=== PATIENT | male | born 1950 | race Caucasian/White ===

== ENCOUNTER 2019-11-19 17:44 | Outpatient (CLI) | payer MEDICARE, MEDICAID, SELFPAY | END 2019-11-19 17:45 | disposition home or self-care (01) | LOC: LAB 17:46 | PROVIDERS: Family Provider Internal Medicine; PCP Nurse Practitioner Family; Visit Provider Internal Medicine | DX: Z76.89 Persons encountering health services in other specified circumstances (principal) ==

== ENCOUNTER → 2019-11-22 10:41 | Outpatient (BNVA) | payer MEDICARE, MEDICAID, SELFPAY | PROVIDERS: Family Provider Internal Medicine; PCP Nurse Practitioner Family; Visit Provider Nurse Practitioner Family | DX: N50.89 Other specified disorders of the male genital organs (principal) | CPT/HCPCS: 81001 ==

== ENCOUNTER → 2020-03-27 10:58 | Outpatient (BNVA) | payer MEDICARE, MEDICAID, SELFPAY | PROVIDERS: Family Provider Internal Medicine; PCP Nurse Practitioner Family; Visit Provider Internal Medicine Cardiovascular Disease | DX: I50.32 Chronic diastolic (congestive) heart failure (principal); I48.0 Paroxysmal atrial fibrillation; I71.2 Thoracic aortic aneurysm, without rupture; I11.0 Hypertensive heart disease with heart failure | CPT/HCPCS: 80053; 83735; 83880 ==

== ENCOUNTER 2020-08-20 10:17 | Outpatient (CLI) | payer MEDICARE, MEDICAID, SELFPAY ==
[2020-08-20 10:53] LABS: Blood Urea Nitrogen 11 mg/dL (8-23); Glomerular Filtration Rate 111.8 mL/min (90-130)
[2020-08-20] MEDS: iohexol 350 mg/mL 100 mL Btl IV (10:58)
--- NOTE | 2020-08-20 11:00 | CT_ITS ---
WS: [id number] CTA THORACIC TECHNIQUE: Contrast enhanced CTA of the thoracic aorta with coronal and sagittal reformatted images a nd maximum intensity projection (MIP) images. CLINICAL INFORMATION: Thoracic aortic aneurysm COMPARISON: None. DLP: 1432.[address] scans at [facility] use at least one of these dose optimization techniques: automat ed exposure control; mA and/or kV adjustment per patient size (includes targeted exams where dose is matched to clinical indication); or iterative reconstruction. FINDINGS: Aneurysmal ascending thoracic aorta measuring 5.4 CM. Aortic calcification. Coronary calcification. N ormal caliber descending thoracic aorta. Cardiomegaly. Moderate to large fat-containing esophageal hi atal hernia. This is unchanged. No mediastinal or hilar lymphadenopathy. No axillary lymphadenopathy. Mild chronic emphysematous changes. Fibrosis in the lung apices. No acute pulmonary infiltrates. Fatty atrophy of the pancreas. Adrenal glands are normal. Hypertrophic changes thoracic spine. Modera te thoracic kyphosis. CT/CT angio chest [id number] IMPRESSION: 1. Stable ascending thoracic aortic aneurysm measuring 5.6 CM. This is unchang ed. 2. Mild chronic emphysematous changes. No acute pulmonary infiltrates. 3. Moderate to large esophageal hiatal hernia unchanged. 4. No other significant changes from previous.
== END 2020-08-20 10:18 | disposition home or self-care (01) ==
LOC: RADWPI 10:24
PROVIDERS: PCP Nurse Practitioner Family; Visit Provider Internal Medicine Cardiovascular Disease
DX: I71.2 Thoracic aortic aneurysm, without rupture (principal); I50.32 Chronic diastolic (congestive) heart failure; K44.9 Diaphragmatic hernia without obstruction or gangrene
CPT/HCPCS: 71275; 82565; 84520; Q9967

== ENCOUNTER 2020-10-19 17:58 | Inpatient (IN) | payer MEDICARE, MEDICAID, SELFPAY ==
[2020-10-19] VITALS (30 sets, daily range): BP systolic 74–147; BP diastolic 51–100; PULSE 66–202; RESP 14–35; TEMP 36.1–36.2; O2SAT 97–100; BMI 30.5
--- NOTE | 2020-10-19 18:10 | XR_ITS ---
WS: [id number] Exam: XR chest 1V portable [id number] Date/Time of Exam: 10/19/2020 6:30 PM Reason For Exam: chest pain Comparison 10/05/2018. Increasing widespread bilateral infiltrates. The heart is top limits normal size. Right basal pleural effusion has developed since the previous study. An ET tube is noted ending about 3 cm above the car love. The lungs appear to be adequately ventilated. An enteric tube barely enters the stomach. The jessica e-port of the tube is probably in the esophagus. XR/XR chest 1V portable [id number] IMPRESSION: 1. Increasing infiltrates throughout both lungs. Small right basal pleural effu ray. 2. ET tube in place appearing to be in satisfactory position. 3. Enteric tube in place barely entering the stomach. The side-port of the tube is probably in the distal esophagus. The tube should be advanced another 5 to 6 cm for optimal position.
--- NOTE | 2020-10-19 18:11 | ECG_ITS ---
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1950 Requested By: Ayden Serrano I Order Number: [id number] Reading MD: RICARDA RAPHAEL Measurements Intervals [place] Rate: 133 P: 68 ME: 155 QRS: 71 QRSD: 102 T: 246 QT: 269 QTc: 401 Interpretive Statements SINUS TACHYCARDIA WITH FREQUENT VENTRICULAR PREMATURE COMPLEXES IN A BIGEMINAL PATTERN SEPTAL MYOCARDIAL INFARCTION , OF INDETERMINATE AGE [40+ ms Q WAVE IN V1/V2] Bigeminal PVCs Compared to ECG 04/20/2018 19:50:00 Ventricular premature complex(es) now present Electronically Signed On 10-19-2020 21:23:13 RESEARCH/PROGRAM DIRECTOR by RICARDA RAPHAEL [id number]
[2020-10-19 18:22] LABS: Basophils % 0.3 %; Eosinophils # 0.1 10^3/uL (0.0-0.8); Eosinophils % 0.4 %; Hematocrit 42.9 % (42.0-52.0); Hemoglobin 13.3 g/dL (11.7-16.6); Lymphocytes # 2.5 10^3/uL (0.8-4.8); Lymphocytes % 22.8 %; Mean Corpuscular Hemoglobin 28.8 pg (28.0-34.0); Mean Corpuscular Volume 92.9 fL (80-94); Mean Platelet Volume 11.5 fL (7.4-10.4); Neutrophils # 7.49 10^3/uL (1.8-7.7); Neutrophils % 67.1 %; Nucleated Red Blood Cells % 0 %; Platelet Count 363 10^3/cmm (130-400); Red Blood Count 4.62 10^6/uL (4.1-5.3); White Blood Count 11.2 10^3/uL (4.0-10.0)
--- NOTE | 2020-10-19 18:23 | PM.HP ---
Providers/Chief Complaint Primary Care Provider: NETTE Segovia Chief Complaint: CHEST PAIN History of Present Illness Riki Polanco is a 70 year old male Review of Systems ENMT: Denies: enlarged tonsils All/Imm: Denies: acute wheezing Medications/Allergies Home Medications Medication Instructions Recorded Confirmed Last Taken Type aspirin 81 mg tablet,delayed 81 mg PO DAILY 11/01/19 07/31/20 Unknown History release apixaban 5 mg tablet 5 mg PO BID #180 tab 07/31/20 07/31/20 Unknown Rx bumetanide 1 mg tablet 1 mg PO BID #180 tab 07/31/20 07/31/20 Unknown Rx carvedilol 6.25 mg tablet 6.25 mg PO BID #180 tab 07/31/20 07/31/20 Unknown Rx lisinopril 5 mg tablet 5 mg PO DAILY #90 tab 07/31/20 07/31/20 Unknown Rx potassium chloride 10 mEq 10 meq PO BID #180 cap 07/31/20 07/31/20 Unknown Rx capsule,extended release spironolactone 25 mg tablet 25 mg PO DAILY #90 tab 07/31/20 07/31/20 Unknown Rx Allergies Allergy/AdvReac Type Severity Reaction Status Date / Time No Known Allergies Allergy Verified 11/22/19 10:35 PFSH Acute PFSH: Medical History Afib Congestive heart failure Hypertension Scrotal edema Thoracic aortic aneurysm Surgical History Hx of cataract surgery Family History Other CAD (coronary artery disease) Social History Smoking and tobacco status: never smoked Alcohol intake: never Adopted: No Caregiver/support person: No Lives independently: Yes Marital status: Single Current occupational status: retired History of recent travel: No Vitals/I&O/Wt Last Vital Signs Pulse 128 H 10/19/20 18:17 Resp 32 H 10/19/20 18:17 BP 147/100 10/19/20 18:17 Pulse Ox 100 10/19/20 18:17 Weight last 48 hrs Weight 225 lb Data : 10/19/20 18:00 10/19/20 18:00 Coding Level of Care Code Acute Profile 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
[2020-10-19] MEDS: amiodarone 50 mg/mL SDV 3 mL 150 MG IVP (18:30)
[2020-10-19 18:34] LABS: INR 1.28 (0.8-1.2)
[2020-10-19] MEDS: succinylcholine 20 mg/mL SDV 10mL 200 MG IVP (18:42)
[2020-10-19 18:46] LABS: ABG PCO2 52.1 mmHg (35-45); ABG PH Result 7.32 (7.35-7.45); Alveolar-Arterial Oxygen Gradi 60.2 mmHg (5-10); Arterial Blood Gas Hematocrit 43.2 % (42-52); Base Excess ABG 0.1 mmol/L (-2.0-2.0); Blood Gas Allen Test Pos; Blood Gas Operator Identificat GD; Blood Gas Sample Site Radial, left; Blood Gas Sample Type Arterial; HCO3 ABG 27.1 mmol/L (22-26); HGB O2 Sat 97.9 % (95-100); Ionized Calcium Level - ABG 1.1 mmol/L (1.1-1.4); Methemoglobin 0.8 % (0.4-1.5); Oxygen Device NRB; Oxygen Saturation ABG 99.7; Potassium Level - ABG 4.1 mmol/L (3.5-5.0); Total Hemoglobin 14.1 g/dL (14-18)
--- NOTE | 2020-10-19 18:46 | P.CONIM_ITS ---
Providers/Reason For Consult Consulting Physican/Specialty*: Cardiology Reason for Consult*: Ventricle tachycardia requiring electrical cardioversion Requesting Lisethcian: Dr. Serrano Attending Physician: Dr. Arcos Primary Care Provider: NETTE Segovia History of Present Illness History of Present Illness Riki Polanco is a 70 year old male presented to ER through EMS with agitation shortness of breath hypoxia lower extremity edema and multiple PVCs on the strip. Upon arrival patient rhythm degenerated into ventricle tachycardia. He was shocked out of the rhythm and amiodarone was started. We have been asked to see the patient post shock EKG was not consistent sinus tachycardia, PACs and frequent PVCs possible anterior old myocardial infarction or lead placement with poor R wave progression in the anterior leads. No other significant ST elevation noted. Labs are pending. I examined the patient in the ER he was not able to breathe, he is sitting in the bed and combative. Physical examination is consistent with pulmonary edema. Due to severe agitation patient has not been able to use BiPAP therefore he will be intubated. Currently he is denying chest pain. Patient is not able to give any more history his past medical history significant for chronic atrial fibrillation on anticoagulation diastolic heart failure no significant coronary artery disease as per angiogram in 2018 moderate aortic stenosis, ascending aortic aneurysm 5.6 cm by last CTA in July [address] Flanagan. Meds/Allergies Home Medications and Allergies Home Medications Medication Instructions Recorded Confirmed Last Taken Type aspirin 81 mg tablet,delayed 81 mg PO DAILY 11/01/19 07/31/20 Unknown History release apixaban 5 mg tablet 5 mg PO BID #180 tab 07/31/20 07/31/20 Unknown Rx bumetanide 1 mg tablet 1 mg PO BID #180 tab 07/31/20 07/31/20 Unknown Rx carvedilol 6.25 mg tablet 6.25 mg PO BID #180 tab 07/31/20 07/31/20 Unknown Rx lisinopril 5 mg tablet 5 mg PO DAILY #90 tab 07/31/20 07/31/20 Unknown Rx potassium chloride 10 mEq 10 meq PO BID #180 cap 07/31/20 07/31/20 Unknown Rx capsule,extended release spironolactone 25 mg tablet 25 mg PO DAILY #90 tab 07/31/20 07/31/20 Unknown Rx Allergies Allergy/AdvReac Type Severity Reaction Status Date / Time No Known Allergies Allergy Verified 11/22/19 10:35 Current Medications Current Medications Generic Name Dose Route Start Last Admin Trade Name Chiragq PRN Reason Stop Dose Admin Amiodarone HCl 900 mg/ 518 mls @ 0 mls/hr 10/19/20 18:30 10/19/20 18:38 Dextrose/ IV Miscellaneous IV 1 mg/min Supplies .Q0M STEFAN 34.5 mls/hr Administration Protocol Per Protocol PFSH Acute PFSH: Medical History (Updated 10/19/20 @ 18:59 by Maribeth Graf MD) Afib Congestive heart failure Hypertension Scrotal edema Thoracic aortic aneurysm Surgical History Hx of cataract surgery Family History Other CAD (coronary artery disease) Social History Smoking and tobacco status: never smoked Alcohol intake: never Adopted: No Caregiver/support person: No Lives independently: Yes Marital status: Single Current occupational status: retired History of recent travel: No Vitals/I&O/Wt Last Vital Signs Pulse 128 H 10/19/20 18:17 Resp 32 H 10/19/20 18:17 BP 147/100 10/19/20 18:17 Pulse Ox 100 10/19/20 18:17 Weight last 48 hrs Weight 225 lb Physical Exam Narrative: EXAM NARRATIVE: GENERAL: Patient is awake agitated but disoriented can answer some question occasionally is asking for water NECK: Thick neck cannot assess distension. HEENT: No cyanosis. No icterus. No pallor. HEART: Irregular S1 and S2. No murmur, rub or gallop. LUNGS: Reduced air entry with inspiratory right-sided crackle and bronchitis bilaterally. ABDOMEN: Soft, nontender and mildly distended. Positive bowel sounds. CENTRAL NERVOUS SYSTEM: Grossly nonfocal. EXTREMITIES: Lower extremities with 1+ edema bilaterally. A&P Assessment and plan (1) Ventricular tachycardia, sustained: Could be ischemic but most likely due to pulmonary edema/severe heart failure. We will rule out electrolyte imbalance. Check magnesium and potassium. Agree with continuing IV amiodarone. Patient has been shocked out of the rhythm currently he is in sinus tachycardic with PACs Status: Acute (2) Pulmonary edema: Most likely due to acute or chronic CHF exacerbation with decompensated state however cannot rule out underlying ischemia. At this point we will intubate the patient and diurese him with IV Lasix 80 twice daily. We recommend starting him on IV nitro for vasodilatory effect at the same time as antiischemic remedy. Patient is on apixaban and having vandana hemoptysis therefore we will hold onto heparin now. We will check BNP x-ray chest less likely pulmonary embolism since patient is on apixaban if he is compliant with it. Status: Acute Qualifiers: Chronicity: acute Qualified Code(s): J81.0 - Acute pulmonary edema (3) CHF exacerbation: We will like to diurese the patient, will obtain echocardiogram to assess LV function. Once euvolemic will optimize medicine. Status: Acute Qualifiers: Heart failure type: unspecified Qualified Code(s): I50.9 - Heart failure, unspecified (4) Hypertension: Patient will be on nitro drip currently blood pressure is under control. Status: Acute Qualifiers: Hypertension type: essential hypertension Qualified Code(s): I10 - Essential (primary) hypertension (5) Afib: Patient is on amiodarone and anticoagulated Status: Acute Qualifiers: Atrial fibrillation type: paroxysmal Qualified Code(s): I48.0 - Paroxysmal atrial fibrillation (6) Thoracic aortic aneurysm: Patient has large ascending aortic aneurysm he is following up with Dr. Flanagan as an outpatient. This is not his acute problem at the moment. Status: Acute Qualifiers: Presence of rupture: without rupture Qualified Code(s): I71.2 - Thoracic aortic aneurysm, without rupture Consult Attestations Medical Necessity Statement: Patient will be requiring hospitalization in the ICU for above defined care. 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
[2020-10-19] MEDS: propofol 1,000 MG/100 ML INJ 6.1 MG (18:48)
[2020-10-19 18:56] LABS: Troponin(5th) Baseline 32 ng/L (0-15)
[2020-10-19 19:00] LABS: Alanine Aminotransferase 42 U/L (0-41); Albumin Level 3.8 g/dL (3.5-5.2); Alkaline Phosphatase 73 IU/L (40-130); Aspartate Amino Transferase 33 U/L (0-40); Blood Urea Nitrogen 24 mg/dL (8-23); Calcium 8.7 mg/dL (8.5-10.5); Carbon Dioxide 28 mmol/L (22-29); Chloride 90 mmol/L (98-107); Creatine Phosphokinase 118 U/L (39-308); Glucose 209 mg/dL (65-115); NT Pro B Type Natriuretic Pept 5501 pg/mL (0-125); Osmolality Calculated 290 mOsm/kg (285-295); Sodium 135 mmol/L (136-145); Total Bilirubin 0.7 mg/dL (0.15-1.2)
[2020-10-19 19:14] LABS: Anion Gap 20.8 (5-19); Potassium 3.8 mmol/L (3.5-5.1)
[2020-10-19] MEDS: FUROsemide 10 mg/mL SDV 10mL 80 MG IVP (19:14)
[2020-10-19 19:39] LABS: SARS Covid-2 Antigen Negative (Negative)
--- NOTE | 2020-10-19 20:11 | ECG_ITS ---
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1950 Requested By: Ayden Serrano I Order Number: [id number] Reading MD: RICARDA RAPHAEL Measurements Intervals [place] Rate: 129 P: 40 MN: 163 QRS: 53 QRSD: 108 T: 208 QT: 292 QTc: 429 Interpretive Statements SINUS TACHYCARDIA WITH FREQUENT VENTRICULAR PREMATURE COMPLEXES ST DEVIATION AND MODERATE T-WAVE ABNORMALITY, CONSIDER LATERAL ISCHEMIA [-0.1+ mV T WAVE IN I/aVL/V5/V6] Compared to ECG 10/19/2020 18:05:43 T-wave abnormality now present Possible ischemia now present Myocardial infarct finding no longer present Electronically Signed On 10-20-2020 18:38:41 E LEARNING DEVELOPER by RICARDA RAPHAEL [id number]
--- NOTE | 2020-10-19 20:22 | PM.HP ---
Providers/Chief Complaint Primary Care Provider: NETTE Segovia Chief Complaint: CHEST PAIN History of Present Illness Riki Polanco is a 70 year old male who has history of preserved ejection fraction heart failure grade 1 diastolic dysfunction, thoracic aortic aneurysm 5.6 cm, paroxysmal atrial fibrillation status post cardioversion and amiodarone in the past, presented today for respite distress. At the time my evaluation patient is intubated and sedated. He is hypotensive, on vasopressor. Most of the information has been gleaned from previous charts and ER physician report. Reportedly patient was experiencing respite distress for quite some time, he was avoiding coming to the hospital because of pandemic, today he called EMS because of worsening shortness of breath. When EMS evaluated him he was saturating 70% on room air hence he was put on nonrebreather mask. On arrival in the ER his EKG showed sustained V. tach for which he was cardioverted, cardiology evaluated the patient in the ER and recommended CHF management and overnight monitoring in the ICU, no urgent need for cardiac catheterization as per cardiology. Patient required to synchronize electrical cardioversion to sustain normal sinus rhythm. At the time evaluation by Dr. Garcia he was in sinus rhythm with multiple PVCs and PACs, potassium 3.8, I have requested magnesium and TSH level. His BNP is greater than 5000, x-rays consistent with pulmonary edema. First troponin 32, EKG is not showing any ischemic or infarctive changes. ABG shows compensated respiratory failure hypoxemia on 100% FiO2 In the ER I have requested propofol drip to be changed to fentanyl, decrease PEEP to 5 from 8 FiO2 50% 100%, requested CTA chest to rule out thoracic aortic aneurysm leakage. Review of Systems General: Reports: ROS unobtainable due to endotracheal tube Medications/Allergies Home Medications Medication Instructions Recorded Confirmed Last Taken Type aspirin 81 mg tablet,delayed 81 mg PO DAILY 11/01/19 07/31/20 Unknown History release apixaban 5 mg tablet 5 mg PO BID #180 tab 07/31/20 07/31/20 Unknown Rx bumetanide 1 mg tablet 1 mg PO BID #180 tab 07/31/20 07/31/20 Unknown Rx carvedilol 6.25 mg tablet 6.25 mg PO BID #180 tab 07/31/20 07/31/20 Unknown Rx lisinopril 5 mg tablet 5 mg PO DAILY #90 tab 07/31/20 07/31/20 Unknown Rx potassium chloride 10 mEq 10 meq PO BID #180 cap 07/31/20 07/31/20 Unknown Rx capsule,extended release spironolactone 25 mg tablet 25 mg PO DAILY #90 tab 07/31/20 07/31/20 Unknown Rx Allergies Allergy/AdvReac Type Severity Reaction Status Date / Time No Known Allergies Allergy Verified 11/22/19 10:35 PFSH Acute PFSH: Medical History Atrial fibrillation Chronic anticoagulation Congestive heart failure Hypertension Moderate aortic stenosis Normal coronary angiogram 2017 Scrotal edema Thoracic aortic aneurysm 5.6 cm CTA August [address] Flanagan Surgical History Hx of cataract surgery Family History Other CAD (coronary artery disease) Social History Smoking and tobacco status: never smoked Alcohol intake: never Adopted: No Caregiver/support person: No Lives independently: Yes Marital status: Single Current occupational status: retired History of recent travel: No Vitals/I&O/Wt Last Vital Signs Pulse 82 10/19/20 19:50 Resp 16 10/19/20 19:50 BP 77/52 10/19/20 19:50 Pulse Ox 100 10/19/20 19:50 10/19/20 10/19/20 10/19/20 06:59 14:59 22:59 Intake Total 3.457 / 3.457 Balance 3.457 / 3.457 Weight last 48 hrs Weight 102.058 kg Physical Exam Narrative: EXAM NARRATIVE: elderly male Appears stated age Clinically looks fluid overloaded Intubated and sedated currently on propofol which was switched to fentanyl current propofol rate was 20, Levophed running at 12 mics, amiodarone drip at the bedside Systolic blood pressure 90 mean arterial pressure 65 mmHg Bilateral assisted breath sounds Hard to assess JVD, supple neck Constricted pupils Abdomen soft, bowel sound present Neuro exam limited Bilateral lower extremity edema3+, pedal edema positive no signs of gangrene ulcer or cyanosis Multiple skin tags all over his body No joint swelling noted Massive scrotal edema Urinary Catheter Management^: Wills: Cath Placed During This Visit: yes Urinary Catheter Date of Insertion: 10/19/20 Urinary Catheter Time of Insertion: 18:57 Data : 10/19/20 18:00 10/19/20 18:00 A&P Assessment and plan (1) Ventricular tachycardia, sustained: Status: Acute (2) On mechanically assisted ventilation: Status: Acute (3) CHF exacerbation: Status: Acute Qualifiers: Heart failure type: unspecified Qualified Code(s): I50.9 - Heart failure, unspecified (4) Pulmonary edema: Status: Acute Qualifiers: Chronicity: acute Qualified Code(s): J81.0 - Acute pulmonary edema (5) Thoracic aortic aneurysm: Status: Acute Qualifiers: Presence of rupture: without rupture Qualified Code(s): I71.2 - Thoracic aortic aneurysm, without rupture (6) Hypoxia: Status: Acute Additional A&P Information Sustained V. tach, unstable Patient was cardioverted twice in the ER, sinus rhythm obtained and he was intubated afterwards because of respiratory distress, patient did not lose pulse Evaluated by dog warden Dr. Garcia no urgent need of cardiac catheterization First troponin 32 delta troponin 15 EKG showing sinus rhythm with multiple PVCs without ischemic or infarctive changes His compliance with Eliquis is questionable my concern is also high for pulmonary embolism I would go ahead and start him on Lovenox therapeutic dose twice a day Check magnesium level and TSH Most likely this is related to coronary ischemia however review of previous records revealed he had normal angiogram which was done 2018 Would request echo in the morning We will update cardiology if there is a significant change in his EKG or hemodynamics overnight Diastolic congestive heart failure exacerbation High BNP clinically looks fluid overloaded Concern for cardiogenic shock currently he is hypotensive after intubation Judicious use of fluids, I would use Bumex 1 mg daily for now because of hypotension Chest x-ray consistent with pulmonary edema Rule out coronary ischemia Acute hypoxic respiratory failure requiring mechanical ventilation Patient was intubated because of respite distress I would use fentanyl because of hypotension, vasopressors Levophed We will check procalcitonin level to rule out bacterial pneumonia however x-ray is consistent with primary edema, would hold off on antibiotics for now Concern for PE as well, compliance with medication unknown would use Lovenox therapeutic dose twice a day for now if hemoglobin drops drastically I would hold his therapeutic Lovenox dose Currently is hypoxemic on mechanical ventilator FiO2 100% which I would reduce to 50% with PEEP 5 We will check D-dimer level Thoracic aortic aneurysm 6.[address] Flanagan no acute rupture or drop in hemoglobin, no acute decompensation, considering significant dimensions I would request CTA chest to make sure there is no leakage which could present with CHF and V. tach Full code Tube feeding DVT prophylaxis not needed currently on therapeutic dose Lovenox Attestations Medical Necessity Statement*: Anticipating stay in the hospital cross more than 2 midnights currently need investigation to rule out coronary ischemia for recent sustained V. tach, needs diuresis for CHF exacerbation rule out cardiogenic shock, need ICU monitoring, Time Spent in Patient Care: (>than 50% of time spent in counselling and/or direct pt care on unit). 50mins Coding Level of Care Code Acute Business Services Clerk for Chg Fwd Diagnoses Ventricular tachycardia, sustained I47.2 On mechanically assisted ventilation Z99.11 CHF exacerbation I50.9 Heart failure type: unspecified Pulmonary edema J81.0 Chronicity: acute Thoracic aortic aneurysm I71.2 Presence of rupture: without rupture Hypoxia R09.02
[2020-10-19 20:23] LABS: Troponin 5 2HR 47.79 ng/L (0-15)
[2020-10-19 20:28] LABS: Troponin 5 2HR Delta 15.79 ABS# (0-10)
[2020-10-19 20:28] LABS: ABG PCO2 46.9 mmHg (35-45); ABG PH Result 7.44 (7.35-7.45); Arterial Blood Gas Hematocrit 38.6 % (42-52); Base Excess ABG 6.3 mmol/L (-2.0-2.0); Blood Gas Allen Test Pos; Blood Gas Sample Type Arterial; HCO3 ABG 31.5 mmol/L (22-26); HGB O2 Sat 98.6 % (95-100); Ionized Calcium Level - ABG 1.1 mmol/L (1.1-1.4); Methemoglobin 0.7 % (0.4-1.5); Oxygen Saturation ABG > 100.0; Total Hemoglobin 12.6 g/dL (14-18)
[2020-10-19 20:30] LABS: Alveolar-Arterial Oxygen Gradi 33.6 mmHg (5-10); Blood Gas Sample Site Radial, right; Oxygen Device VENT
[2020-10-19 20:34] LABS: Add Urine Microscopic? NO
--- NOTE | 2020-10-19 20:36 | CTR_ITS ---
PROCEDURE INFORMATION: Exam: CT Angiography Chest Without And With Contrast Exam date and time: 10/19/2020 9:39 PM Age: 70 years old Clinical indication: Chest pain; Type not specified; Patient HX: Known thoracic aneurysm C/O cp w SOB; Additional info: Thoracic aneurysm, 6.5cm TECHNIQUE: Imaging protocol: Computed tomographic angiography of the chest without and with intravenous contrast. 3D rendering (Not supervised by radiologist): MIP and/or 3D reconstructed images were created by the technologist. Radiation optimization: All CT scans at this facility use at least one of these dose optimization techniques: automated exposure control; mA and/or kV adjustment per patient size (includes targeted exams where dose is matched to clinical indication); or iterative reconstruction. Contrast material: OMNI 350; Contrast volume: 95 ml; Contrast route: INTRAVENOUS (IV); COMPARISON: 1. CT angio chest [id number] 08/20/2020 10:57 AM 2. CTA Chest w Abd/Pel w* 04/20/2018 10:21:28 PM RADIATION DOSE METRICS: Total DLP (mGy-cm): 2430.32 FINDINGS: Tubes, catheters and devices: There is an endotracheal tube in place with its tip approximately 4 cm above the darinel. There is a nasogastric tube extending into the stomach. Pulmonary arteries: There is no evidence of filling defects within the pulmonary arterial circulation to suggest pulmonary embolism. Aorta: There is aneurysm of the ascending thoracic aorta with maximum diameter of approximately 5 cm not significantly changed compared with 04/20/2018. There is no evidence of aortic dissection. Lungs: There is compressive atelectasis of so portions of both lower lobes. There is some pneumonic consolidation posteriorly in the right upper lobe and there are infiltrates and consolidation in both lower lobes in a peribronchial distribution most likely representing bacterial pneumonia. There is also infiltrate in the left upper lobe a more ground-glass appearance which may represent some pulmonary edema such as in congestive failure. There is mild thickening of the interlobular septa which may represent some interstitial edema. Pleural space: There are large bilateral pleural effusions. Heart: There is mild atherosclerotic calcification of the coronary arteries. There is mild cardiomegaly. Mediastinal space: There is sliding-type hiatus hernia which is smaller than on the previous examination. Lymph nodes: Unremarkable. No enlarged lymph nodes. Bones/joints: Unremarkable. No acute fracture. Soft tissues: Unremarkable. Other findings: . Correlation with appropriate clinical and laboratory findings is suggested. CT/CT angio chest [id number] IMPRESSION: 1. Bilateral pneumonia. 2. Large bilateral pleural effusions. 3. Stable appearance of thoracic aortic aneurysm. 4. No evidence of pulmonary embolism. 5. Satisfactory position of endotracheal tube. 6. Possible congestive failure and edema. Radiation Dose CTDIVOL = (mGy): DLP = 2430.32 (mGy-cm)
[2020-10-19 20:49] LABS: Thyroid Stimulating Hormone 5.16 uIU/mL (0.27-4.20)
[2020-10-19 21:00] LABS: Magnesium 2.5 mg/dL (1.7-2.3)
[2020-10-19 21:02] LABS: Bilirubin Urine Neg (Negative); Blood Urine Neg (Negative); Glucose Urine UA Norm (Normal); Ketones Urine Negative (Negative); Nitrate Urine Negative (Negative); Protein Urine Neg (Negative); Specific Gravity, Urine 1.015 (1.005-1.030); Urine Appearance Clear (CLEAR); Urine Color Yellow (Yellow); pH Urine 6.5 (5-7)
[2020-10-19 21:03] LABS: Leukocyte Esterase Urine Negative (Negative); Urobilinogen Urine 1 mg/dL (Negative)
[2020-10-19] MEDS: LORazepam 2 mg/mL INJ 1 mL IVP (21:55)
[2020-10-19] MEDS: iohexol 350 mg/mL 100 mL Btl IV (22:11)
--- NOTE | 2020-10-19 22:29 | ED_ITS ---
HPI - General Adult General: Chief complaint: General Medical Stated complaint: CHEST PAIN Time Seen by Provider: 10/19/20 18:10 Source: patient and EMS Mode of arrival: EMS Limitations: altered mental status History of Present Illness: HPI narrative: The patient is in severe distress and I am unable to obtain a history because of this. Most of the history is obtained from [facility]. The patient was able to answer a few of my questions. As best as I can ascertain the patient has been unwell for several days with chest pain and shortness of breath. The patient did not want to come to the hospital because of fears of sandra COVID-19. However his symptoms continued to get worse and he then called for an ambulance. When the EMS crew got there the patient's oxygen saturation was in the 70s on room air. On the monitor he was running a fever in the 120s. He was then brought in here for evaluation. On arrival to the emergency department the patient was in severe distress, very uncomfortable woman of his oxygen nonrebreather facemask, is unable to lay flat on the bed and has to sit upright, he is asking for water, and was obviously confused and uncooperative. Was very difficult to obtain an IV as the patient was not cooperating with the nurses. When he was placed on the monitor he was in ventricular tachycardia with his heart rate in the 200s. Because of his clinical state a decision was made to immediately defibrillated him and he received 2 shocks, one at 100 J and the other 200 J. After the second shock he converted to a sinus tachycardia with a heart rate in the 120s. Review of Systems General: Reports: ROS unobtainable due to mental status [facility] ED PFSH: Medical History Atrial fibrillation Chronic anticoagulation Congestive heart failure Hypertension Moderate aortic stenosis Normal coronary angiogram 2017 Scrotal edema Thoracic aortic aneurysm 5.6 cm CTA August [address] Flanagan Surgical History Hx of cataract surgery Family History Other CAD (coronary artery disease) Social History Smoking and tobacco status: never smoked Alcohol intake: never Adopted: No Caregiver/support person: No Lives independently: Yes Marital status: Single Current occupational status: retired History of recent travel: No Physical Exam Const: COMMON NORMALS: no acute distress, average body habitus, no limitations, healthy appearing and well nourished HENMT: COMMON NORMALS: normocephalic, atraumatic and moist oral mucous membranes HEAD & SCALP: normocephalic and atraumatic Neck/C-Spine: COMMON NORMALS: no JVD Resp: EFFORT & INSPECTION: No able to speak in complete sentences, Yes tachypneic, Yes respiratory distress, Yes labored and Yes uses accessory muscles AUSCULTATION: crackles and diminished lung sounds Cardio: COMMON NORMALS: no JVD, S1 normal heart sound present, S2 normal heart sound present, No gallops present (Cardio), No clicks present (Cardio), No murmurs present (Cardio), No rub (Cardio) and Peripheral pulses 2+ throughout RATE: tachycardic RHYTHM: abnormal rhythm irregularly irregular HEART SOUNDS: S1 normal heart sound present and S2 normal heart sound present PERIPHERAL PULSES: Peripheral pulses 2+ throughout GI: COMMON NORMALS: Normal to inspection, nondistended, normoactive bowel s ounds present, Soft to palpation, non-tender, No hepatosplenomegaly present, no masses and no bruits PALPATION: Yes Soft to palpation and Yes No hepatosplenomegaly present Extremity: COMMON NORMALS: normal to inspection, full ROM, capillary refill normal and no calf tenderness GENERAL: Yes edema Neuro: SENSORIUM/ORIENTATION: Yes Orientation impaired Skin: COMMON NORMALS: no rashes or lesions noted, no wounds, turgor normal, no jaundice, no petechiae and no mottling GENERAL SKIN EXAM: no rashes or lesions noted and turgor normal Procedures Intubation Time out performed: Yes sedative: Etomidate Mg Given: 30 paralytic: Succinylcholine Mg Given: 200 Laryngoscope: Dedrick Assist Device Used: other (Video-assisted) ET Tube Size: 8 ET Tube Uncuffed: No Tube Secured Depth (cm): 27 Tube Secured Location: lips Tube Placement Confirmation: visualized tube passing through cords, equal breath sounds bilaterally, no breath sounds over epigastrium and confirmation by capnometry Patient Tolerated Procedure: no complications Intubation Complications: none Course Consultations: Consultation #1: Discussed the patient with Dr. Graf telegraph inspector, who eventually came down to see the patient. He debated taking the patient to the Egg Processing Supervisor but on further evaluation of the patient, his EKGs and examination he decided that the patient did not need to be taken to the Egg Processing Supervisor. Time: 18:50 Consultation #2: Discussed the patient with Dr. Arcos, hospitalist and he kindly accepted the patient to his service Time: 20:15 Vital Signs: Vital signs: Vital Signs Temperature 97.2 F L 10/19/20 22:30 Pulse Rate 82 10/19/20 22:30 Respiratory Rate 14 10/19/20 22:27 Blood Pressure 97/59 10/19/20 22:30 Pulse Oximetry 99 10/19/20 22:30 MDM - General Adult MDM Narrative: Medical decision making narrative: This 70 year old male was brought in to the emergency department in respiratory distress. He was also in ventricular tachycardia with his heart rate in the 200s. The patient was deemed unstable and so a decision was made for urgent defib rillation and he required 2 shocks to convert him. The patient remained in severe distress with shortness of breath, had an episode of hemoptysis which was small, and was altered so a decision was made to emergently intubate the patient and place him on mechanical ventilation. Evaluation of the patient is consistent with pulmonary edema from congestive heart failure. He also likely has a non-STEMI. He is admitted to the ICU for further evaluation and management. He was evaluated by the telegraph inspector who advised against anticoagulation and PCI at this time. The patient was given a bolus of 150 mg of amiodarone and started on an amiodarone drip after that. Medical Records: Attestation: I reviewed the patient's medical records. Lab Data: Attestation: I reviewed the patient's lab results. Labs: Lab Results 10/19/20 10/19/20 10/19/20 Range/Units 18:00 18:00 18:00 WBC 11.2 H (4.0-10.0) 10^3/ uL RBC 4.62 (4.1-5.3) 10^6/u L Hgb 13.3 (11.7-16.6) g/dL Hct 42.9 (42.0-52.0) % MCV 92.9 (80-94) fL MCH 28.8 (28.0-34.0) pg MCHC 31.0 (30.0-36.0) g/dL RDW 13.0 (12.1-15.1) % Plt Count 363 (130-400) 10^3/c mm MPV 11.5 H (7.4-10.4) fL Neut % (Auto) 67.1 % Lymph % (Auto) 22.8 % Blaine % (Auto) 9.0 % Eos % (Auto) 0.4 % Baso % (Auto) 0.3 % Neut # (Auto) 7.49 (1.8-7.7) 10^3/u L Lymph # (Auto) 2.5 (0.8-4.8) 10^3/u L Blaine # (Auto) 1.0 H (0.2-0.9) 10^3/u L Eos # (Auto) 0.1 (0.0-0.8) 10^3/u L Baso # (Auto) 0.0 (0.0-0.1) 10^3/u L Nucleated RBC % (a uto) 0 % Nucleated RBCs # 0.0 /100WBC PT 16.40 H (12.1-14.9) SECO NDS INR 1.28 H (0.8-1.2) Specimen Type Sample Site ABG pH (7.35-7.45) ABG pCO2 (35-45) mmHg ABG pO2 (80.0-100.0) mmH g ABG HCO3 (22-26) mmol/L ABG O2 Saturation ABG Base Excess (-2.0-2.0) mmol/ L Michael Test A-a O2 Gradient (5-10) mmHg Hematocrit (42-52) % Hgb O2 Saturation (95-100) % Carboxyhemoglobin (0.4-20.1) %THgb Methemoglobin (0.4-1.5) % Total Hemoglobin (14-18) g/dL Ionized Calcium (1.1-1.4) mmol/L O2 Delivery Device O2 Liters/Min % FiO2 % PEEP cmH20 Performance Test Consultant ID Sodium 135 L (136-145) mmol/L Potassium 3.8 (3.5-5.1) mmol/L Chloride 90 L (98-107) mmol/L Carbon Dioxide 28 (22-29) mmol/L Anion Gap 20.8 H (5-19) BUN 24 H (8-23) mg/dL Creatinine 1.2 (0.7-1.2) mg/dL GFR Calculation 60.0 L (90-130) mL/min Glucose 209 H (65-115) mg/dL Calculated Osmolal ity 290 (285-295) mOsm/k g Calcium 8.7 (8.5-10.5) mg/dL Magnesium (1.7-2.3) mg/dL Total Bilirubin 0.7 (0.15-1.2) mg/dL AST 33 (0-40) U/L ALT 42 H (0-41) U/L Alkaline Phosphata se 73 (40-130) IU/L Creatine Kinase 118 (39-308) U/L Troponin T Baselin e (0-15) ng/L Troponin T 120 [address] [place] (0-15) ng/L Delta Troponin T (0-10) ABS# NT-Pro-B Natriuret Pep 5501 H (0-125) pg/mL Total Protein 8.6 (6.6-8.7) g/dL Albumin 3.8 (3.5-5.2) g/dL Globulin 4.8 H (1.3-4.6) g/dL Procalcitonin (0-0.5) ng/mL TSH (0.27-4.20) uIU/ mL Free T4 (0.82-1.77) ng/d L Urine Color (Yellow) Urine Appearance (CLEAR) Urine pH (5-7) Ur Specific Gravit y (1.005-1.030) Urine Protein (Negative) Urine Glucose (UA) (Normal) Urine Ketones (Negative) Urine Blood (Negative) Urine Nitrate (Negative) Urine Bilirubin (Negative) Urine Urobilinogen (Negative) mg/dL Ur Leukocyte Kelley ase (Negative) SARS-CoV-2 Ag (Rap id) (Negative) 10/19/20 10/19/20 10/19/20 Range/Units 18:00 18:00 18:00 WBC (4.0-10.0) 10^3/ uL RBC (4.1-5.3) 10^6/u L Hgb (11.7-16.6) g/dL Hct (42.0-52.0) % MCV (80-94) fL MCH (28.0-34.0) pg MCHC (30.0-36.0) g/dL RDW (12.1-15.1) % Plt Count (130-400) 10^3/c mm MPV (7.4-10.4) fL Neut % (Auto) % Lymph % (Auto) % Blaine % (Auto) % Eos % (Auto) % Baso % (Auto) % Neut # (Auto) (1.8-7.7) 10^3/u L Lymph # (Auto) (0.8-4.8) 10^3/u L Blaine # (Auto) (0.2-0.9) 10^3/u L Eos # (Auto) (0.0-0.8) 10^3/u L Baso # (Auto) (0.0-0.1) 10^3/u L Nucleated RBC % (a uto) % Nucleated RBCs # /100WBC PT (12.1-14.9) SECO NDS INR (0.8-1.2) Specimen Type Sample Site ABG pH (7.35-7.45) ABG pCO2 (35-45) mmHg ABG pO2 (80.0-100.0) mmH g ABG HCO3 (22-26) mmol/L ABG O2 Saturation ABG Base Excess (-2.0-2.0) mmol/ L Michael Test A-a O2 Gradient (5-10) mmHg Hematocrit (42-52) % Hgb O2 Saturation (95-100) % Carboxyhemoglobin (0.4-20.1) %THgb Methemoglobin (0.4-1.5) % Total Hemoglobin (14-18) g/dL Ionized Calcium (1.1-1.4) mmol/L O2 Delivery Device O2 Liters/Min % FiO2 % PEEP cmH20 Performance Test Consultant ID Sodium (136-145) mmol/L Potassium (3.5-5.1) mmol/L Chloride (98-107) mmol/L Carbon Dioxide (22-29) mmol/L Anion Gap (5-19) BUN (8-23) mg/dL Creatinine (0.7-1.2) mg/dL GFR Calculation (90-130) mL/min Glucose (65-115) mg/dL Calculated Osmolal ity (285-295) mOsm/k g Calcium (8.5-10.5) mg/dL Magnesium 2.5 H (1.7-2.3) mg/dL Total Bilirubin (0.15-1.2) mg/dL AST (0-40) U/L ALT (0-41) U/L Alkaline Phosphata se (40-130) IU/L Creatine Kinase (39-308) U/L Troponin T Baselin e 32 H (0-15) ng/L Troponin T 120 [address] [place] (0-15) ng/L Delta Troponin T (0-10) ABS# NT-Pro-B Natriuret Pep (0-125) pg/mL Total Protein (6.6-8.7) g/dL Albumin (3.5-5.2) g/dL Globulin (1.3-4.6) g/dL Procalcitonin 0.10 (0-0.5) ng/mL TSH 5.16 H (0.27-4.20) uIU/ mL Free T4 1.71 (0.82-1.77) ng/d L Urine Color (Yellow) Urine Appearance (CLEAR) Urine pH (5-7) Ur Specific Gravit y (1.005-1.030) Urine Protein (Negative) Urine Glucose (UA) (Normal) Urine Ketones (Negative) Urine Blood (Negative) Urine Nitrate (Negative) Urine Bilirubin (Negative) Urine Urobilinogen (Negative) mg/dL Ur Leukocyte Kelley ase (Negative) SARS-CoV-2 Ag (Rap id) (Negative) 10/19/20 10/19/20 10/19/20 Range/Units 18:30 19:08 19:23 WBC (4.0-10.0) 10^3/ uL RBC (4.1-5.3) 10^6/u L Hgb (11.7-16.6) g/dL Hct (42.0-52.0) % MCV (80-94) fL MCH (28.0-34.0) pg MCHC (30.0-36.0) g/dL RDW (12.1-15.1) % Plt Count (130-400) 10^3/c mm MPV (7.4-10.4) fL Neut % (Auto) % Lymph % (Auto) % Blaine % (Auto) % Eos % (Auto) % Baso % (Auto) % Neut # (Auto) (1.8-7.7) 10^3/u L Lymph # (Auto) (0.8-4.8) 10^3/u L Blaine # (Auto) (0.2-0.9) 10^3/u L Eos # (Auto) (0.0-0.8) 10^3/u L Baso # (Auto) (0.0-0.1) 10^3/u L Nucleated RBC % (a uto) % Nucleated RBCs # /100WBC PT (12.1-14.9) SECO NDS INR (0.8-1.2) Specimen Type Arterial Sample Site Radial, left ABG pH 7.32 L (7.35-7.45) ABG pCO2 52.1 H (35-45) mmHg ABG pO2 183.0 H (80.0-100.0) mmH g ABG HCO3 27.1 H (22-26) mmol/L ABG O2 Saturation 99.7 ABG Base Excess 0.1 (-2.0-2.0) mmol/ L Michael Test Pos A-a O2 Gradient 60.2 H (5-10) mmHg Hematocrit 43.2 (42-52) % Hgb O2 Saturation 97.9 (95-100) % Carboxyhemoglobin 1.0 (0.4-20.1) %THgb Methemoglobin 0.8 (0.4-1.5) % Total Hemoglobin 14.1 (14-18) g/dL Ionized Calcium 1.1 (1.1-1.4) mmol/L O2 Delivery Device Nrb O2 Liters/Min 15.0 % FiO2 100.0 % PEEP cmH20 Performance Test Consultant ID Gd Sodium 133.0 (136-145) mmol/L Potassium 4.1 (3.5-5.1) mmol/L Chloride (98-107) mmol/L Carbon Dioxide (22-29) mmol/L Anion Gap (5-19) BUN (8-23) mg/dL Creatinine (0.7-1.2) mg/dL GFR Calculation (90-130) mL/min Glucose 246.0 H (65-115) mg/dL Calculated Osmolal ity (285-295) mOsm/k g Calcium (8.5-10.5) mg/dL Magnesium (1.7-2.3) mg/dL Total Bilirubin (0.15-1.2) mg/dL AST (0-40) U/L ALT (0-41) U/L Alkaline Phosphata se (40-130) IU/L Creatine Kinase (39-308) U/L Troponin T Baselin e (0-15) ng/L Troponin T [address] [place] (0-15) ng/L Delta Troponin T (0-10) ABS# NT-Pro-B Natriuret Pep (0-125) pg/mL Total Protein (6.6-8.7) g/dL Albumin (3.5-5.2) g/dL Globulin (1.3-4.6) g/dL Procalcitonin (0-0.5) ng/mL TSH (0.27-4.20) uIU/ mL Free T4 (0.82-1.77) ng/d L Urine Color Yellow (Yellow) Urine Appearance Clear (CLEAR) Urine pH 6.5 (5-7) Ur Specific Gravit y 1.015 (1.005-1.030) Urine Protein Neg (Negative) Urine Glucose (UA) Norm (Normal) Urine Ketones Negative (Negative) Urine Blood Neg (Negative) Urine Nitrate Negative (Negative) Urine Bilirubin Neg (Negative) Urine Urobilinogen 1 H (Negative) mg/dL Ur Leukocyte Kelley ase Negative (Negative) SARS-CoV-2 Ag (Rap id) Negative (Negative) 10/19/20 10/19/20 Range/Units 19:58 20:17 WBC (4.0-10.0) 10^3/ uL RBC (4.1-5.3) 10^6/u L Hgb (11.7-16.6) g/dL Hct (42.0-52.0) % MCV (80-94) fL MCH (28.0-34.0) pg MCHC (30.0-36.0) g/dL RDW (12.1-15.1) % Plt Count (130-400) 10^3/c mm MPV (7.4-10.4) fL Neut % (Auto) % Lymph % (Auto) % Blaine % (Auto) % Eos % (Auto) % Baso % (Auto) % Neut # (Auto) (1.8-7.7) 10^3/u L Lymph # (Auto) (0.8-4.8) 10^3/u L Blaine # (Auto) (0.2-0.9) 10^3/u L Eos # (Auto) (0.0-0.8) 10^3/u L Baso # (Auto) (0.0-0.1) 10^3/u L Nucleated RBC % (a uto) % Nucleated RBCs # /100WBC PT (12.1-14.9) SECO NDS INR (0.8-1.2) Specimen Type Arterial Sample Site Radial, right ABG pH 7.44 (7.35-7.45) ABG pCO2 46.9 H (35-45) mmHg ABG pO2 249.0 H (80.0-100.0) mmH g ABG HCO3 31.5 H (22-26) mmol/L ABG O2 Saturation > 100.0 ABG Base Excess 6.3 H (-2.0-2.0) mmol/ L Michael Test Pos A-a O2 Gradient 33.6 H (5-10) mmHg Hematocrit 38.6 L (42-52) % Hgb O2 Saturation 98.6 (95-100) % Carboxyhemoglobin 1.0 (0.4-20.1) %THgb Methemoglobin 0.7 (0.4-1.5) % Total Hemoglobin 12.6 L (14-18) g/dL Ionized Calcium 1.1 (1.1-1.4) mmol/L O2 Delivery Device Vent O2 Liters/Min % FiO2 80.0 % PEEP 8.0 cmH20 Performance Test Consultant ID Jlg Sodium 133.0 (136-145) mmol/L Potassium 4.0 (3.5-5.1) mmol/L Chloride (98-107) mmol/L Carbon Dioxide (22-29) mmol/L Anion Gap (5-19) BUN (8-23) mg/dL Creatinine (0.7-1.2) mg/dL GFR Calculation (90-130) mL/min Glucose 135.0 H (65-115) mg/dL Calculated Osmolal ity (285-295) mOsm/k g Calcium (8.5-10.5) mg/dL Magnesium (1.7-2.3) mg/dL Total Bilirubin (0.15-1.2) mg/dL AST (0-40) U/L ALT (0-41) U/L Alkaline Phosphata se (40-130) IU/L Creatine Kinase (39-308) U/L Troponin T Baselin e (0-15) ng/L Troponin T [address] [place] 47.79 H (0-15) ng/L Delta Troponin T 15.79 H* (0-10) ABS# NT-Pro-B Natriuret Pep (0-125) pg/mL Total Protein (6.6-8.7) g/dL Albumin (3.5-5.2) g/dL Globulin (1.3-4.6) g/dL Procalcitonin (0-0.5) ng/mL TSH (0.27-4.20) uIU/ mL Free T4 (0.82-1.77) ng/d L Urine Color (Yellow) Urine Appearance (CLEAR) Urine pH (5-7) Ur Specific Gravit y (1.005-1.030) Urine Protein (Negative) Urine Glucose (UA) (Normal) Urine Ketones (Negative) Urine Blood (Negative) Urine Nitrate (Negative) Urine Bilirubin (Negative) Urine Urobilinogen (Negative) mg/dL Ur Leukocyte Kelley ase (Negative) SARS-CoV-2 Ag (Rap id) (Negative) Imaging Data^: CXR: Attestation: I personally reviewed and interpreted this imaging study as follows: My impression: Endotracheal tube with satisfactory placement. Orogastric tube with satisfactory placement. Pulmonary edema+consolidation noted bilaterally. EKG Data^: EKG 1: Attestation: I personally reviewed and interpreted this EKG as follows: EKG interpretation date: 10/19/20 EKG interpretation time: 18:03 Prior EKG tracings: not available for review Interpretation: Ventricular tachycardia Heart rate 214 bpm Computer generated interpretation: Chest CTA 10/19/20 20:36 IMPRESSION: 1. Bilateral pneumonia. 2. Large bilateral pleural effusions. 3. Stable appearance of thoracic aortic aneurysm. 4. No evidence of pulmonary embolism. 5. Satisfactory position of endotracheal tube. 6. Possible congestive failure and edema. Radiation Dose CTDIVOL = (mGy): DLP = 2430.32 (mGy-cm) EKG 2: Attestation: I personally reviewed and interpreted this EKG as follows: EKG interpretation date: 10/19/20 EKG interpretation time: 18:22 Prior EKG tracings: available for review Interpretation: Sinus tachycardia with frequent PVCs. Heart rate [address] deviation. This is post defibrillation Computer generated interpretation: Chest CTA 10/19/20 20:36 IMPRESSION: 1. Bilateral pneumonia. 2. Large bilateral pleural effusions. 3. Stable appearance of thoracic aortic aneurysm. 4. No evidence of pulmonary embolism. 5. Satisfactory position of endotracheal tube. 6. Possible congestive failure and edema. Radiation Dose CTDIVOL = (mGy): DLP = 2430.32 (mGy-cm) Critical Care Time Critical Care Time: Critical Care Time: Yes Total Critical Care Time: 60 Attestation: This case had a high probability of a clinically significant, sudden, or life threatening deterioration of this patient's condition which required my full and direct attention, intervention and personal management. Discharge Plan Discharge Patient Disposition: Admitted As Inpatient Admit Provider: Maribeth Arcos Clinical Impression: Ventricular tachycardia, Acute hypercapnic respiratory failure, Elevated troponin, On mechanically assisted ventilation Pulmonary edema Qualifiers: Chronicity: acute Qualified Code(s): J81.0 - Acute pulmonary edema CHF exacerbation Qualifiers: Heart failure type: unspecified Qualified Code(s): I50.9 - Heart failure, unspecified Condition: Stable Coding Level of Care Code ED Process Control Technician for [facility] Fwd Exam Comprehensive
--- NOTE | 2020-10-19 22:34 | PC.NURSE ---
Patient arrived to ICU at 2217 from ED. Intubated size 8 tube and 27 @ lip 50% FIO2.
[2020-10-19] MEDS: potassium chloride premix 100 ML 25 MEQ IV (22:47)
[2020-10-19] MEDS: atorvastatin 40 mg Tablet 80 MG PO (22:47)
[2020-10-19 23:05] LABS: Free T4 Free Thyroxine 1.71 ng/dL (0.82-1.77)
[2020-10-19 23:11] LABS: Glucose Point of Care 133 mg/dL (70-110)
--- NOTE | 2020-10-19 23:16 | PC.NURSE ---
Addendum entered by Carol Li RN 10/19/20 23:19: Fentanyl gtt running at 100mcg/hr, verified with Wilfred Valladares RN. Medication was running upon admission to ICU from ED. Original Note: Fentanyl gtt not scanned in emergency department, gtt running at time of admission. medication documented as running. medication unable to be scanned accordingly due to ER's MAr not being congruent with Inpatient MAR. Medication verified with Carol Li RN as a continued medication and actively running at 100 mcg/hr.
[2020-10-20] VITALS (96 sets, daily range): BP systolic 91–128; BP diastolic 53–87; PULSE 67–96; RESP 12–18; TEMP 36–37; O2SAT 90–100
--- NOTE | 2020-10-20 00:11 | ECG_ITS ---
[facility] Test Date: 2020-10-20 Pat Name: Riki Polanco Department: Room: [facility] Gender: Male Safety Assistant: : [id number] Requested By: Ayden Serrano I Order Number: [id number] Reading MD: RICARDA RAPHAEL Measurements Intervals [place] Rate: 76 P: 41 DE: 167 QRS: 50 QRSD: 112 T: 31 QT: 436 QTc: 492 Interpretive Statements SINUS RHYTHM WITH OCCASIONAL SUPRAVENTRICULAR PREMATURE COMPLEXES ANTERIOR MYOCARDIAL INFARCTION [40+ ms Q WAVE AND/OR ST/T ABNORMALITY IN V3/V4], PROBABLY INDETERMINATE AGE Compared to ECG 10/19/2020 18:22:09 Myocardial infarct finding now present Sinus tachycardia no longer present Ventricular premature complex(es) no longer present T-wave abnormality no longer present Possible ischemia no longer present Electronically Signed On 10-20-2020 18:38:32 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
[2020-10-20 01:58] LABS: Troponin 5 6HR 53.14 ng/L (0-15)
[2020-10-20 02:00] LABS: Troponin 5 6HR Delta 21.14 ng/L (0-12)
--- NOTE | 2020-10-20 04:00 | XR_ITS ---
WS: [id number] Exam: XR chest 1V portable [id number] Date/Time of Exam: 10/20/2020 5:33 AM Reason For Exam: chf Comparison 10/19/2020. Bilateral pulmonary infiltrates demonstrate some improvement since the prior study. Right basal pleur al effusion is noted. Small new left pleural effusion. Heart size is top limits normal and unchanged. The enteric tube is been repositioned and now ends in the stomach in good position. ET tube ends abo ut 4 cm above the darinel in good position. XR/XR chest 1V portable [id number] IMPRESSION: 1. Improved bilateral pulmonary infiltrates. 2. Small bibasal pleural effusions. 2. The enteric tube is been repositioned and is in satisfactory location. ET tu be is in satisfactory position.
[2020-10-20 04:04] LABS: ABG PCO2 42.1 mmHg (35-45); ABG PH Result 7.49 (7.35-7.45); Arterial Blood Gas Hematocrit 39.3 % (42-52); Base Excess ABG 7.5 mmol/L (-2.0-2.0); Blood Gas Allen Test Pos; Blood Gas Operator Identificat JB; Blood Gas Sample Site Radial, right; Blood Gas Sample Type Arterial; HCO3 ABG 31.7 mmol/L (22-26); Oxygen Device VENT; PO2 ABG 70.1 mmHg (80.0-100.0)
[2020-10-20 04:46] LABS: Basophils % 0.2 %; Eosinophils % 0.1 %; Hematocrit 39.6 % (42.0-52.0); Hemoglobin 12.6 g/dL (11.7-16.6); Lymphocytes # 1.4 10^3/uL (0.8-4.8); Lymphocytes % 13.2 %; Mean Corpuscular HGB Conc 31.8 g/dL (30.0-36.0); Mean Corpuscular Hemoglobin 29.2 pg (28.0-34.0); Mean Corpuscular Volume 91.9 fL (80-94); Mean Platelet Volume 11.8 fL (7.4-10.4); Monocytes # 1.4 10^3/uL (0.2-0.9); Neutrophils # 7.96 10^3/uL (1.8-7.7); Neutrophils % 73.1 %; Nucleated Red Blood Cells % 0 %; Platelet Count 349 10^3/cmm (130-400); Red Blood Count 4.31 10^6/uL (4.1-5.3); Red Cell Distribution Width 13.2 % (12.1-15.1); White Blood Count 10.9 10^3/uL (4.0-10.0)
[2020-10-20 04:57] LABS: Anion Gap 15.9 (5-19); Blood Urea Nitrogen 26 mg/dL (8-23); Carbon Dioxide 30 mmol/L (22-29); Chloride 94 mmol/L (98-107); Creatinine Clr Calc Pharmacy 66.2843; Glomerular Filtration Rate 54.7 mL/min (90-130); Glucose 138 mg/dL (65-115); Osmolality Calculated 287 mOsm/kg (285-295); Potassium 4.9 mmol/L (3.5-5.1); Sodium 135 mmol/L (136-145)
[2020-10-20] MEDS: piperacillin-tazobactam 3.375 GM in sodium chloride 0.9% (plus) 50 ML IV ×2 (07:37→16:11)
[2020-10-20] MEDS: enoxaparin 100 mg/mL Syringe SUBCUT ×2 (08:57→18:05)
[2020-10-20] MEDS: aspirin 81 mg EC Tablet PO (08:58)
[2020-10-20] MEDS: bumetanide 0.25 mg/mL SDV 4 mL 1 MG IV (08:58)
[2020-10-20] MEDS: clopidogrel 75 mg Tablet PO (08:58)
--- NOTE | 2020-10-20 09:04 | PC.CHAP ---
Pastoral Care Encounter/Spiritual Assessment Type of Contact [] Declined merchandise distributor visit [] Patient/Family/Request visit [] Outpatient visit [] Follow-up visit [] Physician referral [] Code/Alert [x] Routine visit [] Staff referral [] Actively dying [] Patient sleeping [] Family support [] [] Out of room [] Palliative care [] [] Receiving care in room [] Pre-surgical visit [] Trauma [] Long length of stay [x] ICU visit [x] Other: standing outside room Relational/Emotional Strength [] Patient feels connected with others/family/visitors/staff [] Distress [] Loneliness/isolation [] Abandonment Spirituality of Patient [] Person of Krissy [] Attends Episcopal of their Krissy [] Believes in Prayer [] Reads Bible or Lutheran materials [] There are Spiritual issues to be addressed Pecan Mallow Dipper Interventions [x] Prayer [] Active listening [] Non-anxious presence [] Spiritual/emotional support [] Crisis/trauma care [] Spiritual counseling [] Bereavement support [] Provided bereavement packet [] Provided Bible/devotional materials [] Provided toy/stuffed animal, coloring book to patient or family member [] Provided Communion [] Anointing/[place] [] Salvation [x] Completed spiritual assessment [] Other: Impact on Illness or Injury [] Angry [] Fearful [] Anxious [] Often cries [] Exhaustion [] Unable to work [] Unable to attend latter day [] Unable to walk/stand [] Unable to read [] Unable to drive [] Unable to eat/drink [] Unable to sleep [] Unable to be with family [] Patient intubated [] Other: Summary Time spent with patient
--- NOTE | 2020-10-20 14:15 | P.PN_ITS ---
Subjective Subjective: Interval history: 70 year old male who has history of preserved ejection fraction heart failure grade 1 diastolic dysfunction, thoracic aortic aneurysm 5.6 cm, paroxysmal atrial fibrillation status post cardioversion and amiodarone in the past, presented today for respite distress. At the time my evaluation patient is intubated and sedated. He is hypotensive, on vasopressor. Most of the information has been gleaned from previous charts and ER physician report. Reportedly patient was experiencing respite distress for quite some time, he was avoiding coming to the hospital because of pandemic, today he called EMS because of worsening shortness of breath. When EMS evaluated him he was saturating 70% on room air hence he was put on nonrebreather mask. On arrival in the ER his EKG showed sustained V. tach for which he was cardioverted, cardiology evaluated the patient in the ER and recommended CHF management and overnight monitoring in the ICU, no urgent need for cardiac catheterization as per cardiology. Patient required to synchronize electrical cardioversion to sustain normal sinus rhythm. At the time evaluation by Dr. Garcia he was in sinus rhythm with multiple PVCs and PACs, potassium 3.8, I have requested magnesium and TSH level. His BNP is greater than 5000, x-rays consistent with pulmonary edema. First troponin 32, EKG is not showing any isc hemic or infarctive changes. ABG shows compensated respiratory failure hypoxemia on 100% FiO2 10/20/20 Intubated on mechanical vent. On Iv pressors, amidarone, and sedated. Vitals/I&O/Wt Last Vital Signs Temp 98.1 F 10/20/20 04:00 Pulse 77 10/20/20 12:00 Resp 12 10/20/20 13:25 BP 94/59 10/20/20 12:00 Pulse Ox 96 10/20/20 12:00 10/19/20 10/20/20 10/20/20 22:59 06:59 14:59 Intake Total 3.457 / 3.457 571.811 / 575.268 268.718 / 268.718 Output Total 400 / 400 400 / 400 Balance 3.457 / 3.457 171.811 / 175.268 -131.282 / -131.282 Weight last 48 hrs Weight 102.058 kg Physical Exam Urinary Catheter Management^: Wills: Cath Placed During This Visit: yes Reason for Continuing Indwelling Catheter: Accurate Measurement of Urinary Output in Critically Ill Patients Urinary Catheter Date of Insertion: 10/19/20 Urinary Catheter Time of Insertion: 18:57 Data : 10/20/20 04:02 10/20/20 04:02 Micro: Microbiology 10/19/20 21:50 Gram Stain - Final Sputum - Endotracheal Tube Aspirate 10/20/20 09:58 Blood Culture - Preliminary Blood SPECIMEN COLLECTED 10/20/20 09:55 Blood Culture - Preliminary Blood SPECIMEN COLLECTED A&P Assessment and plan (1) Ventricular tachycardia, sustained: Status: Acute (2) On mechanically assisted ventilation: Status: Acute (3) CHF exacerbation: Status: Acute Qualifiers: Heart failure type: unspecified Qualified Code(s): I50.9 - Heart failure, unspecified (4) Pulmonary edema: Status: Acute Qualifiers: Chronicity: acute Qualified Code(s): J81.0 - Acute pulmonary edema (5) Thoracic aortic aneurysm: Status: Acute Qualifiers: Presence of rupture: without rupture Qualified Code(s): I71.2 - Thoracic aortic aneurysm, without rupture (6) Hypoxia: Status: Acute Additional A&P Information Sustained V. tach, unstable S/p cardioversion First troponin 32 delta troponin 15 EKG showing sinus rhythm with multiple PVCs without ischemic or infarctive changes Lovenox therapeutic dose twice a day Trend electrylyes Fullow up on ECHO Cardiology on consult Diastolic congestive heart failure exacerbation - Diuresis - Monitor lytes Acute hypoxic respiratory failure requiring mechanical ventilation - On vent - sedated - Fio2 30 % Thoracic aortic aneurysm 6.[address] Flanagan no acute rupture or drop in hemoglobin, no acute decompensation, considering significant dimensions I would request CTA chest to make sure there is no leakage which could present with CHF and V. tach Full code Tube feeding DVT prophylaxis not needed currently on therapeutic dose Lovenox Attestations Medical Necessity Statement*: Will require continued hospitalization for management respiratory failure Time Spent in Patient Care: Greater than 35 minutes (>than 50% of time spent in counselling and/or direct pt care on unit) . Coding Level of Care Code Acute Cdl Service Technician for [facility]g Fwd Diagnoses Ventricular tachycardia, sustained I47.2 On mechanically assisted ventilation Z99.11 CHF exacerbation I50.9 Heart failure type: unspecified Pulmonary edema J81.0 Chronicity: acute Thoracic aortic aneurysm I71.2 Presence of rupture: without rupture Hypoxia R09.02
--- NOTE | 2020-10-20 15:58 | PC.NURSE ---
1000. note scrotum large, possible hernia, dr. hitchcock made aware of, also note drainage around meatus, appears to not have been circumcised, cleaned thoroughly
--- NOTE | 2020-10-20 17:28 | PC.NURSE ---
r.r. up to18. versed up to3 and bed repositioned to more of a semi-fowlers positioned.
--- NOTE | 2020-10-20 17:52 | PC.NURSE ---
r.r. continued up. b.b.s. wheezes and rhonchi. large amt oral secretions removed and mod. amt e.t. secretions suctioned, pink in color. b.b.s. now coarse. r.r. back to
--- NOTE | 2020-10-20 18:39 | P.PN_ITS ---
Subjective Subjective: Interval history: Diuresed well. FiO2 dropped down to 30, x-ray chest also look better. Patient required pressors for the blood pressure. Creatinine 1.3. Troponin T did not go more than 50 Vitals/I&O/Wt Last Vital Signs Temp 97.9 F 10/20/20 16:00 Pulse 79 10/20/20 18:15 Resp 14 10/20/20 17:20 BP 110/68 10/20/20 18:15 Pulse Ox 95 10/20/20 18:15 10/20/20 10/20/20 10/20/20 06:59 14:59 22:59 Intake Total 571.811 / 575.268 268.718 / 268.718 611.1 / 879.818 Output Total 400 / 400 400 / 400 250 / 650 Balance 171.811 / 175.268 -131.282 / -131.282 361.1 / 229.818 Weight last 48 hrs Weight 225 lb Physical Exam Narrative: EXAM NARRATIVE: GENERAL: Patient is intubated and sedated HEENT: No cyanosis. No icterus. No pallor. HEART: Regular S1 and S2. No murmur, rub or gallop. LUNGS: Clear to auscultate ABDOMEN: Soft, nontender and mildly distended. Positive bowel sounds. CENTRAL NERVOUS SYSTEM: Cannot assess due to sedation EXTREMITIES: Lower extremities with trace edema bilaterally. Urinary Catheter Management^: Wills: Cath Placed During This Visit: yes Reason for Continuing Indwelling Catheter: Accurate Measurement of Urinary Output in Critically Ill Patients Urinary Catheter Date of Insertion: 10/19/20 Urinary Catheter Time of Insertion: 18:57 Data : 10/20/20 04:02 10/20/20 04:02 Micro: Microbiology 10/19/20 21:50 Gram Stain - Final Sputum - Endotracheal Tube Aspirate 10/20/20 09:58 Blood Culture - Preliminary Blood SPECIMEN COLLECTED 10/20/20 09:55 Blood Culture - Preliminary Blood SPECIMEN COLLECTED A&P Assessment and plan (1) Ventricular tachycardia, sustained: Remained stable had few episodes of nonsustained ventricular tachycardia. Continue amiodarone Status: Acute (2) Pulmonary edema: Improved. Continue to diurese with diuretics. Status: Acute Qualifiers: Chronicity: acute Qualified Code(s): J81.0 - Acute pulmonary edema (3) CHF exacerbation: . Improving. Continue current regimen. I will assess patient LV function Status: Acute Qualifiers: Heart failure type: unspecified Qualified Code(s): I50.9 - Heart failure, unspecified (4) Afib: Patient is on amiodarone \. Patient is in sinus rhythm continue Status: Acute Qualifiers: Atrial fibrillation type: paroxysmal Qualified Code(s): I48.0 - Paroxysmal atrial fibrillation (5) Thoracic aortic aneurysm: Patient has large ascending aortic aneurysm he is following up with Dr. Flanagan as an outpatient. This is not his acute problem at the moment. Status: Acute Qualifiers: Presence of rupture: without rupture Qualified Code(s): I71.2 - Thoracic aortic aneurysm, without rupture (6) Cardiogenic shock: Patient is on pressors. Continue to diurese. Status: Acute Attestations Medical Necessity Statement*: Patient require continued hospitalization for above defined care. Coding Level of Care Code Established Pt Acute Installation Superintendent for [facility] Fwd Patient Type Established History Expanded Problem Focused Exam Expanded Problem Focused Medical Decision Making Moderate Complexity Diagnoses Ventricular tachycardia, sustained I47.2 Pulmonary edema J81.0 Chronicity: acute CHF exacerbation I50.9 Heart failure type: unspecified Afib I48.0 Atrial fibrillation type: paroxysmal Thoracic aortic aneurysm I71.2 Presence of rupture: without rupture Cardiogenic shock R57.0
--- NOTE | 2020-10-20 18:54 | PC.NURSE ---
resting quieter. esophageal temp probe is in place. 98.6
[2020-10-20 19:56] LABS: Globulin 3.1 g/dL (1.3-4.6); Total Protein 6.9 g/dL (6.6-8.7)
--- NOTE | 2020-10-20 22:18 | USCV_ITS ---
Sherri Riki Age: 70 Gender: M : 1950 Exam Date: 10/20/2020 06:18 Ordering Phys: Maribeth Arcos MD Technologist: Kirt Martinez Exam Location: [facility] [place] Indication: CHEST PAIN BP: 107 / 66 HR: 49 Rhythm: Sinus Technical Quality: Technically difficult study MEASUREMENTS (Male / Female) Normal Values 2D ECHO LV Diastolic Diameter PLAX 5.4 cm 4.2 - 5.9 / 3.9 - 5.3 cm LV Systolic Diameter PLAX 3.5 cm IVS Diastolic Thickness 1.1 cm 0.6 - 1.0 / 0.6 - 0.9 cm IVS Systolic Thickness 3.1 cm LVPW Diastolic Thickness 1.1 cm 0.6 - 1.0 / 0.6 - 0.9 cm LVPW Systolic Thickness 1.0 cm LVOT Diameter 2.1 cm LV Ejection Fraction 2D Teich 29.2 % LV Ejection Fraction MOD 2C 24.3 % LV Ejection Fraction 2C AL 23.3 % LA Diameter 3.8 cm LA Width 4.9 cm LA Height 0.0 cm RA Width 4.5 cm RA Height 4.8 cm M-MODE LV Diastolic Diameter MM 7.1 cm 4.2 - 5.9 / 3.9 - 5.3 cm LV Systolic Diameter MM 5.3 cm LV Ejection Fraction MM Teich 48.5 % IVS Diastolic Thickness MM 1.1 cm 0.6 - 1.0 / 0.6 - 0.9 cm IVS Systolic Thickness MM 1.5 cm LVPW Diastolic Thickness MM 1.2 cm 0.6 - 1.0 / 0.6 - 0.9 cm LVPW Systolic Thickness MM 1.7 cm RV Diastolic Diameter MM 1.5 cm Aortic Annulus Diameter 3.1 cm LA Ao Ratio MM 1.1 MV E Point Septal Separation 1.7 cm DOPPLER AV Peak Velocity 190.3 cm/s LVOT Peak Velocity 81.0 cm/s AV Area Cont Eq vti 1.3 cm squared AV Area Cont Eq pk 1.4 cm squared MV Area PHT 4.2 cm squared Mitral E to A Ratio 2.7 MV E' Velocity 59.0 cm/s Mitral E to MV E' Ratio 30.4 Mitral E to LV E' Lateral Ratio 21.6 Mitral E to LV E' Septal Ratio 53.6 TR Peak Velocity 266.0 cm/s TR Peak Gradient 28.3 mmHg TV Peak E Velocity 72.0 cm/s Right Atrial Pressure 5.0 mmHg Pulmonary Artery Systolic Pressu 33.3 mmHg PV Peak Velocity 42.0 cm/s RV Acceleration Time 0.1 s FINDINGS Left Ventricle Mildly dilated left ventricle. LV systolic function is severely reduced with EF of 15 to 20%. Severe global hypokinesis is noted. Diastolic function cannot be assessed because of atrial fibrillation. Right Ventricle The right ventricle is normal in size and function. Right Atrium The right atrium is normal in size. Left Atrium The left atrium is normal in size. Mitral Valve Structurally normal mitral valve without significant stenosis or prolapse. There is mild to moderate mitral regurgitation. Aortic Valve Structurally normal aortic valve without significant sclerosis or stenosis. There is moderate aortic regurgitation. Tricuspid Valve Structurally normal tricuspid valve without significant stenosis. There is mild tricuspid regurgitation. Insufficient TR jet to calculate RVSP. Pulmonic Valve Structurally normal pulmonic valve without significant stenosis. There is no pulmonic regurgitation. Pericardium Normal pericardium without effusion. Aorta Not well-visualized CONCLUSIONS Technically limited study. Left ventricle is mildly dilated. LV systolic function is severely reduced with EF of 15 to 20%. Severe global hypokinesis is noted. Diastolic function cannot be assessed because of atrial fibrillation. There is mild to moderate mitral regurgitation present. Moderate aortic regurgitation is present. Mild tricuspid regurgitation is seen. Compared to prior echocardiogram from 03/08/2019, LV systolic function is severely reduced now. Edenilson Reis MD (Electronically Signed) Final Date: 20 October 2020 14:07 S
[2020-10-21] VITALS (33 sets, daily range): BP systolic 81–144; BP diastolic 44–66; PULSE 61–81; RESP 12–23; TEMP 36.6–37.1; O2SAT 94–100
[2020-10-21] MEDS: piperacillin-tazobactam 3.375 GM in sodium chloride 0.9% (plus) 50 ML IV ×3 (00:39→15:30)
--- NOTE | 2020-10-21 04:00 | XR_ITS ---
WS: [id number] Exam: XR chest 1V portable [id number] Date/Time of Exam: 10/21/2020 4:00 AM Reason For Exam: chf Comparison 10/20/2020. Infiltrates throughout the mid and lower lung zones show little change since prior study. Small bibas al pleural effusions. The lungs remain fully inflated. The heart is enlarged and there is pulmonary v ascular congestion. ET tube ends about 4 cm above the darinel in good position. An enteric tube is in the stomach unchanged in position. An opaque line with metallic tip is noted in the midline but cours es to the right along the right heart border. Significance of this is undetermined however this line could be in the right mainstem bronchus. XR/XR chest 1V portable [id number] IMPRESSION: 1. Bilateral pulmonary infiltrates and small bibasal pleural effusions showing little change. 2. Cardiac enlargement with pulmonary vascular congestion. 3. ET tube and enteric tube both remain in good position. 4. And additional opaque line with metallic tip is noted in the midline but cou rses to the right along the right heart border. Significance of this line is un determined however this could be in the right mainstem bronchus. This finding s hould be correlated clinically.
[2020-10-21 05:27] LABS: ABG PCO2 42.1 mmHg (35-45); ABG PH Result 7.51 (7.35-7.45); Arterial Blood Gas Hematocrit 37.3 % (42-52); Base Excess ABG 9.1 mmol/L (-2.0-2.0); Blood Gas Allen Test Pos; Blood Gas Sample Type Arterial; HCO3 ABG 33.2 mmol/L (22-26); PO2 ABG 71.2 mmHg (80.0-100.0)
[2020-10-21 05:29] LABS: Blood Gas Operator Identificat JB; Blood Gas Sample Site Radial, right; Oxygen Device VENT
[2020-10-21] MEDS: aspirin 81 mg EC Tablet PO (08:44)
[2020-10-21] MEDS: clopidogrel 75 mg Tablet PO (08:44)
[2020-10-21] MEDS: enoxaparin 100 mg/mL Syringe SUBCUT ×2 (08:46→17:34)
[2020-10-21] MEDS: bumetanide 0.25 mg/mL SDV 4 mL 1 MG IV ×2 (08:46→15:21)
--- NOTE | 2020-10-21 09:12 | PC.CHAP ---
Pastoral Care Encounter/Spiritual Assessment Type of Contact [] Declined clinical sales consultant visit [] Patient/Family/Request visit [] Outpatient visit [] Follow-up visit [] Physician referral [] Code/Alert [x] Routine visit [] Staff referral [] Actively dying [] Patient sleeping [] Family support [] [] Out of room [] Palliative care [] [] Receiving care in room [] Pre-surgical visit [] Trauma [] Long length of stay [x] ICU visit [x] Other: prayer outside room Relational/Emotional Strength [] Patient feels connected with others/family/visitors/staff [] Distress [] Loneliness/isolation [] Abandonment Spirituality of Patient [] Person of Krissy [] Attends Yazidism of their Krissy [] Believes in Prayer [] Reads Bible or Yarsanism materials [] There are Spiritual issues to be addressed Relief Pilot Interventions [x] Prayer [] Active listening [] Non-anxious presence [] Spiritual/emotional support [] Crisis/trauma care [] Spiritual counseling [] Bereavement support [] Provided bereavement packet [] Provided Bible/devotional materials [] Provided toy/stuffed animal, coloring book to patient or family member [] Provided Communion [] Anointing/Marathon [] Salvation [x] Completed spiritual assessment [] Other: Impact on Illness or Injury [] Angry [] Fearful [] Anxious [] Often cries [] Exhaustion [] Unable to work [] Unable to attend congregational [] Unable to walk/stand [] Unable to read [] Unable to drive [] Unable to eat/drink [] Unable to sleep [] Unable to be with family [] Patient intubated [] Other: Summary Time spent with patient
[2020-10-21] MEDS: amiodarone 200 mg Tablet 400 MG PO ×2 (10:15→15:21)
[2020-10-21 10:24] LABS: Basophils # 0.1 10^3/uL (0.0-0.1); Basophils % 0.7 %; Eosinophils # 0.1 10^3/uL (0.0-0.8); Eosinophils % 1.3 %; Hematocrit 37.4 % (42.0-52.0); Hemoglobin 11.8 g/dL (11.7-16.6); Lymphocytes # 1.1 10^3/uL (0.8-4.8); Lymphocytes % 14.3 %; Mean Corpuscular HGB Conc 31.6 g/dL (30.0-36.0); Mean Corpuscular Volume 91.9 fL (80-94); Mean Platelet Volume 12.3 fL (7.4-10.4); Monocytes # 1.1 10^3/uL (0.2-0.9); Neutrophils # 5.18 10^3/uL (1.8-7.7); Neutrophils % 69.3 %; Nucleated Red Blood Cells % 0 %; Platelet Count 197 10^3/cmm (130-400); Red Blood Count 4.07 10^6/uL (4.1-5.3); White Blood Count 7.5 10^3/uL (4.0-10.0)
[2020-10-21 11:15] LABS: Alanine Aminotransferase 32 U/L (0-41); Albumin Level 2.9 g/dL (3.5-5.2); Alkaline Phosphatase 67 IU/L (40-130); Anion Gap 9.7 (5-19); Aspartate Amino Transferase 18 U/L (0-40); Blood Urea Nitrogen 21 mg/dL (8-23); Calcium 8.5 mg/dL (8.5-10.5); Carbon Dioxide 31 mmol/L (22-29); Chloride 94 mmol/L (98-107); Globulin 2.5 g/dL (1.3-4.6); Glucose 102 mg/dL (65-115); Magnesium 2.2 mg/dL (1.7-2.3); Osmolality Calculated 275 mOsm/kg (285-295); Potassium 3.7 mmol/L (3.5-5.1); Sodium 131 mmol/L (136-145); Total Protein 5.4 g/dL (6.6-8.7)
--- NOTE | 2020-10-21 11:37 | PM.PN ---
Subjective Subjective: Interval history: Riki is a pleasant 70 yo man with PMHx of paroxysmal atrial fibrillation s/p cardioversion previously on amiodarone that the patient stopped for unclear reasons few years back, hypertension, aortic stenosis and ascending aortic aneurysm. He had an angiogram on 10/28/2017 and although his stress test was abnormal, his angiogram was normal. CTA of his thoracic aorta was done 07/2020 showed ascending thoracic aortic aneurysm with a maximum dimension 5.6 cm. His last echocardiogram 02/2019 showed normal cavity size and systolic function. LVEF 55%. Grade 1 diastolic dysfunction with mildly elevated filling pressures. He had moderate aortic valve calcification with mild AI. He was brought to the ER via EMS with agitation shortness of breath hypoxia and lower extremity male with frequent PVCs on telemetry strip. It seems like in ER his rhythm degenerated into ventricular tachycardia and he was cardioverted out of rhythm and amiodarone was started. CTA chest showed no PE. Bilateral pneumonia, large bilateral pleural effusion, CHF and edema. he received Lasix 80 mg IV x1 and then Bumex 1 mg IV yesterday. Urine output yesterday was 1100 mL. He remains net positive with balance of 750 mL. SARS-CoV-2 antigen testing was negative on 19 of October. Echocardiogram showed severely reduced left ventricular ejection fraction with EF of 15 to 20% and severe global hypokinesis. Patient continues to have frequent PVCs and runs of nonsustained ventricular tachycardia on telemetry. Medications: Reviewed: Yes Medication Review Details: Current Medications Amiodarone HCl (Amiodarone 200 Mg Tablet) 400 mg PO TID [facility] Last Admin: 10/21/20 10:15 Dose: 400 mg Documented by: Aspirin (Aspirin 81 Mg Ec Tablet) 324 mg PO DAILY [facility] Bumetanide (Bumetanide 0.25 Mg/Ml Sdv 4 Ml) 1 mg IV DAILY [facility] Last Admin: 10/21/20 08:46 Dose: 1 mg Documented by: Clopidogrel Bisulfate (Clopidogrel 75 Mg Tablet) 75 mg PO DAILY [facility] Last Admin: 10/21/20 08:44 Dose: 75 mg Documented by: Enoxaparin Sodium (Enoxaparin 100 Mg/Ml Syringe) 100 mg SUBCUT BID [facility] Last Admin: 10/21/20 08:46 Dose: 100 mg Documented by: Amiodarone HCl 900 mg/Dextrose/ IV Miscellaneous Supplies 518 mls @ 0 mls/hr IV .Q0M [facility]; Protocol Last Titration: 10/21/20 11:15 Dose: 0 mg/min, 0 mls/hr Documented by: Norepinephrine Bitartrate 4 mg (/ Dextrose) 254 mls @ 0 mls/hr IV .Q0M [facility]; Protocol Last Titration: 10/20/20 14:08 Dose: 0 mcg/min, 0 mls/hr Documented by: Fentanyl 1,000 mcg/ Sodium (Chloride) 100 mls @ 0 mls/hr IV .Q0M [facility]; Protocol Last Admin: 10/20/20 22:20 Dose: 10 mcg/hr, 1 mls/hr Documented by: Piperacillin Sod/Tazobactam (Sod 3.375 gm/ Sodium Chloride) 50 mls @ 12.5 mls/hr IV Q8H [facility] Last Admin: 10/21/20 07:40 Dose: 12.5 mls/hr Documented by: Dexmedetomidine HCl 400 mcg/ (Sodium Chloride) 104 mls @ 0 mls/hr IV .Q0M [facility]; Protocol Vitals/I&O/Wt Last Vital Signs Temp 98.7 F 10/21/20 08:00 Pulse 75 10/21/20 10:00 Resp 15 10/21/20 11:14 BP 101/61 10/21/20 10:00 Pulse Ox 96 10/21/20 10:00 10/20/20 10/21/20 10/21/20 22:59 06:59 14:59 Intake Total 986.1 / 1254.818 130 / 1384.818 287.18 / 287.18 Output Total 475 / 875 225 / 1100 Balance 511.1 / 379.818 -95 / 284.818 287.18 / 287.18 Weight last 48 hrs Weight 225 lb Physical Exam Const: NUTRITIONAL APPEARANCE: obese OTHER: intubated and sedated HENMT: FACE & SINUS: normal facial exam OTHER: PEERL Eye: COMMON NORMALS: no scleral icterus GENERAL EYE: appearance normal, both eyes and all related structures Neck/C-Spine: COMMON NORMALS: supple and no JVD (appreciated) GENERAL: Yes normal visual inspection CAROTIDS: Yes normal carotid upstroke Chest: COMMONS NORMALS: normal inspection of the chest CHEST: Yes Symmetrical chest wall rise and No tenderness Resp: COMMON NORMALS: clear to auscultation bilaterally (except at bases) AUSCULTATION: clear to auscultation bilaterally (except at bases), no crackles, rales bilateral, no rhonchi, no wheezes and breath sounds absent bilateral (bases) Cardio: COMMON NORMALS: no JVD (appreciated), regular rate, regular rhythm, S1 normal heart sound present, S2 normal heart sound present and Peripheral pulses 2+ throughout PALPATION: normal PMI RATE: regular rate RHYTHM: regular rhythm HEART SOUNDS: S1 normal heart sound present, S2 normal heart sound present, no click, no gallops and no murmurs BRUITS: no carotid bruits PERIPHERAL PULSES: Peripheral pulses 2+ throughout, radial pulses present, posterior tibial pulses present and dorsalis pedis present GI: COMMON NORMALS: Soft to palpation AUSCULTATION: Yes normoactive bowel sounds PALPATION: Yes Soft to palpation, No Tenderness to palpation present (GI), No Guarding due to palpation present (GI) and No Rigid due to palpation Extremity: GENERAL: No clubbing, No cyanosis, Yes edema (2-3+ bilateral edema) and No pallor Neuro: COMMON NORMALS: CN's II-XII intact bilaterally and no focal motor deficits Psych: COMMON NORMALS: Normal thought process present and speech normal SPEECH: Yes normal speech MOOD & AFFECT: Yes euthymic mood THOUGHT PROCESS: Normal thought process present THOUGHT CONTENT: Yes Normal thought content present Skin: COMMON NORMALS: no rashes or lesions noted GENERAL SKIN EXAM: no rashes or lesions noted Urinary Catheter Management^: Wills: Cath Placed During This Visit: yes Reason for Continuing Indwelling Catheter: Accurate Measurement of Urinary Output in Critically Ill Patients Urinary Catheter Date of Insertion: 10/19/20 Urinary Catheter Time of Insertion: 18:57 Data : 10/21/20 09:36 10/21/20 10:45 Other Labs: ABG this morning with pH of 7.51, PCO2 42, PO2 71 on FiO2 of 0.30. Baseline troponin T of 32, at 2 hours of 48 and at 6 hours of 53. NT proBNP of 5501 Micro: Microbiology 10/20/20 09:58 Blood Culture - Preliminary Blood NEGATIVE TO DATE 10/20/20 09:55 Blood Culture - Preliminary Blood NEGATIVE TO DATE 10/19/20 21:50 Gram Stain - Final Sputum - Endotracheal Tube Aspirate CXR: I personally reviewed and interpreted this imaging study as follows: My impression: IMPRESSION: 1. Bilateral pulmonary infiltrates and small bibasal pleural effusions showing little change. 2. Cardiac enlargement with pulmonary vascular congestion. 3. ET tube and enteric tube both remain in good position. 4. And additional opaque line with metallic tip is noted in the midline but courses to the right along the right heart border. Significance of this line is undetermined however this could be in the right mainstem bronchus. This finding should be correlated clinically. EKG 2: I personally reviewed and interpreted this EKG as follows: My Interpretation: EKG with sinus tachycardia with frequent PVCs and ST-T wave of normality in lateral leads. Possible old septal ND. Repeat EKG with sinus rhythm with occasional supraventricular premature complexes. Possible anterior ND of indeterminate age Attestation for Other Data: I personally reviewed and interpreted the following: Other data: Transthoracic echocardiogram September CONCLUSIONS Technically limited study. Left ventricle is mildly dilated. LV systolic function is severely reduced with EF of 15 to 20%. Severe global hypokinesis is noted. Diastolic function cannot be assessed because of atrial fibrillation. There is mild to moderate mitral regurgitation present. Moderate aortic regurgitation is present. Mild tricuspid regurgitation is seen. Compared to prior echocardiogram from 03/08/2019, LV systolic function is severely reduced now. A&P Assessment and plan (1) Ventricular tachycardia, sustained: Remained stable had few episodes of nonsustained ventricular tachycardia. -Start on amiodarone 400 mg 3 times daily. -Keep K more than 4 and magnesium more than 2. -Patient had a normal cath few years back but given significant drop in LV function and sustained ventricular tachycardia requiring cardioversion, I think he would benefit from repeat coronary angiogram in next few days Status: Acute (2) Pulmonary edema: Continue to diurese with diuretics. Status: Acute Qualifiers: Chronicity: acute Qualified Code(s): J81.0 - Acute pulmonary edema (3) CHF exacerbation: Severely depressed LV function on echo. Status: Acute Qualifiers: Heart failure type: unspecified Qualified Code(s): I50.9 - Heart failure, unspecified (4) Afib: Patient is on amiodarone. Patient is in sinus rhythm continue. -On therapeutic Lovenox. Status: Acute Qualifiers: Atrial fibrillation type: paroxysmal Qualified Code(s): I48.0 - Paroxysmal atrial fibrillation (5) Thoracic aortic aneurysm: Patient has large ascending aortic aneurysm, stable in size. Status: Acute Qualifiers: Presence of rupture: without rupture Qualified Code(s): I71.2 - Thoracic aortic aneurysm, without rupture (6) Cardiogenic shock: Patient is off pressors since yesterday afternoon. Status: Acute Additional A&P Information Acute respiratory failure : FiO2 requirement has decreased ? PNA: Remains on antibiotics as per primary team Bilateral pleural effusion Attestations Medical Necessity Statement*: Patient remains in ICU for VT, CHF exacerbation and pulmonary edema Time Spent in Patient Care: Greater than 35 minutes (>than 50% of time spent in counselling and/or direct pt care on unit). Coding Level of Care Code Acute Auditing Specialist for [facility] Fwd Exam Comprehensive Diagnoses Ventricular tachycardia, sustained I47.2 Pulmonary edema J81.0 Chronicity: acute CHF exacerbation I50.9 Heart failure type: unspecified Afib I48.0 Atrial fibrillation type: paroxysmal Thoracic aortic aneurysm I71.2 Presence of rupture: without rupture Cardiogenic shock R57.0
[2020-10-21] MEDS: dexmedetomidine 400 MCG in sodium chloride 0.9% (100 ml) 100 ML IV (12:08)
[2020-10-21] MEDS: potassium chloride oral liq 20 mEq/15 mL UDC PO (15:21)
--- NOTE | 2020-10-21 17:52 | P.PN_ITS ---
Subjective Subjective: Interval history: 70-year-old male with a past medical history significant for congestive heart failure, paroxysmal atrial fibrillation status post cardioversion, hypertension, aortic stenosis , ascending aortic aneurysm presented to the hospital with shortness of breath. This is associated with increasing lower extremity edema and orthopnea. While in emergency room patient went into a sustained V-tach requiring shock. During this time patient was intubated and placed on mechanical ventilation. Additionally was started on amiodarone drip. Cardiology was emergently contacted. 10/21/2020 Patient remained intubated on mechanical ventilation. Noted to have hypotension requiring IV pressors. No fevers overnight. Had frequent PVCs however no recurrence of ventricular arrhythmias. Medications: Reviewed: Yes Vitals/I&O/Wt Last Vital Signs Temp 97.9 F 10/21/20 17:00 Pulse 61 10/21/20 18:00 Resp 23 H 10/21/20 20:11 BP 81/44 10/21/20 18:00 Pulse Ox 95 10/21/20 18:00 10/21/20 10/21/20 10/21/20 06:59 14:59 22:59 Intake Total 130 / 1384.818 393.23 / 393.23 126.484 / 519.714 Output Total 225 / 1100 800 / 800 Balance -95 / 284.818 393.23 / 393.23 -673.516 / -280.286 Physical Exam Narrative: EXAM NARRATIVE: General - intubated on mechanical ventilation. HEENT: ET tube CVS: NSR with frequents PVCS Chest: vented souds bilatarlly Abdomen soft, bowel sound present Neuro exam limited Massive scrotal edema - tony in place Ext : mild bilateral le edema Urinary Catheter Management^: Tony: Cath Placed During This Visit: yes Reason for Continuing Indwelling Catheter: Accurate Measurement of Urinary Output in Critically Ill Patients Urinary Catheter Date of Insertion: 10/19/20 Urinary Catheter Time of Insertion: 18:57 Data : 10/21/20 09:36 10/21/20 10:45 Micro: Microbiology 10/19/20 21:50 Gram Stain - Final Sputum - Endotracheal Tube Aspirate Sputum Culture - Preliminary 10/20/20 09:58 Blood Culture - Preliminary Blood NEGATIVE TO DATE 10/20/20 09:55 Blood Culture - Preliminary Blood NEGATIVE TO DATE A&P Assessment and plan (1) Ventricular tachycardia, sustained: Status: Acute (2) On mechanically assisted ventilation: Status: Acute (3) CHF exacerbation: Status: Acute Qualifiers: Heart failure type: unspecified Qualified Code(s): I50.9 - Heart failure, unspecified (4) Pulmonary edema: Status: Acute Qualifiers: Chronicity: acute Qualified Code(s): J81.0 - Acute pulmonary edema (5) Thoracic aortic aneurysm: Status: Acute Qualifiers: Presence of rupture: without rupture Qualified Code(s): I71.2 - Thoracic aortic aneurysm, without rupture (6) Hypoxia: Status: Acute Additional A&P Information Sustained V. tach, unstable S/p cardioversion First troponin 32 delta troponin 15 EKG showing sinus rhythm with multiple PVCs without ischemic or infarctive changes Lovenox therapeutic dose twice a day Trend electrylyes Cardiology on consult No curent plan for cath Repeat labs in am Diastolic congestive heart failure exacerbation - Diuresis - Monitor lytes Acute hypoxic respiratory failure requiring mechanical ventilation - On vent - sedated - Fio2 30 % Thoracic aortic aneurysm 6.[address] Flanagan no acute rupture or drop in hemoglobin, no acute decompensation, considering significant dimensions I would request CTA chest to make sure there is no leakage which could present with CHF and V. tach Full code Tube feeding DVT prophylaxis not needed currently on therapeutic dose Lovenox Attestations Medical Necessity Statement*: Continue as present here for management of ventricular arrhythmias could both respiratory failure requiring mechanical ventilation Coding Level of Care Code Acute Chief Radiology for [facility] Fwd Diagnoses Ventricular tachycardia, sustained I47.2 On mechanically assisted ventilation Z99.11 CHF exacerbation I50.9 Heart failure type: unspecified Pulmonary edema J81.0 Chronicity: acute Thoracic aortic aneurysm I71.2 Presence of rupture: without rupture Hypoxia R09.02
--- NOTE | 2020-10-21 19:08 | PC.NURSE ---
Patient became bradycardic and hypotensive prior to shift change. Notified MD that patient has received two doses of AMiodarone via OGT 400 mg. patient has an additonal dose of 400 mg order at 2100. Orders received to hold 2100 dose of AMiodarone.
[2020-10-21] MEDS: DOBUTamine drip 500 MG/250 ML PREMIX 15.3 MG IV (21:13)
[2020-10-22] VITALS (29 sets, daily range): BP systolic 118–142; BP diastolic 50–78; PULSE 71–99; RESP 14–25; TEMP 36.3–36.4; O2SAT 94–100
[2020-10-22] MEDS: piperacillin-tazobactam 3.375 GM in sodium chloride 0.9% (plus) 50 ML IV ×4 (00:23→23:38)
[2020-10-22] MEDS: dexmedetomidine 400 MCG in sodium chloride 0.9% (100 ml) 100 ML IV (00:24)
[2020-10-22 03:53] LABS: Basophils % 0.4 %; Eosinophils # 0.1 10^3/uL (0.0-0.8); Eosinophils % 1.6 %; Hematocrit 37.4 % (42.0-52.0); Hemoglobin 11.8 g/dL (11.7-16.6); Lymphocytes % 14.6 %; Mean Corpuscular HGB Conc 31.6 g/dL (30.0-36.0); Mean Corpuscular Hemoglobin 29.2 pg (28.0-34.0); Mean Corpuscular Volume 92.6 fL (80-94); Mean Platelet Volume 11.1 fL (7.4-10.4); Monocytes # 0.8 10^3/uL (0.2-0.9); Monocytes % 11.9 %; Neutrophils # 4.91 10^3/uL (1.8-7.7); Neutrophils % 71.2 %; Nucleated Red Blood Cells % 0 %; Platelet Count 200 10^3/cmm (130-400); Red Blood Count 4.04 10^6/uL (4.1-5.3); White Blood Count 6.9 10^3/uL (4.0-10.0)
[2020-10-22 04:06] LABS: Alanine Aminotransferase 28 U/L (0-41); Albumin Level 2.9 g/dL (3.5-5.2); Alkaline Phosphatase 68 IU/L (40-130); Anion Gap 11.2 (5-19); Aspartate Amino Transferase 16 U/L (0-40); Blood Urea Nitrogen 22 mg/dL (8-23); Calcium 8.6 mg/dL (8.5-10.5); Carbon Dioxide 32 mmol/L (22-29); Chloride 97 mmol/L (98-107); Globulin 2.5 g/dL (1.3-4.6); Glucose 91 mg/dL (65-115); Osmolality Calculated 285 mOsm/kg (285-295); Potassium 4.2 mmol/L (3.5-5.1); Sodium 136 mmol/L (136-145); Total Bilirubin 1.2 mg/dL (0.15-1.2); Total Protein 5.4 g/dL (6.6-8.7)
[2020-10-22 04:59] LABS: ABG PCO2 38.3 mmHg (35-45); ABG PH Result 7.51 (7.35-7.45); Arterial Blood Gas Hematocrit 37.3 % (42-52); Base Excess ABG 6.7 mmol/L (-2.0-2.0); Blood Gas Allen Test Pos; Blood Gas Sample Site Radial, right; Blood Gas Sample Type Arterial; HCO3 ABG 30.2 mmol/L (22-26); Oxygen Device VENT; PO2 ABG 80.8 mmHg (80.0-100.0)
--- NOTE | 2020-10-22 05:25 | PC.NURSE ---
unable to scan barcode of fentanyl due to it being ripped
--- NOTE | 2020-10-22 07:00 | XR_ITS ---
WS: [id number] Exam: XR chest 1V portable [id number] Date/Time of Exam: 10/22/2020 7:00 AM Reason For Exam: respiratory failure Comparison 10/21/2020. ET tube remains in satisfactory location ending about 4 cm above the darinel. An enteric tube is in pl daniela unchanged in location. A third opaque line is noted coursing along the right heart border as prev iously described. Bilateral pulmonary infiltrates and pleural effusions are unchanged. The lungs are fully inflated. XR/XR chest 1V portable [id number] IMPRESSION: 1. Chest x-ray showing no significant change since the last exam.
[2020-10-22] MEDS: aspirin 81 mg EC Tablet 324 MG PO (09:02)
[2020-10-22] MEDS: clopidogrel 75 mg Tablet PO (09:03)
[2020-10-22] MEDS: enoxaparin 100 mg/mL Syringe SUBCUT ×2 (09:03→16:56)
[2020-10-22] MEDS: potassium chloride oral liq 20 mEq/15 mL UDC PO (09:03)
[2020-10-22] MEDS: amiodarone 200 mg Tablet 400 MG PO ×2 (09:03→20:10)
[2020-10-22] MEDS: bumetanide 0.25 mg/mL SDV 4 mL 1 MG IV (09:03)
--- NOTE | 2020-10-22 09:46 | PC.CHAP ---
Pastoral Care Encounter/Spiritual Assessment Type of Contact [] Declined project builder visit [] Patient/Family/Request visit [] Outpatient visit [] Follow-up visit [] Physician referral [] Code/Alert [x] Routine visit [] Staff referral [] Actively dying [] Patient sleeping [] Family support [] [] Out of room [] Palliative care [] [] Receiving care in room [] Pre-surgical visit [] Trauma [] Long length of stay [x] ICU visit [x] Other: prayer at door Relational/Emotional Strength [] Patient feels connected with others/family/visitors/staff [] Distress [] Loneliness/isolation [] Abandonment Spirituality of Patient [] Person of Krissy [] Attends Catholic of their Krissy [] Believes in Prayer [] Reads Bible or Adventist materials [] There are Spiritual issues to be addressed C [employer] Catapult Operator Interventions [x] Prayer [] Active listening [] Non-anxious presence [] Spiritual/emotional support [] Crisis/trauma care [] Spiritual counseling [] Bereavement support [] Provided bereavement packet [] Provided Bible/devotional materials [] Provided toy/stuffed animal, coloring book to patient or family member [] Provided Communion [] Anointing/Bruce [] Salvation [x] Completed spiritual assessment [] Other: Impact on Illness or Injury [] Angry [] Fearful [] Anxious [] Often cries [] Exhaustion [] Unable to work [] Unable to attend zoroastrian [] Unable to walk/stand [] Unable to read [] Unable to drive [] Unable to eat/drink [] Unable to sleep [] Unable to be with family [] Patient intubated [] Other: Summary Time spent with patient
--- NOTE | 2020-10-22 10:24 | PC.NURSE ---
Verbal order to prepare for extubation, per Dr. Herman. Fentanyl titrated down to 25mcg/hr.
[2020-10-22 10:51] LABS: Influenza A by IFA Negative (Negative); Influenza B by IFA Negative (Negative)
--- NOTE | 2020-10-22 12:00 | P.PN_ITS ---
Subjective Subjective: Interval history: 70-year-old male with a past medical history significant for congestive heart failure, paroxysmal atrial fibrillation status post cardioversion, hypertension, aortic stenosis , ascending aortic aneurysm presented to the hospital with shortness of breath. This is associated with increasing lower extremity edema and orthopnea. While in emergency room patient went into a sustained V-tach requiring shock. During this time patient was intubated and placed on mechanical ventilation. Additionally was started on amiodarone drip. Cardiology was consulted.Initial laboratory workup showed a WBC of 11.2, hemoglobin of 13.3, hematocrit 42.9 and a platelet count of 363. Sodium 135 potassium 3.8, chloride 90, bicarb 28, BUN 24 and creatinine of 1.2. Glucose was elevated at 209. Troponin of 32 -> 47.79 -> 53.4, Probnp of 5504. chest x-ray showed increasing infiltrates throughout both lungs with small right basal pleural effusion. CTA of chest showed bilateral pneumonia, large bilateral pleural effusions with no evidence of pulmonary embolism. Ech ocardiogram showed severely reduced EF of 15 to 20% mild to moderate mitral regurgitation moderate aortic regurgitation. Patient was started on dieresis. 10/21/2020 Patient remained intubated on mechanical ventilation. Noted to have hypotension requiring IV pressors. No fevers overnight. Had frequent PVCs however no recurrence of ventricular arrhythmias. 10/22/2020 Overnight patient remained stable on mechanical ventilation. He was on volume control, tidal volume of 500, respiratory rate of 12 and a PEEP of 5 with 30% FiO2. Sedation was weaned and patient was trialed on pressure support. He did well and eventually was extubated around noon. He was transitioned to 2 L of O2 via nasal cannula. No fever overnight. Did not have any recurrence of ventricular arrhythmia. 1210ml output in past 24hr. Medications: Reviewed: Yes Medication Review Details: Current Medications Amiodarone HCl (Amiodarone 200 Mg Tablet) 400 mg PO TID [facility] Last Admin: 10/21/20 10:15 Dose: 400 mg Documented by: Aspirin (Aspirin 81 Mg Ec Tablet) 324 mg PO DAILY [facility] Bumetanide (Bumetanide 0.25 Mg/Ml Sdv 4 Ml) 1 mg IV DAILY [facility] Last Admin: 10/21/20 08:46 Dose: 1 mg Documented by: Clopidogrel Bisulfate (Clopidogrel 75 Mg Tablet) 75 mg PO DAILY [facility] Last Admin: 10/21/20 08:44 Dose: 75 mg Documented by: Enoxaparin Sodium (Enoxaparin 100 Mg/Ml Syringe) 100 mg SUBCUT BID [facility] Last Admin: 10/21/20 08:46 Dose: 100 mg Documented by: Amiodarone HCl 900 mg/Dextrose/ IV Miscellaneous Supplies 518 mls @ 0 mls/hr IV .Q0M [facility]; Protocol Last Titration: 10/21/20 11:15 Dose: 0 mg/min, 0 mls/hr Documented by: Norepinephrine Bitartrate 4 mg (/ Dextrose) 254 mls @ 0 mls/hr IV .Q0M [facility]; Protocol Last Titration: 10/20/20 14:08 Dose: 0 mcg/min, 0 mls/hr Documented by: Fentanyl 1,000 mcg/ Sodium (Chloride) 100 mls @ 0 mls/hr IV .Q0M [facility]; Protocol Last Admin: 10/20/20 22:20 Dose: 10 mcg/hr, 1 mls/hr Documented by: Piperacillin Sod/Tazobactam (Sod 3.375 gm/ Sodium Chloride) 50 mls @ 12.5 mls/hr IV Q8H [facility] Last Admin: 10/21/20 07:40 Dose: 12.5 mls/hr Documented by: Dexmedetomidine HCl 400 mcg/ (Sodium Chloride) 104 mls @ 0 mls/hr IV .Q0M [facility]; Protocol Vitals/I&O/Wt Last Vital Signs Temp 97.3 F L 10/22/20 04:00 Pulse 79 10/22/20 10:00 Resp 21 H 10/22/20 11:09 BP 123/67 10/22/20 10:00 Pulse Ox 97 10/22/20 10:00 10/21/20 10/22/20 10/22/20 22:59 06:59 14:59 Intake Total 176.484 / 569.714 133.495 / 703.209 37.625 / 37.625 Output Total 1000 / 1000 210 / 1210 Balance -823.516 / -430.286 -76.505 / -506.791 37.625 / 37.625 Physical Exam Narrative: EXAM NARRATIVE: General - intubated on mechanical ventilation. HEENT: ET tube CVS: NSR with frequents PVCS Chest: vented souds bilatarlly Abdomen soft, bowel sound present Neuro exam limited Massive scrotal edema - tony in place Ext : mild bilateral le edema Urinary Catheter Management^: Tony: Cath Placed During This Visit: yes Reason for Continuing Indwelling Catheter: Accurate Measurement of Urinary Output in Critically Ill Patients Urinary Catheter Date of Insertion: 10/19/20 Urinary Catheter Time of Insertion: 18:57 Data : 10/22/20 03:21 10/22/20 03:21 Micro: Microbiology 10/19/20 21:50 Gram Stain - Final Sputum - Endotracheal Tube Aspirate Sputum Culture - Preliminary 10/20/20 09:58 Blood Culture - Preliminary Blood NEGATIVE TO DATE 10/20/20 09:55 Blood Culture - Preliminary Blood NEGATIVE TO DATE A&P Assessment and plan (1) Ventricular tachycardia, sustained: Status: Acute (2) On mechanically assisted ventilation: Status: Acute (3) CHF exacerbation: Status: Acute Qualifiers: Heart failure type: unspecified Qualified Code(s): I50.9 - Heart failure, unspecified (4) Pulmonary edema: Status: Acute Qualifiers: Chronicity: acute Qualified Code(s): J81.0 - Acute pulmonary edema (5) Thoracic aortic aneurysm: Status: Acute Qualifiers: Presence of rupture: without rupture Qualified Code(s): I71.2 - Thoracic aortic aneurysm, without rupture (6) Hypoxia: Status: Acute Additional A&P Information Sustained VT s/p electrical cardioversion - Patient has been in NSR, c PVC - Cardiology on board - S/p amidarone gtt- > 400 mg PO BID - Maintain K, Mg - Further plan per cardiology Acute systolic heart failure exacerbation - ECHO - Ef 15-20%, Mild-mod MR, Mild AR - Bumex 1 mg IV daily - On Dobutamine gtt - Additional diuretics per cardiology - Monitor daily weight - Strict input and output recording - Will need ischemic work up Acute respiratory failure s/p extubation - Due to fluid overload possible pnuemonia - Extuabted 10/22 - Supplemental o2 as needed - Chest x-ray in am Suspected Pneumomia - Possible aspiration - On zosyn - Continue for now Paroxysmal Atrial fibrillation - on amidarone 400 mg PO BID - Loveox 100 mg SQ BID - management per cardioloogy Thoracic aortic aneurysm - Measuring 6.5 cm follows - Follow up with Dr. Flanagan FEN: - Swallow eval post extubation - Start diet if low risk for aspiration DVT ppx - Lovenox 100 mg SQ BID Attestations Medical Necessity Statement*: Continue hospitalization for management of arrhythmias, heart failure exacerbation, respiratory failure Time Spent in Patient Care: Greater than 35 minutes (>than 50% of time spent in counselling and/or direct pt care on unit) . 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
--- NOTE | 2020-10-22 12:03 | PC.RESP ---
extubated pt extubated and placed on 2lpm nc tolerated well
--- NOTE | 2020-10-22 12:07 | PC.NURSE ---
Extubated to 2lnc at 1155. Patient alert and oriented.
--- NOTE | 2020-10-22 13:46 | PM.PN ---
Subjective Subjective: Interval history: Riki is a pleasant 70 yo man with PMHx of paroxysmal atrial fibrillation s/p cardioversion previously on amiodarone that the patient stopped for unclear reasons few years back, hypertension, aortic stenosis and ascending aortic aneurysm. He had an angiogram on 10/28/2017 and although his stress test was abnormal, his angiogram was normal. CTA of his thoracic aorta was done 07/2020 showed ascending thoracic aortic aneurysm with a maximum dimension 5.6 cm. His last echocardiogram 02/2019 showed normal cavity size and systolic function. LVEF 55%. Grade 1 diastolic dysfunction with mildly elevated filling pressures. He had moderate aortic valve calcification with mild AI. He was brought to the ER via EMS with agitation shortness of breath hypoxia and lower extremity male with frequent PVCs on telemetry strip. It seems like in ER his rhythm degenerated into ventricular tachycardia and he was cardioverted out of rhythm and amiodarone was started. CTA chest showed no PE. Bilateral pneumonia, large bilateral pleural effusion, CHF and edema. he received Lasix 80 mg IV x1 and then Bumex 1 mg IV yesterday. Urine output yesterday was 1100 mL. He remains net positive with balance of 750 mL. SARS-CoV-2 antigen testing was negative on 19 of October. Echocardiogram showed severely reduced left ventricular ejection fraction with EF of 15 to 20% and severe global hypokinesis. Last 24 hr: He was placed briefly on levophed last night. I changed that to dobutamine 5 mcg/kg/min and his BP and UO has been good so far. Patient continues to have frequent PVCs and runs of nonsustained ventricular tachycardia on telemetry. He was successfully extubated to oxygen via [place]. Medications: Reviewed: Yes Medication Review Details: Current Medications Amiodarone HCl (Amiodarone 200 Mg Tablet) 400 mg PO TID [facility] Last Admin: 10/21/20 10:15 Dose: 400 mg Documented by: Aspirin (Aspirin 81 Mg Ec Tablet) 324 mg PO DAILY [facility] Bumetanide (Bumetanide 0.25 Mg/Ml Sdv 4 Ml) 1 mg IV DAILY [facility] Last Admin: 10/21/20 08:46 Dose: 1 mg Documented by: Clopidogrel Bisulfate (Clopidogrel 75 Mg Tablet) 75 mg PO DAILY [facility] Last Admin: 10/21/20 08:44 Dose: 75 mg Documented by: Enoxaparin Sodium (Enoxaparin 100 Mg/Ml Syringe) 100 mg SUBCUT BID [facility] Last Admin: 10/21/20 08:46 Dose: 100 mg Documented by: Amiodarone HCl 900 mg/Dextrose/ IV Miscellaneous Supplies 518 mls @ 0 mls/hr IV .Q0M STEFAN; Protocol Last Titration: 10/21/20 11:15 Dose: 0 mg/min, 0 mls/hr Documented by: Norepinephrine Bitartrate 4 mg (/ Dextrose) 254 mls @ 0 mls/hr IV .Q0M STEFAN; Protocol Last Titration: 10/20/20 14:08 Dose: 0 mcg/min, 0 mls/hr Documented by: Fentanyl 1,000 mcg/ Sodium (Chloride) 100 mls @ 0 mls/hr IV .Q0M STEFAN; Protocol Last Admin: 10/20/20 22:20 Dose: 10 mcg/hr, 1 mls/hr Documented by: Piperacillin Sod/Tazobactam (Sod 3.375 gm/ Sodium Chloride) 50 mls @ 12.5 mls/hr IV Q8H [facility] Last Admin: 10/21/20 07:40 Dose: 12.5 mls/hr Documented by: Dexmedetomidine HCl 400 mcg/ (Sodium Chloride) 104 mls @ 0 mls/hr IV .Q0M STEFAN; Protocol Vitals/I&O/Wt Last Vital Signs Temp 97.3 F L 10/22/20 04:00 Pulse 82 10/22/20 12:00 Resp 18 10/22/20 12:00 BP 126/78 10/22/20 12:00 Pulse Ox 96 10/22/20 12:00 10/21/20 10/22/20 10/22/20 22:59 06:59 14:59 Intake Total 176.484 / 569.714 133.495 / 703.209 37.625 / 37.625 Output Total 1000 / 1000 210 / 1210 1400 / 1400 Balance -823.516 / -430.286 -76.505 / -506.791 -1362.375 / -1362.375 Physical Exam Const: COMMON NORMALS: no acute distress and alert GENERAL APPEARANCE: cooperative, comfortable, well kempt and well hydrated NUTRITIONAL APPEARANCE: obese HENMT: COMMON NORMALS: external ears normal FACE & SINUS: normal facial exam EXTERNAL EAR: Yes external ears normal MOUTH: lip normal OTHER: PEERL Eye: COMMON NORMALS: no scleral icterus GENERAL EYE: appearance normal, both eyes and all related structures ALIGNMENT: Yes alignment normal Neck/C-Spine: COMMON NORMALS: supple and no JVD (appreciated) GENERAL: Yes normal visual inspection CAROTIDS: Yes normal carotid upstroke Chest: COMMONS NORMALS: normal inspection of the chest CHEST: Yes Symmetrical chest wall rise and No tenderness Resp: COMMON NORMALS: clear to auscultation bilaterally (except at bases) AUSCULTATION: clear to auscultation bilaterally (except at bases), no crackles, rales bilateral, no rhonchi, no wheezes and breath sounds absent bilateral (bases) Cardio: COMMON NORMALS: no JVD (appreciated), regular rate, regular rhythm, S1 normal heart sound present, S2 normal heart sound present and Peripheral pulses 2+ throughout PALPATION: normal PMI RATE: regular rate RHYTHM: regular rhythm HEART SOUNDS: S1 normal heart sound present, S2 normal heart sound present, no gallops and no murmurs BRUITS: no carotid bruits PERIPHERAL PULSES: Peripheral pulses 2+ throughout, radial pulses present, posterior tibial pulses present and dorsalis pedis present GI: COMMON NORMALS: Soft to palpation AUSCULTATION: Yes normoactive bowel sounds PALPATION: Yes Soft to palpation, No Tenderness to palpation present (GI), No Guarding due to palpation present (GI) and No Rigid due to palpation PERCUSSION: tympanic to percussion Extremity: GENERAL: No clubbing, No cyanosis, Yes edema (2+ bilateral edema) and No pallor Neuro: COMMON NORMALS: CN's II-XII intact bilaterally and no focal motor deficits SENSORIUM/ORIENTATION: Yes alert Psych: COMMON NORMALS: Normal thought process present and speech normal APPEARANCE: Yes well kempt SPEECH: Yes normal speech MOOD & AFFECT: Yes euthymic mood THOUGHT PROCESS: Normal thought process present THOUGHT CONTENT: Yes Normal thought content present Skin: COMMON NORMALS: no rashes or lesions noted GENERAL SKIN EXAM: no rashes or lesions noted Urinary Catheter Management^: Wills: Cath Placed During This Visit: yes Reason for Continuing Indwelling Catheter: Accurate Measurement of Urinary Output in Critically Ill Patients Urinary Catheter Date of Insertion: 10/19/20 Urinary Catheter Time of Insertion: 18:57 Data : 10/22/20 03:21 10/22/20 03:21 Micro: Microbiology 10/19/20 21:50 Gram Stain - Final Sputum - Endotracheal Tube Aspirate Sputum Culture - Final 10/20/20 09:58 Blood Culture - Preliminary Blood NEGATIVE TO DATE 10/20/20 09:55 Blood Culture - Preliminary Blood NEGATIVE TO DATE A&P Assessment and plan (1) Ventricular tachycardia, sustained: Remained stable had few episodes of nonsustained ventricular tachycardia. -continue on amiodarone 400 mg twice daily. -Keep K more than 4 and magnesium more than 2. -Patient had a normal cath few years back but given significant drop in LV function and sustained ventricular tachycardia requiring cardioversion, I think he would benefit from repeat coronary angiogram in next few days (possibly Tuesday). Status: Acute (2) Pulmonary edema: Continue to diurese with diuretics. Status: Acute Qualifiers: Chronicity: acute Qualified Code(s): J81.0 - Acute pulmonary edema (3) CHF exacerbation: Severely depressed LV function on echo. Status: Acute Qualifiers: Heart failure type: unspecified Qualified Code(s): I50.9 - Heart failure, unspecified (4) Afib: Patient is on amiodarone. Patient is in sinus rhythm continue. -On therapeutic Lovenox. Status: Acute Qualifiers: Atrial fibrillation type: paroxysmal Qualified Code(s): I48.0 - Paroxysmal atrial fibrillation (5) Thoracic aortic aneurysm: Patient has large ascending aortic aneurysm, stable in size. Status: Acute Qualifiers: Presence of rupture: without rupture Qualified Code(s): I71.2 - Thoracic aortic aneurysm, without rupture (6) Cardiogenic shock: Patient is off pressors since yesterday. Inotropic support with dobutamine Status: Acute Additional A&P Information Acute respiratory failure : patient has been extubated Possible PNA: Remains on antibiotics as per primary team Bilateral pleural effusion Attestations Medical Necessity Statement*: Patient remains in ICU for VT, CHF exacerbation and pulmonary edema Time Spent in Patient Care: Greater than 35 minutes (>than 50% of time spent in counselling and/or direct pt care on unit). 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
[2020-10-22] MEDS: DOBUTamine drip 500 MG/250 ML PREMIX 15.3 MG IV (14:12)
[2020-10-22 15:10] LABS: Glucose Point of Care 98 mg/dL (70-110)
[2020-10-22 17:20] LABS: Calcium 9.2 mg/dL (8.5-10.5)
--- NOTE | 2020-10-22 19:22 | PC.NURSE ---
Waste Fentanyl Wasted 85 ml of Fentanyl drip with Good Benites RN. Amount in bag shows more that titration amount in nov.
[2020-10-23] VITALS (27 sets, daily range): BP systolic 117–152; BP diastolic 63–96; PULSE 77–100; RESP 14–30; TEMP 36.6–37.3; O2SAT 95–98
--- NOTE | 2020-10-23 06:15 | PC.NURSE ---
had 12 beat run of popexpert approximately 0345, Dr. Arcos notifed and notfied of reported burning feeling in abdomen. no other events during shift
[2020-10-23] MEDS: DOBUTamine drip 500 MG/250 ML PREMIX 15.3 MG IV (08:32)
[2020-10-23 08:34] LABS: Anion Gap 12.4 (5-19); Blood Urea Nitrogen 12 mg/dL (8-23); Carbon Dioxide 27 mmol/L (22-29); Chloride 100 mmol/L (98-107); Glomerular Filtration Rate 83.7 mL/min (90-130); Glucose 100 mg/dL (65-115); Magnesium 2.3 mg/dL (1.7-2.3); Osmolality Calculated 280 mOsm/kg (285-295); Potassium 4.4 mmol/L (3.5-5.1); Sodium 135 mmol/L (136-145)
[2020-10-23] MEDS: bumetanide 0.25 mg/mL SDV 4 mL 1 MG IV (09:08)
[2020-10-23] MEDS: piperacillin-tazobactam 3.375 GM in sodium chloride 0.9% (plus) 50 ML IV ×2 (09:08→16:17)
[2020-10-23] MEDS: enoxaparin 100 mg/mL Syringe SUBCUT ×2 (09:09→17:15)
[2020-10-23] MEDS: potassium chloride oral liq 20 mEq/15 mL UDC PO (09:09)
[2020-10-23] MEDS: aspirin 81 mg EC Tablet 324 MG PO (09:09)
[2020-10-23] MEDS: amiodarone 200 mg Tablet 400 MG PO ×2 (09:11→20:06)
--- NOTE | 2020-10-23 10:29 | PC.PHAR ---
pt states he takes care of his own medications-pt states he is unsure of the names but states what toi fills is what he takes-ext med history shows medications last filled on 07/31/20 90d/s
--- NOTE | 2020-10-23 11:19 | P.PN_ITS ---
Subjective Subjective: Interval history: Riki is a pleasant 70 yo man with PMHx of paroxysmal atrial fibrillation s/p cardioversion previously on amiodarone that the patient stopped for unclear r easons few years back, hypertension, aortic stenosis and ascending aortic aneurysm. He had an angiogram on 10/28/2017 and although his stress test was abnormal, his angiogram was normal. CTA of his thoracic aorta was done 07/2020 showed ascending thoracic aortic aneurysm with a maximum dimension 5.6 cm. His last echocardiogram 02/2019 showed normal cavity size and systolic function. LVEF 55%. Grade 1 diastolic dysfunction with mildly elevated filling pressures. He had moderate aortic valve calcification with mild AI. He was brought to the ER via EMS with agitation shortness of breath hypoxia and lower extremity male with frequent PVCs on telemetry strip. It seems like in ER his rhythm degenerated into ventricular tachycardia and he was cardioverted out of rhythm and amiodarone was started. CTA chest showed no PE. Bilateral pneumonia, large bilateral pleural effusion, CHF and edema. he received Lasix 80 mg IV x1 and then Bumex 1 mg IV yesterday. Urine output yesterday was 1100 mL. He remains net positive with balance of 750 mL. SARS-CoV-2 antigen testing was negative on 19 of October. Echocardiogram showed severely reduced left ventricular ejection fraction with EF of 15 to 20% and severe global hypokinesis. Last 24 hr: He has done really well on dobutamine 5 mcg/kg/min. his BP and UO has been good so far. Patient continues to have frequent PVCs and runs of nonsustained ventricular tachycardia on telemetry. Medications: Reviewed: Yes Medication Review Details: Current Medications Amiodarone HCl (Amiodarone 200 Mg Tablet) 400 mg PO TID [facility] Last Admin: 10/21/20 10:15 Dose: 400 mg Documented by: Aspirin (Aspirin 81 Mg Ec Tablet) 324 mg PO DAILY [facility] Bumetanide (Bumetanide 0.25 Mg/Ml Sdv 4 Ml) 1 mg IV DAILY [facility] Last Admin: 10/21/20 08:46 Dose: 1 mg Documented by: Clopidogrel Bisulfate (Clopidogrel 75 Mg Tablet) 75 mg PO DAILY [facility] Last Admin: 10/21/20 08:44 Dose: 75 mg Documented by: Enoxaparin Sodium (Enoxaparin 100 Mg/Ml Syringe) 100 mg SUBCUT BID [facility] Last Admin: 10/21/20 08:46 Dose: 100 mg Documented by: Amiodarone HCl 900 mg/Dextrose/ IV Miscellaneous Supplies 518 mls @ 0 mls/hr IV .Q0M STEFAN; Protocol Last Titration: 10/21/20 11:15 Dose: 0 mg/min, 0 mls/hr Documented by: Norepinephrine Bitartrate 4 mg (/ Dextrose) 254 mls @ 0 mls/hr IV .Q0M STEFAN; Protocol Last Titration: 10/20/20 14:08 Dose: 0 mcg/min, 0 mls/hr Documented by: Fentanyl 1,000 mcg/ Sodium (Chloride) 100 mls @ 0 mls/hr IV .Q0M STEFAN; Protocol Last Admin: 10/20/20 22:20 Dose: 10 mcg/hr, 1 mls/hr Documented by: Piperacillin Sod/Tazobactam (Sod 3.375 gm/ Sodium Chloride) 50 mls @ 12.5 mls/hr IV Q8H [facility] Last Admin: 10/21/20 07:40 Dose: 12.5 mls/hr Documented by: Dexmedetomidine HCl 400 mcg/ (Sodium Chloride) 104 mls @ 0 mls/hr IV .Q0M STEFAN; Protocol Vitals/I&O/Wt Last Vital Signs Temp 97.3 F L 10/22/20 04:00 Pulse 80 10/23/20 06:00 Resp 23 H 10/23/20 06:00 BP 138/67 10/23/20 06:00 Pulse Ox 97 10/23/20 06:00 10/22/20 10/23/20 10/23/20 22:59 06:59 14:59 Intake Total 290 / 627.625 250 / 877.625 50 / 50 Output Total 800 / 2200 1100 / 3300 Balance -510 / -1572.375 -850 / -2422.375 50 / 50 Physical Exam Const: COMMON NORMALS: no acute distress and alert GENERAL APPEARANCE: cooperative, comfortable, well kempt and well hydrated NUTRITIONAL AP PEARANCE: obese OTHER: NAD HENMT: COMMON NORMALS: external ears normal FACE & SINUS: normal facial exam NOSE: Normal septum present and No nasal discharge present; no Epistaxis present EXTERNAL EAR: Yes external ears normal MOUTH: lip normal OTHER: PEERL Eye: COMMON NORMALS: no scleral icterus GENERAL EYE: appearance normal, both eyes and all related structures ALIGNMENT: Yes alignment normal Neck/C-Spine: COMMON NORMALS: supple and no JVD (appreciated) GENERAL: Yes normal visual inspection CAROTIDS: Yes normal carotid upstroke Lymph: LYMPHATIC: no lymphadenopathy noted Chest: COMMONS NORMALS: normal inspection of the chest CHEST: Yes Symmetrical chest wall rise and No tenderness Resp: COMMON NORMALS: clear to auscultation bilaterally (except at bases) EFFORT & INSPECTION: Yes able to speak in complete sentences, No tachypneic, No respiratory distress, No pursed lip breathing, No labored and No Actively coughing AUSCULTATION: clear to auscultation bilaterally (except at bases), no crackles, rales bilateral, no rhonchi, no wheezes and breath sounds absent bilateral (bases) Cardio: COMMON NORMALS: no JVD (appreciated), regular rate, regular rhythm, S1 normal heart sound present, S2 normal heart sound present and Peripheral pulses 2+ throughout PALPATION: normal PMI RATE: regular rate RHYTHM: regular rhythm HEART SOUNDS: S1 normal heart sound present, S2 normal heart sound p resent, no gallops and no murmurs BRUITS: no carotid bruits PERIPHERAL PULSES: Peripheral pulses 2+ throughout, radial pulses present, posterior tibial pulses present and dorsalis pedis present GI: COMMON NORMALS: Soft to palpation AUSCULTATION: Yes normoactive bowel sounds PALPATION: Yes Soft to palpation, No Tenderness to palpation present (GI), No Guarding due to palpation present (GI) and No Rigid due to palpation PERCUSSION: tympanic to percussion Extremity: GENERAL: No clubbing, No cyanosis, Yes edema (1-2+ bilateral edema) and No pallor Neuro: COMMON NORMALS: CN's II-XII intact bilaterally and no focal motor deficits SENSORIUM/ORIENTATION: Yes alert Psych: COMMON NORMALS: Normal thought process present and speech normal APPEARANCE: Yes well kempt SPEECH: Yes normal speech MOOD & AFFECT: Yes euthymic mood THOUGHT PROCESS: Normal thought process present THOUGHT CONTENT: Yes Normal thought content present Skin: COMMON NORMALS: no rashes or lesions noted GENERAL SKIN EXAM: no rashes or lesions noted Urinary Catheter Management^: Wills: Cath Placed During This Visit: yes Reason for Continuing Indwelling Catheter: Accurate Measurement of Urinary Output in Critically Ill Patients Urinary Catheter Date of Insertion: 10/19/20 Urinary Catheter Time of Insertion: 18:57 Data : 10/22/20 03:21 10/23/20 08:02 Micro: Microbiology 10/19/20 21:50 Gram Stain - Final Sputum - Endotracheal Tube Aspirate Sputum Culture - Final A&P Assessment and plan (1) Ventricular tachycardia, sustained: Remained stable had few episodes of nonsustained ventricular tachycardia. -continue on amiodarone 400 mg twice daily. -start on low dose metoprolol -Keep K more than 4 and magnesium more than 2. -Patient had a normal cath few years back but given significant drop in LV f unction and sustained ventricular tachycardia requiring cardioversion, I think he would benefit from repeat coronary angiogram in next few days (possibly Tuesday). Status: Acute (2) Pulmonary edema: Continue to diurese with diuretics. Status: Acute Qualifiers: Chronicity: acute Qualified Code(s): J81.0 - Acute pulmonary edema (3) CHF exacerbation: Severely depressed LV function on echo. Status: Acute Qualifiers: Heart failure type: unspecified Qualified Code(s): I50.9 - Heart failure, unspecified (4) Afib: Patient is on amiodarone. Patient is in sinus rhythm continue. -On therapeutic Lovenox. Status: Acute Qualifiers: Atrial fibrillation type: paroxysmal Qualified Code(s): I48.0 - Paroxysmal atrial fibrillation (5) Thoracic aortic aneurysm: Patient has large ascending aortic aneurysm, stable in size. Status: Acute Qualifiers: Presence of rupture: without rupture Qualified Code(s): I71.2 - Thoracic aortic aneurysm, without rupture (6) Cardiogenic shock: Patient is off pressors since yesterday. Inotropic support with dobutamine Status: Acute Additional A&P Information Acute respiratory failure : patient has been extubated Possible PNA: Remains on antibiotics as per primary team Bilateral pleural effusion Attestations Medical Necessity Statement*: Patient remains in ICU for VT, CHF exacerbation and pulmonary edema Time Spent in Patient Care: Greater than 35 minutes (>than 50% of time spent in counselling and/or direct pt care on unit) . Coding Level of Care Code Acute Field Nurse for [facility] Fwd Diagnoses Ventricular tachycardia, sustained I47.2 Pulmonary edema J81.0 Chronicity: acute CHF exacerbation I50.9 Heart failure type: unspecified Afib I48.0 Atrial fibrillation type: paroxysmal Thoracic aortic aneurysm I71.2 Presence of rupture: without rupture Cardiogenic shock R57.0
[2020-10-23] MEDS: metoprolol succinate ER (24 HR) 25 mg Tablet PO (11:40)
--- NOTE | 2020-10-23 12:29 | P.PN_ITS ---
Subjective Subjective: Interval history: 70-year-old male with a past medical history significant for congestive heart failure, paroxysmal atrial fibrillation status post cardioversion, hypertension, aortic stenosis , ascending aortic aneurysm presented to the hospital with shortness of breath. This is associated with increasing lower extremity edema and orthopnea. While in emergency room patient went into a sustained V-tach requiring shock. During this time patient was intubated and placed on mechanical ventilation. Additionally was started on amiodarone drip. Cardiology was consulted.Initial laboratory workup showed a WBC of 11.2, hemoglobin of 13.3, hematocrit 42.9 and a platelet count of 363. Sodium 135 potassium 3.8, chloride 90, bicarb 28, BUN 24 and creatinine of 1.2. Glucose was elevated at 209. Troponin of 32 -> 47.79 -> 53.4, Probnp of 5504. chest x-ray showed increasing infiltrates throughout both lungs with small right basal pleural effusion. CTA of chest showed bilateral pneumonia, large bilateral pleural effusions with no evidence of pulmonary embolism. Ech ocardiogram showed severely reduced EF of 15 to 20% mild to moderate mitral regurgitation moderate aortic regurgitation. Patient was started on dieresis. 10/21/2020 Patient remained intubated on mechanical ventilation. Noted to have hypotension requiring IV pressors. No fevers overnight. Had frequent PVCs however no recurrence of ventricular arrhythmias. 10/22/2020 Overnight patient remained stable on mechanical ventilation. He was on volume control, tidal volume of 500, respiratory rate of 12 and a PEEP of 5 with 30% FiO2. Sedation was weaned and patient was trialed on pressure support. He did well and eventually was extubated around noon. He was transitioned to 2 L of O2 via nasal cannula. No fever overnight. Did not have any recurrence of ventricular arrhythmia. 1210ml output in past 24hr. 10/23/2020 Patinet was stable post extuabtion, requiring 2L of o2 via NC. Remained on dobutamine gtt. Medications: Reviewed: Yes Medication Review Details: Current Medications Amiodarone HCl (Amiodarone 200 Mg Tablet) 400 mg PO TID [facility] Last Admin: 10/21/20 10:15 Dose: 400 mg Documented by: Aspirin (Aspirin 81 Mg Ec Tablet) 324 mg PO DAILY [facility] Bumetanide (Bumetanide 0.25 Mg/Ml Sdv 4 Ml) 1 mg IV DAILY [facility] Last Admin: 10/21/20 08:46 Dose: 1 mg Documented by: Clopidogrel Bisulfate (Clopidogrel 75 Mg Tablet) 75 mg PO DAILY [facility] Last Admin: 10/21/20 08:44 Dose: 75 mg Documented by: Enoxaparin Sodium (Enoxaparin 100 Mg/Ml Syringe) 100 mg SUBCUT BID [facility] Last Admin: 10/21/20 08:46 Dose: 100 mg Documented by: Amiodarone HCl 900 mg/Dextrose/ IV Miscellaneous Supplies 518 mls @ 0 mls/hr IV .Q0M [facility]; Protocol Last Titration: 10/21/20 11:15 Dose: 0 mg/min, 0 mls/hr Documented by: Norepinephrine Bitartrate 4 mg (/ Dextrose) 254 mls @ 0 mls/hr IV .Q0M [facility]; Protocol Last Titration: 10/20/20 14:08 Dose: 0 mcg/min, 0 mls/hr Documented by: Fentanyl 1,000 mcg/ Sodium (Chloride) 100 mls @ 0 mls/hr IV .Q0M [facility]; Protocol Last Admin: 10/20/20 22:20 Dose: 10 mcg/hr, 1 mls/hr Documented by: Piperacillin Sod/Tazobactam (Sod 3.375 gm/ Sodium Chloride) 50 mls @ 12.5 mls/hr IV Q8H [facility] Last Admin: 10/21/20 07:40 Dose: 12.5 mls/hr Documented by: Dexmedetomidine HCl 400 mcg/ (Sodium Chloride) 104 mls @ 0 mls/hr IV .Q0M [facility]; Protocol Vitals/I&O/Wt Last Vital Signs Temp 97.9 F 10/23/20 09:00 Pulse 96 10/23/20 12:00 Resp 21 H 10/23/20 12:00 BP 121/63 10/23/20 12:00 Pulse Ox 95 10/23/20 12:00 10/22/20 10/23/20 10/23/20 22:59 06:59 14:59 Intake Total 290 / 627.625 250 / 877.625 450 / 450 Output Total 800 / 2200 1100 / 3300 650 / 650 Balance -510 / -1572.375 -850 / -2422.375 -200 / -200 Physical Exam Narrative: EXAM NARRATIVE: General -alert, awake on 2l HEENT: Grossly unremarkable CVS: NSR Chest: Decreased B/L Bilaterally Abdomen soft, bowel sound present Neuro exam limited Massive scrotal edema - tony in place Ext : mild bilateral le edema Urinary Catheter Management^: Tony: Cath Placed During This Visit: yes Reason for Continuing Indwelling Catheter: Accurate Measurement of Urinary Output in Critically Ill Patients Urinary Catheter Date of Insertion: 10/19/20 Urinary Catheter Time of Insertion: 18:57 Data : 10/22/20 03:21 10/23/20 08:02 Micro: Microbiology 10/19/20 21:50 Gram Stain - Final Sputum - Endotracheal Tube Aspirate Sputum Culture - Final A&P Assessment and plan (1) Ventricular tachycardia, sustained: Status: Acute (2) On mechanically assisted ventilation: Status: Acute (3) CHF exacerbation: Status: Acute Qualifiers: Heart failure type: unspecified Qualified Code(s): I50.9 - Heart failure, unspecified (4) Pulmonary edema: Status: Acute Qualifiers: Chronicity: acute Qualified Code(s): J81.0 - Acute pulmonary edema (5) Thoracic aortic aneurysm: Status: Acute Qualifiers: Presence of rupture: without rupture Qualified Code(s): I71.2 - Thoracic aortic aneurysm, without rupture (6) Hypoxia: Status: Acute Additional A&P Information Sustained VT s/p electrical cardioversion - Patient has been in NSR, c PVC - Cardiology on board - S/p amidarone gtt- > 400 mg PO BID - Maintain K, Mg - Further plan per cardiology - Noted to have a run of Non-sustained vt overnight - Possible plan for cath however unclear if able to lay flat Acute systolic heart failure exacerbation - ECHO - Ef 15-20%, Mild-mod MR, Mild AR - Bumex 1 mg IV daily - On Dobutamine gtt - Additional diuretics per cardiology - Monitor daily weight - Strict input and output recording - Will need ischemic work up - possible cath in am Acute respiratory failure s/p extubation - Due to fluid overload possible pnuemonia - Extuabted 10/22 - Supplemental o2 as needed - Chest x-ray in am - Currently on 2L - Obtain chest -xray in am Suspected Pneumomia - Possible aspiration - On zosyn - Continue for now Paroxysmal Atrial fibrillation - on amidarone 400 mg PO BID - Loveox 100 mg SQ BID - management per cardioloogy Thoracic aortic aneurysm - Measuring 6.5 cm follows - Follow up with Dr. Flanagan FEN: - NPO at midnight for cath DVT ppx - Lovenox 100 mg SQ BID Attestations 2 Medical Necessity Statement*: Continue current hospitalization for management of respiratory failure and further cardiac workup due to arrhythmia Time Spent in Patient Care: Greater than 35 minutes (>than 50% of time spent in counselling and/or direct pt care on unit) . Coding Level of Care Code Acute Puppet Master for [facility] Fwd Diagnoses Ventricular tachycardia, sustained I47.2 On mechanically assisted ventilation Z99.11 CHF exacerbation I50.9 Heart failure type: unspecified Pulmonary edema J81.0 Chronicity: acute Thoracic aortic aneurysm I71.2 Presence of rupture: without rupture Hypoxia R09.02
[2020-10-24] VITALS (16 sets, daily range): BP systolic 111–162; BP diastolic 54–108; PULSE 76–91; RESP 17–31; TEMP 36.9–37.1; O2SAT 92–98
[2020-10-24] MEDS: piperacillin-tazobactam 3.375 GM in sodium chloride 0.9% (plus) 50 ML IV ×3 (01:15→16:12)
[2020-10-24] MEDS: ondansetron 2 mg/ML SDV 2 mL 4 MG IVP (03:14)
[2020-10-24] MEDS: DOBUTamine drip 500 MG/250 ML PREMIX 9.2 MG IV (03:49)
--- NOTE | 2020-10-24 04:33 | PC.NURSE ---
ASSUMING CARE Patient resting in bed on 2L nasal cannula. Dobutamine drip running at 3 mcg/kg/min and to stay at that rate per Dr. Joyce as reported by day shift RN in change of shift report. Wills catheter draining and patent. Patient is alert and oriented x 4 and denies any pain at this time. Dr. Graf at bedside discussing procedure with patient. Nurse asked what time procedure would be and Dr. Graf states at 0700.
[2020-10-24 05:28] LABS: Basophils % 0.3 %; Eosinophils # 0.1 10^3/uL (0.0-0.8); Hematocrit 41.2 % (42.0-52.0); Hemoglobin 12.9 g/dL (11.7-16.6); Lymphocytes # 0.5 10^3/uL (0.8-4.8); Lymphocytes % 8.4 %; Mean Corpuscular HGB Conc 31.3 g/dL (30.0-36.0); Mean Corpuscular Hemoglobin 28.7 pg (28.0-34.0); Mean Corpuscular Volume 91.8 fL (80-94); Mean Platelet Volume 10.7 fL (7.4-10.4); Monocytes # 0.8 10^3/uL (0.2-0.9); Monocytes % 12.5 %; Neutrophils % 77.6 %; Nucleated Red Blood Cells % 0 %; Platelet Count 229 10^3/cmm (130-400); Red Blood Count 4.49 10^6/uL (4.1-5.3); Red Cell Distribution Width 13.1 % (12.1-15.1); White Blood Count 6.2 10^3/uL (4.0-10.0)
[2020-10-24] MEDS: sodium chloride 0.9% 1,000 ML 50 ML IV (05:33)
[2020-10-24] MEDS: LORazepam 2 mg/mL INJ 1 mL 0.5 MG IVP (05:34)
[2020-10-24] MEDS: diphenhydrAMINE 50 mg Capsule PO (05:34)
--- NOTE | 2020-10-24 05:47 | PC.NURSE ---
NAUSEA Nurse heard patient coughing and went to check on him. Patient began dry heaving. PRN zofran given and patient has been comfortable since he states.
--- NOTE | 2020-10-24 05:52 | PC.NURSE ---
CATH PREP Patients pedal pulses marked and 2+ diminished, bilateral groins shaved and bilateral wrists shaved. Benadryl and NS at 50mL/hour hung prior to woodworking shop laborer coming to get patient per Dr. Joyce orders. Signed consent form on chart.
[2020-10-24 06:05] LABS: Alanine Aminotransferase 25 U/L (0-41); Albumin Level 3.1 g/dL (3.5-5.2); Alkaline Phosphatase 80 IU/L (40-130); Anion Gap 14.2 (5-19); Aspartate Amino Transferase 22 U/L (0-40); Blood Urea Nitrogen 14 mg/dL (8-23); Carbon Dioxide 24 mmol/L (22-29); Chloride 101 mmol/L (98-107); Creatinine Clr Calc Pharmacy 107.7119; Glomerular Filtration Rate 95.8 mL/min (90-130); Glucose 106 mg/dL (65-115); Magnesium 2.4 mg/dL (1.7-2.3); Osmolality Calculated 281 mOsm/kg (285-295); Potassium 4.2 mmol/L (3.5-5.1); Sodium 135 mmol/L (136-145); Total Bilirubin 0.9 mg/dL (0.15-1.2); Total Protein 6.1 g/dL (6.6-8.7)
--- NOTE | 2020-10-24 07:00 | XACV_ITS ---
Exam Room: [facility] Ht: 183 cm Wt: 102 kg BSA: 2.30 m2 Gender: Male : 1950 Any Known Allergies: No known allergies Exam Priority: Routine Procedure(s): Procedure Description: Diagnostic procedure Procedure Description: Right Heart Catheterization Procedure Description: O2 saturation Procedure Description: Coronary Angiography Diagnostic Cath Status: Urgent Diagnostic Findings * LM has 0% stenosis. * LAD has 0% stenosis. * CX has 0% stenosis. * RCA has 0% stenosis. * Ramus: Moderate 50% stenosis, DARION: 3 flow. * Coronary angiography shows right dominance. Conclusions 1. There is mild coronary artery disease with one vessel disease. 2. Right heart cath 3. R 4. A 5. mean 15 mmHg 6. RV 46 7. / 8. 6 mmHg 9. PA mean 33 mmHg. 10. Indication for left and right heart cath: 11. Worsening of LV function, LV dysfunction, pulmonary edema, worsening of heart failure, elevated cardiac markers. Recommendations * Continue current medical management and risk factor modification. Diagnostic RX Recommendation: medical therapy and/or counseling Pressures Phase:Rest AO : 132 / 74 ( 98 ) @ 1:40:00 AM 111 / 66 ( 84 ) @ 1:50:00 AM 131 / 70 ( 96 ) @ 2:00:00 AM 114 / 59 ( 82 ) @ 2:13:00 AM 120 / 67 ( 89 ) @ 2:51:00 AM RV : 46 / 6 / @ 1:28:00 AM PA : 52 / 25 ( 33 ) @ 1:27:00 AM RA : a wave = v wave = mean = 15 @ 1:29:00 AM O2 Content Phase:Rest PA : O2 Content O2: 59.5 @ 1:40:00 AM Saturations Phase:Rest AO : 87 @ 2:13:00 AM RA : 58 @ 2:00:00 AM RV : 59 @ 1:50:00 AM PA : 60 @ 1:40:00 AM Cardiac Output Phase:Rest Claudia : 6 @ 1:40:00 AM Claudia Cardiac Index: 3 @ 1:40:00 AM Clinical Evaluation EBL: 5mL-10mL Procedural Details Procedure Consent Obtained. Sunita Chowdhury RN, FRAME TABLE OPERATOR was relieved by Petros Acosta RRT as monitoring person. Pre-Procedure Time Out. Identified patient by full name and date of as verbalized by the patient/guarantor. Does the consent match the physician's order: Yes. Accurate & Complete Informed Consent: Yes. Inpatient/Outpatient History & Physical on Chart: Yes. If H&P is completed, is and addenduem needed: No; If yes, is the addendum complete: N/A. Visualize and Verify Site with Patient/Guarantor: N/A. Relevant Radiology Images available: N/A. Pre-op teaching completed and patient verbalized understanding. The risks, benefits, and alternatives of sedation and/or procedure were discussed by physician. The patient agrees to continue. Procedure started. [facility] Clinical Fraility Score: 4: Vulnerable. 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 Chest Pain Symptom Assessment: Typical Angina Symptoms. Cardiovascular Instability: No. Correct patient, site and procedure confirmed by cath team. PERRLA. Strong, equal hand intelligence officer bilaterally. Lungs clear x 5 lobes. IV Site on Arrival: 18 gauge in the left forearm. IV Site on Arrival: 20 gauge in the left wrist. IV Site on Arrival: 20 gauge in the right hand. IV Fluids: 0.9% NaCl at KVO. 0 mL infused prior to cardiac cath tech. Pre Procedural Pulses: bilateral dorsalis pedis was 2+. Pre Procedural Pulses: bilateral posterior tibial was 2+. Pre Procedural Pulses: bilateral radial was 3+. bilateral groins was prepped with chloroprep then draped in the usual sterile fashion. right radial was prepped with chloroprep then draped in the usual sterile fashion. right brachial was prepped with chloroprep then draped in the usual sterile fashion. Physician arrived. Equipment: 6F - Radial. Cardiac Cath Pack. ACIST Manifold Kit Model BT 2000. Heparinized Saline (2 units/mL), 1000 mL bag. Baseline sample Acquired. HR: 89 BPM. Pt arrived with Dobutamine running at 3 mcg/kg/min. Physician scrubbed in. Immediate Pre-Procedure Time Out. Correct Patient: Yes; Correct Procedure: Yes; Correct Site: Yes; Correct Patient Position: Yes; Correct Supplies: Yes; Dried Flammable Prep: Yes; Blood Products Available: N/A;. Wire inserted through IV catheter in right brachial vein. IV catheter removed over wire. Lidocaine 1% infiltrated to the right brachial. [place] MON catheter inserted. [place] out. Lidocaine 1% infiltrated to the right radial. Arterial access obtained. A 5 italian TIG catheter in over wire. Oxygen started at 2liters/min via nasal canula. Multiple views taken of left coronary artery. Catheter redirected to the RCA. Catheter removed over the exchange wire. A CRD 5F JR4 Diagnostic Catheter was advanced over the wire and used for Right coronary angiography. Catheter removed over the exchange wire. A 5 italian 3DRC catheter in over wire. Catheter removed over the exchange wire. A 5 italian AL1 catheter in over wire. Catheter removed over the exchange wire. Inventory is CRD 6FR JR 4 GUIDE 100cm. 6 italian JR 4 guide catheter was inserted over the wire. 6 italian XB 3.5 guide catheter was inserted over the wire. Guide catheter out. Inventory is CRD 6FR JL 3.5 GUIDE. 6 italian JL 3.5 guide catheter was inserted over the wire. Guide catheter out. 6 italian AL I guide catheter was inserted over the wire. [place] guidewire was advanced through the guide catheter to lesion in the mid Circ. Wire out to be reshaped. [place] guidewire was advanced through the guide catheter to lesion in the mid Circ. Wire out. Guide catheter out. Physician unable to have good visualization of lesion using radial approach. Physician moving to femoral approach. Lidocaine 1% infiltrated to the right groin. Arterial access obtained with micropuncture set. 6 italian JL 3.5 guide catheter was inserted over the wire. Guide catheter out. 6 italian XB 3.5 guide catheter was inserted over the wire. Guide catheter out. 6 italian AL I guide catheter was inserted over the wire. Guide catheter out. Physician scrubbed out. A Manual Compression was successful obtaining hemostatsis at the Right Brachial Vein insertion site. A TR Band was successful obtaining hemostatsis at the Right Radial artery insertion site. A Suture was successful obtaining hemostatsis at the Right Femoral artery insertion site. TR band placed. Hemostasis obtained. Sheath(s) sutured into position with 2-0 silk and sterile 4x4's and Op-site applied over the site. No oozing or signs and symptoms of hematoma noted. Arterial sheath flushed and connected to tranducer and pressure bag with heparinized saline. Post Procedure: Pulses reassessed and unchanged. PERRLA. Strong, equal hand intelligence officer bilaterally. No VTE prophylaxis required. Medication's Wasted: Nitro = 49.8 mg. Medication's Wasted: Heparin = 4000 units. Contrast type used: Omnipaque 300 mgI/mL, 500 mL bottle. Post-op diagnosis: non ischemic cardiomyopathy. Complications: none. Estimated blood loss: 5mL-10mL. Procedure completed. Total IV fluids: 150 mL. Patient transferred by bed to ICU. Vital chart was stopped. Access Site Site: Right Brachial Vein Sheath Size: 6 Fr Hemostasis Method: Manual Compression Hemostasis Success: Successful Site: Right Radial artery Sheath Size: 6 Fr Hemostasis Method: TR Band Hemostasis Success: Successful Site: Right Femoral artery Sheath Size: 6 Fr Hemostasis Method: Suture Hemostasis Success: Successful Procedure Medications Start: 7:16 AM Stop: 7:16 AM Medication: Versed Amount: 1 mg Route: I.V. Start: 7:16 AM Stop: 7:16 AM Medication: Fentanyl Amount: 25 mcg Route: I.V. Start: 7:19 AM Stop: 7:19 AM Medication: Versed Amount: 1 mg Route: I.V. Start: 7:24 AM Stop: 7:24 AM Medication: Fentanyl Amount: 25 mcg Route: I.V. Start: 7:37 AM Stop: 7:37 AM Medication: Nitrogylcerin Amount: 200 mcg Route: I.A. Start: 7:38 AM Stop: 7:38 AM Medication: Heparin Amount: 5000 units Route: I.V. Start: 7:39 AM Stop: 7:39 AM Medication: Versed Amount: 1 mg Route: I.V. Start: 7:49 AM Stop: 7:49 AM Medication: Versed Amount: 1 mg Route: I.V. Start: 8:04 AM Stop: 8:04 AM Medication: Versed Amount: 1 mg Route: I.V. Start: 8:09 AM Stop: 8:09 AM Medication: Versed Amount: 1 mg Route: I.V. Start: 8:23 AM Stop: 8:23 AM Medication: Versed Amount: 1 mg Route: I.V. Start: 8:26 AM Stop: 8:26 AM Medication: Fentanyl Amount: 50 mcg Route: I.V. Start: 8:30 AM Stop: 8:30 AM Medication: Versed Amount: 1 mg Route: I.V. Start: 8:35 AM Stop: 8:35 AM Medication: Fentanyl Amount: 50 mcg Route: I.V. I, the attending physician, have reviewed and verified all procedure medications. Yes, all medications given per verbal order History/Risk Factors Hypertension: Yes Dyslipidemia: No Peripheral Arterial Disease (PAD): No Myocardial Infarction (UT): No Obesity: No Renal Disease: No Tobacco Use: Never Prior Interventions PCI: No CABG: No Valve Surgery: No Report Signatures Finalized by Maribeth Graf MD on 11/04/2020 06:46 PM
--- NOTE | 2020-10-24 07:10 | W.PM.OPSUD ---
Surgery/Procedure H&P Update DATE OF PROCEDURE: October 24, 2020 DATE H&P PERFORMED: 10/19/20 H&P UPDATE INFORMATION: I have reviewed H&P completed within last 30 days, I have examined patient prior to procedure and No changes to prior documentation PREOP DIAGNOSIS: Cardiac arrest, severe LV dysfunction, ventricular tachycardia PLANNED PROCEDURE: Operation Date: 10/24/20 07:00 Proposed Procedures p Cardiac Catheterization(Left) - Maribeth Graf MD PATIENT REASSESSED PRIOR TO SEDATION, WITH NO CHANGE NOTED: Yes PHYSICAL EXAM: alert, oriented x 3 and clear to auscultation bilaterally AIRWAY EVAL/ANESTHESIA PLAN: ASA II, Risks, benefits & alternatives of sedation and/or procedure discussed and Patient agrees to continue as planned ADDITIONAL INFORMATION: This is a right and left heart catheterization for severe heart failure requiring dobutamine, severe LV dysfunction, cardiac arrest and malignant arrhythmia ventricle tachycardia
--- NOTE | 2020-10-24 09:14 | PC.SOCIAL ---
IMM Not Updated Unable to update IMM. Patient off floor for cardiac cath at this time.
[2020-10-24] MEDS: aspirin 81 mg EC Tablet 324 MG PO (10:45)
[2020-10-24] MEDS: amiodarone 200 mg Tablet 400 MG PO ×2 (10:46→20:26)
[2020-10-24] MEDS: potassium chloride oral liq 20 mEq/15 mL UDC PO (10:46)
[2020-10-24] MEDS: enoxaparin 100 mg/mL Syringe SUBCUT (10:46)
[2020-10-24] MEDS: metoprolol succinate ER (24 HR) 25 mg Tablet PO (10:47)
[2020-10-24] MEDS: bumetanide 0.25 mg/mL SDV 4 mL 1 MG IV (10:47)
--- NOTE | 2020-10-24 12:24 | P.PN_ITS ---
Subjective Subjective: Interval history: Riki is a pleasant 70 yo man with PMHx of paroxysmal atrial fibrillation s/p cardioversion previously on amiodarone that the patient stopped for unclear r easons few years back, hypertension, aortic stenosis and ascending aortic aneurysm. He had an angiogram on 10/28/2017 and although his stress test was abnormal, his angiogram was normal. CTA of his thoracic aorta was done 07/2020 showed ascending thoracic aortic aneurysm with a maximum dimension 5.6 cm. His last echocardiogram 02/2019 showed normal cavity size and systolic function. LVEF 55%. Grade 1 diastolic dysfunction with mildly elevated filling pressures. He had moderate aortic valve calcification with mild AI. He was brought to the ER via EMS with agitation shortness of breath hypoxia and lower extremity male with frequent PVCs on telemetry strip. It seems like in ER his rhythm degenerated into ventricular tachycardia and he was cardioverted out of rhythm and amiodarone was started. CTA chest showed no PE. Bilateral pneumonia, large bilateral pleural effusion, CHF and edema. SARS-CoV-2 antigen testing was negative on 19 of October. Echocardiogram showed severely reduced left ventricular ejection fraction with EF of 15 to 20% and severe global hypokinesis. Last 24 hr: I decreased dobutamine to 3 mcg/kg/min. He underwent right and left heart cathetarization today with Dr. Graf. Medications: Reviewed: Yes Medication Review Details: Current Medications Amiodarone HCl (Amiodarone 200 Mg Tablet) 400 mg PO TID [facility] Last Admin: 10/21/20 10:15 Dose: 400 mg Documented by: Aspirin (Aspirin 81 Mg Ec Tablet) 324 mg PO DAILY [facility] Bumetanide (Bumetanide 0.25 Mg/Ml Sdv 4 Ml) 1 mg IV DAILY [facility] Last Admin: 10/21/20 08:46 Dose: 1 mg Documented by: Clopidogrel Bisulfate (Clopidogrel 75 Mg Tablet) 75 mg PO DAILY [facility] Last Admin: 10/21/20 08:44 Dose: 75 mg Documented by: Enoxaparin Sodium (Enoxaparin 100 Mg/Ml Syringe) 100 mg SUBCUT BID [facility] Last Admin: 10/21/20 08:46 Dose: 100 mg Documented by: Amiodarone HCl 900 mg/Dextrose/ IV Miscellaneous Supplies 518 mls @ 0 mls/hr IV .Q0M [facility]; Protocol Last Titration: 10/21/20 11:15 Dose: 0 mg/min, 0 mls/hr Documented by: Norepinephrine Bitartrate 4 mg (/ Dextrose) 254 mls @ 0 mls/hr IV .Q0M [facility]; Pr otocol Last Titration: 10/20/20 14:08 Dose: 0 mcg/min, 0 mls/hr Documented by: Fentanyl 1,000 mcg/ Sodium (Chloride) 100 mls @ 0 mls/hr IV .Q0M [facility]; Protocol Last Admin: 10/20/20 22:20 Dose: 10 mcg/hr, 1 mls/hr Documented by: Piperacillin Sod/Tazobactam (Sod 3.375 gm/ Sodium Chloride) 50 mls @ 12.5 mls/hr IV Q8H [facility] Last Admin: 10/21/20 07:40 Dose: 12.5 mls/hr Documented by: Dexmedetomidine HCl 400 mcg/ (Sodium Chloride) 104 mls @ 0 mls/hr IV .Q0M [facility]; Protocol Vitals/I&O/Wt Last Vital Signs Temp 98.4 F 10/24/20 09:18 Pulse 79 10/24/20 11:12 Resp 22 H 10/24/20 09:18 BP 128/54 10/24/20 09:18 Pulse Ox 96 10/24/20 11:12 10/23/20 10/24/20 10/24/20 22:59 06:59 14:59 Intake Total 630.65 / 1413.27 130.807 / 1544.077 227.5 / 227.5 Output Total 400 / 2450 200 / 2650 Balance 230.65 / -1036.73 -69.193 / -1105.923 227.5 / 227.5 Physical Exam Const: COMMON NORMALS: no acute distress and alert GENERAL APPEARANCE: cooperative, comfortable, well kempt and well hydrated NUTRITIONAL APPEARA NCE: obese OTHER: NAD HENMT: COMMON NORMALS: external ears normal FACE & SINUS: normal facial exam EXTERNAL EAR: Yes external ears normal MOUTH: lip normal OTHER: PEERL Eye: COMMON NORMALS: no scleral icterus GENERAL EYE: appearance normal, both eyes and all related structures ALIGNMENT: Yes alignment normal Neck/C-Spine: COMMON NORMALS: supple and no JVD (appreciated) GENERAL: Yes normal visual inspection CAROTIDS: Yes normal carotid upstroke Lymph: LYMPHATIC: no lymphadenopathy noted Chest: COMMONS NORMALS: normal inspection of the chest CHEST: Yes Symmetrical chest wall rise and No tenderness Resp: COMMON NORMALS: clear to auscultation bilaterally (except at bases) EFFORT & INSPECTION: Yes able to speak in complete sentences and No respiratory distress AUSCULTATION: clear to auscultation bilaterally (except at bases), no crackles, rales bilateral, no rhonchi, no wheezes and breath sounds absent bilateral (bases) Cardio: COMMON NORMALS: no JVD (appreciated), regular rate, regular rhythm, S1 normal heart sound present, S2 normal heart sound present and Peripheral pulses 2+ throughout PALPATION: normal PMI RATE: regular rate RHYTHM: regular rhythm HEART SOUNDS: S1 normal heart sound present, S2 normal heart sound present, no gallops and no murmurs BRUITS: no carotid bruits PERIPHERAL PULSES: Peripheral pulses 2+ throughout, radial pulses present, posterior tibial pulses present and dorsalis pedis present GI: COMMON NORMALS: Soft to palpation AUSCULTATION: Yes normoactive bowel sounds PALPATION: Yes Soft to palpation, No Tenderness to palpation present (GI), No Guarding due to palpation present (GI) and No Rigid due to palpation PERCUSSION: tympanic to percussion Extremity: GENERAL: No clubbing, No cyanosis, Yes edema (trace-1+ bilateral edema) and No pallor OTHER: Right wrist 2+ radial and right femoral access si te without significant hematoma bruising Neuro: COMMON NORMALS: CN's II-XII intact bilaterally and no focal motor deficits SENSORIUM/ORIENTATION: Yes alert Psych: COMMON NORMALS: Normal thought process present and speech normal APPEARANCE: Yes well kempt SPEECH: Yes normal speech MOOD & AFFECT: Yes euthymic mood THOUGHT PROCESS: Normal thought process present THOUGHT CONTENT: Yes Normal thought content present Skin: COMMON NORMALS: no rashes or lesions noted GENERAL SKIN EXAM: no rashes or lesions noted Urinary Catheter Management^: Wills: Cath Placed During This Visit: yes Reason for Continuing Indwelling Catheter: Accurate Measurement of Urinary Output in Critically Ill Patients Urinary Catheter Date of Insertion: 10/19/20 Urinary Catheter Time of Insertion: 18:57 Data : 10/24/20 04:46 10/24/20 04:46 A&P Assessment and plan (1) Ventricular tachycardia, sustained: Remained stable had few episodes of nonsustained ventricular tachycardia. -continue on amiodarone 400 mg twice daily. -started on low dose metoprolol -Keep K more than 4 and magnesium more than 2. -Patient had a normal cath few years back but given significant drop in LV function and sustained ventricular tachycardia requiring cardioversion, he had repeat coronary angiogram today. -Left and right heart cath performed by Dr. Graf via right radial and then right femoral acces.I appreciate Dr. Graf's help in patient management. - Cath with normal LM, LAD and RCA and ramus with 60% moderate stenosis. RA-15 m m Hg, mPAP-33, LVEDP 25 mm Hg, RV- 46/6 mm Hg. Patient recieved high dose of contrast d/t poor image quality. -Drop in LV function likely in setting of viral myocarditis -Plan for life vest on discharge. Status: Acute (2) Pulmonary edema: Continue to diurese with diuretics. -Bumex dose in morning based on renal function Status: Acute Qualifiers: Chronicity: acute Qualified Code(s): J81.0 - Acute pulmonary edema (3) CHF exacerbation: Severely depressed LV function on echo. NICM, ACC/AHA stage C-D, NYHA class 3. -will benefit from life vest on discharge for at least 3 month for titration of GDMT given recent sustained VT and LVEF ~15%. Status: Acute Qualifiers: Heart failure type: unspecified Qualified Code(s): I50.9 - Heart failure, unspecified (4) Afib: Patient is on amiodarone. Patient is in sinus rhythm continue. -On therapeutic Lovenox. -change to Apixaban Status: Acute Qualifiers: Atrial fibrillation type: paroxysmal Qualified Code(s): I48.0 - Paroxysmal atrial fibrillation (5) Thoracic aortic aneurysm: Patient has large ascending aortic aneurysm, stable in size. Status: Acute Qualifiers: Presence of rupture: without rupture Qualified Code(s): I71.2 - Thoracic aortic aneurysm, without rupture (6) Cardiogenic shock: Patient is off pressors. Inotropic support with dobutamine Status: Acute Additional A&P Information Acute respiratory failure : patient has been extubated Possible PNA: Remains on antibiotics as per primary team Bilateral pleural effusion Attestations Medical Necessity Statement*: Patient remains in ICU for VT, CHF exacerbation and pulmonary edema Time Spent in Patient Care: Greater than 35 minutes (>than 50% of time spent in counselling and/or direct pt care on unit) . 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
[2020-10-24 13:07] LABS: Partial Thromboplastin Time 37.4 SECONDS (23.9-36.7)
[2020-10-24] MEDS: fentaNYL 50 mcg/mL INJ 2mL IVP (14:10)
--- NOTE | 2020-10-24 14:35 | PC.SOCIAL ---
IMM Update Pg.2 of IMM updated and reviewed with patient who verbalized understanding. Copy provided.
--- NOTE | 2020-10-24 15:54 | PC.OT ---
PER NURSING REQUEST; HOLD OT EVALUATION UNTIL TOMORROW.
[2020-10-24] MEDS: sodium chloride 0.9% 1,000 ML 75 ML IV (16:46)
--- NOTE | 2020-10-24 19:24 | PM.PN ---
Subjective Subjective: Interval history: 70-year-old male with a past medical history significant for congestive heart failure, paroxysmal atrial fibrillation status post cardioversion, hypertension, aortic stenosis , ascending aortic aneurysm presented to the hospital with shortness of breath. This is associated with increasing lower extremity edema and orthopnea. While in emergency room patient went into a sustained V-tach requiring shock. During this time patient was intubated and placed on mechanical ventilation. Additionally was started on amiodarone drip. Cardiology was consulted.Initial laboratory workup showed a WBC of 11.2, hemoglobin of 13.3, hematocrit 42.9 and a platelet count of 363. Sodium 135 potassium 3.8, chloride 90, bicarb 28, BUN 24 and creatinine of 1.2. Glucose was elevated at 209. Troponin of 32 -> 47.79 -> 53.4, Probnp of 5504. chest x-ray showed increasing infiltrates throughout both lungs with small right basal pleural effusion. CTA of chest showed bilateral pneumonia, large bilateral pleural effusions with no evidence of pulmonary embolism. Echocardiogram showed severely reduced EF of 15 to 20% mild to moderate mitral regurgitation moderate aortic regurgitation. Patient was started on dieresis. 10/21/2020 Patient remained intubated on mechanical ventilation. Noted to have hypotension requiring IV pressors. No fevers overnight. Had frequent PVCs however no recurrence of ventricular arrhythmias. 10/22/2020 Overnight patient remained stable on mechanical ventilation. He was on volume control, tidal volume of 500, respiratory rate of 12 and a PEEP of 5 with 30% FiO2. Sedation was weaned and patient was trialed on pressure support. He did well and eventually was extubated around noon. He was transitioned to 2 L of O2 via nasal cannula. No fever overnight. Did not have any recurrence of ventricular arrhythmia. 1210ml output in past 24hr. 10/23/2020 Patient was stable post extuabtion, requiring 2L of o2 via NC. Remained on dobutamine gtt. 10/24/2020 Patient was taken to cardiac catheterization. Was seen post procedure. Stable on room air. Medications: Reviewed: Yes Medication Review Details: Current Medications Amiodarone HCl (Amiodarone 200 Mg Tablet) 400 mg PO TID [facility] Last Admin: 10/21/20 10:15 Dose: 400 mg Documented by: Aspirin (Aspirin 81 Mg Ec Tablet) 324 mg PO DAILY [facility] Bumetanide (Bumetanide 0.25 Mg/Ml Sdv 4 Ml) 1 mg IV DAILY [facility] Last Admin: 10/21/20 08:46 Dose: 1 mg Documented by: Clopidogrel Bisulfate (Clopidogrel 75 Mg Tablet) 75 mg PO DAILY [facility] Last Admin: 10/21/20 08:44 Dose: 75 mg Documented by: Enoxaparin Sodium (Enoxaparin 100 Mg/Ml Syringe) 100 mg SUBCUT BID [facility] Last Admin: 10/21/20 08:46 Dose: 100 mg Documented by: Amiodarone HCl 900 mg/Dextrose/ IV Miscellaneous Supplies 518 mls @ 0 mls/hr IV .Q0M [facility]; Protocol Last Titration: 10/21/20 11:15 Dose: 0 mg/min, 0 mls/hr Documented by: Norepinephrine Bitartrate 4 mg (/ Dextrose) 254 mls @ 0 mls/hr IV .Q0M [facility]; Protocol Last Titration: 10/20/20 14:08 Dose: 0 mcg/min, 0 mls/hr Documented by: Fentanyl 1,000 mcg/ Sodium (Chloride) 100 mls @ 0 mls/hr IV .Q0M [facility]; Protocol Last Admin: 10/20/20 22:20 Dose: 10 mcg/hr, 1 mls/hr Documented by: Piperacillin Sod/Tazobactam (Sod 3.375 gm/ Sodium Chloride) 50 mls @ 12.5 mls/hr IV Q8H [facility] Last Admin: 10/21/20 07:40 Dose: 12.5 mls/hr Documented by: Dexmedetomidine HCl 400 mcg/ (Sodium Chloride) 104 mls @ 0 mls/hr IV .Q0M [facility]; Protocol Vitals/I&O/Wt Last Vital Signs Temp 98.4 F 10/24/20 09:18 Pulse 81 10/24/20 14:00 Resp 22 H 10/24/20 09:18 BP 128/54 10/24/20 09:18 Pulse Ox 96 10/24/20 11:12 10/24/20 10/24/20 10/24/20 06:59 14:59 22:59 Intake Total 130.807 / 1544.077 627.5 / 627.5 300 / 927.5 Output Total 200 / 2650 2550 / 2550 250 / 2800 Balance -69.193 / -1105.923 -1922.5 / -1922.5 50 / -1872.5 Physical Exam Narrative: EXAM NARRATIVE: General -alert, awake on RA HEENT: Grossly unremarkable CVS: NSR Chest: Decreased B/L Bilaterally Abdomen soft, bowel sound present Neuro exam limited Massive scrotal edema - tony in place Ext : mild bilateral le edema Urinary Catheter Management^: Tony: Cath Placed During This Visit: yes Reason for Continuing Indwelling Catheter: Accurate Measurement of Urinary Output in Critically Ill Patients Urinary Catheter Date of Insertion: 10/19/20 Urinary Catheter Time of Insertion: 18:57 Data : 10/24/20 04:46 10/24/20 04:46 A&P Assessment and plan (1) Ventricular tachycardia, sustained: Status: Acute (2) On mechanically assisted ventilation: Status: Acute (3) CHF exacerbation: Status: Acute Qualifiers: Heart failure type: unspecified Qualified Code(s): I50.9 - Heart failure, unspecified (4) Pulmonary edema: Status: Acute Qualifiers: Chronicity: acute Qualified Code(s): J81.0 - Acute pulmonary edema (5) Thoracic aortic aneurysm: Status: Acute Qualifiers: Presence of rupture: without rupture Qualified Code(s): I71.2 - Thoracic aortic aneurysm, without rupture (6) Hypoxia: Status: Acute Additional A&P Information Sustained VT s/p electrical cardioversion - Patient has been in NSR, c PVC - Cardiology on board - S/p amidarone gtt- > 400 mg PO BID - Eliquis 5 mg oral twice daily - Maintain K, Mg - plan for LifeVest at discharge Acute systolic heart failure exacerbation - ECHO - Ef 15-20%, Mild-mod MR, Mild AR - Bumex 1 mg IV daily - On Dobutamine gtt - Additional diuretics per cardiology - Monitor daily weight - Strict input and output recording - Life vest at discharge - status post cardiac catheterization-- Cath with normal LM, LAD and RCA and ramus with 60% moderate stenosis. RA-15 mm Hg, mPAP-33, LVEDP 25 mm Hg, RV- 46/6 mm Hg. Patient received high dose of contrast d/t poor image quality. - Monitor renal function Acute respiratory failure s/p extubation - Due to fluid overload possible pnuemonia - Extuabted 10/22 - Supplemental o2 as needed - Chest x-ray in am - Currently on 2L - Obtain chest -xray in am Suspected Pneumomia - Possible aspiration - On zosyn - Continue for now - Plan to deescalate antibiotics Paroxysmal Atrial fibrillation - on amidarone 400 mg PO BID - Loveox 100 mg SQ BID - management per cardiology Thoracic aortic aneurysm - Measuring 6.5 cm follows - Follow up with Dr. 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 Fwd Diagnoses Ventricular tachycardia, sustained I47.2 On mechanically assisted ventilation Z99.11 CHF exacerbation I50.9 Heart failure type: unspecified Pulmonary edema J81.0 Chronicity: acute Thoracic aortic aneurysm I71.2 Presence of rupture: without rupture Hypoxia R09.02
[2020-10-24] MEDS: atorvastatin 40 mg Tablet 20 MG PO (20:26)
[2020-10-24] MEDS: apixaban 5 mg Tablet PO (23:46)
[2020-10-25] VITALS (26 sets, daily range): BP systolic 116–166; BP diastolic 59–84; PULSE 75–103; RESP 18–29; TEMP 36.7–37.1; O2SAT 90–97
[2020-10-25] MEDS: piperacillin-tazobactam 3.375 GM in sodium chloride 0.9% (plus) 50 ML IV ×3 (00:25→16:27)
[2020-10-25 05:21] LABS: Basophils % 0.5 %; Eosinophils # 0.1 10^3/uL (0.0-0.8); Eosinophils % 1.9 %; Hematocrit 37.1 % (42.0-52.0); Hemoglobin 11.5 g/dL (11.7-16.6); Lymphocytes # 0.7 10^3/uL (0.8-4.8); Lymphocytes % 11.1 %; Mean Corpuscular Hemoglobin 29.3 pg (28.0-34.0); Mean Corpuscular Volume 94.4 fL (80-94); Mean Platelet Volume 10.7 fL (7.4-10.4); Monocytes # 0.8 10^3/uL (0.2-0.9); Monocytes % 12.5 %; Neutrophils % 73.7 %; Nucleated Red Blood Cells % 0 %; Platelet Count 197 10^3/cmm (130-400); Red Blood Count 3.93 10^6/uL (4.1-5.3); Red Cell Distribution Width 13.2 % (12.1-15.1); White Blood Count 6.2 10^3/uL (4.0-10.0)
[2020-10-25 05:44] LABS: Alanine Aminotransferase 37 U/L (0-41); Albumin Level 2.9 g/dL (3.5-5.2); Alkaline Phosphatase 68 IU/L (40-130); Anion Gap 14.2 (5-19); Aspartate Amino Transferase 38 U/L (0-40); Blood Urea Nitrogen 17 mg/dL (8-23); Calcium 8.6 mg/dL (8.5-10.5); Carbon Dioxide 22 mmol/L (22-29); Chloride 102 mmol/L (98-107); Chol HDL Ratio 4.33 mg/dL (1.0-5.00); Cholesterol 104 mg/dL (0-200); Creatinine Clr Calc Pharmacy 107.7119; Globulin 2.6 g/dL (1.3-4.6); Glomerular Filtration Rate 95.8 mL/min (90-130); Glucose 91 mg/dL (65-115); HDL Cholesterol 24 mg/dL (60-100); LDL Cholesterol Calculated 62 mg/dL (50-129); LDL HDL Ratio 2.58 RATIO (0.00-3.22); Magnesium 2.4 mg/dL (1.7-2.3); Osmolality Calculated 279 mOsm/kg (285-295); Potassium 4.2 mmol/L (3.5-5.1); Sodium 134 mmol/L (136-145); Total Bilirubin 0.7 mg/dL (0.15-1.2); Total Protein 5.5 g/dL (6.6-8.7); Triglycerides 91 mg/dL (0-150)
--- NOTE | 2020-10-25 06:32 | PC.NURSE ---
ASSUMING CARE Patient resting in bed on room air. Bedside report and post catheterization sites assessed in right groin, right AC, and right wrist. Sites to right arm open to air with no drainage or hematoma and femoral site covered. Reported that day shift RN's pulled sheath at 1500 and patient to be off bedrest at 2100. Dobutamine running at 3 mcg/kg/min, normal saline running at 75 mL/hour until bag empty per reported by day shift RN, and zosyn running.
--- NOTE | 2020-10-25 06:36 | PC.NURSE ---
UP TO CHAIR Patient up to bedside commode at 2200. Patient bathed on bedside commode, bed sheets changed, and hair washed. Nurse asked patient if he would like to sit in a chair, patient states yes. Patient up to chair for approximately 3 hours. Patient tolerated well.
--- NOTE | 2020-10-25 06:39 | PC.NURSE ---
SHIFT SUMMARY Patient alert and oriented x 4 this shift. Up to chair for 3 hours and patient tolerated well. 750 mL urine output this shift. Afebrile. Dobutamine running at 3 mcg/kg/min.
[2020-10-25] MEDS: DOBUTamine drip 500 MG/250 ML PREMIX 9.2 MG IV (07:58)
[2020-10-25] MEDS: aspirin 81 mg EC Tablet PO (08:00)
[2020-10-25] MEDS: metoprolol succinate ER (24 HR) 25 mg Tablet PO (08:00)
[2020-10-25] MEDS: amiodarone 200 mg Tablet 400 MG PO ×2 (08:00→20:49)
--- NOTE | 2020-10-25 10:47 | P.PN_ITS ---
Subjective Subjective: Interval history: 70-year-old male with a past medical history significant for congestive heart failure, paroxysmal atrial fibrillation status post cardioversion, hypertension, aortic stenosis , ascending aortic aneurysm presented to the hospital with shortness of breath. This is associated with increasing lower extremity edema and orthopnea. While in emergency room patient went into a sustained V-tach requiring shock. During this time patient was intubated and placed on mechanical ventilation. Additionally was started on amiodarone drip. Cardiology was consulted.Initial laboratory workup showed a WBC of 11.2, hemoglobin of 13.3, hematocrit 42.9 and a platelet count of 363. Sodium 135 potassium 3.8, chloride 90, bicarb 28, BUN 24 and creatinine of 1.2. Glucose was elevated at 209. Troponin of 32 -> 47.79 -> 53.4, Probnp of 5504. chest x-ray showed increasing infiltrates throughout both lungs with small right basal pleural effusion. CTA of chest showed bilateral pneumonia, large bilateral pleural effusions with no evidence of pulmonary embolism. Ech ocardiogram showed severely reduced EF of 15 to 20% mild to moderate mitral regurgitation moderate aortic regurgitation. Patient was started on dieresis. 10/21/2020 Patient remained intubated on mechanical ventilation. Noted to have hypotension requiring IV pressors. No fevers overnight. Had frequent PVCs however no recurrence of ventricular arrhythmias. 10/22/2020 Overnight patient remained stable on mechanical ventilation. He was on volume control, tidal volume of 500, respiratory rate of 12 and a PEEP of 5 with 30% FiO2. Sedation was weaned and patient was trialed on pressure support. He did well and eventually was extubated around noon. He was transitioned to 2 L of O2 via nasal cannula. No fever overnight. Did not have any recurrence of ventricular arrhythmia. 1210ml output in past 24hr. 10/23/2020 Patient was stable post extuabtion, requiring 2L of o2 via NC. Remained on dobutamine gtt. 10/24/2020 Patient was taken to cardiac catheterization. Was seen post procedure. Stable on room air. 10/25 On dobutamine gtt Medications: Reviewed: Yes Medication Review Details: Current Medications Amiodarone HCl (Amiodarone 200 Mg Tablet) 400 mg PO TID [facility] Last Admin: 10/21/20 10:15 Dose: 400 mg Documented by: Aspirin (Aspirin 81 Mg Ec Tablet) 324 mg PO DAILY [facility] Bumetanide (Bumetanide 0.25 Mg/Ml Sdv 4 Ml) 1 mg IV DAILY [facility] Last Admin: 10/21/20 08:46 Dose: 1 mg Documented by: Clopidogrel Bisulfate (Clopidogrel 75 Mg Tablet) 75 mg PO DAILY [facility] Last Admin: 10/21/20 08:44 Dose: 75 mg Documented by: Enoxaparin Sodium (Enoxaparin 100 Mg/Ml Syringe) 100 mg SUBCUT BID [facility] Last Admin: 10/21/20 08:46 Dose: 100 mg Documented by: Amiodarone HCl 900 mg/Dextrose/ IV Miscellaneous Supplies 518 mls @ 0 mls/hr IV .Q0M [facility]; Protocol Last Titration: 10/21/20 11:15 Dose: 0 mg/min, 0 mls/hr Documented by: Norepinephrine Bitartrate 4 mg (/ Dextrose) 254 mls @ 0 mls/hr IV .Q0M [facility]; Protocol Last Titration: 10/20/20 14:08 Dose: 0 mcg/min, 0 mls/hr Documented by: Fentanyl 1,000 mcg/ Sodium (Chloride) 100 mls @ 0 mls/hr IV .Q0M [facility]; Protocol Last Admin: 10/20/20 22:20 Dose: 10 mcg/hr, 1 mls/hr Documented by: Piperacillin Sod/Tazobactam (Sod 3.375 gm/ Sodium Chloride) 50 mls @ 12.5 mls/hr IV Q8H [facility] Last Admin: 10/21/20 07:40 Dose: 12.5 mls/hr Documented by: Dexmedetomidine HCl 400 mcg/ (Sodium Chloride) 104 mls @ 0 mls/hr IV .Q0M [facility]; Protocol Vitals/I&O/Wt Last Vital Signs Temp 97.1 F L 10/26/20 08:00 Pulse 78 10/26/20 08:00 Resp 20 H 10/26/20 08:00 BP 130/56 10/26/20 08:00 Pulse Ox 94 10/26/20 08:00 10/25/20 10/26/20 10/26/20 22:59 06:59 14:59 Intake Total 510 / 1610 110 / 1720 350 / 350 Output Total 800 / 1000 1650 / 2650 Balance -290 / 610 -1540 / -930 350 / 350 Physical Exam Narrative: EXAM NARRATIVE: General -alert, awake on RA HEENT: Grossly unremarkable CVS: NSR Chest: Decreased B/L Bilaterally Abdomen soft, bowel sound present Neuro exam limited Massive scrotal edema - tony in place Ext : mild bilateral le edema Urinary Catheter Management^: Tony: Cath Placed During This Visit: yes Reason for Continuing Indwelling Catheter: Accurate Measurement of Urinary Output in Critically Ill Patients Urinary Catheter Date of Insertion: 10/19/20 Urinary Catheter Time of Insertion: 18:57 Data : 10/26/20 03:27 10/26/20 03:27 Micro: Microbiology 10/20/20 09:58 Blood Culture - Final Blood NO GROWTH AFTER 5 DAYS 10/20/20 09:55 Blood Culture - Final Blood NO GROWTH AFTER 5 DAYS A&P Assessment and plan (1) Ventricular tachycardia, sustained: Status: Acute (2) On mechanically assisted ventilation: Status: Acute (3) CHF exacerbation: Status: Acute Qualifiers: Heart failure type: unspecified Qualified Code(s): I50.9 - Heart failure, unspecified (4) Pulmonary edema: Status: Acute Qualifiers: Chronicity: acute Qualified Code(s): J81.0 - Acute pulmonary edema (5) Thoracic aortic aneurysm: Status: Acute Qualifiers: Presence of rupture: without rupture Qualified Code(s): I71.2 - Thoracic aortic aneurysm, without rupture (6) Hypoxia: Status: Acute Additional A&P Information Sustained VT s/p electrical cardioversion - Patient has been in NSR, c PVC - Cardiology on board - S/p amidarone gtt- > 400 mg PO BID - Eliquis 5 mg oral twice daily - Maintain K, Mg - plan for LifeVest at discharge Acute systolic heart failure exacerbation - ECHO - Ef 15-20%, Mild-mod MR, Mild AR - Bumex 1 mg IV daily - On Dobutamine gtt - wean off - defer to cardiology - Additional diuretics per cardiology - Monitor daily weight - Strict input and output recording - Life vest at discharge - status post cardiac catheterization-- Cath with normal LM, LAD and RCA and ramus with 60% moderate stenosis. RA-15 mm Hg, mPAP-33, LVEDP 25 mm Hg, RV- 46/6 mm Hg. Patient received high dose of contrast d/t poor image quality. - Monitor renal function Acute respiratory failure s/p extubation - Due to fluid overload possible pnuemonia - Extuabted 10/22 - Supplemental o2 as needed - Chest x-ray in am - Currently on 2L - Obtain chest -xray in am Suspected Pneumomia - Possible aspiration - On zosyn - Continue for now - Plan to deescalate antibiotics Paroxysmal Atrial fibrillation - on amidarone 400 mg PO BID - Loveox 100 mg SQ BID - management per cardiology Thoracic aortic aneurysm - Measuring 6.5 cm follows - Follow up with Dr. 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
[2020-10-25] MEDS: apixaban 5 mg Tablet PO ×2 (10:57→22:11)
--- NOTE | 2020-10-25 15:48 | P.PN_ITS ---
Subjective Subjective: Interval history: Patient is doing well. He denies any complaints of chest pain, shortness of breath or palpitations. His renal function is stable. Vitals/I&O/Wt Last Vital Signs Temp 98.1 F 10/25/20 07:00 Pulse 88 10/25/20 14:00 Resp 26 H 10/25/20 14:00 BP 120/76 10/25/20 14:00 Pulse Ox 95 10/25/20 14:00 10/25/20 10/25/20 10/25/20 06:59 14:59 22:59 Intake Total 1050 / 2147.5 1100 / 1100 Output Total 750 / 3550 200 / 200 Balance 300 / -1402.5 900 / 900 Physical Exam Narrative: EXAM NARRATIVE: GENERAL: Patient is alert, awake and oriented x3. [] NECK: No jugular vein distension. [] HEENT: No cyanosis. No icterus. No pallor. [] HEART: Regular S1 and S2. No murmur, rub or gallop. [] LUNGS: Clear to auscultate bilaterally. [] ABDOMEN: Soft, nontender and nondistended. Positive bowel sounds. No guarding, rebound or tenderness. [] CENTRAL NERVOUS SYSTEM: Grossly nonfocal. [] EXTREMITIES: Lower extremities with 1+ edema bilaterally. Pulses palpable in the lower extremities, both dorsalis pedis and posterior tibial. [] Urinary Catheter Management^: Wills: Cath Placed During This Visit: yes Reason for Continuing Indwelling Catheter: Accurate Measurement of Urinary Output in Critically Ill Patients Urinary Catheter Date of Insertion: 10/19/20 Urinary Catheter Time of Insertion: 18:57 Data : 10/26/20 03:27 10/26/20 03:27 Micro: Microbiology 10/20/20 09:58 Blood Culture - Final Blood NO GROWTH AFTER 5 DAYS 10/20/20 09:55 Blood Culture - Final Blood NO GROWTH AFTER 5 DAYS A&P Assessment and plan (1) Ventricular tachycardia, sustained: Remained stable had few episodes of nonsustained ventricular tachycardia. -continue on amiodarone 400 mg twice daily. -started on low dose metoprolol -Keep K more than 4 and magnesium more than 2. -Left and right heart cath performed by Dr. Graf via right radial and then right femoral acces.I appreciate Dr. Graf's help in patient management. - Cath with normal LM, LAD and RCA and ramus with 60% moderate stenosis. RA-15 mm Hg, mPAP-33, LVEDP 25 mm Hg, RV- 46/6 mm Hg. Patient recieved high dose of contrast d/t poor image quality. -Drop in LV function likely in setting of viral myocarditis -Patient had a high contrast volume during the procedure. No signs of contrast- induced nephropathy. Will need to monitor for 1 more day at least for that. Close monitoring of renal function. -Plan for life vest on discharge. Status: Acute (2) Pulmonary edema: Continue diuretics. Status: Acute Qualifiers: Chronicity: acute Qualified Code(s): J81.0 - Acute pulmonary edema (3) CHF exacerbation: Severely depressed LV function on echo. NICM, ACC/AHA stage C-D, NYHA class 3. -will benefit from life vest on discharge for at least 3 month for titration of GDMT given recent sustained VT and LVEF ~15%. Status: Acute Qualifiers: Heart failure type: unspecified Qualified Code(s): I50.9 - Heart failure, unspecified (4) Afib: Patient is on amiodarone. Patient is in sinus rhythm continue. -On therapeutic Lovenox. -change to Apixaban Status: Acute Qualifiers: Atrial fibrillation type: paroxysmal Qualified Code(s): I48.0 - Paroxysmal atrial fibrillation (5) Thoracic aortic aneurysm: Patient has large ascending aortic aneurysm, stable in size. Status: Acute Qualifiers: Presence of rupture: without rupture Qualified Code(s): I71.2 - Thoracic aortic aneurysm, without rupture (6) Cardiogenic shock: Patient is off pressors. Inotropic support with dobutamine Status: Acute Additional A&P Information Acute respiratory failure : patient has been extubated Possible PNA: Remains on antibiotics as per primary team Bilateral pleural effusion Attestations Medical Necessity Statement*: Care expected to cross 2 midnights. Coding Level of Care Code Acute Metrology Engineer for Baljinder Monte Diagnoses Ventricular tachycardia, sustained I47.2 Pulmonary edema J81.0 Chronicity: acute CHF exacerbation I50.9 Heart failure type: unspecified Afib I48.0 Atrial fibrillation type: paroxysmal Thoracic aortic aneurysm I71.2 Presence of rupture: without rupture Cardiogenic shock R57.0
[2020-10-25 17:03] LABS: Adenovirus Not Detected (Not Detected); Human Metapneumovirus Not Detected (Not Detected); Human Parainflu Virus 1 Not Detected (Not Detected); Human Parainflu Virus 2 Not Detected (Not Detected); Human Parainflu Virus 3 Not Detected (Not Detected); Human Rsv A Not Detected (Not Detected); Influenza A Not Detected (Not Detected); Influenza B Not Detected (Not Detected); Rhinovirus/Enterovirus Not Detected (Not Detected)
[2020-10-25] MEDS: atorvastatin 40 mg Tablet 20 MG PO (20:49)
[2020-10-26] VITALS (24 sets, daily range): BP systolic 104–151; BP diastolic 52–73; PULSE 72–90; RESP 17–28; TEMP 36.2–36.6; O2SAT 75–100
[2020-10-26] MEDS: piperacillin-tazobactam 3.375 GM in sodium chloride 0.9% (plus) 50 ML IV ×4 (01:47→23:08)
--- NOTE | 2020-10-26 02:35 | PC.NURSE ---
Patient is resting in room. No changes in condition. Continue care.
[2020-10-26 04:33] LABS: Basophils % 0.3 %; Eosinophils # 0.2 10^3/uL (0.0-0.8); Eosinophils % 2.7 %; Hematocrit 35.9 % (42.0-52.0); Hemoglobin 11.2 g/dL (11.7-16.6); Lymphocytes # 0.8 10^3/uL (0.8-4.8); Lymphocytes % 13.9 %; Mean Corpuscular HGB Conc 31.2 g/dL (30.0-36.0); Mean Corpuscular Hemoglobin 28.7 pg (28.0-34.0); Mean Corpuscular Volume 92.1 fL (80-94); Mean Platelet Volume 10.7 fL (7.4-10.4); Monocytes # 0.7 10^3/uL (0.2-0.9); Monocytes % 12.7 %; Neutrophils # 4.09 10^3/uL (1.8-7.7); Neutrophils % 70.2 %; Nucleated Red Blood Cells % 0 %; Platelet Count 201 10^3/cmm (130-400); Red Cell Distribution Width 13.2 % (12.1-15.1); White Blood Count 5.8 10^3/uL (4.0-10.0)
[2020-10-26 06:55] LABS: Alanine Aminotransferase 43 U/L (0-41); Albumin Level 3.2 g/dL (3.5-5.2); Alkaline Phosphatase 64 IU/L (40-130); Anion Gap 13.9 (5-19); Aspartate Amino Transferase 39 U/L (0-40); Blood Urea Nitrogen 12 mg/dL (8-23); Carbon Dioxide 23 mmol/L (22-29); Chloride 102 mmol/L (98-107); Creatinine Clr Calc Pharmacy 107.7119; Globulin 2.5 g/dL (1.3-4.6); Glomerular Filtration Rate 111.8 mL/min (90-130); Glucose 88 mg/dL (65-115); Magnesium 2.5 mg/dL (1.7-2.3); Osmolality Calculated 279 mOsm/kg (285-295); Potassium 3.9 mmol/L (3.5-5.1); Sodium 135 mmol/L (136-145); Total Bilirubin 0.6 mg/dL (0.15-1.2); Total Protein 5.7 g/dL (6.6-8.7)
[2020-10-26] MEDS: aspirin 81 mg EC Tablet PO (08:32)
[2020-10-26] MEDS: metoprolol succinate ER (24 HR) 25 mg Tablet PO (08:32)
[2020-10-26] MEDS: potassium chloride oral liq 20 mEq/15 mL UDC PO (08:32)
[2020-10-26] MEDS: amiodarone 200 mg Tablet 400 MG PO ×2 (08:34→20:13)
--- NOTE | 2020-10-26 08:50 | PC.SOCIAL ---
IMM Updated Updated pt on Pg 2 IMM. No questions voiced. Provided pt a copy. Signed, dated, & timed copy in chart.
[2020-10-26] MEDS: apixaban 5 mg Tablet PO ×2 (11:54→23:08)
--- NOTE | 2020-10-26 12:02 | PM.PN ---
Subjective Subjective: Interval history: Patient is doing well. No complaints of chest pain, shortness of breath or palpitations. Creatinine has stayed stable. Vitals/I&O/Wt Last Vital Signs Temp 97.1 F L 10/26/20 08:00 Pulse 87 10/26/20 10:00 Resp 21 H 10/26/20 10:00 BP 140/62 10/26/20 10:00 Pulse Ox 96 10/26/20 10:00 10/25/20 10/26/20 10/26/20 22:59 06:59 14:59 Intake Total 510 / 1610 110 / 1720 350 / 350 Output Total 800 / 1000 1650 / 2650 Balance -290 / 610 -1540 / -930 350 / 350 Physical Exam Narrative: EXAM NARRATIVE: GENERAL: Patient is alert, awake and oriented x3. [] NECK: No jugular vein distension. [] HEENT: No cyanosis. No icterus. No pallor. [] HEART: Regular S1 and S2. No murmur, rub or gallop. [] LUNGS: Clear to auscultate bilaterally. [] ABDOMEN: Soft, nontender and nondistended. Positive bowel sounds. No guarding, rebound or tenderness. [] CENTRAL NERVOUS SYSTEM: Grossly nonfocal. [] EXTREMITIES: Lower extremities with 1+ edema bilaterally. Pulses palpable in the lower extremities, both dorsalis pedis and posterior tibial. [] Urinary Catheter Management^: Wills: Cath Placed During This Visit: yes Reason for Continuing Indwelling Catheter: Accurate Measurement of Urinary Output in Critically Ill Patients Urinary Catheter Date of Insertion: 10/19/20 Urinary Catheter Time of Insertion: 18:57 Data : 10/26/20 03:27 10/26/20 03:27 Micro: Microbiology 10/20/20 09:58 Blood Culture - Final Blood NO GROWTH AFTER 5 DAYS 10/20/20 09:55 Blood Culture - Final Blood NO GROWTH AFTER 5 DAYS A&P Assessment and plan (1) Ventricular tachycardia, sustained: Remained stable had few episodes of nonsustained ventricular tachycardia. -continue on amiodarone 400 mg twice daily. -Uptitrate metoprolol -Keep K more than 4 and magnesium more than 2. -Left and right heart cath performed by Dr. Graf via right radial and then right femoral acces.I appreciate Dr. Graf's help in patient management. - Cath with normal LM, LAD and RCA and ramus with 60% moderate stenosis. RA-15 mm Hg, mPAP-33, LVEDP 25 mm Hg, RV- 46/6 mm Hg. Patient recieved high dose of contrast d/t poor image quality. -Drop in LV function likely in setting of viral myocarditis -Patient had a high contrast volume during the procedure. No signs of contrast-induced nephropathy. Monitor creatinine closely -Plan for life vest on discharge. Status: Acute (2) Pulmonary edema: Continue diuretics. Status: Acute Qualifiers: Chronicity: acute Qualified Code(s): J81.0 - Acute pulmonary edema (3) CHF exacerbation: Severely depressed LV function on echo. NICM, ACC/AHA stage C-D, NYHA class 3. -will benefit from life vest on discharge for at least 3 month for titration of GDMT given recent sustained VT and LVEF ~15%. Status: Acute Qualifiers: Heart failure type: unspecified Qualified Code(s): I50.9 - Heart failure, unspecified (4) Afib: Patient is on amiodarone. Patient is in sinus rhythm continue. -On therapeutic Lovenox. -change to Apixaban Status: Acute Qualifiers: Atrial fibrillation type: paroxysmal Qualified Code(s): I48.0 - Paroxysmal atrial fibrillation (5) Thoracic aortic aneurysm: Patient has large ascending aortic aneurysm, stable in size. Status: Acute Qualifiers: Presence of rupture: without rupture Qualified Code(s): I71.2 - Thoracic aortic aneurysm, without rupture (6) Cardiogenic shock: Patient is off pressors. Inotropic support with dobutamine can be downtitrated now and turned off Status: Acute Additional A&P Information Acute respiratory failure : patient has been extubated Possible PNA: Remains on antibiotics as per primary team Bilateral pleural effusion Attestations Medical Necessity Statement*: Care expected to cross 2 midnights. 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
--- NOTE | 2020-10-26 13:17 | PC.NURSE ---
Life vest rep, Kirt, in with pt.
[2020-10-26] MEDS: DOBUTamine drip 500 MG/250 ML PREMIX 9.2 MG IV (13:32)
--- NOTE | 2020-10-26 14:50 | P.PN_ITS ---
Subjective Subjective: Interval history: 70-year-old male with a past medical history significant for congestive heart failure, paroxysmal atrial fibrillation status post cardioversion, hypertension, aortic stenosis , ascending aortic aneurysm presented to the hospital with shortness of breath. This is associated with increasing lower extremity edema and orthopnea. While in emergency room patient went into a sustained V-tach requiring shock. During this time patient was intubated and placed on mechanical ventilation. Additionally was started on amiodarone drip. Cardiology was consulted.Initial laboratory workup showed a WBC of 11.2, hemoglobin of 13.3, hematocrit 42.9 and a platelet count of 363. Sodium 135 potassium 3.8, chloride 90, bicarb 28, BUN 24 and creatinine of 1.2. Glucose was elevated at 209. Troponin of 32 -> 47.79 -> 53.4, Probnp of 5504. chest x-ray showed increasing infiltrates throughout both lungs with small right basal pleural effusion. CTA of chest showed bilateral pneumonia, large bilateral pleural effusions with no evidence of pulmonary embolism. Ech ocardiogram showed severely reduced EF of 15 to 20% mild to moderate mitral regurgitation moderate aortic regurgitation. Patient was started on dieresis. 10/21/2020 Patient remained intubated on mechanical ventilation. Noted to have hypotension requiring IV pressors. No fevers overnight. Had frequent PVCs however no recurrence of ventricular arrhythmias. 10/22/2020 Overnight patient remained stable on mechanical ventilation. He was on volume control, tidal volume of 500, respiratory rate of 12 and a PEEP of 5 with 30% FiO2. Sedation was weaned and patient was trialed on pressure support. He did well and eventually was extubated around noon. He was transitioned to 2 L of O2 via nasal cannula. No fever overnight. Did not have any recurrence of ventricular arrhythmia. 1210ml output in past 24hr. 10/23/2020 Patient was stable post extuabtion, requiring 2L of o2 via NC. Remained on dobutamine gtt. 10/24/2020 Patient was taken to cardiac catheterization. Was seen post procedure. Stable on room air. 10/25 On dobutamine gtt 10/26 Life-Vest obtained On dobutatmine no clinical events overnight No fever or chills No nausea or vomiting Medications: Reviewed: Yes Medication Review Details: Current Medications Amiodarone HCl (Amiodarone 200 Mg Tablet) 400 mg PO TID [facility]PL[facility] BY [facility] Last Admin: 10/21/20 10:15 Dose: 400 mg Documented by: Aspirin (Aspirin 81 Mg Ec Tablet) 324 mg PO DAILY [facility]PL[facility] Bumetanide (Bumetanide 0.25 Mg/Ml Sdv 4 Ml) 1 mg IV DAILY [facility] Last Admin: 10/21/20 08:46 Dose: 1 mg Documented by: Clopidogrel Bisulfate (Clopidogrel 75 Mg Tablet) 75 mg PO DAILY [facility]PL[facility] BY [facility] Last Admin: 10/21/20 08:44 Dose: 75 mg Documented by: Enoxaparin Sodium (Enoxaparin 100 Mg/Ml Syringe) 100 mg SUBCUT BID REPLACED BY [facility] Last Admin: 10/21/20 08:46 Dose: 100 mg Documented by: Amiodarone HCl 900 mg/Dextrose/ IV Miscellaneous Supplies 518 mls @ 0 mls/hr IV .Q0M REPLACED BY [facility]; Protocol Last Titration: 10/21/20 11:15 Dose: 0 mg/min, 0 mls/hr Documented by: Norepinephrine Bitartrate 4 mg (/ Dextrose) 254 mls @ 0 mls/hr IV .Q0M REPLACED BY [facility]; Protocol Last Titration: 10/20/20 14:08 Dose: 0 mcg/min, 0 mls/hr Documented by: Fentanyl 1,000 mcg/ Sodium (Chloride) 100 mls @ 0 mls/hr IV .Q0M REPLACED BY [facility]; Protocol Last Admin: 10/20/20 22:20 Dose: 10 mcg/hr, 1 mls/hr Documented by: Piperacillin Sod/Tazobactam (Sod 3.375 gm/ Sodium Chloride) 50 mls @ 12.5 mls/hr IV Q8H REPLACED BY [facility] Last Admin: 10/21/20 07:40 Dose: 12.5 mls/hr Documented by: Dexmedetomidine HCl 400 mcg/ (Sodium Chloride) 104 mls @ 0 mls/hr IV .Q0M REPLACED BY [facility]; Protocol Vitals/I&O/Wt Last Vital Signs Temp 97.1 F L 10/26/20 08:00 Pulse 82 10/26/20 12:00 Resp 22 H 10/26/20 12:00 BP 127/63 10/26/20 12:00 Pulse Ox 96 10/26/20 12:00 10/25/20 10/26/20 10/26/20 22:59 06:59 14:59 Intake Total 510 / 1610 110 / 1720 1050 / 1050 Output Total 800 / 1000 1650 / 2650 Balance -290 / 610 -1540 / -930 1050 / 1050 Physical Exam Narrative: EXAM NARRATIVE: General -alert, awake on RA HEENT: Grossly unremarkable CVS: NSR Chest: Decreased B/L Bilaterally Abdomen soft, bowel sound present Neuro exam limited Massive scrotal edema - tony in place Ext : mild bilateral le edema Urinary Catheter Management^: Tony: Cath Placed During This Visit: yes Reason for Continuing Indwelling Catheter: Accurate Measurement of Urinary Output in Critically Ill Patients Urinary Catheter Date of Insertion: 10/19/20 Urinary Catheter Time of Insertion: 18:57 Data : 10/26/20 03:27 10/26/20 03:27 Micro: Microbiology 10/20/20 09:58 Blood Culture - Final Blood NO GROWTH AFTER 5 DAYS 10/20/20 09:55 Blood Culture - Final Blood NO GROWTH AFTER 5 DAYS A&P Assessment and plan (1) Ventricular tachycardia, sustained: Status: Acute (2) On mechanically assisted ventilation: Status: Acute (3) CHF exacerbation: Status: Acute Qualifiers: Heart failure type: unspecified Qualified Code(s): I50.9 - Heart failure, unspecified (4) Pulmonary edema: Status: Acute Qualifiers: Chronicity: acute Qualified Code(s): J81.0 - Acute pulmonary edema (5) Thoracic aortic aneurysm: Status: Acute Qualifiers: Presence of rupture: without rupture Qualified Code(s): I71.2 - Thoracic aortic aneurysm, without rupture (6) Hypoxia: Status: Acute Additional A&P Information Sustained VT s/p electrical cardioversion - Patient has been in NSR, c PVC - Cardiology on board - S/p amidarone gtt- > 400 mg PO BID - Eliquis 5 mg oral twice daily - Maintain K, Mg - Live-vest obtained Acute systolic heart failure exacerbation - ECHO - Ef 15-20%, Mild-mod MR, Mild AR - Bumex 1 mg IV daily - On Dobutamine gtt - wean off - defer to cardiology - Additional diuretics per cardiology - Monitor daily weight - Strict input and output recording - Life vest at discharge - status post cardiac catheterization-- Cath with normal LM, LAD and RCA and ramus with 60% moderate stenosis. RA-15 mm Hg, mPAP-33, LVEDP 25 mm Hg, RV- 46/6 mm Hg. Patient received high dose of contrast d/t poor image quality. - Monitor renal function - Will need to remain in ICU until dobutamine can be weaned off Acute respiratory failure s/p extubation - Due to fluid overload possible pnuemonia - Extuabted 10/22 - Supplemental o2 as needed - Chest x-ray in am - Currently on 2L - > RA - Obtain chest -xray in am - Home o2 eval at discharge. Suspected Pneumomia - Possible aspiration - On zosyn - Continue for now - Plan to deescalate antibiotics Paroxysmal Atrial fibrillation - on amidarone 400 mg PO BID - Loveox 100 mg SQ BID - management per cardiology Thoracic aortic aneurysm - Measuring 6.5 cm follows - Follow up with Dr. Flanagan DVT ppx - Eliquis 5 mg oral twice daily Attestations Medical Necessity Statement*: Continue hospitalization for management of heart failure exacerbation, and IV dobutamine gtt Time Spent in Patient Care: Greater than 35 minutes (>than 50% of time spent in counselling and/or direct pt care on unit) . Coding Level of Care Code Acute Etcher [employer]ed [employer] Boards for g Fwd Diagnoses Ventricular tachycardia, sustained I47.2 On mechanically assisted ventilation Z99.11 CHF exacerbation I50.9 Heart failure type: unspecified Pulmonary edema J81.0 Chronicity: acute Thoracic aortic aneurysm I71.2 Presence of rupture: without rupture Hypoxia R09.02
--- NOTE | 2020-10-26 19:21 | PC.NURSE ---
Shift summary: Pt alert and oriented. Pt is quite the talker. he is hard of hearing. Pt has a good appetite. He has been out of bed since before lunch. Ambulated and exercised with PT. Dependent edema noted in left lower leg this afternoon, 1+ pitting. Sinus rhythm on monitor, no ectopy noted this shift. Life vest teleservices representative here this afternoon. Vest now on, will activate when he plugs it in at home. Dobutamine remains infusing at 3mcg/kg/min. Urine output of 100ml.
--- NOTE | 2020-10-26 19:25 | PC.NURSE ---
Report given to TEVIN Mccollum.
[2020-10-26] MEDS: atorvastatin 40 mg Tablet 20 MG PO (20:13)
[2020-10-27] VITALS (27 sets, daily range): BP systolic 109–142; BP diastolic 53–85; PULSE 66–86; RESP 17–33; TEMP 36.1–36.9; O2SAT 92–99
[2020-10-27] MEDS: piperacillin-tazobactam 3.375 GM in sodium chloride 0.9% (plus) 50 ML IV ×3 (07:19→23:53)
--- NOTE | 2020-10-27 09:23 | PC.CHAP ---
Pastoral Care Encounter/Spiritual Assessment Type of Contact [] Declined utility service worker visit [] Patient/Family/Request visit [] Outpatient visit [] Follow-up visit [] Physician referral [] Code/Alert [x] Routine visit [] Staff referral [] Actively dying [] Patient sleeping [] Family support [] [] Out of room [] Palliative care [] [] Receiving care in room [] Pre-surgical visit [] Trauma [] Long length of stay [x] ICU visit [] Other: Relational/Emotional Strength [] Patient feels connected with others/family/visitors/staff [] Distress [] Loneliness/isolation [] Abandonment Spirituality of Patient [] Person of Krissy [] Attends Sabianism of their Krissy [] Believes in Prayer [] Reads Bible or Evangelical materials [] There are Spiritual issues to be addressed Licensing Registration Examiner Interventions [x] Prayer [] Active listening [] Non-anxious presence [] Spiritual/emotional support [] Crisis/trauma care [] Spiritual counseling [] Bereavement support [] Provided bereavement packet [] Provided Bible/devotional materials [] Provided toy/stuffed animal, coloring book to patient or family member [] Provided Communion [] Anointing/[place] [] Salvation [x] Completed spiritual assessment [] Other: Impact on Illness or Injury [] Angry [] Fearful [] Anxious [] Often cries [] Exhaustion [] Unable to work [] Unable to attend restoration [] Unable to walk/stand [] Unable to read [] Unable to drive [] Unable to eat/drink [] Unable to sleep [] Unable to be with family [] Patient intubated [] Other: Summary Time spent with patient
[2020-10-27] MEDS: potassium chloride oral liq 20 mEq/15 mL UDC PO (09:48)
[2020-10-27] MEDS: aspirin 81 mg EC Tablet PO (09:48)
[2020-10-27] MEDS: amiodarone 200 mg Tablet 400 MG PO ×2 (09:48→20:43)
[2020-10-27] MEDS: metoprolol succinate ER (24 HR) 25 mg Tablet PO (09:48)
--- NOTE | 2020-10-27 10:58 | P.PN_ITS ---
Subjective Subjective: Interval history: Riki reports he is feeling okay. His breathing is a little bit short but no pain. States he does not feel very swollen. Medications: Reviewed: Yes Vitals/I&O/Wt Last Vital Signs Temp 98.5 F 10/27/20 08:00 Pulse 85 10/27/20 10:00 Resp 27 H 10/27/20 10:00 BP 136/85 10/27/20 10:00 Pulse Ox 98 10/27/20 10:00 10/26/20 10/27/20 10/27/20 22:59 06:59 14:59 Intake Total 1650 / 2700 50 / 2750 676.573 / 676.573 Output Total 1260 / 1260 1300 / 2560 275 / 275 Balance 390 / 1440 -1250 / 190 401.573 / 401.573 Physical Exam Narrative: EXAM NARRATIVE: General exam is a conversive white male in no apparent distress HEENT: Atraumatic, normocephalic. Neck is supple no lymphadenopathy or thyromegaly Cardiovascular regular rate and rhythm with a 3/6 systolic murmur heard best in the mitral area Lungs diminished breath sounds bilaterally but clear Abdomen is soft with positive bowel sounds. No obvious organomegaly Extremities no cyanosis clubbing or edema Urinary Catheter Management^: Wills: Cath Placed During This Visit: yes Reason for Continuing Indwelling Catheter: Accurate Measurement of Urinary Output in Critically Ill Patients Urinary Catheter Date of Insertion: 10/19/20 Urinary Catheter Time of Insertion: 18:57 Data : 10/26/20 03:27 10/26/20 03:27 A&P Assessment and plan (1) Ventricular tachycardia: Placed on amiodarone. Status post electrical cardioversion Secondary to paroxysmal atrial fibrillation Eliquis continues Potassium, magnesium were supplemented Echo demonstrates EF of 15 to 20%. Moderate aortic regurgitation. He was placed on a dobutamine drip and currently is still on this. LifeVest has been arranged and he will need to continue this on discharge Post cardiac catheterization demonstrating normal LAD, RCA, left main. Ramus had 60% moderate stenosis. I do not believe an intervention was done. He is currently on statin, aspirin, beta-marika. Status: Acute (2) Acute hypercapnic respiratory failure: Intubated on arrival. Now extubated and doing well. Secondary to concern of possible pneumonia he was placed on Zosyn. Status: Acute (3) CHF exacerbation: Currently appears euvolemic. Has been receiving dobutamine. Cardiology to evaluate today to see if this can be discontinued. We will discuss with cardiology if GÓMEZ inhibitor, diuretic can be added. Status: Acute Qualifiers: Heart failure type: unspecified Qualified Code(s): I50.9 - Heart failure, unspecified (4) Thoracic aortic aneurysm: Status: Acute Qualifiers: Presence of rupture: without rupture Qualified Code(s): I71.2 - Thoracic aortic aneurysm, without rupture Attestations Medical Necessity Statement*: Needs continued hospitalization for close follow-up of cardiomyopathy with low EF, ventricular tachycardia requiring ca rdioversion. 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
[2020-10-27] MEDS: apixaban 5 mg Tablet PO ×2 (11:46→20:43)
[2020-10-27] MEDS: bumetanide 1 mg Tablet PO ×2 (11:46→18:07)
--- NOTE | 2020-10-27 11:53 | PM.PN ---
Subjective Subjective: Interval history: No new complaints. He feels well. He got fitted with LifeVest on Tuesday. Medications: Reviewed: Yes Medication Review Details: Current Medications Acetaminophen (Acetaminophen 325 Mg Tablet) 650 mg PO Q6H PRN PRN Reason: MILD PAIN Hydrocodone Bitart/Acetaminophen (Hydrocodone-Acetaminophen 5-325 Mg Tablet) 1 tab PO Q4H PRN PRN Reason: PAIN Al Hydrox/Mg Hydrox/Simethicone (Odki-Gqm-Brccigbiu-Ventura 30 Ml Udc) 30 ml PO Q15M PRN PRN Reason: INDIGESTION Alprazolam (Alprazolam 0.25 Mg Tablet) 0.25 mg PO TID PRN PRN Reason: ANXIETY Amiodarone HCl (Amiodarone 200 Mg Tablet) 400 mg PO 0900,2100 [facility] Last Admin: 10/27/20 09:48 Dose: 400 mg Documented by: Apixaban (Apixaban 5 Mg Tablet) 5 mg PO Q12H [facility] Last Admin: 10/27/20 11:46 Dose: 5 mg Documented by: Aspirin (Aspirin 81 Mg Ec Tablet) 81 mg PO DAILY [facility] Last Admin: 10/27/20 09:48 Dose: 81 mg Documented by: Atorvastatin Calcium (Atorvastatin 40 Mg Tablet) 20 mg PO BEDTIME [facility] Last Admin: 10/26/20 20:13 Dose: 20 mg Documented by: Bumetanide (Bumetanide 1 Mg Tablet) 1 mg PO BID [facility] Piperacillin Sod/Tazobactam (Sod 3.375 gm/ Sodium Chloride) 50 mls @ 12.5 mls/hr IV Q8H [facility] Last Admin: 10/27/20 07:19 Dose: 12.5 mls/hr Documented by: Losartan Potassium (Losartan 50 Mg Tablet) 25 mg PO DAILY [facility] Magnesium Hydroxide (Magnesium Hydroxide 30 Ml Udc) 30 ml PO DAILY PRN PRN Reason: CONSTIPATION Metoprolol Succinate (Metoprolol Succinate Er (24 Hr) 25 Mg Tablet) 25 mg PO DAILY [facility] Last Admin: 10/27/20 09:48 Dose: 25 mg Documented by: Naloxone HCl (Naloxone 0.4 Mg/Ml Sdv) 0.1 mg IVP Q2M PRN PRN Reason: RESPIRATORY RATE < 8/MIN Nitroglycerin (Nitroglycerin 0.4 Mg Sublingual Tablet) 0.4 mg SUBLINGUAL Q5M PRN PRN Reason: CHEST PAIN Ondansetron HCl (Ondansetron 2 Mg/Ml Sdv 2 Ml) 4 mg IVP Q4H PRN PRN Reason: NAUSEA AND VOMITING Last Admin: 10/24/20 03:14 Dose: 4 mg Documented by: Potassium Chloride (Potassium Chloride Oral Liq 20 Meq/15 Ml Udc) 20 meq PO DAILY [facility] Last Admin: 10/27/20 09:48 Dose: 20 meq Documented by: Vitals/I&O/Wt Last Vital Signs Temp 98.5 F 10/27/20 08:00 Pulse 85 10/27/20 10:00 Resp 27 H 10/27/20 10:00 BP 136/85 10/27/20 10:00 Pulse Ox 98 10/27/20 10:00 10/26/20 10/27/20 10/27/20 22:59 06:59 14:59 Intake Total 1650 / 2700 50 / 2750 676.573 / 676.573 Output Total 1260 / 1260 1300 / 2560 275 / 275 Balance 390 / 1440 -1250 / 190 401.573 / 401.573 Cumulative I&O 10/19/20 17:58 thru 10/27/20 10:54 Intake Total 24303.070 Output Total 96096 Balance -5315.930 Physical Exam Const: COMMON NORMALS: no acute distress, patient oriented x3 and alert GENERAL APPEARANCE: cooperative, comfortable, well kempt and well hydrated HENMT: COMMON NORMALS: hearing grossly normal bilaterally and external ears normal FACE & SINUS: normal facial exam EXTERNAL EAR: Yes external ears normal Eye: COMMON NORMALS: EOMs intact bilaterally and no scleral icterus GENERAL EYE: appearance normal, both eyes and all related structures ALIGNMENT: Yes alignment normal Neck/C-Spine: COMMON NORMALS: supple and no JVD GENERAL: Yes normal visual inspection and Yes trachea midline CAROTIDS: Yes normal carotid upstroke Chest: COMMONS NORMALS: normal inspection of the chest and normal palpation of entire chest wall CHEST: Yes Symmetrical chest wall rise and No tenderness Resp: COMMON NORMALS: clear to auscultation bilaterally (Except at bilateral bases) EFFORT & INSPECTION: No pursed lip breathing AUSCULTATION: clear to auscultation bilaterally (Except at bilateral bases), no crackles, no rales, no rhonchi and no wheezes Cardio: COMMON NORMALS: no JVD, regular rate, regular rhythm, S1 normal heart sound present, S2 normal heart sound present and Peripheral pulses 2+ throughout PALPATION: normal PMI RATE: regular rate RHYTHM: regular rhythm HEART SOUNDS: S1 normal heart sound present, S2 normal heart sound present, no gallops and no murmurs BRUITS: no carotid bruits PERIPHERAL PULSES: Peripheral pulses 2+ throughout, radial pulses present, posterior tibial pulses present and dorsalis pedis present GI: COMMON NORMALS: Soft to palpation AUSCULTATION: Yes normoactive bowel sounds PALPATION: Yes Soft to palpation, No Tenderness to palpation present (GI), No Guarding due to palpation present (GI) and No Rigid due to palpation PERCUSSION: tympanic to percussion Extremity: GENERAL: No clubbing, No cyanosis, No edema and No pallor Neuro: COMMON NORMALS: patient oriented x3 and no focal motor deficits SENSORIUM/ORIENTATION: Yes alert Psych: COMMON NORMALS: Normal thought process present and speech normal APPEARANCE: Yes well kempt SPEECH: Yes normal speech MOOD & AFFECT: Yes euthymic mood THOUGHT PROCESS: Normal thought process present THOUGHT CONTENT: Yes Normal thought content present Urinary Catheter Management^: Wills: Cath Placed During This Visit: yes Reason for Continuing Indwelling Catheter: Accurate Measurement of Urinary Output in Critically Ill Patients Urinary Catheter Date of Insertion: 10/19/20 Urinary Catheter Time of Insertion: 18:57 Data : 10/26/20 03:27 10/26/20 03:27 A&P Assessment and plan (1) Ventricular tachycardia, sustained: Remained stable had few episodes of nonsustained ventricular tachycardia. -continue on amiodarone 400 mg twice daily x 3 weeks till 11/09 and then once daily. -started on low dose metoprolol -Keep K more than 4 and magnesium more than 2. -Patient had a normal cath few years back but given significant drop in LV function and sustained ventricular tachycardia requiring cardioversion, he had repeat coronary angiogram. -Left and right heart cath performed by Dr. Graf via right radial and then right femoral access .I appreciate Dr. Graf's help in patient management. - Cath with normal LM, LAD and RCA and ramus with 60% moderate stenosis. RA-15 mm Hg, mPAP-33, LVEDP 25 mm Hg, RV- 46/6 mm Hg. Patient received high dose of contrast d/t poor image quality. -Drop in LV function likely in setting of viral myocarditis -Plan for life vest on discharge. Status: Acute (2) Pulmonary edema: -resolved Status: Acute Qualifiers: Chronicity: acute Qualified Code(s): J81.0 - Acute pulmonary edema (3) CHF exacerbation: Severely depressed LV function on echo. NICM, ACC/AHA stage C, NYHA class 3. -will benefit from life vest on discharge for at least 3 month for titration of GDMT given recent sustained VT and LVEF ~15%. Status: Acute Qualifiers: Heart failure type: unspecified Qualified Code(s): I50.9 - Heart failure, unspecified (4) Afib: Patient is on amiodarone. Patient is in sinus rhythm continue. -On therapeutic Lovenox. -change to Apixaban Status: Acute Qualifiers: Atrial fibrillation type: paroxysmal Qualified Code(s): I48.0 - Paroxysmal atrial fibrillation (5) Thoracic aortic aneurysm: Patient has large ascending aortic aneurysm, stable in size. Status: Acute Qualifiers: Presence of rupture: without rupture Qualified Code(s): I71.2 - Thoracic aortic aneurysm, without rupture (6) Cardiogenic shock: Patient is off pressors. Inotropic support with dobutamine stopped this am -resolved Status: Acute Additional A&P Information Acute respiratory failure : patient has been extubated Possible PNA: Remains on antibiotics as per primary team Bilateral pleural effusion Attestations Medical Necessity Statement*: needs hospital stay for titration of medications Time Spent in Patient Care: 16 - 35 minutes (>than 50% of time spent in counselling and/or direct pt care on unit). 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
[2020-10-27] MEDS: losartan 50 mg Tablet 25 MG PO (12:51)
--- NOTE | 2020-10-27 14:42 | PC.NURSE ---
Report called to Anuradha Rodgers RN. No further questions. Patient taken to 102-1 via wheelchair by this nurse. Belongings with patient.
--- NOTE | 2020-10-27 15:23 | PC.NURSE ---
PATIENT BROUGHT TO CSU BY TEVIN HERNANDEZ FROM ICU. MONITORS HOOKED UP, NO COMPLAINTS BY PATIENT. WILL CONTINUE TO MONITOR.
[2020-10-27] MEDS: atorvastatin 40 mg Tablet 20 MG PO (20:43)
[2020-10-28] VITALS (11 sets, daily range): BP systolic 125–149; BP diastolic 52–85; PULSE 62–84; RESP 20–31; TEMP 36–36.8; O2SAT 90–99
[2020-10-28 05:03] LABS: Basophils # 0.1 10^3/uL (0.0-0.1); Basophils % 0.8 %; Eosinophils # 0.2 10^3/uL (0.0-0.8); Hematocrit 40.2 % (42.0-52.0); Hemoglobin 11.7 g/dL (11.7-16.6); Lymphocytes % 14.8 %; Mean Corpuscular HGB Conc 29.1 g/dL (30.0-36.0); Mean Corpuscular Hemoglobin 29.3 pg (28.0-34.0); Mean Corpuscular Volume 100.8 fL (80-94); Mean Platelet Volume 10.3 fL (7.4-10.4); Monocytes # 0.8 10^3/uL (0.2-0.9); Monocytes % 12.6 %; Neutrophils # 4.42 10^3/uL (1.8-7.7); Neutrophils % 68.5 %; Nucleated Red Blood Cells % 0 %; Platelet Count 249 10^3/cmm (130-400); Red Blood Count 3.99 10^6/uL (4.1-5.3); Red Cell Distribution Width 13.2 % (12.1-15.1); White Blood Count 6.4 10^3/uL (4.0-10.0)
[2020-10-28 05:48] LABS: Magnesium 2.3 mg/dL (1.7-2.3)
[2020-10-28 06:04] LABS: Alanine Aminotransferase 64 U/L (0-41); Albumin Level 3.3 g/dL (3.5-5.2); Alkaline Phosphatase 67 IU/L (40-130); Aspartate Amino Transferase 47 U/L (0-40); Blood Urea Nitrogen 16 mg/dL (8-23); Calcium 8.9 mg/dL (8.5-10.5); Carbon Dioxide 20 mmol/L (22-29); Chloride 103 mmol/L (98-107); Creatinine Clr Calc Pharmacy 107.7119; Globulin 2.8 g/dL (1.3-4.6); Glomerular Filtration Rate 111.8 mL/min (90-130); Glucose 86 mg/dL (65-115); Osmolality Calculated 280 mOsm/kg (285-295); Sodium 135 mmol/L (136-145); Total Bilirubin 0.6 mg/dL (0.15-1.2); Total Protein 6.1 g/dL (6.6-8.7)
[2020-10-28 06:16] LABS: Anion Gap 15.8 (5-19); Potassium 3.8 mmol/L (3.5-5.1)
[2020-10-28] MEDS: potassium chloride oral liq 20 mEq/15 mL UDC PO (08:32)
[2020-10-28] MEDS: piperacillin-tazobactam 3.375 GM in sodium chloride 0.9% (plus) 50 ML IV (08:33)
[2020-10-28] MEDS: metoprolol succinate ER (24 HR) 25 mg Tablet 50 MG PO (08:33)
[2020-10-28] MEDS: bumetanide 1 mg Tablet PO (08:34)
[2020-10-28] MEDS: losartan 50 mg Tablet 25 MG PO (08:34)
[2020-10-28] MEDS: aspirin 81 mg EC Tablet PO (08:34)
[2020-10-28] MEDS: spironolactone 25 mg Tablet 12.5 MG PO (08:34)
[2020-10-28] MEDS: amiodarone 200 mg Tablet 400 MG PO (08:34)
[2020-10-28] MEDS: apixaban 5 mg Tablet PO (08:35)
--- NOTE | 2020-10-28 11:26 | DCPLANNER ---
IMM completed on 10/28/20 @ 7949. Copy of rights given to pt.
--- NOTE | 2020-10-28 12:18 | PM.DCS ---
Discharge Providers Date of Admission: 10/19/20 20:18 Date of Discharge: October 28, 2020 Attending Provider at Admission: Maribeth Arcos MD Attending Provider at Discharge: Fernando Soares MD Primary Care Provider: NETTE Segovia Diagnoses at Discharge Discharge Diagnosis (1) Ventricular tachycardia, sustained: Status: Acute (2) Pulmonary edema: Status: Acute Qualifiers: Chronicity: acute Qualified Code(s): J81.0 - Acute pulmonary edema (3) CHF exacerbation: Status: Acute Qualifiers: Heart failure type: unspecified Qualified Code(s): I50.9 - Heart failure, unspecified (4) Afib: Status: Acute Qualifiers: Atrial fibrillation type: paroxysmal Qualified Code(s): I48.0 - Paroxysmal atrial fibrillation (5) Thoracic aortic aneurysm: Status: Acute Permanent problem details: 5.6 cm CTA August [address] Flanagan Qualifiers: Presence of rupture: without rupture Qualified Code(s): I71.2 - Thoracic aortic aneurysm, without rupture (6) Cardiogenic shock: Status: Acute Reason for Visit Reason for Visit: CHEST PAIN Hospital Course Hospital Course Riki is a 70-year-old white male who presented to the hospital on October 19. Apparently he was short of breath at home. When EMS arrived they noticed his oxygen saturation was significantly low. EKG demonstrated ventricular tachycardia. He was cardioverted, and intubated. He ended up being cardioverted several times in the emergency department as well. Cardiology was consulted. Anticoagulation was started. Imaging with CTA demonstrated bilateral pneumonia, stable thoracic aortic aneurysm without bleeding, bilateral effusions. Echocardiogram was obtained demonstrating EF of 15 to 20%, moderate aortic regurgitation. He was on IV antibiotics for concern of aspiration, in the form of Zosyn. Cardiology placed him on dobutamine for his poor EF. Cardiac catheterization was obtained demonstrating normal LAD RCA and left main. Ramus has a 60% moderate stenosis and no intervention was needed. Medical treatment was elected. He was extubated without difficulty. The rest of his hospital stay medication adjustment occurred for his coronary condition as well as arranging for a LifeVest which was obtained prior to discharge. He will discharge home with home health. He will be given 2 days of Augmentin to finish up his course of antibiotic for pneumonia. Physical Exam Narrative: EXAM NARRATIVE: General exam no apparent distress Cardiovascular regular rate and rhythm Lungs clear Abdomen is soft with positive bowel sounds Extremities no cyanosis clubbing or edema Urinary Catheter Management^: Wills: Cath Placed During This Visit: yes, but has since been removed by the nurse Reason for Continuing Indwelling Catheter: Accurate Measurement of Urinary Output in Critically Ill Patients Urinary Catheter Date of Insertion: 10/19/20 Urinary Catheter Time of Insertion: 18:57 Date Urinary Catheter Removed: 10/28/20 Time Urinary Catheter Discontinued: 10:40 Discharge Data Data Completed and Pending: Completed Studies During Hospitalization Category Date Time Status CT angio chest 71 275 Urgent Cat Scan 10/19/20 20:36 Completed XR chest 1V vince ble 76310 AM LABS Exams 10/20/20 04:00 Completed XR chest 1V vince ble [id number] AM LABS Exams 10/21/20 04:00 Completed XR chest 1V vince ble [id number] Routine Exams 10/22/20 07:00 Completed XR chest 1V vince ble [id number] Stat Exams 10/19/20 18:10 Completed CV echo complete* [id number] Routine Ultrasound 10/20/20 22:18 Completed Pending at discharge Category Date Time Status DESK ATTENDANT request for service Routin e Exams 10/24/20 07:00 Taken Magnesium AM LABS Lab 10/29/20 04:00 Ordered Magnesium AM LABS Lab 10/30/20 04:00 Ordered Labs from last 24 hours 10/28/20 10/28/20 10/28/20 04:22 04:22 04:22 WBC 6.4 RBC 3.99 L Hgb 11.7 Hct 40.2 L MCV 100.8 H MCH 29.3 MCHC 29.1 L RDW 13.2 Plt Count 249 MPV 10.3 Neut % (Auto) 68.5 Lymph % (Auto) 14.8 [place] % (Auto) 12.6 Eos % (Auto) 3.0 Baso % (Auto) 0.8 Neut # (Auto) 4.42 Lymph # (Auto) 1.0 [place] # (Auto) 0.8 Eos # (Auto) 0.2 Baso # (Auto) 0.1 Nucleated RBC % (a uto) 0 Nucleated RBCs # 0.0 Sodium 135 L Potassium 3.8 Chloride 103 Carbon Dioxide 20 L Anion Gap 15.8 BUN 16 Creatinine 0.7 GFR Calculation 111.8 Glucose 86 Calculated Osmolal ity 280 L Calcium 8.9 Magnesium 2.3 Total Bilirubin 0.6 AST 47 H ALT 64 H Alkaline Phosphata se 67 Total Protein 6.1 L Albumin 3.3 L Globulin 2.8 Vitals: Last Vital Signs Temp 97.4 F L 10/28/20 06:59 Pulse 81 10/28/20 06:59 Resp 22 H 10/28/20 06:59 BP 149/85 10/28/20 08:34 Pulse Ox 90 10/28/20 06:59 Discharge Plan Discharge Patient Disposition: Home Health Service Condition: Stable Prescriptions: New nitroglycerin 0.4 mg Tablet, Sublingual 0.4 mg sublingual Q5M PRN (Reason: Chest Pain) Qty: 20 RF: 0 metoprolol succinate 25 mg Tablet Extended Release 24 Hr 50 mg PO DAILY Qty: 30 RF: 0 spironolactone 25 mg Tablet 12.5 mg PO DAILY Qty: 15 RF: 0 amiodarone [Pacerone] 400 mg tablet 400 mg PO BID 30 Days Qty: 60 RF: 0 potassium chloride 20 mEq tablet extended release 20 meq PO DAILY Qty: 30 RF: 0 amoxicillin-pot clavulanate [Augmentin] 875-125 mg tablet 1 tab PO BID Qty: 4 RF: 0 atorvastatin 40 mg Tablet 20 mg PO BEDTIME Qty: 30 RF: 0 losartan 50 mg Tablet 25 mg PO DAILY Qty: 15 RF: 0 Continued aspirin [Adult Low Dose Aspirin] 81 mg tablet,delayed release (DR/EC) 81 mg PO DAILY RF: 0 Eliquis 5 mg tablet 5 mg PO BID Qty: 180 RF: 2 bumetanide 1 mg tablet 1 mg PO BID Qty: 180 RF: 2 multivitamin Tablet 1 tab PO DAILY RF: 0 Discontinued carvedilol 6.25 mg tablet 6.25 mg PO BID Qty: 180 RF: 2 lisinopril 5 mg tablet 5 mg PO DAILY Qty: 90 RF: 2 potassium chloride 10 mEq capsule, extended release 10 meq PO BID Qty: 180 RF: 2 spironolactone 25 mg tablet 25 mg PO DAILY Qty: 90 RF: 2 Discharge Orders: Discharge Order (Routine); Ordered 10/28/20 Ordered By: Fernando Soares Other Ambulatory Orders: DME: Flex (Order) Location: None Selected Ordered By: María Herman Referrals: Sabrina Joyce MD [Physician] - 1 week (Follow-up of arrhythmia) Rajni Zhang FNP [Primary Care Provider] - 4-7 days (CBC and BMP and magnesium on follow-up) Discharge Diet: Cardiac Discharge Activity: Increase activity as tolerated Patient Instructions: Left Heart Catheterization (DC) Activity Restrictions/Additional Instructions: Take all medicines as prescribed. Note that you are to take your amiodarone 400 mg twice daily until November 09 and once daily. Return for any concerns. 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
--- NOTE | 2020-10-28 12:34 | PM.PN ---
Subjective Subjective: Interval history: No new complaints. He feels well. He got fitted with LifeVest on Tuesday. Medications: Reviewed: Yes Medication Review Details: Current Medications Acetaminophen (Acetaminophen 325 Mg Tablet) 650 mg PO Q6H PRN PRN Reason: MILD PAIN Hydrocodone Bitart/Acetaminophen (Hydrocodone-Acetaminophen 5-325 Mg Tablet) 1 tab PO Q4H PRN PRN Reason: PAIN Al Hydrox/Mg Hydrox/Simethicone (Oqdu-Iym-Ilcdlsshd-Ventura 30 Ml Udc) 30 ml PO Q15M PRN PRN Reason: INDIGESTION Alprazolam (Alprazolam 0.25 Mg Tablet) 0.25 mg PO TID PRN PRN Reason: ANXIETY Amiodarone HCl (Amiodarone 200 Mg Tablet) 400 mg PO 0900,2100 [facility] Last Admin: 10/27/20 09:48 Dose: 400 mg Documented by: Apixaban (Apixaban 5 Mg Tablet) 5 mg PO Q12H [facility] Last Admin: 10/27/20 11:46 Dose: 5 mg Documented by: Aspirin (Aspirin 81 Mg Ec Tablet) 81 mg PO DAILY [facility] Last Admin: 10/27/20 09:48 Dose: 81 mg Documented by: Atorvastatin Calcium (Atorvastatin 40 Mg Tablet) 20 mg PO BEDTIME [facility] Last Admin: 10/26/20 20:13 Dose: 20 mg Documented by: Bumetanide (Bumetanide 1 Mg Tablet) 1 mg PO BID [facility] Piperacillin Sod/Tazobactam (Sod 3.375 gm/ Sodium Chloride) 50 mls @ 12.5 mls/hr IV Q8H [facility] Last Admin: 10/27/20 07:19 Dose: 12.5 mls/hr Documented by: Losartan Potassium (Losartan 50 Mg Tablet) 25 mg PO DAILY [facility] Magnesium Hydroxide (Magnesium Hydroxide 30 Ml Udc) 30 ml PO DAILY PRN PRN Reason: CONSTIPATION Metoprolol Succinate (Metoprolol Succinate Er (24 Hr) 25 Mg Tablet) 25 mg PO DAILY [facility] Last Admin: 10/27/20 09:48 Dose: 25 mg Documented by: Naloxone HCl (Naloxone 0.4 Mg/Ml Sdv) 0.1 mg IVP Q2M PRN PRN Reason: RESPIRATORY RATE < 8/MIN Nitroglycerin (Nitroglycerin 0.4 Mg Sublingual Tablet) 0.4 mg SUBLINGUAL Q5M PRN PRN Reason: CHEST PAIN Ondansetron HCl (Ondansetron 2 Mg/Ml Sdv 2 Ml) 4 mg IVP Q4H PRN PRN Reason: NAUSEA AND VOMITING Last Admin: 10/24/20 03:14 Dose: 4 mg Documented by: Potassium Chloride (Potassium Chloride Oral Liq 20 Meq/15 Ml Udc) 20 meq PO DAILY [facility] Last Admin: 10/27/20 09:48 Dose: 20 meq Documented by: Vitals/I&O/Wt Last Vital Signs Temp 97.4 F L 10/28/20 06:59 Pulse 81 10/28/20 06:59 Resp 22 H 10/28/20 06:59 BP 149/85 10/28/20 08:34 Pulse Ox 90 10/28/20 06:59 10/27/20 10/28/20 10/28/20 22:59 06:59 14:59 Intake Total 410 / 1870.000 200 / 2070.000 360 / 360 Output Total 1100 / 1375 1100 / 2475 800 / 800 Balance -690 / 495.000 -900 / -405.000 -440 / -440 Physical Exam Const: COMMON NORMALS: no acute distress, patient oriented x3 and alert GENERAL APPEARANCE: cooperative, comfortable, well kempt and well hydrated NUTRITIONAL APPEARANCE: obese OTHER: NAD HENMT: COMMON NORMALS: hearing grossly normal bilaterally and external ears normal FACE & SINUS: normal facial exam NOSE: Normal septum present and No nasal discharge present; no Epistaxis present EXTERNAL EAR: Yes external ears normal MOUTH: lip normal OTHER: PEERL Eye: COMMON NORMALS: EOMs intact bilaterally and no scleral icterus GENERAL EYE: appearance normal, both eyes and all related structures ALIGNMENT: Yes alignment normal Neck/C-Spine: COMMON NORMALS: supple and no JVD GENERAL: Yes normal visual inspection and Yes trachea midline CAROTIDS: Yes normal carotid upstroke Lymph: LYMPHATIC: no lymphadenopathy noted Chest: COMMONS NORMALS: normal inspection of the chest and normal palpation of entire chest wall CHEST: Yes Symmetrical chest wall rise and No tenderness Resp: COMMON NORMALS: clear to auscultation bilaterally (Except at bilateral bases) EFFORT & INSPECTION: No pursed lip breathing AUSCULTATION: clear to auscultation bilaterally (Except at bilateral bases), no crackles, no rales, no rhonchi, no wheezes and breath sounds absent bilateral (bases) Cardio: COMMON NORMALS: no JVD, regular rate, regular rhythm, S1 normal heart sound present, S2 normal heart sound present and Peripheral pulses 2+ throughout PALPATION: normal PMI RATE: regular rate RHYTHM: regular rhythm HEART SOUNDS: S1 normal heart sound present, S2 normal heart sound present, no gallops and no murmurs BRUITS: no carotid bruits PERIPHERAL PULSES: Peripheral pulses 2+ throughout, radial pulses present, posterior tibial pulses present and dorsalis pedis present GI: COMMON NORMALS: Soft to palpation AUSCULTATION: Yes normoactive bowel sounds PALPATION: Yes Soft to palpation, No Tenderness to palpation present (GI), No Guarding due to palpation present (GI) and No Rigid due to palpation PERCUSSION: tympanic to percussion Extremity: GENERAL: No clubbing, No cyanosis, No edema and No pallor OTHER: Right wrist 2+ radial and right femoral access site without significant hematoma bruising Neuro: COMMON NORMALS: patient oriented x3 and no focal motor deficits SENSORIUM/ORIENTATION: Yes alert Psych: COMMON NORMALS: Normal thought process present and speech normal APPEARANCE: Yes well kempt SPEECH: Yes normal speech MOOD & AFFECT: Yes euthymic mood THOUGHT PROCESS: Normal thought process present THOUGHT CONTENT: Yes Normal thought content present Skin: COMMON NORMALS: no rashes or lesions noted GENERAL SKIN EXAM: no rashes or lesions noted Urinary Catheter Management^: Wills: Cath Placed During This Visit: yes, but has since been removed by the nurse Reason for Continuing Indwelling Catheter: Accurate Measurement of Urinary Output in Critically Ill Patients Urinary Catheter Date of Insertion: 10/19/20 Urinary Catheter Time of Insertion: 18:57 Date Urinary Catheter Removed: 10/28/20 Time Urinary Catheter Discontinued: 10:40 Data : 10/28/20 04:22 10/28/20 04:22 A&P Assessment and plan (1) Ventricular tachycardia, sustained: Remained stable had few episodes of nonsustained ventricular tachycardia. -continue on amiodarone 400 mg twice daily x 3 weeks till 11/09 and then once daily. -continue with metoprolol succinate 50 mg daily -Keep K more than 4 and magnesium more than 2. -Patient had a normal cath few years back but given significant drop in LV function and sustained ventricular tachycardia requiring cardioversion, he had repeat coronary angiogram. -Left and right heart cath performed by Dr. Graf via right radial and then right femoral access .I appreciate Dr. Graf's help in patient management. - Cath with normal LM, LAD and RCA and ramus with 60% moderate stenosis. RA-15 mm Hg, mPAP-33, LVEDP 25 mm Hg, RV- 46/6 mm Hg. -Drop in LV function likely in setting of viral myocarditis, f/u echo outpatient in 3 months. -Plan for life vest on discharge. Stable to be discharged home later today. -f/u with me in [facility] in 1 week, BMP in 1 week. Status: Acute (2) Pulmonary edema: -resolved Status: Acute Qualifiers: Chronicity: acute Qualified Code(s): J81.0 - Acute pulmonary edema (3) CHF exacerbation: Severely depressed LV function on echo. NICM, ACC/AHA stage C, NYHA class 3. -will benefit from life vest on discharge for at least 3 month for titration of GDMT given recent sustained VT and LVEF ~15%. -started on losartan, metoprolol succinate and low dose aldactone. Status: Acute Qualifiers: Heart failure type: unspecified Qualified Code(s): I50.9 - Heart failure, unspecified (4) Afib: Patient is on amiodarone. Patient is in sinus rhythm continue. on Apixaban and amiodarone Status: Acute Qualifiers: Atrial fibrillation type: paroxysmal Qualified Code(s): I48.0 - Paroxysmal atrial fibrillation (5) Thoracic aortic aneurysm: Patient has large ascending aortic aneurysm, stable in size. Status: Acute Qualifiers: Presence of rupture: without rupture Qualified Code(s): I71.2 - Thoracic aortic aneurysm, without rupture (6) Cardiogenic shock: Patient is off pressors. Inotropic support with dobutamine stopped this am -resolved Status: Acute Additional A&P Information Acute respiratory failure : patient has been extubated Possible PNA: Remains on antibiotics as per primary team Bilateral pleural effusion Attestations Medical Necessity Statement*: stable to be discharged home. Time Spent in Patient Care: Greater than 35 minutes (>than 50% of time spent in counselling and/or direct pt care on unit). 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
--- NOTE | 2020-10-28 15:39 | PC.NURSE ---
DISCHARGE INSTRUCTIONS EDUCATED TO THE PATIENT. PATIENT IS UNABLE TO READ, SO MUCH TIME WAS TAKEN GOING OVER INSTRUCTIONS THOROUGHLY. NURSE EDUCATED FAMILY TO HELP PATIENT SET UP HIS MEDICATIONS THIS EVENING UNTIL HOME HEALTH NURSE COULD SEE PATIENT TOMORROW. PATIENT HAD NO QUESTIONS OVER DISCHARGE INSTRUCTIONS. HOSPITAL PHONE NUMBER AND FLOOR EXTENSION PROVIDED TO PATIENT.
== END 2020-10-28 15:45 | disposition home health service (06) | DRG 208 ==
LOC: ER 19:33 → ICU 21:00 → CSU 10-27 15:11
PROVIDERS: Hospitalist; Internal Medicine Cardiovascular Disease; Admitting Provider Internal Medicine; Emergency Provider Family Medicine; PCP Nurse Practitioner Family; Visit Provider Internal Medicine
PROC: B2161ZZ Fluoroscopy of Right and Left Heart using Low Osmolar Contrast (ICD-10-PCS; principal; 2020-10-24 07:00)
DX: J96.01 Acute respiratory failure with hypoxia (principal); I50.33 Acute on chronic diastolic (congestive) heart failure; J69.0 Pneumonitis due to inhalation of food and vomit; R57.0 Cardiogenic shock; I47.2 Ventricular tachycardia; I42.8 Other cardiomyopathies; I71.2 Thoracic aortic aneurysm, without rupture; I48.0 Paroxysmal atrial fibrillation; I11.0 Hypertensive heart disease with heart failure; I08.0 Rheumatic disorders of both mitral and aortic valves; I95.9 Hypotension, unspecified; Z79.82 Long term (current) use of aspirin
CPT/HCPCS: 12345; 31500; 36415; 36416; 36600; 51702; 71045; 71275; 80048; 80051; 80053; 80061; 81003; 82330; 82550; 82803; 82805; 82962; 83605; 83735; 83880; 84145; 84439; 84443; 84484; 85025; 85610; 85730; 87040; 87070; 87205; 87426; 87804; 93005; 93306; 93456; 94002; 94003; 94799; 96372; 97110; 97116; 97161; 97166; 97530; 97535; 99283; C1751; C1769; C1887; C1894; J0282; J0330; J1250; J1644; J1650; J1940; J2060; J2250; J2405; J2543; J2704; J3010; J3480; J3490; J7030; J7060; Q0163; Q9967

== ENCOUNTER 2020-11-14 15:08 | Outpatient (CLI) | payer MEDICARE, MEDICAID, SELFPAY ==
[2020-11-14 16:58] LABS: Anion Gap 15.2 (5-19); Blood Urea Nitrogen 19 mg/dL (8-23); Calcium 9.3 mg/dL (8.5-10.5); Carbon Dioxide 25 mmol/L (22-29); Chloride 98 mmol/L (98-107); Glomerular Filtration Rate 83.7 mL/min (90-130); Glucose 87 mg/dL (65-115); Magnesium 1.9 mg/dL (1.7-2.3); NT Pro B Type Natriuretic Pept 855 pg/mL (0-125); Osmolality Calculated 280 mOsm/kg (285-295); Potassium 4.2 mmol/L (3.5-5.1); Sodium 134 mmol/L (136-145)
== END 2020-11-14 15:09 | disposition home or self-care (01) ==
PROVIDERS: PCP Nurse Practitioner Family; Visit Provider Internal Medicine Cardiovascular Disease
DX: I11.9 Hypertensive heart disease without heart failure (principal)
CPT/HCPCS: 80048; 83735; 83880

== ENCOUNTER → 2020-12-18 15:12 | Outpatient (BNVA) | payer MEDICARE, MEDICAID, SELFPAY | PROVIDERS: PCP Nurse Practitioner Family; Visit Provider Internal Medicine Cardiovascular Disease | DX: I50.32 Chronic diastolic (congestive) heart failure (principal); R06.00 Dyspnea, unspecified; I48.0 Paroxysmal atrial fibrillation; I71.2 Thoracic aortic aneurysm, without rupture; I47.2 Ventricular tachycardia | CPT/HCPCS: 80053; 83735; 83880 ==

== ENCOUNTER 2021-01-15 12:36 | Outpatient (CLI) | payer MEDICARE, MEDICAID, SELFPAY ==
--- NOTE | 2021-01-15 12:44 | USCV_ITS ---
Sherri Riki Age: 70 Gender: M : 1950 Exam Date: 01/15/2021 13:14 Ordering Phys: Sabrina Joyce MD ([email or web address]) Technologist: Rhoda Garcia [place] [facility] [place]: CHF BP: / HR: 97 Rhythm: Sinus Technical Quality: Adequate MEASUREMENTS (Male / Female) Normal Values 2D ECHO LV Diastolic Diameter PLAX 3.8 cm 4.2 - 5.9 / 3.9 - 5.3 cm LV Systolic Diameter PLAX 2.6 cm LV Chamber Size 4.9 cm IVS Diastolic Thickness 1.9 cm 0.6 - 1.0 / 0.6 - 0.9 cm IVS Systolic Thickness 1.9 cm LVPW Diastolic Thickness 2.1 cm 0.6 - 1.0 / 0.6 - 0.9 cm LVPW Systolic Thickness 2.2 cm RV Chamber Size 4.4 cm LVOT Diameter 2.0 cm LV Ejection Fraction 2D Teich 61.0 % LV Ejection Fraction MOD 2C 43.3 % LV Ejection Fraction 2C AL 45.6 % LA Diameter 3.4 cm LA Width 4.4 cm LA Height 5.5 cm RA Width 4.4 cm RA Height 4.5 cm M-MODE LV Diastolic Diameter MM 4.8 cm 4.2 - 5.9 / 3.9 - 5.3 cm LV Systolic Diameter MM 3.4 cm LV Ejection Fraction MM Teich 57.4 % IVS Diastolic Thickness MM 1.5 cm 0.6 - 1.0 / 0.6 - 0.9 cm IVS Systolic Thickness MM 1.6 cm LVPW Diastolic Thickness MM 1.8 cm 0.6 - 1.0 / 0.6 - 0.9 cm LVPW Systolic Thickness MM 1.6 cm Aortic Annulus Diameter 2.9 cm LA Ao Ratio MM 1.1 MV E Point Septal Separation 1.2 cm DOPPLER AV Peak Velocity 277.0 cm/s LVOT Peak Velocity 151.0 cm/s AV Area Cont Eq vti 2.0 cm squared AV Area Cont Eq pk 1.7 cm squared MV Area PHT 2.9 cm squared Mitral E to A Ratio 0.9 MV E' Velocity 56.5 cm/s Mitral E to MV E' Ratio 12.7 Mitral E to LV E' Lateral Ratio 9.9 Mitral E to LV E' Septal Ratio 17.8 TR Peak Velocity 110.0 cm/s TR Peak Gradient 4.8 mmHg TV Peak E Velocity 62.0 cm/s Right Atrial Pressure 3.0 mmHg Pulmonary Artery Systolic Pressu 7.8 mmHg PV Peak Velocity 87.0 cm/s RV Acceleration Time 0.2 s RV Ejection Time 0.4 s RV AcT/ET 0.4 FINDINGS Left Ventricle Dilated left ventricle. Moderately decreased left ventricle systolic function. Left ventricle ejection fraction estimated at 30%. Moderate global hypokinesis. Grade 2 diastolic dysfunction with elevated filling pressure. Right Ventricle Normal right ventricular size and systolic function. Right Atrium Normal right atrial size. Left Atrium Moderately increased left atrial size. Mitral Valve Structurally normal mitral valve. Trace mitral valve regurgitation. Aortic Valve Thickened and calcified aortic valve. Mild aortic valve stenosis, mean gradient 13.3 mmHg, CASA 2 cm squared. Moderate aortic valve regurgitation. Tricuspid Valve Structurally normal tricuspid valve. Pulmonic Valve Pulmonic valve not well visualized. No pulmonary valve stenosis. Pericardium No pericardial effusion. Aorta Aorta not well visualized. CONCLUSIONS 1. Dilated left ventricle. Moderately decreased left ventricle systolic function. Left ventricle ejection fraction estimated at 30%. Moderate global hypokinesis. Grade 2 diastolic dysfunction with elevated filling pressure. 2. Normal right ventricular size and systolic function. 3. Mild aortic valve stenosis, mean gradient 13.3 mmHg, CASA 2 cm squared. 4. Moderate aortic valve regurgitation. 5. When compared to previous echocardiogram dated 10/20/2020, left ventricular systolic function has improved from 15 to 20% to 30% now. Sabrina Joyce MD (Electronically Signed) Final Date: 15 January 2021 16:32 S
== END 2021-01-15 12:37 | disposition home or self-care (01) ==
LOC: RAD 12:38
PROVIDERS: PCP Nurse Practitioner Family; Visit Provider Internal Medicine Cardiovascular Disease
DX: I50.32 Chronic diastolic (congestive) heart failure (principal); I35.0 Nonrheumatic aortic (valve) stenosis
CPT/HCPCS: 93308; 93325

== ENCOUNTER → 2021-02-19 12:04 | Outpatient (BNVA) | payer MEDICARE, MEDICAID, SELFPAY | PROVIDERS: PCP Nurse Practitioner Family; Visit Provider Internal Medicine Cardiovascular Disease | DX: I50.32 Chronic diastolic (congestive) heart failure (principal); I48.0 Paroxysmal atrial fibrillation; R06.00 Dyspnea, unspecified; I47.2 Ventricular tachycardia; I71.2 Thoracic aortic aneurysm, without rupture; I35.1 Nonrheumatic aortic (valve) insufficiency; I35.0 Nonrheumatic aortic (valve) stenosis | CPT/HCPCS: 80048; 83735; 83880 ==

== ENCOUNTER → 2021-03-26 11:59 | Outpatient (BNVA) | payer MEDICARE, MEDICAID, SELFPAY | PROVIDERS: PCP Nurse Practitioner Family; Visit Provider Internal Medicine Cardiovascular Disease | DX: I50.32 Chronic diastolic (congestive) heart failure (principal); R06.00 Dyspnea, unspecified; I48.0 Paroxysmal atrial fibrillation; I35.1 Nonrheumatic aortic (valve) insufficiency; I71.2 Thoracic aortic aneurysm, without rupture; I47.2 Ventricular tachycardia; I35.0 Nonrheumatic aortic (valve) stenosis; R00.2 Palpitations | CPT/HCPCS: 80048; 83735; 83880 ==

== ENCOUNTER → 2021-03-27 17:24 | Outpatient (BNVA) | payer MEDICARE, MEDICAID, SELFPAY | PROVIDERS: PCP Nurse Practitioner Family; Visit Provider Internal Medicine Cardiovascular Disease | DX: I48.0 Paroxysmal atrial fibrillation (principal); R06.00 Dyspnea, unspecified; I50.32 Chronic diastolic (congestive) heart failure; I35.1 Nonrheumatic aortic (valve) insufficiency; I71.2 Thoracic aortic aneurysm, without rupture; I47.2 Ventricular tachycardia; I35.0 Nonrheumatic aortic (valve) stenosis; R00.2 Palpitations | CPT/HCPCS: 84439; 84443; 84481 ==

== ENCOUNTER 2021-03-29 02:09 | Emergency (ER) | payer MEDICARE, MEDICAID, SELFPAY ==
[2021-03-29 02:10] VITALS: BP 184/66; PULSE 75; RESP 25; TEMP 36.6; O2SAT 100; BMI 32.5
--- NOTE | 2021-03-29 02:16 | ECG_ITS ---
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: : 1950 Requested By: Estela Barrett Order Number: [id number] Reading MD: RICARDA RAPHAEL Measurements Intervals Epsom Rate: 74 P: 77 CT: 187 QRS: 9 QRSD: 128 T: 33 QT: 402 QTc: 449 Interpretive Statements SINUS RHYTHM WITH OCCASIONAL VENTRICULAR PREMATURE COMPLEXES MODERATE INTRAVENTRICULAR CONDUCTION DELAY [105+ ms QRS DURATION, 80+ ms Q/S IN V1/V2, NO Q AND 60+ ms R IN I/aVL/V5/V6] INTERPRETATION BASED ON A DEFAULT AGE OF 40 YEARS Compared to ECG 10/20/2020 03:49:17 Ventricular premature complex(es) now present Intraventricular conduction delay now present Myocardial infarct finding no longer present Electronically Signed On 03-30-2021 18:50:55 CDT by RICARDA RAPHAEL [id number]
--- NOTE | 2021-03-29 02:16 | XRR_ITS ---
PROCEDURE INFORMATION: Exam: XR Chest Exam date and time: 03/29/2021 2:16 AM Age: 71 years old Clinical indication: Pain; Chest pressure; Prior surgery; Surgery date: 6+ months; Additional info: Chest pain TECHNIQUE: Imaging protocol: XR of the chest. Views: 1 view. COMPARISON: CR XR chest 1V portable [id number] 10/22/2020 5:17 AM FINDINGS: Lungs: Hazy left basilar opacity which could be secondary to atelectasis or pneumonia. Pleural spaces: Unremarkable. No pleural effusion. No pneumothorax. Heart/Mediastinum: There is mild cardiomegaly. Bones/joints: Unremarkable. XR/XR chest 1V portable [id number] IMPRESSION: 1. Hazy left basilar opacity which could be secondary to atelectasis or pneumonia. 2. Mild cardiomegaly.
[2021-03-29 02:23] VITALS: PULSE 73; RESP 22; O2SAT 100
[2021-03-29 02:48] LABS: Basophils % 0.7 %; Eosinophils # 0.1 10^3/uL (0.0-0.8); Eosinophils % 1.2 %; Hematocrit 34.3 % (42.0-52.0); Hemoglobin 11.1 g/dL (11.7-16.6); Lymphocytes # 0.4 10^3/uL (0.8-4.8); Lymphocytes % 10.3 %; Mean Corpuscular HGB Conc 32.4 g/dL (30.0-36.0); Mean Corpuscular Hemoglobin 30.7 pg (28.0-34.0); Mean Corpuscular Volume 94.8 fL (80-94); Mean Platelet Volume 10.5 fL (7.4-10.4); Monocytes # 0.9 10^3/uL (0.2-0.9); Monocytes % 21.4 %; Neutrophils # 2.68 10^3/uL (1.8-7.7); Neutrophils % 66.2 %; Nucleated Red Blood Cells % 0 %; Platelet Count 153 10^3/cmm (130-400); Red Blood Count 3.62 10^6/uL (4.1-5.3); Red Cell Distribution Width 12.9 % (12.1-15.1); White Blood Count 4.1 10^3/uL (4.0-10.0)
[2021-03-29 02:59] LABS: INR 1.33 (0.8-1.2)
--- NOTE | 2021-03-29 03:06 | W.ED.CHESTPA ---
HPI - Chest Pain General: Chief Complaint: Chest Pain Stated Complaint: CP Time Seen by Provider: 03/29/21 02:20 History of Present Illness: HPI narrative: 71-year-old male with a history of severe nonischemic cardiomyopathy presents with chest pain, burning, epigastric pain, and headache. Had pain a couple of days. Nitroglycerin transiently reduces his pain, but does not completely relieve it. He has not tried anything else. He denies any fever. The patient somewhat of a poor historian. MD complaint: chest pain Pertinent past history: other Onset (ago): day(s) Timing of current episode: episodic Onset: during rest Pain location: substernal and epigastric Pain radiation: none Severity: moderate Quality: burning Relieving factors: nitroglycerin Exacerbating factors: nothing Associated symptoms: Reports abdominal pain, dyspnea and nausea; Deny fever(s), palpitations or vomiting Review of Systems Const: Denies: fever(s) or chills Eyes: Denies: change in vision ENMT: Denies: odynophagia or sinus pain Card: Reports: chest pain and edema; Denies: palpitations or irregular heart rhythm Resp: Reports: dyspnea; Denies: productive cough, non-productive cough or wheezing GI: Reports: abdominal pain and nausea; Denies: vomiting : Denies: difficulty urinating or hematuria Musc: Denies: neck pain or joint warmth Skin/Breast: Denies: rash, pruritus or erythema Neuro: Reports: headache(s); Denies: dizziness or vertigo Psych: Denies: anxiety PFSH ED PFSH: Medical History Aortic regurgitation Atrial fibrillation Chronic anticoagulation Congestive heart failure Hypertension Moderate aortic stenosis Normal coronary angiogram 2017 Scrotal edema Thoracic aortic aneurysm 5.6 cm CTA August [address] Flanagan Ventricular tachycardia Ventricular tachycardia, sustained Surgical History Hx of cataract surgery Family History Other CAD (coronary artery disease) Social History Smoking and tobacco status: never smoked Alcohol intake: never Adopted: No Caregiver/support person: No Lives independently: Yes Marital status: Single Current occupational status: retired History of recent travel: No Physical Exam Const: GENERAL APPEARANCE: well developed ORIENTATION/CONSCIOUSNESS: Yes oriented to person, Yes oriented to place and Yes oriented to time HENMT: COMMON NORMALS: normocephalic, external ears normal and Normal external nose present HEAD & SCALP: normocephalic FACE & SINUS: normal facial exam NOSE: Normal external nose present and No nasal discharge present EXTERNAL EAR: Yes external ears normal Eye: COMMON NORMALS: Equal, round and reactive pupils present, EOMs intact bilaterally and conjunctivae normal EYELID: eyelids normal CONJUNCTIVA: Yes conjunctivae normal PUPIL: Yes Equal, round and reactive pupils present Neck/C-Spine: GENERAL: No tracheal deviation Chest: COMMONS NORMALS: normal inspection of the chest CHEST: No tenderness Resp: COMMON NORMALS: clear to auscultation bilaterally EFFORT & INSPECTION: Yes tachypneic, No retractions, Yes uses accessory muscles and No tracheal deviation AUSCULTATION: clear to auscultation bilaterally, no rhonchi, no wheezes and lung sounds not diminished Cardio: COMMON NORMALS: regular rate and regular rhythm RATE: regular rate RHYTHM: regular rhythm HEART SOUNDS: Murmur heart sound present PERIPHERAL PULSES: radial pulses present GI: INSPECTION: No abdominal distension AUSCULTATION: No Hyperactive bowel sounds present and No Hypoactive bowel sounds present PALPATION: No Guarding due to palpation present (GI) and No Rigid due to palpation Neuro: SENSORIUM/ORIENTATION: Yes oriented to person, Yes oriented to place and Yes oriented to time Psych: COMMON NORMALS: mental status grossly normal Skin: COMMON NORMALS: no rashes or lesions noted GENERAL SKIN EXAM: no rashes or lesions noted Course Vital Signs: Vital signs: Vital Signs Temperature 97.9 F 03/29/21 02:10 Pulse Rate 64 03/29/21 05:00 Respiratory Rate 21 H 03/29/21 05:00 Blood Pressure 138/56 03/29/21 05:00 Pulse Oximetry 98 03/29/21 05:00 MDM - Chest Pain MDM Narrative: Medical decision making narrative: 71-year-old male with severe nonischemic cardiomyopathy. He had an EF of 15 to 20% in October. He had a 60% ramus lesion and stented, otherwise clean coronaries at that time. He presents with chest burning and discomfort. Saturations are 95% on room air. His heart rate 62. Blood pressure 131/59. His pain is relieved following GI cocktail and nitroglycerin paste as well as some morphine. His first troponin is negative. His hemoglobin is 11. White blood cell count 4.1. Chest x-ray showed hazy left basilar opacity which could be atelectasis or infiltrate. We will treat the atelectasis/infiltrate. Second troponin is negative. EKG does not show any acute findings at 2 hours. Lab Data: Labs: Lab Results 03/29/21 03/29/21 03/29/21 Range/Units 02:24 02:24 02:24 WBC 4.1 (4.0-10.0) 10^3/ uL RBC 3.62 L (4.1-5.3) 10^6/u L Hgb 11.1 L (11.7-16.6) g/dL Hct 34.3 L (42.0-52.0) % MCV 94.8 H (80-94) fL MCH 30.7 (28.0-34.0) pg MCHC 32.4 (30.0-36.0) g/dL RDW 12.9 (12.1-15.1) % Plt Count 153 (130-400) 10^3/c mm MPV 10.5 H (7.4-10.4) fL Neut % (Auto) 66.2 % Lymph % (Auto) 10.3 % [place] % (Auto) 21.4 % Eos % (Auto) 1.2 % Baso % (Auto) 0.7 % Neut # (Auto) 2.68 (1.8-7.7) 10^3/u L Lymph # (Auto) 0.4 L (0.8-4.8) 10^3/u L [place] # (Auto) 0.9 (0.2-0.9) 10^3/u L Eos # (Auto) 0.1 (0.0-0.8) 10^3/u L Baso # (Auto) 0.0 (0.0-0.1) 10^3/u L Nucleated RBC % (a uto) 0 % Nucleated RBCs # 0.0 /100WBC PT (12.1-14.9) SECO NDS INR (0.8-1.2) Sodium 134 L (136-145) mmol/L Potassium 4.3 (3.5-5.1) mmol/L Chloride 101 (98-107) mmol/L Carbon Dioxide 23 (22-29) mmol/L Anion Gap 14.3 (5-19) BUN 17 (8-23) mg/dL Creatinine 1.3 H (0.7-1.2) mg/dL GFR Calculation 54.6 L (90-130) mL/min Glucose 91 (65-115) mg/dL Calculated Osmolal ity 279 L (285-295) mOsm/k g Calcium 9.2 (8.5-10.5) mg/dL Total Bilirubin 0.5 (0.15-1.2) mg/dL AST 30 (0-40) U/L ALT 32 (0-41) U/L Alkaline Phosphata se 62 (40-130) IU/L Troponin T Baselin e 13 (0-15) ng/L Troponin T 120 Min [place] (0-15) ng/L Delta Troponin T (0-10) ABS# NT-Pro-B Natriuret Pep 282 H (0-125) pg/mL Total Protein 6.4 L (6.6-8.7) g/dL Albumin 4.5 (3.5-5.2) g/dL Globulin 1.9 (1.3-4.6) g/dL 03/29/21 03/29/21 Range/Units 02:24 04:48 WBC (4.0-10.0) 10^3/ uL RBC (4.1-5.3) 10^6/u L Hgb (11.7-16.6) g/dL Hct (42.0-52.0) % MCV (80-94) fL MCH (28.0-34.0) pg MCHC (30.0-36.0) g/dL RDW (12.1-15.1) % Plt Count (130-400) 10^3/c mm MPV (7.4-10.4) fL Neut % (Auto) % Lymph % (Auto) % [place] % (Auto) % Eos % (Auto) % Baso % (Auto) % Neut # (Auto) (1.8-7.7) 10^3/u L Lymph # (Auto) (0.8-4.8) 10^3/u L [place] # (Auto) (0.2-0.9) 10^3/u L Eos # (Auto) (0.0-0.8) 10^3/u L Baso # (Auto) (0.0-0.1) 10^3/u L Nucleated RBC % (a uto) % Nucleated RBCs # /100WBC PT 16.90 H (12.1-14.9) SECO NDS INR 1.33 H (0.8-1.2) Sodium (136-145) mmol/L Potassium (3.5-5.1) mmol/L Chloride (98-107) mmol/L Carbon Dioxide (22-29) mmol/L Anion Gap (5-19) BUN (8-23) mg/dL Creatinine (0.7-1.2) mg/dL GFR Calculation (90-130) mL/min Glucose (65-115) mg/dL Calculated Osmolal ity (285-295) mOsm/k g Calcium (8.5-10.5) mg/dL Total Bilirubin (0.15-1.2) mg/dL AST (0-40) U/L ALT (0-41) U/L Alkaline Phosphata se (40-130) IU/L Troponin T Baselin e (0-15) ng/L Troponin T 120 Min [place] 12.81 (0-15) ng/L Delta Troponin T -0.19 L (0-10) ABS# NT-Pro-B Natriuret Pep (0-125) pg/mL Total Protein (6.6-8.7) g/dL Albumin (3.5-5.2) g/dL Globulin (1.3-4.6) g/dL Discharge Plan Discharge Patient Disposition: Home Clinical Impression: Pneumonia Qualifiers: Pneumonia type: due to unspecified organism Laterality: left Lung location: lower lobe of lung Qualified Code(s): J18.9 - Pneumonia, unspecified organism Chest pain Qualifiers: Chest pain type: unspecified Qualified Code(s): R07.9 - Chest pain, unspecified Condition: Stable Prescriptions: New doxycycline hyclate 100 mg capsule 100 mg PO BID 7 Days Qty: 14 RF: 0 Prevacid 30 mg capsule,delayed release(DR/EC) 30 mg PO DAILY Qty: 30 RF: 0 No Action Eliquis 5 mg tablet 5 mg PO BID Qty: 180 RF: 2 metoprolol succinate 50 mg tablet extended release 24 hr 50 mg PO DAILY Qty: 90 RF: 2 atorvastatin 20 mg tablet 20 mg PO BEDTIME Qty: 90 RF: 2 Pacerone 200 mg tablet 200 mg PO DAILY Qty: 90 RF: 3 losartan 100 mg tablet 100 mg PO DAILY Qty: 90 RF: 2 bumetanide 2 mg tablet 2 mg PO DAILY Qty: 90 RF: 2 aspirin [Adult Low Dose Aspirin] 81 mg tablet,delayed release (DR/EC) 81 mg PO DAILY RF: 0 spironolactone 50 mg tablet 50 mg PO DAILY Qty: 30 RF: 5 multivitamin Tablet 1 tab PO DAILY RF: 0 nitroglycerin 0.4 mg Tablet, Sublingual 0.4 mg sublingual Q5M PRN (Reason: Chest Pain) Qty: 20 RF: 0 Discharge Orders: Discharge ED (Routine); Ordered 03/29/21 Ordered By: Jake Wolf Referrals: Rajni Zhang FNP [Primary Care Provider] - 1-3 days Discharge Diet: Advance as tolerated Discharge Activity: Increase activity as tolerated Patient Instructions: Chest Pain (ED), Pneumonia (ED) Activity Restrictions/Additional Instructions: Return for worsening pain despite treatment, fever greater than 100 despite 2-3 doses of antibiotics, worsening shortness of breath, any other concerning symptoms. Your chest x-ray showed that she may have a small pneumonia in the left lung, hence the antibiotics you were given. Close follow-up with your primary physician is needed this coming week. Coding Level of Care Code ED Automotive Worker for Baljinder Fwd Exam Comprehensive
[2021-03-29] MEDS: lidocaine 2% viscous 15 ML, aluminum-mag hydrox-simethicon 30 ML, sucralfate oral liq 1 GM PO (03:07)
[2021-03-29] MEDS: aspirin 325 mg Tablet PO (03:07)
[2021-03-29] MEDS: nitroglycerin 1 gm/inch oint Pkt 1.5 INCH TOPICAL (03:09)
[2021-03-29 03:10] LABS: Troponin(5th) Baseline 13 ng/L (0-15)
[2021-03-29] MEDS: ondansetron 2 mg/ML SDV 2 mL 4 MG IVP (03:11)
[2021-03-29 03:14] VITALS: RESP 22; O2SAT 97
[2021-03-29] MEDS: morphine 4 mg/mL SDV 1 mL IVP (03:14)
[2021-03-29 03:17] VITALS: BP 152/63; PULSE 72; RESP 22; O2SAT 99
[2021-03-29 03:20] LABS: Alanine Aminotransferase 32 U/L (0-41); Albumin Level 4.5 g/dL (3.5-5.2); Alkaline Phosphatase 62 IU/L (40-130); Anion Gap 14.3 (5-19); Aspartate Amino Transferase 30 U/L (0-40); Blood Urea Nitrogen 17 mg/dL (8-23); Calcium 9.2 mg/dL (8.5-10.5); Carbon Dioxide 23 mmol/L (22-29); Chloride 101 mmol/L (98-107); Globulin 1.9 g/dL (1.3-4.6); Glomerular Filtration Rate 54.6 mL/min (90-130); Glucose 91 mg/dL (65-115); NT Pro B Type Natriuretic Pept 282 pg/mL (0-125); Osmolality Calculated 279 mOsm/kg (285-295); Potassium 4.3 mmol/L (3.5-5.1); Sodium 134 mmol/L (136-145); Total Bilirubin 0.5 mg/dL (0.15-1.2); Total Protein 6.4 g/dL (6.6-8.7)
--- NOTE | 2021-03-29 04:16 | ECG_ITS ---
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: : 1950 Requested By: Estela Barrett Order Number: [id number] Reading MD: RICARDA RAPHAEL Measurements Intervals [place] Rate: 65 P: 84 [place]: 189 QRS: 11 QRSD: 117 T: 4 QT: 428 QTc: 446 Interpretive Statements SINUS RHYTHM WITH OCCASIONAL VENTRICULAR PREMATURE COMPLEXES MODERATE INTRAVENTRICULAR CONDUCTION DELAY [105+ ms QRS DURATION, 80+ ms Q/S IN V1/V2, NO Q AND 60+ ms R IN I/aVL/V5/V6] Compared to ECG 03/29/2021 02:16:21 No significant changes Electronically Signed On 03-30-2021 18:55:31 CDT by RICARDA RAPHAEL [id number]
[2021-03-29 05:00] VITALS: BP 138/56; PULSE 64; RESP 21; O2SAT 98
[2021-03-29 05:26] LABS: Troponin 5 2HR 12.81 ng/L (0-15)
[2021-03-29 05:31] LABS: Troponin 5 2HR Delta -0.19 ABS# (0-10)
[2021-03-29] MEDS: doxycycline 100 mg Tablet PO (06:06)
[2021-03-29 06:13] VITALS: BP 153/72; PULSE 63; RESP 21; TEMP 36.7; O2SAT 99
[2021-04-02 09:22] LABS: Quest SARS-CoV-2 RNA DETECTED (NOT DETECTED)
== END 2021-03-29 06:16 | disposition home or self-care (01) ==
PROVIDERS: Physician Assistant; Emergency Provider Emergency Medicine; PCP Nurse Practitioner Family
DX: J18.9 Pneumonia, unspecified organism (principal); R07.9 Chest pain, unspecified; U07.1 COVID-19; Z79.01 Long term (current) use of anticoagulants; Z79.82 Long term (current) use of aspirin; I11.0 Hypertensive heart disease with heart failure; I50.9 Heart failure, unspecified
CPT/HCPCS: 71045; 80053; 83880; 84484; 85025; 85610; 87635; 93005; 96374; 96375; 99284; J2270; J2405

== ENCOUNTER 2021-04-30 21:32 | Emergency (ER) | payer MEDICARE, MEDICAID, SELFPAY ==
[2021-04-30 22:15] VITALS: BP 137/57; PULSE 56; RESP 18; TEMP 35.8; O2SAT 98; BMI 31.1
[2021-05-01 01:07] LABS: Add Urine Microscopic? NO; Charge for UA Resulting for Rev
[2021-05-01 01:19] LABS: Bilirubin Urine Neg (Negative); Blood Urine Neg (Negative); Glucose Urine UA Norm (Normal); Ketones Urine Negative (Negative); Leukocyte Esterase Urine Negative (Negative); Nitrate Urine Negative (Negative); Protein Urine Neg (Negative); Urine Appearance Clear (CLEAR); Urine Color Yellow (Yellow); Urobilinogen Urine Norm (Negative); pH Urine 5 (5-7)
--- NOTE | 2021-05-01 04:21 | ECG_ITS ---
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 Measurements Intervals [place] Rate: 59 P: 65 HI: 177 QRS: 43 QRSD: 126 T: 19 QT: 441 QTc: 439 Interpretive Statements SINUS BRADYCARDIA WITH OCCASIONAL VENTRICULAR PREMATURE COMPLEXES MODERATE INTRAVENTRICULAR CONDUCTION DELAY [110+ ms QRS DURATION] Compared to ECG 03/29/2021 04:52:11 Sinus rhythm no longer present Electronically Signed On 05-01-2021 13:54:37 CDT by Sabrina Joyce M.D. [id number]
[2021-05-01 04:45] LABS: Basophils % 0.4 %; Eosinophils # 0.2 10^3/uL (0.0-0.8); Eosinophils % 2.1 %; Hematocrit 35.8 % (42.0-52.0); Hemoglobin 11.7 g/dL (11.7-16.6); Lymphocytes # 1.4 10^3/uL (0.8-4.8); Lymphocytes % 20.1 %; Mean Corpuscular HGB Conc 32.7 g/dL (30.0-36.0); Mean Corpuscular Volume 94.7 fL (80-94); Mean Platelet Volume 10.4 fL (7.4-10.4); Monocytes # 0.8 10^3/uL (0.2-0.9); Monocytes % 11.1 %; Neutrophils # 4.61 10^3/uL (1.8-7.7); Neutrophils % 65.9 %; Nucleated Red Blood Cells % 0 %; Platelet Count 224 10^3/cmm (130-400); Red Blood Count 3.78 10^6/uL (4.1-5.3); Red Cell Distribution Width 13.8 % (12.1-15.1)
--- NOTE | 2021-05-01 04:48 | ED_ITS ---
HPI - Fall General: Chief Complaint: Fall Stated Complaint: fall,high bp Time Seen by Provider: 05/01/21 04:10 Source: patient Mode of arrival: ambulatory Limitations: no limitations History of Present Illness: HPI Narrative: 71-year-old male states that he is outside walked over to his neighbor's house roughly 8 hours ago and then turned around and states that his leg felt weak and he fell. States that since then he has been feeling well has had no weakness in his legs or difficulty walking. Denies any chest pain. Patient is able ambulate here without any difficulty. D enies any vomiting or diarrhea. Associated symptoms-after fall: Denies abdominal pain, chest pain, headache(s) or neck pain Review of Systems Const: Denies: fever(s), chills, body aches or change in appetite Eyes: Denies: blurry vision or eye discomfort ENMT: Denies: throat pain or dental pain Card: Denies: chest pain Resp: Denies: dyspnea GI: Denies: abdominal pain, nausea, vomiting or diarrhea : Denies: dysuria Musc: Denies: neck pain or back pain Skin/Breast: Denies: rash Neuro: Denies: headache(s) Psych: Denies: depression Jeremy/Lymph: Denies: easy bruising All/Imm: Denies: urticaria PFSH ED PFSH: Medical History Aortic regurgitation Atrial fibrillation Chronic anticoagulation Congestive heart failure Hypertension Moderate aortic stenosis Normal coronary angiogram 2017 Scrotal edema Thoracic aortic aneurysm 5.6 cm CTA August [address] Flanagan Ventricular tachycardia Ventricular tachycardia, sustained Surgical History Hx of cataract surgery Family History Other CAD (coronary artery disease) Social History Smoking and tobacco status: never smoked Alcohol intake: never Adopted: No Caregiver/support person: No Lives independently: Yes Marital status: Single Current occupational status: retired History of recent travel: No Physical Exam Const: COMMON NORMALS: no acute distress, patient oriented x3 and healthy appearing HENMT: COMMON NORMALS: normocephalic and atraumatic HEAD & SCALP: normocephalic and atraumatic Eye: COMMON NORMALS: Equal, round and reactive pupils present and EOMs intact bilaterally PUPIL: Yes Equal, round and reactive pupils present Neck/C-Spine: COMMON NORMALS: full ROM and supple Chest: COMMONS NORMALS: normal inspection of the chest and normal palpation of entire chest wall Resp: COMMON NORMALS: normal respiratory effort, No retractions, No use of ac cessory muscles and clear to auscultation bilaterally AUSCULTATION: clear to auscultation bilaterally Cardio: COMMON NORMALS: regular rate, regular rhythm and No murmurs present (Cardio) RATE: regular rate RHYTHM: regular rhythm GI: COMMON NORMALS: Normal to inspection, nondistended, normoactive bowel sounds present, Soft to palpation, non-tender and no masses PALPATION: Yes Soft to palpation Extremity: COMMON NORMALS: normal to inspection and full ROM Neuro: COMMON NORMALS: patient oriented x3, moves all extremities and no focal motor deficits Psych: COMMON NORMALS: mental status grossly normal, Normal thought process present and cooperative THOUGHT PROCESS: Normal thought process present Skin: COMMON NORMALS: no rashes or lesions noted and no wounds GENERAL SKIN EXAM: no rashes or lesions noted Course Vital Signs: Vital signs: Vital Signs Temperature 96.4 F L 04/30/21 22:15 Pulse Rate 56 L 04/30/21 22:15 Respiratory Rate 18 04/30/21 22:15 Blood Pressure 137/57 04/30/21 22:15 Pulse Oximetry 98 04/30/21 22:15 MDM - Fall MDM Narrative: Medical decision making narrative: Patient presents with a fall roughly 8 hours ago. States that his legs just felt weak and he feels much improved here. His blood count and EKG here are normal. He had no syncope. No chest pain. He is stable for discharge is to follow-up his PCP and return if worsening. Lab Data: Labs: Lab Results 05/01/21 05/01/21 Range/Units 00:55 04:25 WBC 7.0 (4.0-10.0) 10^3/ uL RBC 3.78 L (4.1-5.3) 10^6/u L Hgb 11.7 (11.7-16.6) g/dL Hct 35.8 L (42.0-52.0) % MCV 94.7 H (80-94) fL MCH 31.0 (28.0-34.0) pg MCHC 32.7 (30.0-36.0) g/dL RDW 13.8 (12.1-15.1) % Plt Count 224 (130-400) 10^3/c mm MPV 10.4 (7.4-10.4) fL Neut % (Auto) 65.9 % Lymph % (Auto) 20.1 % [place] % (Auto) 11.1 % Eos % (Auto) 2.1 % Baso % (Auto) 0.4 % Neut # (Auto) 4.61 (1.8-7.7) 10^3/u L Lymph # (Auto) 1.4 (0.8-4.8) 10^3/u L [place] # (Auto) 0.8 (0.2-0.9) 10^3/u L Eos # (Auto) 0.2 (0.0-0.8) 10^3/u L Baso # (Auto) 0.0 (0.0-0.1) 10^3/u L Nucleated RBC % (a uto) 0 % Nucleated RBCs # 0.0 /100WBC Urine Color Yellow (Yellow) Urine Appearance Clear (CLEAR) Urine pH 5 (5-7) Ur Specific Gravit y 1.010 (1.005-1.030) Urine Protein Neg (Negative) Urine Glucose (UA) Norm (Normal) Urine Ketones Negative (Negative) Urine Blood Neg (Negative) Urine Nitrate Negative (Negative) Urine Bilirubin Neg (Negative) Urine Urobilinogen Norm (Negative) mg/dL Ur Leukocyte Kelley ase Negative (Negative) EKG Data^: EKG 1: Attestation: I personally reviewed and interpreted this EKG as follows: EKG interpretation date: 05/01/21 EKG interpretation time: 04:33 Interpretation: sinus noam hr [address] or t wave abnormalities qrs 126 qtc 441 Discharge Plan Discharge Patient Disposition: Home Clinical Impression: Fall Qualifiers: Encounter type: initial encounter Qualified Code(s): W19.XXXA - Unspecified fall, initial encounter Condition: Stable Prescriptions: No Action Eliquis 5 mg tablet 5 mg PO BID Qty: 180 RF: 2 metoprolol succinate 50 mg tablet extended release 24 hr 50 mg PO DAILY Qty: 90 RF: 2 atorvastatin 20 mg tablet 20 mg PO BEDTIME Qty: 90 RF: 2 Pacerone 200 mg tablet 200 mg PO DAILY Qty: 90 RF: 3 losartan 100 mg tablet 100 mg PO DAILY Qty: 90 RF: 2 bumetanide 2 mg tablet 2 mg PO DAILY Qty: 90 RF: 2 aspirin [Adult Low Dose Aspirin] 81 mg tablet,delayed release (DR/EC) 81 mg PO DAILY RF: 0 spironolactone 50 mg tablet 50 mg PO DAILY Qty: 30 RF: 5 multivitamin Tablet 1 tab PO DAILY RF: 0 nitroglycerin 0.4 mg Tablet, Sublingual 0.4 mg sublingual Q5M PRN (Reason: Chest Pain) Qty: 20 RF: 0 Prevacid 30 mg capsule,delayed release(DR/EC) 30 mg PO DAILY Qty: 30 RF: 0 Discharge Orders: Discharge ED (Routine); Ordered 05/01/21 Ordered By: Teagan Palomo Referrals: Rajni Zhang APPLICATION DEVELOPMENT LIAISON [Primary Care Provider] - 1-3 days Discharge Diet: Advance as tolerated Discharge Activity: Resume usual activity Patient Instructions: Fall Prevention (ED) Coding Level of Care Code ED Regional Facilities Specialist for Baljinder Fwminerva Exam Comprehensive
[2021-05-01 04:55] VITALS: BP 122/50; PULSE 55; RESP 16; TEMP 37; O2SAT 98
[2021-05-01 05:35] VITALS: BP 150/57; PULSE 68; RESP 16; TEMP 36.6; O2SAT 100
== END 2021-05-01 05:48 | disposition home or self-care (01) ==
PROVIDERS: Emergency Provider Emergency Medicine; PCP Nurse Practitioner Family
DX: R53.1 Weakness (principal); W19.XXXA Unspecified fall, initial encounter; Z79.01 Long term (current) use of anticoagulants; Z79.82 Long term (current) use of aspirin; I11.0 Hypertensive heart disease with heart failure; I50.9 Heart failure, unspecified
CPT/HCPCS: 81003; 85025; 93005; 99282

== ENCOUNTER 2021-06-01 02:34 | Emergency (ER) | payer MEDICARE, MEDICAID, SELFPAY ==
[2021-06-01] VITALS (7 sets, daily range): BP systolic 132–168; BP diastolic 53–67; PULSE 49–69; RESP 14–20; O2SAT 95–99; BMI 32.5
--- NOTE | 2021-06-01 03:10 | ECG_ITS ---
[facility] Test Date: 2021-06-01 Pat Name: Riki Polanco Department: Room: Gender: Male Consulting Project Director: : 1950 Requested By: Jake Scott Order Number: [id number] Reading MD: RICARDA RAPHAEL Measurements Intervals [place] Rate: 63 P: 76 FL: 180 QRS: -10 QRSD: 123 T: 58 QT: 416 QTc: 428 Interpretive Statements SINUS RHYTHM MODERATE INTRAVENTRICULAR CONDUCTION DELAY [105+ ms QRS DURATION, 80+ ms Q/S IN V1/V2, NO Q AND 60+ ms R IN I/aVL/V5/V6] Compared to ECG 05/01/2021 04:33:41 Sinus bradycardia no longer present Ventricular premature complex(es) no longer present Electronically Signed On 06-01-2021 18:34:36 CDT by RICARDA RAPHAEL [email or web address] PeoplePowin Energy Corporationmer[facility].[employer]/store/NU/[id number] f
--- NOTE | 2021-06-01 03:10 | XRR_ITS ---
PROCEDURE INFORMATION: Exam: XR Chest Exam date and time: 06/01/2021 3:10 AM Age: 71 years old Clinical indication: Sternal or substernal pain; Additional info: Cp TECHNIQUE: Imaging protocol: XR of the chest. Views: 1 view. COMPARISON: CR (CHEST, ) 03/29/2021 2:19 AM FINDINGS: Lungs: There patchy interstitial opacities present in the left lower hemithorax and right lung base, findings compatible with a bilateral atelectasis versus patchy pneumonitis. Pleural spaces: Unremarkable. No pleural effusion. No pneumothorax. Heart/Mediastinum: Unremarkable. No cardiomegaly. Bones/joints: Unremarkable. XR/XR chest 1V portable [id number] IMPRESSION: Patchy bilateral atelectasis versus pneumonitis.
[2021-06-01] MEDS: morphine 4 mg/mL SDV 1 mL IVP ×2 (03:14→06:38)
[2021-06-01] MEDS: ondansetron 2 mg/ML SDV 2 mL 4 MG IVP (03:14)
[2021-06-01 03:49] LABS: Basophils # 0.1 10^3/uL (0.0-0.1); Eosinophils # 0.1 10^3/uL (0.0-0.8); Eosinophils % 2.3 %; Hemoglobin 10.4 g/dL (11.7-16.6); Lymphocytes # 1.3 10^3/uL (0.8-4.8); Lymphocytes % 25.7 %; Mean Corpuscular HGB Conc 32.5 g/dL (30.0-36.0); Mean Corpuscular Hemoglobin 30.9 pg (28.0-34.0); Mean Platelet Volume 10.1 fL (7.4-10.4); Monocytes # 0.6 10^3/uL (0.2-0.9); Monocytes % 12.3 %; Neutrophils # 3.05 10^3/uL (1.8-7.7); Neutrophils % 58.3 %; Nucleated Red Blood Cells % 0 %; Platelet Count 211 10^3/cmm (130-400); Red Blood Count 3.37 10^6/uL (4.1-5.3); Red Cell Distribution Width 13.5 % (12.1-15.1); White Blood Count 5.2 10^3/uL (4.0-10.0)
[2021-06-01 03:56] LABS: INR 1.23 (0.8-1.2)
[2021-06-01 04:01] LABS: Troponin(5th) Baseline 13 ng/L (0-15)
[2021-06-01 04:19] LABS: Alanine Aminotransferase 26 U/L (0-41); Albumin Level 4.1 g/dL (3.5-5.2); Alkaline Phosphatase 54 IU/L (40-130); Anion Gap 16.4 (5-19); Aspartate Amino Transferase 26 U/L (0-40); Blood Urea Nitrogen 16 mg/dL (8-23); Calcium 8.6 mg/dL (8.5-10.5); Carbon Dioxide 24 mmol/L (22-29); Chloride 103 mmol/L (98-107); Globulin 1.9 g/dL (1.3-4.6); Glomerular Filtration Rate 59.9 mL/min (90-130); Glucose 94 mg/dL (65-115); Lipase 55 U/L (13-60); NT Pro B Type Natriuretic Pept 152 pg/mL (0-125); Osmolality Calculated 289 mOsm/kg (285-295); Potassium 4.4 mmol/L (3.5-5.1); Sodium 139 mmol/L (136-145); Total Bilirubin 0.2 mg/dL (0.15-1.2)
[2021-06-01] MEDS: lidocaine 2% viscous 15 ML, aluminum-mag hydrox-simethicon 30 ML, sucralfate oral liq 1 GM PO (04:54)
--- NOTE | 2021-06-01 05:10 | ECG_ITS ---
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
[2021-06-01 06:18] LABS: Troponin 5 2HR 12.42 ng/L (0-15)
[2021-06-01 06:21] LABS: Troponin 5 2HR Delta -0.58 ABS# (0-10)
--- NOTE | 2021-06-01 07:09 | ED_ITS ---
HPI - Chest Pain General: Chief Complaint: Chest Pain Stated Complaint: CP Time Seen by Provider: 06/01/21 02:49 History of Present Illness: HPI narrative: 71-year-old male with a history of nonischemic cardiomyopathy and coronary disease. He is anticoagulated. He wears a LifeVest, for an EF of 15 to 20%. He presents with chest burning sensation this morning. He denies increasing shortness of breath. He does state that his legs are a bit more swollen. No nausea or vomiting. Pain is somewhat improved on arrival MD complaint: chest pain Pertinent past history: other Onset (ago): hour(s) Timing of current episode: constant Prior episodes: Yes Onset: during rest Pain location: substernal and epigastric Pain radiation: none Quality: burning Relieving factors: nothing Exacerbating factors: nothing Associated symptoms: Reports abdominal pain (Epigastric) and leg edema; Deny dyspnea, fever(s), nausea, palpitations or vomiting Treatment prior to arrival: nitroglycerin Review of Systems Const: Denies: fever(s) Card: Reports: chest pain; Denies: palpitations Resp: Denies: dyspnea GI: Reports: abdominal pain (Epigastric); Denies: nausea or vomiting PFS ED PFSH: Medical History Aortic regurgitation Atrial fibrillation Chronic anticoagulation Congestive heart failure Hypertension Moderate aortic stenosis Normal coronary angiogram 2018 Scrotal edema Thoracic aortic aneurysm 5.6 cm CTA August [address] Flanagan Ventricular tachycardia Ventricular tachycardia, sustained Surgical History Hx of cataract surgery Family History Other CAD (coronary artery disease) Social History Smoking and tobacco status: never smoked Alcohol intake: never Adopted: No Caregiver/support person: No Lives independently: Yes Marital status: Single Current occupational status: retired History of recent travel: No Physical Exam Const: COMMON NORMALS: no acute distress GENERAL APPEARANCE: cooperative and comfortable; not ill appearing HENMT: COMMON NORMALS: normocephalic HEAD & SCALP: normocephalic Chest: COMMONS NORMALS: normal inspection of the chest Resp: COMMON NORMALS: normal respiratory effort, No use of accessory muscles and clear to auscultation bilaterally AUSCULTATION: clear to auscultation bilaterally Cardio: COMMON NORMALS: regular rate and regular rhythm RATE: regular rate RHYTHM: regular rhythm GI: COMMON NORMALS: Normal to inspection, nondistended, normoactive bowel sounds present and Soft to palpation PALPATION: Yes Soft to palpation and Yes Tenderness to palpation present (GI) (Mild epigastric) Extremity: GENERAL: Yes edema (1+) Course Vital Signs: Vital signs: Vital Signs Pulse Rate 49 L 06/01/21 07:13 Respiratory Rate 16 06/01/21 07:13 Blood Pressure 151/65 06/01/21 07:13 Pulse Oximetry 95 06/01/21 07:13 MDM - Chest Pain MDM Narrative: Medical decision making narrative: 71-year-old male presents with burning sensation in his chest and epigastrium. This is mostly relieved with GI cocktail. He has had the symptoms before. He does have a history of cardiomyopathy with an EF of 15 to 20%. His EKG did not show acute ST changes. His troponin did not elevated 2 hours. His hemoglobin is 10. His other laboratory is benign. This patient does present a cardiac risk, but his symptom match more chest pain of GI origin. He will be treated as such. He knows to r eturn for any worsening symptoms. His BNP was not significantly elevated today. Lab Data: Labs: Lab Results 06/01/21 06/01/21 06/01/21 Range/Units 02:53 02:53 02:53 WBC 5.2 (4.0-10.0) 10^3/ uL RBC 3.37 L (4.1-5.3) 10^6/u L Hgb 10.4 L (11.7-16.6) g/dL Hct 32.0 L (42.0-52.0) % MCV 95.0 H (80-94) fl MCH 30.9 (28.0-34.0) pg MCHC 32.5 (30.0-36.0) g/dL RDW 13.5 (12.1-15.1) % Plt Count 211 (130-400) 10^3/c mm MPV 10.1 (7.4-10.4) fL Neut % (Auto) 58.3 % Lymph % (Auto) 25.7 % [place] % (Auto) 12.3 % Eos % (Auto) 2.3 % Baso % (Auto) 1.0 % Neut # (Auto) 3.05 (1.8-7.7) 10^3/u L Lymph # (Auto) 1.3 (0.8-4.8) 10^3/u L [place] # (Auto) 0.6 (0.2-0.9) 10^3/u L Eos # (Auto) 0.1 (0.0-0.8) 10^3/u L Baso # (Auto) 0.1 (0.0-0.1) 10^3/u L Nucleated RBC % (a uto) 0 % Nucleated RBCs # 0.0 /100WBC PT 15.90 H (12.1-14.9) SECO NDS INR 1.23 H (0.8-1.2) APTT 32.0 (23.9-36.7) SECO NDS Sodium 139 (136-145) mmol/L Potassium 4.4 (3.5-5.1) mmol/L Chloride 103 (98-107) mmol/L Carbon Dioxide 24 (22-29) mmol/L Anion Gap 16.4 (5-19) BUN 16 (8-23) mg/dL Creatinine 1.2 (0.7-1.2) mg/dL GFR Calculation 59.9 L (90-130) mL/min Glucose 94 (65-115) mg/dL Calculated Osmolal ity 289 (285-295) mOsm/k g Calcium 8.6 (8.5-10.5) mg/dL Total Bilirubin 0.2 (0.15-1.2) mg/dL AST 26 (0-40) U/L ALT 26 (0-41) U/L Alkaline Phosphata se 54 (40-130) IU/L Troponin T Baselin e (0-15) ng/L Troponin T 120 Min [place] (0-15) ng/L Delta Troponin T (0-10) ABS# NT-Pro-B Natriuret Pep 152 H (0-125) pg/mL Total Protein 6.0 L (6.6-8.7) g/dL Albumin 4.1 (3.5-5.2) g/dL Globulin 1.9 (1.3-4.6) g/dL Lipase 55 (13-60) U/L 06/01/21 06/01/21 Range/Units 02:53 05:48 WBC (4.0-10.0) 10^3/ uL RBC (4.1-5.3) 10^6/u L Hgb (11.7-16.6) g/dL Hct (42.0-52.0) % MCV (80-94) fl MCH (28.0-34.0) pg MCHC (30.0-36.0) g/dL RDW (12.1-15.1) % Plt Count (130-400) 10^3/c mm MPV (7.4-10.4) fL Neut % (Auto) % Lymph % (Auto) % [place] % (Auto) % Eos % (Auto) % Baso % (Auto) % Neut # (Auto) (1.8-7.7) 10^3/u L Lymph # (Auto) (0.8-4.8) 10^3/u L [place] # (Auto) (0.2-0.9) 10^3/u L Eos # (Auto) (0.0-0.8) 10^3/u L Baso # (Auto) (0.0-0.1) 10^3/u L Nucleated RBC % (a uto) % Nucleated RBCs # /100WBC PT (12.1-14.9) SECO NDS INR (0.8-1.2) APTT (23.9-36.7) SECO NDS Sodium (136-145) mmol/L Potassium (3.5-5.1) mmol/L Chloride (98-107) mmol/L Carbon Dioxide (22-29) mmol/L Anion Gap (5-19) BUN (8-23) mg/dL Creatinine (0.7-1.2) mg/dL GFR Calculation (90-130) mL/min Glucose (65-115) mg/dL Calculated Osmolal ity (285-295) mOsm/k g Calcium (8.5-10.5) mg/dL Total Bilirubin (0.15-1.2) mg/dL AST (0-40) U/L ALT (0-41) U/L Alkaline Phosphata se (40-130) IU/L Troponin T Baselin e 13 (0-15) ng/L Troponin T 120 Min [place] 12.42 (0-15) ng/L Delta Troponin T -0.58 L (0-10) ABS# NT-Pro-B Natriuret Pep (0-125) pg/mL Total Protein (6.6-8.7) g/dL Albumin (3.5-5.2) g/dL Globulin (1.3-4.6) g/dL Lipase (13-60) U/L Discharge Plan Discharge Patient Disposition: Home Clinical Impression: Chest pain Qualifiers: Chest pain type: unspecified Qualified Code(s): R07.9 - Chest pain, unspecified Condition: Stable Prescriptions: Continued Prevacid 30 mg capsule,delayed release(DR/EC) 30 mg PO DAILY Qty: 30 RF: 0 No Action Eliquis 5 mg tablet 5 mg PO BID Qty: 180 RF: 2 metoprolol succinate 50 mg tablet extended release 24 hr 50 mg PO DAILY Qty: 90 RF: 2 atorvastatin 20 mg tablet 20 mg PO BEDTIME Qty: 90 RF: 2 Pacerone 200 mg tablet 200 mg PO DAILY Qty: 90 RF: 3 losartan 100 mg tablet 100 mg PO DAILY Qty: 90 RF: 2 bumetanide 2 mg tablet 2 mg PO DAILY Qty: 90 RF: 2 aspirin [Adult Low Dose Aspirin] 81 mg tablet,delayed release (DR/EC) 81 mg PO DAILY RF: 0 spironolactone 50 mg tablet 50 mg PO DAILY Qty: 30 RF: 5 multivitamin Tablet 1 tab PO DAILY RF: 0 nitroglycerin 0.4 mg Tablet, Sublingual 0.4 mg sublingual Q5M PRN (Reason: Chest Pain) Qty: 20 RF: 0 Discharge Orders: Discharge ED (Routine); Ordered 06/01/21 Ordered By: Jake Wolf Patient Instructions: Chest Pain (ED) Activity Restrictions/Additional Instructions: Take prescribed medication as directed. Return for worsening pain despite treatment, shortness of breath, fever, cough, any other concerning symptoms. 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
== END 2021-06-01 07:24 | disposition home or self-care (01) ==
PROVIDERS: Emergency Provider Emergency Medicine
DX: R07.9 Chest pain, unspecified (principal); Z79.01 Long term (current) use of anticoagulants; Z79.82 Long term (current) use of aspirin; I11.0 Hypertensive heart disease with heart failure; I50.9 Heart failure, unspecified
CPT/HCPCS: 71045; 80053; 83690; 83880; 84484; 85025; 85610; 85730; 93005; 96374; 96375; 96376; 99284; J2270; J2405

== ENCOUNTER 2021-06-23 19:00 | Emergency (ER) | payer MEDICARE, MEDICAID, SELFPAY ==
--- NOTE | 2021-06-23 19:35 | XRR_ITS ---
PROCEDURE INFORMATION: Exam: XR Chest Exam date and time: 06/23/2021 7:35 PM Age: 71 years old Clinical indication: Cough TECHNIQUE: Imaging protocol: XR of the chest. Views: 1 view. COMPARISON: CR (CHEST, ) 06/01/2021 3:42 AM FINDINGS: Lungs: There is mild ill-defined opacity in the left lung base. Right lung is clear. Pleural spaces: There is no pleural effusion or pneumothorax. Heart/Mediastinum: Cardiomediastinal contours are unremarkable. Bones/joints: Bones are unremarkable. XR/XR chest 1V portable [id number] IMPRESSION: Mild left basilar opacity, decreased since 06/01/2021. Nonspecific finding. Possible scarring or atelectasis, infection or edema.
[2021-06-23 19:36] VITALS: BP 143/57; PULSE 58; RESP 18; TEMP 36.9; O2SAT 98; BMI 32.5
--- NOTE | 2021-06-23 19:47 | W.ED.CHESTPA ---
HPI - Chest Pain General: Chief Complaint: Chest Pain Stated Complaint: CHEST PAIN Time Seen by Provider: 06/23/21 19:34 History of Present Illness: HPI narrative: This patient is a 71-year-old male who presents to the emergency department with complaint of atypical type chest pain symptoms. Patient states he has had a burning sensation in his chest off and on throughout the day. And he wears an external defibrillator. And after battery change he heard a strange noise coming from his external defibrillator. Patient states he has not been shocked by the defibrillator. Patient states has been wearing this defibrillator for about 9 months. Patient denies any chest pain at this time. He states if he moves little bit he gets a little burning sensation in the middle of the chest. Will do medical evaluation treat as needed patient did receive 1 nitro and an aspirin 324 from EMS. MD complaint: chest discomfort Pertinent past history: coronary artery disease Onset (ago): hour(s) Timing of current episode: now resolved Prior episodes: Yes Pain location: substernal Quality: burning Associated symptoms: Deny abdominal pain, dyspnea, fever(s), nausea, palpitations or vomiting Review of Systems General: Reports: 10 or more systems reviewed and unremarkable except in HPI and below Const: Denies: fever(s), chills, body aches or fatigue Eyes: Denies: change in vision or blurry vision ENMT: Denies: throat pain, hoarseness or mouth pain Card: Reports: chest pain; Denies: palpitations, irregular heart rhythm, edema, swelling of feet/ankles or lightheadedness Resp: Denies: dyspnea, productive cough, non-productive cough, wheezing or pain on inspiration GI: Denies: abdominal pain, nausea or vomiting : Denies: flank pain, dysuria, urinary frequency, urinary urgency or urinary hesitancy Musc: Denies: neck pain, back pain, extremity pain, extremity swelling, joint pain, joint swelling, joint redness, joint warmth or limited range of motion Skin/Breast: Denies: rash, pruritus, erythema or skin tenderness Neuro: Denies: headache(s), numbness in extremities or weakness in extremities Psych: Denies: anxiety or depression PFS ED PFSH: Medical History Aortic regurgitation Atrial fibrillation Chronic anticoagulation Congestive heart failure Hypertension Moderate aortic stenosis Normal coronary angiogram 2017 Scrotal edema Thoracic aortic aneurysm 5.6 cm CTA August [address] Flanagan Ventricular tachycardia Ventricular tachycardia, sustained Surgical History Hx of cataract surgery Family History Other CAD (coronary artery disease) Social History Smoking and tobacco status: never smoked Alcohol intake: never Adopted: No Caregiver/support person: No Lives independently: Yes Marital status: Single Current occupational status: retired History of recent travel: No Physical Exam Const: COMMON NORMALS: no acute distress, average body habitus, patient oriented x3, no limitations, healthy appearing, alert and well nourished HENMT: COMMON NORMALS: normocephalic, atraumatic, hearing grossly normal bilaterally, external ears normal, EAC's normal, TM's normal bilaterally, Normal external nose present, Normal nasal mucous membranes and turbinates present, moist oral mucous membranes, oropharynx normal, dentition normal and gingiva normal HEAD & SCALP: normocephalic and atraumatic NOSE: Normal external nose present and Normal nasal mucous membranes and turbinates present EXTERNAL EAR: Yes external ears normal EXTERNAL AUDITORY CANAL: EAC's normal TYMPANIC MEMBRANE: TM's normal bilaterally Neck/C-Spine: COMMON NORMALS: full ROM, no lymphadenopathy, supple, no meningeal signs, no JVD, Thyroid normal and No carotid bruits THYROID: Thyroid normal Chest: COMMONS NORMALS: normal inspection of the chest, normal palpation of entire chest wall, normal inspection of the breasts and normal palpation of the breasts Breast/axilla inspection: Yes normal inspection of the breasts BREAST/AXILLA PALPATION: Yes normal palpation of the breasts Resp: COMMON NORMALS: normal respiratory effort, No retractions, No use of accessory muscles, clear to auscultation bilaterally and percussion normal AUSCULTATION: clear to auscultation bilaterally PERCUSSION: percussion normal Cardio: COMMON NORMALS: no JVD, regular rate, regular rhythm, S1 normal heart sound present, S2 normal heart sound present, No gallops present (Cardio), No clicks present (Cardio), No murmurs present (Cardio), No rub (Cardio) and Peripheral pulses 2+ throughout RATE: regular rate RHYTHM: regular rhythm HEART SOUNDS: S1 normal heart sound present and S2 normal heart sound present PERIPHERAL PULSES: Peripheral pulses 2+ throughout GI: COMMON NORMALS: Normal to inspection, nondistended, normoactive bowel sounds present, Soft to palpation, non-tender, No hepatosplenomegaly present, no masses and no bruits PALPATION: Yes Soft to palpation and Yes No hepatosplenomegaly present : COMMON NORMALS: Yes no CVA tenderness BLADDER/KIDNEY EXAM: Yes no CVA tenderness Back/Pelvis: COMMON NORMALS: no CVA tenderness, thoracic and lumbar spine normal to inspection, no thoracic nor lumbar tenderness, thoraco-lumbar ROM normal and straight leg raise negative bilaterally Extremity: COMMON NORMALS: normal to inspection, full ROM, capillary refill normal, no joint enlargement, no clubbing, cyanosis or edema, no calf tenderness and no pedal edema Neuro: COMMON NORMALS: patient oriented x3 SENSORIUM/ORIENTATION: Yes alert MENINGEAL SIGNS: Yes no meningeal signs Course Reevaluation(s): Reevaluation #1: Negative evaluation in the emergency department for any acute findings. Patient be discharged home patient is to continue all home medications. Time: 21:48 Vital Signs: Vital signs: Vital Signs Temperature 98.5 F 06/23/21 19:36 Pulse Rate 53 L 06/23/21 20:45 Respiratory Rate 22 H 06/23/21 20:44 Blood Pressure 158/41 06/23/21 20:45 Pulse Oximetry 95 06/23/21 20:45 MDM - Chest Pain MDM Narrative: Medical decision making narrative: Negative evaluation in the emergency department for any acute findings. Patient be discharged home patient is to continue all home medications. Encourage p.o. fluids. Continue all home medications. 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 Return to the emergency department if symptoms fail to improve or worsen Lab Data: Labs: Lab Results 06/23/21 06/23/21 06/23/21 19:44 19:44 19:44 WBC 6.9 10^3/uL 10^3/ uL (4.0-10.0) RBC 3.46 10^6/uL L 10 ^6/uL (4.1-5.3) Hgb 10.6 g/dL L g/dL (11.7-16.6) Hct 32.5 % L % (42.0-52.0) MCV 93.9 fl fl (80-94) MCH 30.6 pg pg (28.0-34.0) MCHC 32.6 g/dL g/dL (30.0-36.0) RDW 13.2 % % (12.1-15.1) Plt Count 227 10^3/cmm 10^3 /cmm (130-400) MPV 9.9 fL fL (7.4-10.4) Neut % (Auto) 65.2 % % Lymph % (Auto) 18.0 % % [place] % (Auto) 14.4 % % Eos % (Auto) 1.5 % % Baso % (Auto) 0.6 % % Neut # (Auto) 4.48 10^3/uL 10^3 /uL (1.8-7.7) Lymph # (Auto) 1.2 10^3/uL 10^3/ uL (0.8-4.8) [place] # (Auto) 1.0 10^3/uL H 10^ 3/uL (0.2-0.9) Eos # (Auto) 0.1 10^3/uL 10^3/ uL (0.0-0.8) Baso # (Auto) 0.0 10^3/uL 10^3/ uL (0.0-0.1) Nucleated RBC % (a uto) 0 % % Nucleated RBCs # 0.0 /100WBC /100W BC Sodium 133 mmol/L L mmol /L (136-145) Potassium 4.5 mmol/L mmol/L (3.5-5.1) Chloride 98 mmol/L mmol/L (98-107) Carbon Dioxide 25 mmol/L mmol/L (22-29) Anion Gap 14.5 (5-19) BUN 26 mg/dL H mg/dL (8-23) Creatinine 1.7 mg/dL H mg/dL (0.7-1.2) GFR Calculation 40.0 mL/min L mL/ min (90-130) Glucose 104 mg/dL mg/dL (65-115) Calculated Osmolal ity 281 mOsm/kg L mOs m/kg (285-295) Calcium 8.7 mg/dL mg/dL (8.5-10.5) Total Bilirubin 0.2 mg/dL mg/dL (0.15-1.2) AST 22 U/L U/L (0-40) ALT 21 U/L U/L (0-41) Alkaline Phosphata se 50 IU/L IU/L (40-130) Troponin T Baselin e 14 ng/L ng/L (0-15) Troponin T [address] [facility] Total Protein 6.2 g/dL L g/dL (6.6-8.7) Albumin 4.1 g/dL g/dL (3.5-5.2) Globulin 2.1 g/dL g/dL (1.3-4.6) 06/23/21 21:18 WBC RBC Hgb Hct MCV MCH MCHC RDW Plt Count MPV Neut % (Auto) Lymph % (Auto) [place] % (Auto) Eos % (Auto) Baso % (Auto) Neut # (Auto) Lymph # (Auto) [place] # (Auto) Eos # (Auto) Baso # (Auto) Nucleated RBC % (a uto) Nucleated RBCs # Sodium Potassium Chloride Carbon Dioxide Anion Gap BUN Creatinine GFR Calculation Glucose Calculated Osmolal ity Calcium Total Bilirubin AST ALT Alkaline Phosphata se Troponin T Baselin e Troponin T [address] [facility] 13.14 ng/L ng/L (0-15) Total Protein Albumin Globulin Imaging Data^: CXR: Attestation: I personally reviewed and interpreted this imaging study as follows: Radiologist's impression: IMPRESSION: Mild left basilar opacity, decreased since 06/01/2021. Nonspecific finding. Possible scarring or atelectasis, infection or edema. EKG Data^: EKG 1: Attestation: I personally reviewed and interpreted this EKG as follows: EKG interpretation date: 06/23/21 EKG interpretation time: 19:40 Prior EKG tracings: available for review Interpretation: Sinus bradycardia heart rate 56 with interventricular conduction delay. Discharge Plan Discharge Patient Disposition: Home Clinical Impression: Atypical chest pain, Encounter for medical screening examination Condition: Stable Prescriptions: No Action Eliquis 5 mg tablet 5 mg PO BID Qty: 180 RF: 2 metoprolol succinate 50 mg tablet extended release 24 hr 50 mg PO DAILY Qty: 90 RF: 2 atorvastatin 20 mg tablet 20 mg PO BEDTIME Qty: 90 RF: 2 Pacerone 200 mg tablet 200 mg PO DAILY Qty: 90 RF: 3 losartan 100 mg tablet 100 mg PO DAILY Qty: 90 RF: 2 bumetanide 2 mg tablet 2 mg PO DAILY Qty: 90 RF: 2 aspirin [Adult Low Dose Aspirin] 81 mg tablet,delayed release (DR/EC) 81 mg PO DAILY RF: 0 spironolactone 50 mg tablet 50 mg PO DAILY Qty: 30 RF: 5 multivitamin Tablet 1 tab PO DAILY RF: 0 nitroglycerin 0.4 mg Tablet, Sublingual 0.4 mg sublingual Q5M PRN (Reason: Chest Pain) Qty: 20 RF: 0 Prevacid 30 mg capsule,delayed release(DR/EC) 30 mg PO DAILY Qty: 30 RF: 0 Discharge Orders: Discharge ED (Routine); Ordered 06/23/21 Ordered By: Valdez Trejo Discharge Diet: Advance as tolerated Discharge Activity: Resume usual activity Patient Instructions: Opioid Safety Activity Restrictions/Additional Instructions: Encourage p.o. fluids. Continue all home medications. 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 Return to the emergency department if symptoms fail to improve or worsen Coding Level of Care Code ED Staff Nurse Anesthetist for [facility] [employer] Exam Comprehensive
[2021-06-23 20:07] LABS: Basophils % 0.6 %; Eosinophils # 0.1 10^3/uL (0.0-0.8); Eosinophils % 1.5 %; Hematocrit 32.5 % (42.0-52.0); Hemoglobin 10.6 g/dL (11.7-16.6); Lymphocytes # 1.2 10^3/uL (0.8-4.8); Mean Corpuscular HGB Conc 32.6 g/dL (30.0-36.0); Mean Corpuscular Hemoglobin 30.6 pg (28.0-34.0); Mean Corpuscular Volume 93.9 fl (80-94); Mean Platelet Volume 9.9 fL (7.4-10.4); Monocytes % 14.4 %; Neutrophils # 4.48 10^3/uL (1.8-7.7); Neutrophils % 65.2 %; Nucleated Red Blood Cells % 0 %; Platelet Count 227 10^3/cmm (130-400); Red Blood Count 3.46 10^6/uL (4.1-5.3); Red Cell Distribution Width 13.2 % (12.1-15.1); White Blood Count 6.9 10^3/uL (4.0-10.0)
--- NOTE | 2021-06-23 20:08 | PC.NURSE ---
Phoned [facility] to request interrogation of defibrillator. Spoke to Donna at [phone]. Patient does not have his device from home with him that could be transmitted. She will hope to get someone here tonight to interrogate or tomorrow.
[2021-06-23 20:28] LABS: Troponin(5th) Baseline 14 ng/L (0-15)
[2021-06-23 20:32] LABS: Alanine Aminotransferase 21 U/L (0-41); Albumin Level 4.1 g/dL (3.5-5.2); Alkaline Phosphatase 50 IU/L (40-130); Anion Gap 14.5 (5-19); Aspartate Amino Transferase 22 U/L (0-40); Blood Urea Nitrogen 26 mg/dL (8-23); Calcium 8.7 mg/dL (8.5-10.5); Carbon Dioxide 25 mmol/L (22-29); Chloride 98 mmol/L (98-107); Globulin 2.1 g/dL (1.3-4.6); Glucose 104 mg/dL (65-115); Osmolality Calculated 281 mOsm/kg (285-295); Potassium 4.5 mmol/L (3.5-5.1); Sodium 133 mmol/L (136-145); Total Bilirubin 0.2 mg/dL (0.15-1.2); Total Protein 6.2 g/dL (6.6-8.7)
[2021-06-23 20:43] VITALS: BP 158/41; PULSE 60; O2SAT 96
[2021-06-23 20:44] VITALS: RESP 22
[2021-06-23 20:45] VITALS: BP 158/41; PULSE 53; O2SAT 95
--- NOTE | 2021-06-23 21:35 | ECG_ITS ---
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 Measurements Intervals [place] Rate: 56 P: 81 SD: 172 QRS: -23 QRSD: 138 T: 43 QT: 433 QTc: 419 Interpretive Statements SINUS BRADYCARDIA INTRAVENTRICULAR CONDUCTION DELAY [130+ ms QRS DURATION] ANTERIOR MYOCARDIAL INFARCTION , POSSIBLY ACUTE [40+ ms Q WAVE AND/OR ST/T ABNORMALITY IN V3/V4] ACUTE AR Compared to ECG 06/01/2021 05:13:48 Myocardial infarct finding now present Electronically Signed On 06-24-2021 21:44:17 CDT by America Willoughby M.D. [id number]
[2021-06-23 21:44] LABS: Troponin 5 2HR 13.14 ng/L (0-15)
[2021-06-23 21:48] LABS: Troponin 5 2HR Delta -0.86 ABS# (0-10)
[2021-06-23 22:31] VITALS: BP 122/60; PULSE 62; RESP 18; TEMP 36.2; O2SAT 98
[2021-06-23 22:33] VITALS: BP 172/80; PULSE 56; RESP 18; TEMP 36.2; O2SAT 98
== END 2021-06-23 22:47 | disposition home or self-care (01) ==
PROVIDERS: Emergency Provider Emergency Medicine
DX: R07.89 Other chest pain (principal); Z79.82 Long term (current) use of aspirin; Z79.01 Long term (current) use of anticoagulants; I11.0 Hypertensive heart disease with heart failure; I50.9 Heart failure, unspecified
CPT/HCPCS: 71045; 80053; 84484; 85025; 93005; 99284

== ENCOUNTER 2021-07-02 11:13 | Outpatient (CLI) | payer MEDICARE, MEDICAID, SELFPAY ==
--- NOTE | 2021-07-02 11:13 | USCV_ITS ---
Riki Polanco Age: 71 Gender: M : 1950 Exam Date: 07/02/2021 11:26 Ordering Phys: Sabrina Joyce MD ([email or web address]) Technologist: [place] [facility] [place]: Aortic Stenosis, CHF BP: 127 / 82 HR: 56 Rhythm: Sinus Technical Quality: Adequate MEASUREMENTS (Male / Female) Normal Values 2D ECHO LV Diastolic Diameter PLAX 4.2 cm 4.2 - 5.9 / 3.9 - 5.3 cm LV Systolic Diameter PLAX 2.9 cm IVS Diastolic Thickness 1.1 cm 0.6 - 1.0 / 0.6 - 0.9 cm IVS Systolic Thickness 1.2 cm LVPW Diastolic Thickness 1.3 cm 0.6 - 1.0 / 0.6 - 0.9 cm LVPW Systolic Thickness 1.2 cm LVOT Diameter 2.1 cm LV Ejection Fraction 2D Teich 33.5 % LV Ejection Fraction MOD 2C 66.8 % LV Ejection Fraction 2C AL 68.2 % LA Diameter 4.2 cm LA Width 5.1 cm LA Height 6.1 cm RA Width 4.5 cm RA Height 4.5 cm Aorta at Sinotubular Diameter 3.4 cm DOPPLER AV Peak Velocity 290.6 cm/s LVOT Peak Velocity 115.0 cm/s AV Area Cont Eq vti 2.0 cm squared AV Area Cont Eq pk 1.4 cm squared FINDINGS Left Ventricle Normal left ventricular cavity size and increased left ventricular wall thickness. Low normal left ventricular systolic function. Left ventricular ejection fraction is estimated at 50- 55 %. Possible septal hypokinesis. Right Ventricle Normal right ventricular size and systolic function. Right Atrium Normal right atrial size. Left Atrium Mildly increased left atrial size. Mitral Valve Mild mitral annular calcification. Mildly thickened mitral valve. No mitral valve stenosis. No mitral valve regurgitation. Aortic Valve Moderately thickened and calcified aortic valve. Moderate aortic valve stenosis, peak velocity 3 m/sec, peak gardient 37 mm Hg, mean gradient 21 mmHg, CASA 1.3 cm squared. [id number] aortic valve regurgitation. Tricuspid Valve Structurally normal tricuspid valve. No tricuspid valve stenosis. Mild tricuspid valve regurgitation. Pulmonic Valve Pulmonic valve not well visualized. Pericardium No pericardial effusion. Aorta Normal size aortic root and proximal ascending aorta. CONCLUSIONS 1. Normal left ventricular cavity size and increased left ventricular wall thickness. Low normal left ventricular systolic function. Left ventricular ejection fraction is estimated at 50- 55 %. Possible septal hypokinesis. 2. Normal right ventricular size and systolic function. 3. Moderate aortic valve stenosis, peak velocity 3 m/sec, peak gardient 37 mm Hg, mean gradient 21 mmHg, CASA 1.3 cm squared. Mild-to- moderate aortic valve regurgitation. 4. Mild tricuspid valve regurgitation. 5. When compared to previous echocardiogram dated 01/15/21, left ventricular systolic function has improved. Sabrina Joyce MD (Electronically Signed) Final Date: 02 July 2021 21:57 S
== END 2021-07-02 11:14 | disposition home or self-care (01) ==
LOC: RAD 11:16
PROVIDERS: Visit Provider Internal Medicine Cardiovascular Disease
DX: I35.0 Nonrheumatic aortic (valve) stenosis (principal); I07.1 Rheumatic tricuspid insufficiency; I50.32 Chronic diastolic (congestive) heart failure
CPT/HCPCS: 80048; 83735; 83880; 93308; 93325

== ENCOUNTER 2021-07-14 20:28 | Inpatient (IN) | payer MEDICARE, MEDICAID, SELFPAY ==
[2021-07-14 20:42] VITALS: BP 158/72; PULSE 64; RESP 20; TEMP 36.8; O2SAT 100; BMI 33.9
--- NOTE | 2021-07-14 20:42 | ECG_ITS ---
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1950 Requested By: Estela Barrett Order Number: [id number] Reading MD: RICARDA RAPHAEL Measurements Intervals [place] Rate: 63 P: 57 CO: 167 QRS: 5 QRSD: 113 T: 53 QT: 424 QTc: 434 Interpretive Statements SINUS RHYTHM MODERATE INTRAVENTRICULAR CONDUCTION DELAY [105+ ms QRS DURATION, 80+ ms Q/S IN V1/V2, NO Q AND 60+ ms R IN I/aVL/V5/V6] Compared to ECG 06/23/2021 21:54:28 Sinus bradycardia no longer present Myocardial infarct finding no longer present Electronically Signed On 07-14-2021 22:56:33 CDT by RICARDA RAPHAEL [id number]
--- NOTE | 2021-07-14 20:42 | XRR_ITS ---
PROCEDURE INFORMATION: Exam: XR Chest Exam date and time: 07/14/2021 8:42 PM Age: 71 years old Clinical indication: Pain; Left-sided; Additional info: Chest pain TECHNIQUE: Imaging protocol: XR of the chest. Views: 1 view. COMPARISON: CR (CHEST, ) 06/23/2021 7:50 PM FINDINGS: Lungs: Mild hyperinflation of lungs with emphysematous changes. No localized airspace consolidation. Pleural spaces: Unremarkable. No pleural effusion. No pneumothorax. Heart/Mediastinum: Mild cardiac enlargement. Vasculature: Atherosclerotic plaques of aorta. Bones/joints: Unremarkable. XR/XR chest 1V portable [id number] IMPRESSION: No focal acute pulmonary disease. Radiation Dose CTDIVOL = (mGy): DLP = (mGy-cm)
[2021-07-14 21:14] LABS: Basophils % 0.5 %; Eosinophils # 0.1 10^3/uL (0.0-0.8); Hematocrit 32.9 % (42.0-52.0); Hemoglobin 10.5 g/dL (11.7-16.6); Lymphocytes # 0.9 10^3/uL (0.8-4.8); Lymphocytes % 14.4 %; Mean Corpuscular HGB Conc 31.9 g/dL (30.0-36.0); Mean Corpuscular Hemoglobin 30.8 pg (28.0-34.0); Mean Corpuscular Volume 96.5 fl (80-94); Monocytes # 0.7 10^3/uL (0.2-0.9); Monocytes % 11.9 %; Neutrophils # 4.23 10^3/uL (1.8-7.7); Neutrophils % 71.7 %; Nucleated Red Blood Cells % 0 %; Platelet Count 220 10^3/cmm (130-400); Red Blood Count 3.41 10^6/uL (4.1-5.3); Red Cell Distribution Width 13.5 % (12.1-15.1); White Blood Count 5.9 10^3/uL (4.0-10.0)
[2021-07-14 21:44] LABS: Troponin(5th) Baseline 15 ng/L (0-15)
[2021-07-14 21:53] LABS: Alanine Aminotransferase 27 U/L (0-41); Albumin Level 4.3 g/dL (3.5-5.2); Alkaline Phosphatase 51 IU/L (40-130); Anion Gap 14.7 (5-19); Aspartate Amino Transferase 27 U/L (0-40); Blood Urea Nitrogen 28 mg/dL (8-23); Carbon Dioxide 26 mmol/L (22-29); Chloride 100 mmol/L (98-107); Glomerular Filtration Rate 50.1 mL/min (90-130); Glucose 104 mg/dL (65-115); NT Pro B Type Natriuretic Pept 141 pg/mL (0-125); Osmolality Calculated 288 mOsm/kg (285-295); Potassium 4.7 mmol/L (3.5-5.1); Sodium 136 mmol/L (136-145); Total Bilirubin 0.2 mg/dL (0.15-1.2); Total Protein 6.3 g/dL (6.6-8.7)
[2021-07-14 21:59] LABS: D Dimer 0.37 ug/mIFEU (0-0.59)
[2021-07-14] MEDS: aspirin 325 mg Tablet PO (21:59)
[2021-07-14] MEDS: sodium chloride 0.9% 250 ML IV (21:59)
--- NOTE | 2021-07-14 22:05 | W.ED.GENADLT ---
HPI - General Adult General: Chief complaint: Chest Pain Stated complaint: CP Time Seen by Provider: 07/14/21 20:59 History of Present Illness: HPI narrative: CC: Chest Pain HPI: This is a [71] yo patient hx of CHF on lifevest, afib on apixaban presenting to the ED w/ acute onset of chest pain x 1 day. Patient was recently evaluated in the office last month had an echo study. Symptoms, patient reports that his chest pain has worsened and today, it is very different from the chest pain that he had before. Patient received nitroglycerin in route with minimal relief of symptoms. In addition, patient has history of ascending aortic aneurysm. Chest pain is not tearing in nature and does not radiate to the back. Endorse nausea but has no associated with vomiting or decreased PO intake. Denies any recent sympathomimetic drug use. Patient denies any cough. Denies palpitations, syncope symptoms. Pain not positional. Norecent immobility, surgery, unilateral leg swelling, or prior PE. Patient denies any orthopnea, paroxysmal nocturnal dyspnea, weight gain, or increased leg swellings. Onset: 1 day ago Duration: ongoing for the last 1 day Location: home Severity: moderate Review of Systems Narrative: Constitutional: No fever, no chills. HEENT: No vision changes, no sore throat. CV: +chest pain, no palpitations. PULM: No cough, no dyspnea. GI: No abdominal pain, no N/V/D. : No dysuria, no frequency, no hematuria. MSKEL: No arthralgias, no edema. SKIN: No new rashes, no lesions. NEURO: No headache, no focal weakness. HEME: No easy bleeding or bruising. PSYCH: No change in mood or affect. PFSH ED PFSH: Medical History (Updated 07/15/21 @ 15:33 by Moreno Rosenberg MD) Aortic regurgitation Atrial fibrillation Chronic anticoagulation CKD (chronic kidney disease) Congestive heart failure COVID-19 03/2021 Hypertension Moderate aortic stenosis Normal coronary angiogram 2017 Scrotal edema Thoracic aortic aneurysm 5.6 cm CTA August [address] Flanagan Ventricular tachycardia Ventricular tachycardia, sustained Surgical History Hx of cataract surgery Family History Other CAD (coronary artery disease) Social History Alcohol intake: never Adopted: No Caregiver/support person: No Lives independently: Yes Marital status: Single Current occupational status: retired History of recent travel: No Physical Exam Narrative: EXAM NARRATIVE: Head: Atraumatic, normocephalic Eyes: PERRL, EOMI, conjunctiva without injection ENT: Throat without erythema, lesions or exudate, MMM NECK: Supple, trachea midline, no JVD LUNGS: LCTA CV: RRR, S1,S2, no murmurs, rubs, gallops. 2+ peripheral pulses in UEs ABDOMEN: Soft, nontender, nondistended, BS x4, no rigidity, no guarding, no rebound EXTREMITY: Normal ROM, no pitting edema, no calf tenderness to palpation SKIN: No rash or erythema NEURO: Awake and alert. No focal motor deficits. PSYCH: Normal mood and affect. Course Vital Signs: Vital signs: Vital Signs Temperature 98 F 07/16/21 03:57 Pulse Rate 56 L 07/16/21 12:30 Respiratory Rate 20 H 07/16/21 12:30 Blood Pressure 123/47 07/16/21 18:00 Pulse Oximetry 97 07/16/21 13:00 MDM - General Adult MDM Narrative: Medical decision making narrative: [71]yo patient w/ hx of CHF on lifevest, afib on AC presenting to the ED With acute substernal chest pain X 1 day now worse compare to chest pain from last month. 4/10 chest pain Given History And Exam today I have moderate to high suspicion for ACS/UA/NSTEMI. Today, I have NO suspicion for pneumothorax, pneumonia, pulmonary embolus, tamponade, aortic dissection or other emergent problem as a cause for this presentation. ECG did not show any signs of acute STEMI. Workup: ECG, CXR, CBC, BMP, Troponin x 3 Intervention: ASA 325mg, SL nitroglycerin x 2 EKG showing regular sinus rhythm at HT of [63]. Normal axis. PRWP, T wave in V2-V4 unchanged compared to prior EKG from 06/23/2021, no JAX/STD, no ectopy Findings: ECG: No overt evidence of STEMI, no hyperacute T waves, localizable STD or T wave inversions. No evidence of Brugada?s sign, delta wave, epsilon wave, significantly prolonged QTc, or malignant arrhythmia. No Q waves. Troponin: Negative x 1 Other Labs unremarkable for emergent problems. CXR: Without PTX, PNA, or widened mediastinum [10:17] On reassessment, the patient continues have mild chest pain despite nitro. D-dimer within normal pain, do not suspect that patient has a dissection from ascending aortic aneurysm or expansion of the aortic aneurysm. I have performed shared decision making with patient. I have discussed that patient has had a prior echo study which was done last month and this is unlikely to be cardiac in nature. However given his extensive risk factors, patient says that his chest pain is different today compared to before when he was seen in office, and prefers to be observed today. Will order serial troponin at this time. S/p 2 units of nitroglycerin and aspirin in the ER. Troponin within normal limit. EKG is unchanged from prior. Patient denies any LifeVest firing, will not interrogate LifeVest at this time. Disposition: Admission to [facility] for serial observation and repeat troponin in the morning. Lab Data: Labs: Lab Results 07/14/21 07/14/21 07/14/21 20:50 20:50 20:50 WBC 5.9 10^3/uL 10^3/ uL (4.0-10.0) RBC 3.41 10^6/uL L 10 ^6/uL (4.1-5.3) Hgb 10.5 g/dL L g/dL (11.7-16.6) Hct 32.9 % L % (42.0-52.0) MCV 96.5 fl H fl (80-94) MCH 30.8 pg pg (28.0-34.0) MCHC 31.9 g/dL g/dL (30.0-36.0) RDW 13.5 % % (12.1-15.1) Plt Count 220 10^3/cmm 10^3 /cmm (130-400) MPV 10.0 fL fL (7.4-10.4) Neut % (Auto) 71.7 % % Lymph % (Auto) 14.4 % % [place] % (Auto) 11.9 % % Eos % (Auto) 1.0 % % Baso % (Auto) 0.5 % % Neut # (Auto) 4.23 10^3/uL 10^3 /uL (1.8-7.7) Lymph # (Auto) 0.9 10^3/uL 10^3/ uL (0.8-4.8) [place] # (Auto) 0.7 10^3/uL 10^3/ uL (0.2-0.9) Eos # (Auto) 0.1 10^3/uL 10^3/ uL (0.0-0.8) Baso # (Auto) 0.0 10^3/uL 10^3/ uL (0.0-0.1) Nucleated RBC % (a uto) 0 % % Nucleated RBCs # 0.0 /100WBC /100W BC D-Dimer Sodium 136 mmol/L mmol/L (136-145) Potassium 4.7 mmol/L mmol/L (3.5-5.1) Chloride 100 mmol/L mmol/L (98-107) Carbon Dioxide 26 mmol/L mmol/L (22-29) Anion Gap 14.7 (5-19) BUN 28 mg/dL H mg/dL (8-23) Creatinine 1.4 mg/dL H mg/dL (0.7-1.2) GFR Calculation 50.1 mL/min L mL/ min (90-130) Glucose 104 mg/dL mg/dL (65-115) Calculated Osmolal ity 288 mOsm/kg mOsm/ kg (285-295) Calcium 9.0 mg/dL mg/dL (8.5-10.5) Total Bilirubin 0.2 mg/dL mg/dL (0.15-1.2) AST 27 U/L U/L (0-40) ALT 27 U/L U/L (0-41) Alkaline Phosphata se 51 IU/L IU/L (40-130) Troponin T Baselin e 15 ng/L ng/L (0-15) Troponin T 120 Min matt Delta Troponin T Troponin T Hi Sens 6Hr Troponin T Hi Sens 6Hr Delta NT-Pro-B Natriuret Pep 141 pg/mL H pg/mL (0-125) Total Protein 6.3 g/dL L g/dL (6.6-8.7) Albumin 4.3 g/dL g/dL (3.5-5.2) Globulin 2.0 g/dL g/dL (1.3-4.6) 07/14/21 07/14/21 07/15/21 20:50 22:30 02:50 WBC RBC Hgb Hct MCV MCH MCHC RDW Plt Count MPV Neut % (Auto) Lymph % (Auto) [place] % (Auto) Eos % (Auto) Baso % (Auto) Neut # (Auto) Lymph # (Auto) [place] # (Auto) Eos # (Auto) Baso # (Auto) Nucleated RBC % (a uto) Nucleated RBCs # D-Dimer 0.37 ug/mIFEU ug/ mIFEU (0-0.59) Sodium Potassium Chloride Carbon Dioxide Anion Gap BUN Creatinine GFR Calculation Glucose Calculated Osmolal ity Calcium Total Bilirubin AST ALT Alkaline Phosphata se Troponin T Baselin e Troponin T 120 Min matt 14.70 ng/L ng/L (0-15) Delta Troponin T -0.30 ABS# L ABS# (0-10) Troponin T Hi Sens 6Hr 15.45 ng/L H ng/L (0-15) Troponin T Hi Sens 6Hr Delta 0.45 ng/L ng/L (0-12) NT-Pro-B Natriuret Pep Total Protein Albumin Globulin 07/15/21 07/15/21 02:50 02:50 WBC 6.7 10^3/uL 10^3/ uL (4.0-10.0) RBC 3.51 10^6/uL L 10 ^6/uL (4.1-5.3) Hgb 11.0 g/dL L g/dL (11.7-16.6) Hct 34.2 % L % (42.0-52.0) MCV 97.4 fl H fl (80-94) MCH 31.3 pg pg (28.0-34.0) MCHC 32.2 g/dL g/dL (30.0-36.0) RDW 13.5 % % (12.1-15.1) Plt Count 219 10^3/cmm 10^3 /cmm (130-400) MPV 9.9 fL fL (7.4-10.4) Neut % (Auto) 63.9 % % Lymph % (Auto) 22.3 % % [place] % (Auto) 11.6 % % Eos % (Auto) 1.5 % % Baso % (Auto) 0.4 % % Neut # (Auto) 4.29 10^3/uL 10^3 /uL (1.8-7.7) Lymph # (Auto) 1.5 10^3/uL 10^3/ uL (0.8-4.8) [place] # (Auto) 0.8 10^3/uL 10^3/ uL (0.2-0.9) Eos # (Auto) 0.1 10^3/uL 10^3/ uL (0.0-0.8) Baso # (Auto) 0.0 10^3/uL 10^3/ uL (0.0-0.1) Nucleated RBC % (a uto) 0 % % Nucleated RBCs # 0.0 /100WBC /100W BC D-Dimer Sodium 137 mmol/L mmol/L (136-145) Potassium 4.6 mmol/L mmol/L (3.5-5.1) Chloride 101 mmol/L mmol/L (98-107) Carbon Dioxide 25 mmol/L mmol/L (22-29) Anion Gap 15.6 (5-19) BUN 25 mg/dL H mg/dL (8-23) Creatinine 1.4 mg/dL H mg/dL (0.7-1.2) GFR Calculation 50.1 mL/min L mL/ min (90-130) Glucose 97 mg/dL mg/dL (65-115) Calculated Osmolal ity 288 mOsm/kg mOsm/ kg (285-295) Calcium 9.1 mg/dL mg/dL (8.5-10.5) Total Bilirubin 0.3 mg/dL mg/dL (0.15-1.2) AST 27 U/L U/L (0-40) ALT 27 U/L U/L (0-41) Alkaline Phosphata se 51 IU/L IU/L (40-130) Troponin T Baselin e Troponin T 120 Min matt Delta Troponin T Troponin T Hi Sens 6Hr Troponin T Hi Sens 6Hr Delta NT-Pro-B Natriuret Pep Total Protein 6.9 g/dL g/dL (6.6-8.7) Albumin 4.2 g/dL g/dL (3.5-5.2) Globulin 2.7 g/dL g/dL (1.3-4.6) Imaging Data^: Other Imaging: Radiologist's impression: [id number] [place], [place] [address]NSqt ReportSigned Patient: Rhiannon Polanco #: [id number]: 1950cct#:[id number]/Sex: 71 / MADM Date: 07/14/21Loc: ERRoom/Bed:Attending Dr: Ordering Provider/Ordering MD: Estela Barrett Date of Service: 07/14/21 Procedure(s): XR chest 1V portable [id number] Accession Number(s): [id number] Report Number: [id number] PROCEDURE INFORMATION: Exam: XR Chest Exam date and time: 07/14/2021 8:42 PM Age: 71 years old Clinical indication: Pain; Left-sided; Additional info: Chest pain TECHNIQUE: Imaging protocol: XR of the chest. Views: 1 view. COMPARISON: CR (CHEST, ) 06/23/2021 7:50 PM FINDINGS: Lungs: Mild hyperinflation of lungs with emphysematous changes. No localized airspace consolidation. Pleural spaces: Unremarkable. No pleural effusion. No pneumothorax. Heart/Mediastinum: Mild cardiac enlargement. Vasculature: Atherosclerotic plaques of aorta. Bones/joints: Unremarkable. XR/XR chest 1V portable [id number] IMPRESSION: No focal acute pulmonary disease. Radiation Dose CTDIVOL = (mGy): DLP = (mGy-cm) Dictated By:Ana Hawkins By:Ana Hawkins Date/Time:07/14/212217DD/ 41 Discharge Plan Discharge Patient Disposition: Admitted As Inpatient Admit Provider: Miriam Valencia Clinical Impression: Chest pain Condition: Stable Discharge Diet: Cardiac Discharge Activity: Resume usual activity Coding Level of Care Code ED Forming Tube Selector for Baljinder Monte
[2021-07-14] MEDS: nitroglycerin 0.4 mg sublingual Tablet SUBLINGUAL ×2 (22:15→22:34)
--- NOTE | 2021-07-14 22:42 | ECG_ITS ---
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1950 Requested By: Estela Barrett Order Number: [id number] Vamsi MD: RICARDA RAPHAEL Measurements Intervals [place] Rate: 58 P: 74 IN: 164 QRS: 3 QRSD: 122 T: 4 QT: 439 QTc: 435 Interpretive Statements SINUS BRADYCARDIA POSSIBLE ANTERIOR MYOCARDIAL INFARCTION , OF INDETERMINATE AGE [30 ms Q WAVE IN V3/V4, OR R < 0.2 mV IN V4] Compared to ECG 07/15/2021 01:30:34 Myocardial infarct finding now present Sinus rhythm no longer present Intraventricular conduction delay no longer present Electronically Signed On 07-16-2021 0:12:33 CDT by RICARDA RAPHAEL [id number]
[2021-07-15] VITALS (24 sets, daily range): BP systolic 108–178; BP diastolic 41–72; PULSE 51–70; RESP 14–24; TEMP 36.3–36.8; O2SAT 95–100
--- NOTE | 2021-07-15 02:42 | ECG_ITS ---
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1950 Requested By: Estela Barrett Order Number: [id number] Vamsi MD: RICARDA RAPHAEL Measurements Intervals [place] Rate: 60 P: 69 MI: 180 QRS: 14 QRSD: 117 T: 30 QT: 448 QTc: 450 Interpretive Statements SINUS RHYTHM MODERATE INTRAVENTRICULAR CONDUCTION DELAY [105+ ms QRS DURATION, 80+ ms Q/S IN V1/V2, NO Q AND 60+ ms R IN I/aVL/V5/V6] Compared to ECG 07/14/2021 20:57:22 No significant changes Electronically Signed On 07-16-2021 0:12:35 CDT by RICARDA RAPHAEL [id number]
[2021-07-15 03:06] LABS: Basophils % 0.4 %; Eosinophils # 0.1 10^3/uL (0.0-0.8); Eosinophils % 1.5 %; Hematocrit 34.2 % (42.0-52.0); Lymphocytes # 1.5 10^3/uL (0.8-4.8); Lymphocytes % 22.3 %; Mean Corpuscular HGB Conc 32.2 g/dL (30.0-36.0); Mean Corpuscular Hemoglobin 31.3 pg (28.0-34.0); Mean Corpuscular Volume 97.4 fl (80-94); Mean Platelet Volume 9.9 fL (7.4-10.4); Monocytes # 0.8 10^3/uL (0.2-0.9); Monocytes % 11.6 %; Neutrophils # 4.29 10^3/uL (1.8-7.7); Neutrophils % 63.9 %; Nucleated Red Blood Cells % 0 %; Platelet Count 219 10^3/cmm (130-400); Red Blood Count 3.51 10^6/uL (4.1-5.3); Red Cell Distribution Width 13.5 % (12.1-15.1); White Blood Count 6.7 10^3/uL (4.0-10.0)
[2021-07-15 03:41] LABS: Alanine Aminotransferase 27 U/L (0-41); Albumin Level 4.2 g/dL (3.5-5.2); Alkaline Phosphatase 51 IU/L (40-130); Anion Gap 15.6 (5-19); Aspartate Amino Transferase 27 U/L (0-40); Blood Urea Nitrogen 25 mg/dL (8-23); Calcium 9.1 mg/dL (8.5-10.5); Carbon Dioxide 25 mmol/L (22-29); Chloride 101 mmol/L (98-107); Globulin 2.7 g/dL (1.3-4.6); Glomerular Filtration Rate 50.1 mL/min (90-130); Glucose 97 mg/dL (65-115); Osmolality Calculated 288 mOsm/kg (285-295); Potassium 4.6 mmol/L (3.5-5.1); Sodium 137 mmol/L (136-145); Total Bilirubin 0.3 mg/dL (0.15-1.2); Total Protein 6.9 g/dL (6.6-8.7)
[2021-07-15 03:43] LABS: Troponin 5 6HR 15.45 ng/L (0-15); Troponin 5 6HR Delta 0.45 ng/L (0-12)
[2021-07-15] MEDS: bumetanide 0.25 mg/mL SDV 4 mL 1 MG IVP ×2 (04:40→15:19)
[2021-07-15] MEDS: nitroglycerin 1 gm/inch oint Pkt 0.5 INCH TOPICAL ×2 (04:40→10:04)
--- NOTE | 2021-07-15 06:07 | P.HP_ITS ---
Providers/Chief Complaint Admitting Physician: Miriam Valencia MD Primary Care Provider: Rajni Zhang RN Chief Complaint: CP History of Present Illness Riki Polanco is a 71 year old male with PMHx of paroxysmal atrial fibrillation s/p cardioversion, hypertension and ascending aortic aneurysm, on a life vest due to runs of nonsustained ventricular tachycardia, CHF, most recent echo with Left ventricular ejection fraction is estimated at 50- 55 %, Possible septal hypokinesis, Covid 19 infection in 03/2021. Presented to the ER today with chief complaints of chest pain, located in the middle of the chest, nonradiating, relieved with nitroglycerin. States he has additionally experienced increasing lower extremity edema. Last angiogram from September 2020 showed mild coronary artery disease with 1 vessel disease, on medical management. EKG today shows sinus rhythm with heart rate of 58. He is hemodynamically stable. D-dimer is negative, patient is on anticoagulation with Eliquis. Troponin at 2 hours is with negative delta of -0.3. 6-hour delta is pending. BNP not significantly ban vated, at 141. Review of Systems General: Reports: 10 or more systems reviewed and unremarkable except in HPI and below Const: Denies: fever(s), chills or body aches Eyes: Denies: change in vision, blurry vision or photophobia ENMT: Reports: hoarseness; Denies: throat pain, enlarged tonsils, odynophagia or nasal congestion Card: Denies: chest pain, palpitations, irregular heart rhythm, edema, swelling of feet/ankles, lightheadedness, pre-syncope, dyspnea on exertion or orthopnea Resp: Denies: dyspnea, productive cough, non-productive cough, wheezing, stridor, pain on inspiration, change in phlegm color, hemoptysis or chest congestion GI: Denies: abdominal pain, nausea, vomiting, hematemesis, coffee ground emesis, dysphagia, heartburn, diarrhea, constipation, GI cramping, change in stool character, hematochezia or melena : Denies: flank pain, dysuria, urinary frequency, urinary urgency, urinary hesitancy or hematuria Musc: Denies: neck pain, back pain, extremity pain, joint swelling, joint warmth or deformity Neuro: Denies: headache(s), numbness in extremities, weakness in extremities, sensory changes, difficulty walking, frequent falls, dizziness, vertigo, behavioral changes, Slurred speech present or seizure-like activity Psych: Denies: anxiety, depression, suicidal ideation or homicidal ideation Endo: Denies: polyuria, polydipsia, tired all the time, cold intolerance or hot flashes Jeremy/Lymph: Denies: easy bruising or easy bleeding Medications/Allergies Home Medications Medication Instructions Recorded Confirmed Last Taken Type aspirin 81 mg tablet,delayed 81 mg PO DAILY 11/01/19 07/15/21 Unknown History release multivitamin 1 tab PO DAILY 10/23/20 07/15/21 Unknown History nitroglycerin 0.4 mg SUBLINGUAL Q5M PRN #20 tab 10/28/20 07/15/21 Unknown Rx apixaban 5 mg tablet 5 mg PO BID #180 tab 10/30/20 07/15/21 Unknown Rx atorvastatin 20 mg tablet 20 mg PO BEDTIME #90 tab 10/30/20 07/15/21 Unknown Rx metoprolol succinate 50 mg 50 mg PO DAILY #90 tab 10/30/20 07/15/21 Unknown Rx tablet,extended release 24 hr spironolactone 50 mg tablet 50 mg PO DAILY #30 tab 12/19/20 07/15/21 Unknown Rx amiodarone 200 mg tablet 200 mg PO DAILY #90 tab 02/19/21 07/15/21 Unknown Rx bumetanide 2 mg tablet 2 mg PO DAILY #90 tab 03/26/21 07/15/21 Unknown Rx losartan 100 mg tablet 100 mg PO DAILY #90 tab 03/26/21 07/15/21 Unknown Rx lansoprazole [Prevacid] 30 mg PO DAILY #30 cap 06/01/21 07/15/21 Unknown Rx Allergies Allergy/AdvReac Type Severity Reaction Status Date / Time No Known Allergies Allergy Verified 07/02/21 10:08 PFSH Acute PFSH: Medical History (Updated 07/15/21 @ 06:16 by Miriam Valencia MD) Aortic regurgitation Atrial fibrillation Chronic anticoagulation Congestive heart failure COVID-19 03/2021 Hypertension Moderate aortic stenosis Normal coronary angiogram 2017 Scrotal edema Thoracic aortic aneurysm 5.6 cm CTA August [address] Flanagan Ventricular tachycardia Ventricular tachycardia, sustained Surgical History Hx of cataract surgery Family History Other CAD (coronary artery disease) Social History Alcohol intake: never Adopted: No Caregiver/support person: No Lives independently: Yes Marital status: Single Current occupational status: retired History of recent travel: No Vitals/I&O/Wt Last Vital Signs Temp 98 F 07/15/21 04:07 Pulse 60 07/15/21 04:07 Resp 17 07/15/21 04:07 BP 140/60 07/15/21 04:07 Pulse Ox 99 07/15/21 04:07 07/14/21 07/14/21 07/15/21 14:59 22:59 06:59 Intake Total 250 / 250 Output Total 1625 / 1625 Balance 250 / 250 -1625 / -1375 Weight last 48 hrs Weight 117.344 kg Weight 113.398 kg Physical Exam Narrative: EXAM NARRATIVE: General: No acute distress, AO x3 HEENT: PERRLA, pupils bilaterally equal and reactive, pallors not present Chest: Normal vesicular breath sounds, no added sounds, equal good air entry bilaterally CVS: S1-S2 regular, no murmurs, no tachycardia, no gallops, no rubs Abdomen: Soft, nontender, no organomegaly, bowel sounds present Neuro: No focal deficits, no facial deformity, AO x3, power 5/5 in all limbs Extremities: 2+ pitting edema B/L LE Data : 07/15/21 02:50 07/15/21 02:50 A&P Assessment and plan (1) Chest pain: EKG without acute St-T wave changes trop at 2 hrs with negative delta, pending 6 hr troponin last angiogram 09/2020 with mild CAD, on medical managenemt only currebtly pain relived with nitro continue ASA, statin Status: Acute (2) Congestive heart failure: Worsening LE edema, currently 2+ pitting Bumex 1mg iv q12h for CHF exacerbation monitor I/O Continue aldactone Status: Acute Qualifiers: Heart failure type: diastolic Heart failure chronicity: chronic Qualified Code(s): I50.32 - Chronic diastolic (congestive) heart failure Additional A&P Information h/o A fib: continue amiodarone, metoprolol , Eliquis Attestations Medical Necessity Statement*: Observation, ,anticipate less than 48 hrs stay for evaluation of chest pain Coding Level of Care Code Acute Shoe Dresser for Baljinder Monte Diagnoses Chest pain R07.9 Congestive heart failure I50.32 Heart failure type: diastolic Heart failure chronicity: chronic
[2021-07-15] MEDS: aspirin 81 mg EC Tablet PO (08:19)
[2021-07-15] MEDS: pantoprazole DR 40 mg Tablet PO (08:19)
[2021-07-15] MEDS: pneumococcal (23 valent) SDV 0.5 mL IM (08:20)
[2021-07-15] MEDS: amiodarone 200 mg Tablet PO (08:20)
[2021-07-15] MEDS: spironolactone 25 mg Tablet 50 MG PO (08:20)
[2021-07-15] MEDS: apixaban 5 mg Tablet PO ×2 (08:20→17:28)
[2021-07-15] MEDS: metoprolol succinate ER (24 HR) 50 mg Tablet PO (08:20)
[2021-07-15] MEDS: losartan 50 mg Tablet 100 MG PO (08:20)
--- NOTE | 2021-07-15 09:21 | PC.NURSE ---
0700 Report received, assessment completed. AAOx4, makes all needs known. Lung sounds CTA. VSS. Denies any needs or pain at this time. Nitro paste noted to L chest wall. Denies CP. Uses urinal. Will monitor.
--- NOTE | 2021-07-15 09:34 | PC.CHAP ---
Pastoral Care Encounter/Spiritual Assessment Type of Contact [] Declined composition floor setter visit [] Patient/Family/Request visit [] Outpatient visit [] Follow-up visit [] Physician referral [] Code/Alert [x] Routine visit [] Staff referral [] Actively dying [] Patient sleeping [] Family support [] [] Out of room [] Palliative care [] [] Receiving care in room [] Pre-surgical visit [] Trauma [] Long length of stay [] ICU visit [] Other: Relational/Emotional Strength [] Patient feels connected with others/family/visitors/staff [] Distress [] Loneliness/isolation [] Abandonment Spirituality of Patient [] Person of Krissy [] Attends Mu-Ism of their Krissy [] Believes in Prayer [] Reads Bible or Roman Catholic materials [] There are Spiritual issues to be addressed Marketing Rotation Associate Interventions [x] Prayer [x] Active listening [x] Non-anxious presence [x] Spiritual/emotional support [] Crisis/trauma care [] Spiritual counseling [] Bereavement support [] Provided bereavement packet [] Provided Bible/devotional materials [] Provided toy/stuffed animal, coloring book to patient or family member [] Provided Communion [] Anointing/[place] [] Salvation [x] Completed spiritual assessment [] Other: Impact on Illness or Injury [] Angry [] Fearful [] Anxious [] Often cries [] Exhaustion [] Unable to work [] Unable to attend confucianism [] Unable to walk/stand [] Unable to read [] Unable to drive [] Unable to eat/drink [] Unable to sleep [] Unable to be with family [] Patient intubated [] Other: Summary chest is still sore... resting well Time spent with patient 5 min
--- NOTE | 2021-07-15 10:25 | PC.NURSE ---
Spoke with brother regarding life vest battery and he is unable to bring battery and woodyard operator to hospital until tomorrow. Case management also speaking with pt. No family available to bring batteries to hospital.
--- NOTE | 2021-07-15 12:08 | PC.NURSE ---
1130 Spoke with Panda redd. He stated that the life vest was dc'd per Dr. Joyce. Asked pt and he was able to state that he was told if the last test was good then I could quit wearing it . Dr. Guzman to f/u..
--- NOTE | 2021-07-15 12:31 | CT_ITS ---
WS: [id number] CTA CHEST ABDOMEN AND PELVIS TECHNIQUE: Noncontrast plus contrast enhanced CTA of the chest, abdomen, and pelvis with coronal and sagittal reformatted images and additional MIP Images. CLINICAL INFORMATION: thoracic aortic aneurysm COMPARISON: None. DLP: 4949.[address] scans at [facility] use at least one of these dose optimization techniques: automated e xposure control; mA and/or kV adjustment per patient size (includes targeted exams where dose is matc hed to clinical indication); or iterative reconstruction. FINDINGS: Ectatic ascending thoracic aorta measuring 4.8 cm in maximum dimension. Normal caliber descending tho racic aorta. Moderate calcification. No abdominal aortic aneurysm. Coronary calcification. No mediastinal or hilar lymphadenopathy. Large esophageal hiatal hernia. Both lungs are well aerated. No mediastinal or hilar lymphadenopathy. No axillary lymphadenopathy. Normal liver and spleen. Fatty atrophy of the pancreas. Adrenal glands are normal. Normal renal paren chymal enhancement. No hydronephrosis. Small left renal cysts.Celiac and SMA are patent. Dense rectosigmoid constipation. No evidence of small or large bowel obstruction. Fat-containing umbi lical hernia. Hypertrophic changes thoracic and lumbar spine. Nodular heterogeneous enlargement of th e prostate with impingement on the bladder. Prostate measures 5.3 x 5.5 CM. Evidence of bladder outle t obstruction. Diffuse bladder wall thickening. Partially visualized left greater than right hydrocel es. CT/CT angio chest abdomen pelvis IMPRESSION: 1. Ascending thoracic aortic aneurysm measuring 4.8 cm in maximum dimension. T his is unchanged since October 19, 2020 2. Normal caliber descending thoracic aorta and abdominal aorta. 3. Large esophageal hiatal hernia. 4. Heterogeneous nodular enlargement of prostate suspicious for neoplasia micheline uring 5.3 x 5.4 cm with evidence of bladder outlet obstruction. Recommend corre lation PSA. 5. Other nonvascular findings described above.
--- NOTE | 2021-07-15 12:42 | PC.NURSE ---
nitro paste and life vest removed per orders. Pt education provided r/t life vest removal.
--- NOTE | 2021-07-15 13:01 | PC.NURSE ---
[address] for CTA.
[2021-07-15] MEDS: iodixanol 320 mg/mL 100mL Btl IV ×2 (13:19→13:20)
--- NOTE | 2021-07-15 13:28 | PC.NURSE ---
spoke with Panda, pt is to take lifevest and all equipment home with him. Give pt panda phone number to arrange return of all equipment.
--- NOTE | 2021-07-15 15:22 | PM.PN ---
Subjective Subjective: Interval history: Admitted overnight. Today morning when on examination had Nitropaste on. States does not have any more chest pain. Denies any nausea vomiting, headache. Really hard of hearing. On review of chart patient's recent echocardiogram showed improvement in EF and he was advised by Dr. Joyce to stop wearing the LifeVest though he still wearing. He is also advised as an outpatient to start nifedipine which he still has not. Vitals/I&O/Wt Last Vital Signs Temp 98.3 F 07/15/21 12:00 Pulse 59 L 07/15/21 13:52 Resp 16 07/15/21 12:00 BP 127/57 07/15/21 12:00 Pulse Ox 100 07/15/21 12:00 07/15/21 07/15/21 07/15/21 06:59 14:59 22:59 Intake Total 940 / 940 Output Total 1625 / 1625 1600 / 1600 Balance -1625 / -1375 -660 / -660 Weight last 48 hrs Weight 117.344 kg Weight 113.398 kg Physical Exam Narrative: EXAM NARRATIVE: General: No acute distress, AO x3, hard of hearing HEENT: PERRLA, pupils bilaterally equal and reactive Chest: Normal vesicular breath sounds, no added sounds, equal good air entry bilaterally CVS: S1-S2 regular, soft ejection systolic murmur at aortic region, early diastolic murmur radiating to the apex, no tachycardia, no gallops, no rubs Abdomen: Soft, nontender, no organomegaly, bowel sounds present Neuro: No focal deficits, no facial deformity, AO x3, power 5/5 in all limbs Data : 07/15/21 02:50 07/15/21 02:50 A&P Assessment and plan (1) Hypertensive urgency: Blood pressures elevated on admission. Better now. Continue with home dose of metoprolol, Bumex. Discussed with patient regarding need for being on nifedipine as advised by Dr. Joyce. Start nifedipine 30 mg daily. Start Imdur 30 mg daily. Status: Acute (2) Chest pain: Most likely secondary to hypertensive urgency. Negative troponin delta from admission. Patient did have recent angiogram which showed single-vessel disease with 60% stenosis to ramus which was planned to be treated medically. Continue with aspirin, statin. Patient does have history of thoracic aortic aneurysm. Will do CTA chest to monitor this. D-dimer negative from admission. Start patient on Protonix 40 mg IV daily with Carafate. Status: Acute (3) Congestive heart failure: Last echocardiogram from July 02 showed an EF of 50 to 55% with possible septal hypokinesis, normal RV systolic and diastolic function with moderate aortic valve stenosis and mild to moderate aortic regurgitation. Continue with Bumex 1 mg IV every 12 hourly. Strict input output charting. Continue with spironolactone. Given improvement in ejection fraction. Case discussed with patient's outpatient automotive refinish technician. Mohini to [facility]. Communicated with patient. Status: Acute Qualifiers: Heart failure type: diastolic Heart failure chronicity: chronic Qualified Code(s): I50.32 - Chronic diastolic (congestive) heart failure (4) Hypertension: Goal blood pressure less than 140/90 mmHg. Treatment as above. Status: Acute Qualifiers: Hypertension type: essential hypertension Qualified Code(s): I10 - Essential (primary) hypertension (5) Afib: Home dose of amiodarone and metoprolol. Eliquis for anticoagulation. Telemetry. Status: Acute Qualifiers: Atrial fibrillation type: paroxysmal Qualified Code(s): I48.0 - Paroxysmal atrial fibrillation (6) Thoracic aortic aneurysm: Status: Acute Qualifiers: Presence of rupture: without rupture Qualified Code(s): I71.2 - Thoracic aortic aneurysm, without rupture (7) CKD (chronic kidney disease): Status: Acute Additional A&P Information CKD: Baseline creatinine seems to be 1.2. Blood elevated for last few months going as high as 1.7. Medical reconciliation done for nephrotoxic drugs. For now hold off on losartan given undergoing CTA today. Full code. Cardiac diet. Eliquis will have a DVT prophylaxis. Discharge planning: Most likely patient would need home health for help with medications. Patient is hard of hearing, advanced age, lives by himself. Change admission to inpatient. Attestations Medical Necessity Statement*: Riki Polanco is being changed to inpatient status as stay will now exceed 2 midnights. Ongoing hospital care is necessary for management of hypertensive urgency, chest pain, congestive heart failure in setting of atrial fibrillation, CKD Time Spent in Patient Care: Greater than 35 minutes (>than 50% of time spent in counselling and/or direct pt care on unit). Coding Level of Care Code Acute Custodial Worker for [facility] Fwd Diagnoses Hypertensive urgency I16.0 Chest pain R07.9 Congestive heart failure I50.32 Heart failure type: diastolic Heart failure chronicity: chronic Hypertension I10 Hypertension type: essential hypertension Afib I48.0 Atrial fibrillation type: paroxysmal Thoracic aortic aneurysm I71.2 Presence of rupture: without rupture CKD (chronic kidney disease) N18.9
[2021-07-15] MEDS: isosorbide mononitrate ER 30 mg Tablet PO (15:25)
[2021-07-15] MEDS: NIFEdipine ER (24 hr) 30 mg Tablet PO (15:25)
--- NOTE | 2021-07-15 17:36 | PC.NURSE ---
Shift Note Frequent safety and comfort rounds continue. Orders and/or nursing care completed as indicated. Patient monitored for response to intervention and treatment(s). Education provided includes treatment plan, medication regimen and life vest use. Pt verbalizes understanding but will require frequent reminding. case management contacted for possible home health upon dc. VSS. Pt to stay tonight d/t BP issues. Will continue to monitor.
[2021-07-15] MEDS: atorvastatin 40 mg Tablet 20 MG PO (19:48)
[2021-07-16] VITALS (40 sets, daily range): BP systolic 112–123; BP diastolic 47–64; PULSE 51–75; RESP 9–30; TEMP 36.6; O2SAT 58–100
[2021-07-16] MEDS: bumetanide 0.25 mg/mL SDV 4 mL 1 MG IVP (04:00)
--- NOTE | 2021-07-16 04:05 | PC.NURSE ---
Patient vomited. It was clear with chunks. Patient states that his stomach does not hurt at this time. Patient states he feels better.
[2021-07-16 08:00] LABS: Alanine Aminotransferase 25 U/L (0-41); Albumin Level 4.3 g/dL (3.5-5.2); Alkaline Phosphatase 56 IU/L (40-130); Aspartate Amino Transferase 23 U/L (0-40); Blood Urea Nitrogen 26 mg/dL (8-23); Calcium 9.3 mg/dL (8.5-10.5); Carbon Dioxide 26 mmol/L (22-29); Chloride 97 mmol/L (98-107); Globulin 2.7 g/dL (1.3-4.6); Glomerular Filtration Rate 46.3 mL/min (90-130); Glucose 98 mg/dL (65-115); Osmolality Calculated 279 mOsm/kg (285-295); Sodium 132 mmol/L (136-145); Total Bilirubin 0.5 mg/dL (0.15-1.2)
--- NOTE | 2021-07-16 08:02 | PC.NURSE ---
Pt lying in bed resting with eyes closed. Resp even and non-labored no distress noted. Pt had no s/s of pain or discomfort at the present time. Call light in reach. Will cont to monitor.
[2021-07-16] MEDS: aspirin 81 mg EC Tablet PO (10:18)
[2021-07-16] MEDS: NIFEdipine ER (24 hr) 30 mg Tablet PO (10:19)
[2021-07-16] MEDS: isosorbide mononitrate ER 30 mg Tablet PO (10:19)
[2021-07-16] MEDS: spironolactone 25 mg Tablet 50 MG PO (10:20)
[2021-07-16] MEDS: apixaban 5 mg Tablet PO (10:20)
[2021-07-16] MEDS: pantoprazole DR 40 mg Tablet PO (10:20)
[2021-07-16] MEDS: amiodarone 200 mg Tablet PO (10:21)
[2021-07-16] MEDS: metoprolol tartrate 25 mg Tablet PO (10:22)
--- NOTE | 2021-07-16 10:28 | PM.DCS ---
Discharge Providers Date of Admission: 07/15/21 15:32 Date of Discharge: July 16, 2021 Attending Provider at Admission: Miriam Valencia MD Attending Provider at Discharge: Moreno Rosenberg MD Primary Care Provider: Rajni Zhang RN Diagnoses at Discharge Discharge Diagnosis (1) Hypertensive urgency: Status: Acute (2) Chest pain: Status: Acute (3) Congestive heart failure: Status: Acute Qualifiers: Heart failure type: diastolic Heart failure chronicity: chronic Qualified Code(s): I50.32 - Chronic diastolic (congestive) heart failure (4) Hypertension: Status: Acute Qualifiers: Hypertension type: essential hypertension Qualified Code(s): I10 - Essential (primary) hypertension (5) Afib: Status: Acute Qualifiers: Atrial fibrillation type: paroxysmal Qualified Code(s): I48.0 - Paroxysmal atrial fibrillation (6) Thoracic aortic aneurysm: Status: Acute Permanent problem details: 5.6 cm CTA August [address] Flanagan Qualifiers: Presence of rupture: without rupture Qualified Code(s): I71.2 - Thoracic aortic aneurysm, without rupture (7) CKD (chronic kidney disease): Status: Acute Reason for Visit Reason for Visit: CP Hospital Course Hospital Course Riki Polanco is a 71 year old male with PMHx of paroxysmal atrial fibrillation s/p cardioversion, hypertension and ascending aortic aneurysm, on a life vest due to runs of nonsustained ventricular tachycardia, CHF, most recent echo with Left ventricular ejection fraction is estimated at 50- 55 %, Possible septal hypokinesis, Covid 19 infection in 03/2021. Presented to the ER today with chief complaints of chest pain, located in the middle of the chest, nonradiating, relieved with nitroglycerin. States he has additionally experienced increasing lower extremity edema. Last angiogram from September 2020 showed mild coronary artery disease with 1 vessel disease, on medical management. EKG today shows sinus rhythm with heart rate of 58. He is hemodynamically stable. Patient was admitted to the hospital for further management of chest pain. CAD was ruled out with negative troponin trend and with recent history of coronary angiogram which showed single-vessel disease with distal ramus 60% lesion on which decision was made to continue with medical management. Patient's D-dimer was negative. Patient did have history of thoracic aortic aneurysm for which CTA was done to rule out dissection and to monitor the diameter which showed stable aneurysm. Patient was found to have elevated blood pressure on admission. On further review of chart it was seen that patient is supposed to be on nifedipine which was recently started for him by his outpatient window shade cutter but he is not on that medication currently. It is believed patient chest pain is secondary to accelerated hypertension. Patient's antihypertensives were further adjusted and he was monitored for 1 more day with his blood pressures. On admission patient was found to have increased lower limb swelling for which his Bumex was adjusted. He responded well to the treatment. It was also seen on admission patient had LifeVest on him which was discontinued by window shade cutter recently on last outpatient visit. That was discussed in detail with the patient and he was counseled and he verbalized understanding. On telemetry he was found to have bradycardia with heart rate going down into the low 50s for which his home dose of metoprolol succinate was decreased. Home health has been arranged for him on discharge. He has been discharged home on amiodarone 200 mg daily, Eliquis 5 mg twice daily, Bumex 1 mg twice daily, metoprolol succinate 25 mg daily, spironolactone 50 mg daily, nifedipine 30 mg daily, Imdur 30 mg daily with advice to hold off on losartan for [address] and history of CKD. Patient's care was discussed in detail with his outpatient window shade cutter. LifeVest has been discontinued. Physical Exam Narrative: EXAM NARRATIVE: General: No acute distress, AO x3, hard of hearing HEENT: PERRLA, pupils bilaterally equal and reactive Chest: Normal vesicular breath sounds, no added sounds, equal good air entry bilaterally CVS: S1-S2 regular, soft ejection systolic murmur at aortic region, early diastolic murmur radiating to the apex, no tachycardia, no gallops, no rubs Abdomen: Soft, nontender, no organomegaly, bowel sounds present Neuro: No focal deficits, no facial deformity, AO x3, power 5/5 in all limbs Discharge Data Data Completed and Pending: Completed Studies During Hospitalization Category Date Time Status CT angio chest ab domen pelvis Routi ne Cat Scan 07/15/21 12:31 Completed XR chest 1V vince ble [id number] Urgent Exams 07/14/21 20:42 Completed Labs from last 24 hours 07/16/21 07/16/21 07:28 05:00 Sodium 132 L Cancelled Potassium 5.0 Cancelled Chloride 97 L Cancelled Carbon Dioxide 26 Cancelled Anion Gap 14.0 Cancelled BUN 26 H Cancelled Creatinine 1.5 H Cancelled GFR Calculation 46.3 L Cancelled Glucose 98 Cancelled Calculated Osmolal ity 279 L Cancelled Calcium 9.3 Cancelled Total Bilirubin 0.5 Cancelled AST 23 Cancelled ALT 25 Cancelled Alkaline Phosphata se 56 Cancelled Total Protein 7.0 Cancelled Albumin 4.3 Cancelled Globulin 2.7 Cancelled Addt'l Data from Hospital Stay: Laboratory Results WBC 6.7 10^3/uL (4.0- 10.0) 07/15/21 02:50 RBC 3.51 10^6/uL (4.1 -5.3) L 07/15/21 02:50 Hgb 11.0 g/dL (11.7-1 6.6) L 07/15/21 02:50 Hct 34.2 % (42.0-52.0 ) L 07/15/21 02:50 MCV 97.4 fl (80-94) H 07/15/21 02:50 MCH 31.3 pg (28.0-34. 0) 07/15/21 02:50 MCHC 32.2 g/dL (30.0-3 6.0) 07/15/21 02:50 RDW 13.5 % (12.1-15.1 ) 07/15/21 02:50 Plt Count 219 10^3/cmm (130 -400) 07/15/21 02:50 MPV 9.9 fL (7.4-10.4) 07/15/21 02:50 Neut % (Auto) 63.9 % 07/15/21 02:50 Lymph % (Auto) 22.3 % 07/15/21 02:50 Stevens % (Auto) 11.6 % 07/15/21 02:50 Eos % (Auto) 1.5 % 07/15/21 02:50 Baso % (Auto) 0.4 % 07/15/21 02:50 Neut # (Auto) 4.29 10^3/uL (1.8 -7.7) 07/15/21 02:50 Lymph # (Auto) 1.5 10^3/uL (0.8- 4.8) 07/15/21 02:50 Stevens # (Auto) 0.8 10^3/uL (0.2- 0.9) 07/15/21 02:50 Eos # (Auto) 0.1 10^3/uL (0.0- 0.8) 07/15/21 02:50 Baso # (Auto) 0.0 10^3/uL (0.0- 0.1) 07/15/21 02:50 Nucleated RBC % (a uto) 0 % 07/15/21 02:50 Nucleated RBCs # 0.0 /100WBC 07/15/21 02:50 D-Dimer 0.37 ug/mIFEU (0- 0.59) 07/14/21 20:50 Sodium 132 mmol/L (136-1 45) L 07/16/21 07:28 Potassium 5.0 mmol/L (3.5-5 .1) 07/16/21 07:28 Chloride 97 mmol/L (98-107 ) L 07/16/21 07:28 Carbon Dioxide 26 mmol/L (22-29) 07/16/21 07:28 Anion Gap 14.0 (5-19) 07/16/21 07:28 BUN 26 mg/dL (8-23) H 07/16/21 07:28 Creatinine 1.5 mg/dL (0.7-1. 2) H 07/16/21 07:28 GFR Calculation 46.3 mL/min (90-1 30) L 07/16/21 07:28 Glucose 98 mg/dL (65-115) 07/16/21 07:28 Calculated Osmolal ity 279 mOsm/kg (285- 295) L 07/16/21 07:28 Calcium 9.3 mg/dL (8.5-10 .5) 07/16/21 07:28 Total Bilirubin 0.5 mg/dL (0.15-1 .2) 07/16/21 07:28 AST 23 U/L (0-40) 07/16/21 07:28 ALT 25 U/L (0-41) 07/16/21 07:28 Alkaline Phosphata se 56 IU/L (40-130) 07/16/21 07:28 Troponin T Baselin e 15 ng/L (0-15) 07/14/21 20:50 Troponin T 120 Min [place]a 14.70 ng/L (0-15) 07/14/21 22:30 Delta Troponin T -0.30 ABS# (0-10) L 07/14/21 22:30 Troponin T Hi Sens 6Hr 15.45 ng/L (0-15) H 07/15/21 02:50 Troponin T Hi Sens 6Hr Delta 0.45 ng/L (0-12) 07/15/21 02:50 NT-Pro-B Natriuret Pep 141 pg/mL (0-125) H 07/14/21 20:50 Total Protein 7.0 g/dL (6.6-8.7 ) 07/16/21 07:28 Albumin 4.3 g/dL (3.5-5.2 ) 07/16/21 07:28 Globulin 2.7 g/dL (1.3-4.6 ) 07/16/21 07:28 Impressions Chest X-Ray 07/14/21 20:42 IMPRESSION: No focal acute pulmonary disease. Radiation Dose CTDIVOL = (mGy): DLP = (mGy-cm) Chest/Abdomen/Pelvis CTA 07/15/21 12:31 IMPRESSION: 1. Ascending thoracic aortic aneurysm measuring 4.8 cm in maximum dimension. This is unchanged since October 19, 2020 2. Normal caliber descending thoracic aorta and abdominal aorta. 3. Large esophageal hiatal hernia. 4. Heterogeneous nodular enlargement of prostate suspicious for neoplasia measuring 5.3 x 5.4 cm with evidence of bladder outlet obstruction. Recommend correlation PSA. 5. Other nonvascular findings described above. Echocardiogram July 02 CONCLUSIONS 1. Normal left ventricular cavity size and increased left ventricular wall thickness. Low normal left ventricular systolic function. Left ventricular ejection fraction is estimated at 50- 55 %. Possible septal hypokinesis. 2. Normal right ventricular size and systolic function. 3. Moderate aortic valve stenosis, peak velocity 3 m/sec, peak gardient 37 mm Hg, mean gradient 21 mmHg, CASA 1.3 cm squared. Mild-to- moderate aortic valve regurgitation. 4. Mild tricuspid valve regurgitation. 5. When compared to previous echocardiogram dated 01/15/21, left ventricular systolic function has improved. Sabrina Joyce MD (Electronically Signed) Final Date: 02 July 2021 21:57 Vitals: Last Vital Signs Temp 98 F 07/16/21 03:57 Pulse 51 L 07/16/21 05:11 Resp 13 07/16/21 03:57 BP 118/48 07/16/21 03:57 Pulse Ox 100 07/16/21 03:57 Discharge Plan Discharge Patient Disposition: Home Health Service Condition: Stable Prescriptions: New nifedipine 30 mg Tablet Extended Release 24hr 30 mg PO DAILY 30 Days Qty: 30 RF: 0 isosorbide mononitrate 30 mg Tablet Extended Release 24 Hr 30 mg PO DAILY 30 Days Qty: 30 RF: 0 metoprolol succinate 25 mg tablet extended release 24 hr 25 mg PO DAILY Qty: 30 RF: 0 Continued Eliquis 5 mg tablet 5 mg PO BID Qty: 180 RF: 2 atorvastatin 20 mg tablet 20 mg PO BEDTIME Qty: 90 RF: 2 Pacerone 200 mg tablet 200 mg PO DAILY Qty: 90 RF: 3 aspirin [Adult Low Dose Aspirin] 81 mg tablet,delayed release (DR/EC) 81 mg PO DAILY RF: 0 spironolactone 50 mg tablet 50 mg PO DAILY Qty: 30 RF: 5 multivitamin Tablet 1 tab PO DAILY RF: 0 nitroglycerin 0.4 mg Tablet, Sublingual 0.4 mg sublingual Q5M PRN (Reason: Chest Pain) Qty: 20 RF: 0 lansoprazole [Prevacid] 30 mg capsule,delayed release(DR/EC) 30 mg PO DAILY Qty: 30 RF: 0 Changed bumetanide 2 mg tablet 1 mg PO BID Qty: 90 RF: 2 Held losartan 100 mg tablet 100 mg PO DAILY Qty: 90 RF: 2 Hold Instructions: Resume on 07/20/21. Discontinued metoprolol succinate 50 mg tablet extended release 24 hr 50 mg PO DAILY Qty: 90 RF: 2 Discharge Orders: Discharge Order (Routine); Ordered 07/16/21 Ordered By: Moreno Rosenberg Referrals: [facility] [place] Home Care ([facility]) [Outside] Rajni Zhang RN [Primary Care Provider] - 7-10 days Discharge Diet: Cardiac Discharge Activity: Resume usual activity Patient Instructions: Opioid Safety Activity Restrictions/Additional Instructions: Please maintain a blood pressure diary by checking your blood pressure twice daily. Antihypertensives will be further exchanged here accordingly. Hold the losartan for next 5 days. You can resume it on July 20. Dose of metoprolol has been decreased to 25 mg daily. Nifedipine 30 mg has been added to your medication list. Imdur 30 mg has also been added to your medication list. Bumex dose has been changed from 2 mg once a day to 1 mg twice a day. Discharge Attestations Time Spent in Discharge Care*: greater than 30 min Specific Discharge Activities: educating patient, discussing with pcp/other providers, discussing with top case assembler/social workers/dc planners, documenting/other paperwork and evaluating patient/reviewing data Status at Discharge: Cognitive status at discharge: cognitively intact, Behavioral status at discharge: cooperative, Functional status at discharge: independent ambulation Overall status at discharge: patient is back to baseline Quality Metrics Clinical Quality Measures During this hospital stay, did patient experience: None Coding Level of Care Code Acute Chg FW DC note Diagnoses Hypertensive urgency I16.0 Chest pain R07.9 Congestive heart failure I50.32 Heart failure type: diastolic Heart failure chronicity: chronic Hypertension I10 Hypertension type: essential hypertension Afib I48.0 Atrial fibrillation type: paroxysmal Thoracic aortic aneurysm I71.2 Presence of rupture: without rupture CKD (chronic kidney disease) N18.9
--- NOTE | 2021-07-16 12:42 | PC.CHAP ---
Pastoral Care Encounter/Spiritual Assessment Type of Contact [] Declined buttonhole machine operator visit [] Patient/Family/Request visit [] Outpatient visit [] Follow-up visit [] Physician referral [] Code/Alert [x] Routine visit [] Staff referral [] Actively dying [] Patient sleeping [] Family support [] [] Out of room [] Palliative care [] [x] Receiving care in room [] Pre-surgical visit [] Trauma [] Long length of stay [] ICU visit [] Other: Relational/Emotional Strength [x] Patient feels connected with others/family/visitors/staff [] Distress [] Loneliness/isolation [] Abandonment Spirituality of Patient [x] Person of Krissy [] Attends Mandaen of their Krissy [] Believes in Prayer [] Reads Bible or Confucianism materials [] There are Spiritual issues to be addressed Accounts Payable Processor Interventions [x] Prayer [x] Active listening [x] Non-anxious presence [x] Spiritual/emotional support [] Crisis/trauma care [x] Spiritual counseling [] Bereavement support [] Provided bereavement packet [] Provided Bible/devotional materials [] Provided toy/stuffed animal, coloring book to patient or family member [] Provided Communion [] Anointing/[place] [] Salvation [x] Completed spiritual assessment [] Other: Impact on Illness or Injury [] Angry [] Fearful [x] Anxious [] Often cries [] Exhaustion [] Unable to work [] Unable to attend judaism [] Unable to walk/stand [] Unable to read [] Unable to drive [] Unable to eat/drink [] Unable to sleep [] Unable to be with family [] Patient intubated [] Other: Summary some anxiety feeling better and is going home soon Time spent with patient 10 mins
== END 2021-07-16 13:30 | disposition home health service (06) | DRG 304 ==
LOC: ER 22:05 → MEDSURG 23:13 → CSU 23:54
PROVIDERS: Physician Assistant; Admitting Provider Student in an Organized Health Care Education/Training Program; Emergency Provider Emergency Medicine; Visit Provider Student in an Organized Health Care Education/Training Program
DX: I16.0 Hypertensive urgency (principal); I50.33 Acute on chronic diastolic (congestive) heart failure; I13.0 Hypertensive heart and chronic kidney disease with heart failure and stage 1 through stage 4 chronic kidney disease, or unspecified chronic kidney disease; R07.9 Chest pain, unspecified; I48.0 Paroxysmal atrial fibrillation; I35.1 Nonrheumatic aortic (valve) insufficiency; I35.0 Nonrheumatic aortic (valve) stenosis; I71.2 Thoracic aortic aneurysm, without rupture; H91.90 Unspecified hearing loss, unspecified ear; I25.10 Atherosclerotic heart disease of native coronary artery without angina pectoris; Z86.16 Personal history of COVID-19; Z82.49 Family history of ischemic heart disease and other diseases of the circulatory system; Z79.01 Long term (current) use of anticoagulants
CPT/HCPCS: 36415; 71045; 71275; 74174; 80053; 83880; 84484; 85025; 85378; 90471; 90732; 93005; 96360; 99285; G0378; J3490; J7050; Q9967

== ENCOUNTER → 2021-09-17 11:27 | Outpatient (BNVA) | payer MEDICARE, MEDICAID, SELFPAY | PROVIDERS: PCP Nurse Practitioner Family; Visit Provider Internal Medicine Cardiovascular Disease | DX: I50.9 Heart failure, unspecified (principal); I48.0 Paroxysmal atrial fibrillation; E78.5 Hyperlipidemia, unspecified; I16.0 Hypertensive urgency; I50.32 Chronic diastolic (congestive) heart failure; I10 Essential (primary) hypertension; I47.2 Ventricular tachycardia; I71.2 Thoracic aortic aneurysm, without rupture; I35.0 Nonrheumatic aortic (valve) stenosis; I35.1 Nonrheumatic aortic (valve) insufficiency | CPT/HCPCS: 80048; 80061; 83735 ==

== ENCOUNTER 2022-04-23 02:15 | Emergency (ER) | payer MEDICARE, MEDICAID, SELFPAY ==
[2022-04-23] VITALS (9 sets, daily range): BP systolic 149–193; BP diastolic 65–97; PULSE 54–89; RESP 13–24; TEMP 36.8–37.1; O2SAT 97–100; BMI 33.2
--- NOTE | 2022-04-23 02:17 | XRR_ITS ---
PROCEDURE INFORMATION: Exam: XR Chest Exam date and time: 04/23/2022 2:56 AM Age: 72 years old Clinical indication: Chest pressure; Patient HX: C/O chest pain. ; Additional info: Cp TECHNIQUE: Imaging protocol: Radiologic exam of the chest. Views: 1 view. COMPARISON: CR XR chest 1V portable [id number] 07/14/2021 8:53 PM FINDINGS: Lungs: Unremarkable. No consolidation. Pleural spaces: Unremarkable. No pleural effusion. No pneumothorax. Heart/Mediastinum: There is mild cardiomegaly. Bones/joints: Unremarkable. XR/XR chest 1V portable [id number] IMPRESSION: Mild cardiomegaly.
--- NOTE | 2022-04-23 02:26 | W.ED.CHESTPA ---
HPI - Chest Pain General: Chief Complaint: Chest Pain Stated Complaint: cp Time Seen by Provider: 04/23/22 02:16 Source: patient and EMS Mode of arrival: EMS Limitations: no limitations History of Present Illness: 72-year-old male has extensive cardiac history states that he had woke up this morning with a burning sensation in the middle of his chest and his upper abdomen. States his was roughly 2 hours ago. He states he took a nitro and is eased the pain states pain is currently 2 out of 10 he denies any nausea or diaphoresis. He denies any radiation of the pain. Denies any vomiting or diarrhea. Associated symptoms: Deny abdominal pain, dyspnea, fever(s), nausea or vomiting Review of Systems Const: Denies: fever(s), chills, body aches or change in appetite Eyes: Denies: blurry vision or eye discomfort ENMT: Denies: throat pain or dental pain Card: Reports: chest pain Resp: Denies: dyspnea GI: Denies: abdominal pain, nausea, vomiting or diarrhea : Denies: dysuria Musc: Denies: neck pain or back pain Skin/Breast: Denies: rash Neuro: Denies: headache(s) Psych: Denies: depression Jeremy/Lymph: Denies: easy bruising All/Imm: Denies: urticaria PFSH ED PFSH: Medical History Afib Aortic regurgitation Atrial fibrillation Chronic anticoagulation CKD (chronic kidney disease) Congestive heart failure COVID-19 03/2021 Hypertension Moderate aortic stenosis Normal coronary angiogram 2018 Scrotal edema Thoracic aortic aneurysm 5.6 cm CTA August [address] Flanagan Ventricular tachycardia Ventricular tachycardia, sustained Surgical History Hx of cataract surgery Family History Other CAD (coronary artery disease) Social History Alcohol intake: never Adopted: No Caregiver/support person: No Lives independently: Yes Marital status: Single Current occupational status: retired History of recent travel: No Physical Exam Const: COMMON NORMALS: no acute distress, patient oriented x3 and healthy appearing HENMT: COMMON NORMALS: normocephalic and atraumatic HEAD & SCALP: normocephalic and atraumatic Eye: COMMON NORMALS: Equal, round and reactive pupils present and EOMs intact bilaterally PUPIL: Yes Equal, round and reactive pupils present Neck/C-Spine: COMMON NORMALS: full ROM and supple Chest: COMMONS NORMALS: normal inspection of the chest and normal palpation of entire chest wall Resp: COMMON NORMALS: normal respiratory effort, No retractions, No use of accessory muscles and clear to auscultation bilaterally AUSCULTATION: clear to auscultation bilaterally Cardio: COMMON NORMALS: regular rate, regular rhythm and No murmurs present (Cardio) RATE: regular rate RHYTHM: regular rhythm GI: COMMON NORMALS: Normal to inspection, nondistended, normoactive bowel sounds present, Soft to palpation, non-tender and no masses PALPATION: Yes Soft to palpation Extremity: COMMON NORMALS: normal to inspection and full ROM Neuro: COMMON NORMALS: patient oriented x3, moves all extremities and no focal motor deficits Psych: COMMON NORMALS: mental status grossly normal, Normal thought process present and cooperative THOUGHT PROCESS: Normal thought process present Skin: COMMON NORMALS: no rashes or lesions noted and no wounds GENERAL SKIN EXAM: no rashes or lesions noted Course Vital Signs: Vital signs: Vital Signs Temperature 98.7 F 04/23/22 03:27 Pulse Rate 89 04/23/22 03:27 Respiratory Rate 19 H 04/23/22 03:27 Blood Pressure 149/97 04/23/22 03:27 Pulse Oximetry 97 04/23/22 03:27 Oxygen Delivery Me thod 04/23/22 03:19 MDM - Chest Pain Medical Decision Making Patient presents for chest pain is atypical in nature initial repeat troponins here are negative he has no signs of dissection or pulm embolism. Patient has no signs of acute coronary syndrome he is stable for discharge he is to follow-up with his senior ui developer return if worsening he understands agrees to plan. Lab Data : 04/23/22 02:25 04/23/22 02:25 Radiology Impressions Chest X-Ray 04/23/22 02:17 IMPRESSION: Mild cardiomegaly. Laboratory Results WBC 5.1 10^3/uL (4.0-10.0) 04/23/22 02:25 RBC 4.03 10^6/uL (4.1-5.3) L 04/23/22 02:25 Hgb 10.9 g/dL (11.7-16.6) L 04/23/22 02:25 Hct 34.3 % (42.0-52.0) L 04/23/22 02:25 MCV 85.1 fl (80-94) 04/23/22 02:25 MCH 27.0 pg (28.0-34.0) L 04/23/22 02:25 MCHC 31.8 g/dL (30.0-36.0) 04/23/22 02:25 RDW 14.6 % (12.1-15.1) 04/23/22 02:25 Plt Count 192 10^3/cmm (130-400) 04/23/22 02:25 MPV 9.6 fL (7.4-10.4) 04/23/22 02:25 Neut % (Auto) 59.4 % 04/23/22 02:25 Lymph % (Auto) 24.7 % 04/23/22 02:25 [place] % (Auto) 13.1 % 04/23/22 02:25 Eos % (Auto) 2.0 % 04/23/22 02:25 Baso % (Auto) 0.8 % 04/23/22 02:25 Neut # (Auto) 3.03 10^3/uL (1.8-7.7) 04/23/22 02:25 Lymph # (Auto) 1.3 10^3/uL (0.8-4.8) 04/23/22 02:25 [place] # (Auto) 0.7 10^3/uL (0.2-0.9) 04/23/22 02:25 Eos # (Auto) 0.1 10^3/uL (0.0-0.8) 04/23/22 02:25 Baso # (Auto) 0.0 10^3/uL (0.0-0.1) 04/23/22 02:25 Nucleated RBC % (auto) 0 % 04/23/22 02:25 Nucleated RBCs # 0.0 /100WBC 04/23/22 02:25 Sodium 133 mmol/L (136-145) L 04/23/22 02:25 Potassium 3.7 mmol/L (3.5-5.1) 04/23/22 02:25 Chloride 98 mmol/L (98-107) 04/23/22 02:25 Carbon Dioxide 25 mmol/L (22-29) 04/23/22 02:25 Anion Gap 13.7 (5-19) 04/23/22 02:25 BUN 19 mg/dL (8-23) 04/23/22 02:25 Creatinine 1.3 mg/dL (0.7-1.2) H 04/23/22 02:25 GFR Calculation Not Reportable 04/23/22 02:25 Glucose 107 mg/dL (65-115) 04/23/22 02:25 Calculated Osmolality 279 mOsm/kg (285-295) L 04/23/22 02:25 Calcium 8.9 mg/dL (8.5-10.5) 04/23/22 02:25 Total Bilirubin 0.3 mg/dL (0.15-1.2) 04/23/22 02:25 AST 27 U/L (0-40) 04/23/22 02:25 ALT 26 U/L (0-41) 04/23/22 02:25 Alkaline Phosphatase 61 IU/L (40-130) 04/23/22 02:25 Troponin T Baseline 15 ng/L (0-15) 04/23/22 02:25 Troponin T 120 Minute 16.18 ng/L (0-15) H 04/23/22 04:20 Delta Troponin T 1.18 ABS# (0-10) 04/23/22 04:20 Total Protein 6.4 g/dL (6.6-8.7) L 04/23/22 02:25 Albumin 3.8 g/dL (3.5-5.2) 04/23/22 02:25 Globulin 2.6 g/dL (1.3-4.6) 04/23/22 02:25 Lipase 62 U/L (13-60) H 04/23/22 02:25 EKG Data EKG 1: I personally reviewed and interpreted this EKG as follows: EKG interpretation date: 04/23/22 EKG interpretation time: :23 Interpretation: sinus noam hr [address] or t wave abnormalities qrs 134 qtc 472 EKG 2: I personally reviewed and interpreted this EKG as follows: EKG interpretation date: 04/23/22 EKG interpretation time: 04:20 Interpretation: sinus noam hr [address] or t wave abnormalities qrs 112 qtc 423 Discharge Plan Discharge Patient Disposition: Home Clinical Impression: Chest pain Condition: Stable Prescriptions: No Action losartan 100 mg tablet 100 mg PO DAILY Qty: 90 2RF Hold Instructions: Resume on 07/20/21. aspirin [Adult Low Dose Aspirin] 81 mg tablet,delayed release (DR/EC) 81 mg PO DAILY nitroglycerin 0.4 mg tablet, sublingual 0.4 mg sublingual Q5M PRN (Reason: Chest Pain) Qty: 50 6RF amiodarone 200 mg tablet 200 mg PO DAILY Qty: 90 3RF Eliquis 5 mg tablet 5 mg PO BID Qty: 180 2RF Rx Instructions: see pharmacy comment atorvastatin 40 mg tablet 40 mg PO BEDTIME Qty: 90 2RF isosorbide mononitrate 60 mg tablet extended release 24 hr 60 mg PO DAILY Qty: 90 2RF metoprolol succinate 25 mg tablet extended release 24 hr 25 mg PO DAILY Qty: 90 2RF spironolactone 50 mg tablet 50 mg PO DAILY Qty: 90 2RF bumetanide 1 mg tablet 1 mg PO DAILY Qty: 180 2RF lansoprazole [Prevacid] 30 mg capsule,delayed release(DR/EC) 30 mg PO DAILY Qty: 30 0RF Discharge Orders: Discharge ED (Routine); Ordered 04/23/22 Ordered By: Teagan Palomo Referrals: Mitchell Knutson, COIN ROLLING MACHINE OPERATOR [Primary Care Provider] - 1-3 days Discharge Diet: Advance as tolerated Discharge Activity: Resume usual activity Patient Instructions: Chest Pain (ED) Coding Level of Care Code ED Director Biomedical Engineering for Geovany[employer] Fwd Exam Comprehensive
[2022-04-23] MEDS: lidocaine 2% viscous 15 ML, aluminum-mag hydrox-simethicon 30 ML, sucralfate oral liq 1 GM PO (02:30)
[2022-04-23 02:33] LABS: Basophils % 0.8 %; Eosinophils # 0.1 10^3/uL (0.0-0.8); Hematocrit 34.3 % (42.0-52.0); Hemoglobin 10.9 g/dL (11.7-16.6); Lymphocytes # 1.3 10^3/uL (0.8-4.8); Lymphocytes % 24.7 %; Mean Corpuscular HGB Conc 31.8 g/dL (30.0-36.0); Mean Corpuscular Volume 85.1 fl (80-94); Mean Platelet Volume 9.6 fL (7.4-10.4); Monocytes # 0.7 10^3/uL (0.2-0.9); Monocytes % 13.1 %; Neutrophils # 3.03 10^3/uL (1.8-7.7); Neutrophils % 59.4 %; Nucleated Red Blood Cells % 0 %; Platelet Count 192 10^3/cmm (130-400); Red Blood Count 4.03 10^6/uL (4.1-5.3); Red Cell Distribution Width 14.6 % (12.1-15.1); White Blood Count 5.1 10^3/uL (4.0-10.0)
[2022-04-23 02:57] LABS: Alanine Aminotransferase 26 U/L (0-41); Albumin Level 3.8 g/dL (3.5-5.2); Alkaline Phosphatase 61 IU/L (40-130); Anion Gap 13.7 (5-19); Aspartate Amino Transferase 27 U/L (0-40); Blood Urea Nitrogen 19 mg/dL (8-23); Calcium 8.9 mg/dL (8.5-10.5); Carbon Dioxide 25 mmol/L (22-29); Chloride 98 mmol/L (98-107); Globulin 2.6 g/dL (1.3-4.6); Glucose 107 mg/dL (65-115); Lipase 62 U/L (13-60); Osmolality Calculated 279 mOsm/kg (285-295); Potassium 3.7 mmol/L (3.5-5.1); Sodium 133 mmol/L (136-145); Total Bilirubin 0.3 mg/dL (0.15-1.2); Total Protein 6.4 g/dL (6.6-8.7)
[2022-04-23 02:58] LABS: Troponin(5th) Baseline 15 ng/L (0-15)
--- NOTE | 2022-04-23 03:29 | PC.NURSE ---
Error in charting. DC at 0330, charted on wrong patient.
--- NOTE | 2022-04-23 04:17 | ECG_ITS ---
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 Measurements Intervals [place] Rate: 58 P: 56 ID: 155 QRS: 15 QRSD: 134 T: 11 QT: 475 QTc: 469 Interpretive Statements SINUS BRADYCARDIA WITH OCCASIONAL VENTRICULAR PREMATURE COMPLEXES INTRAVENTRICULAR CONDUCTION DELAY [130+ ms QRS DURATION] Compared to ECG 07/15/2021 02:51:49 Ventricular premature complex(es) now present Intraventricular conduction delay now present Myocardial infarct finding no longer present Electronically Signed On 04-23-2022 10:36:32 CDT by Sabrina Joyce M.D. [id number]
[2022-04-23 04:48] LABS: Troponin 5 2HR 16.18 ng/L (0-15)
[2022-04-23 04:50] LABS: Troponin 5 2HR Delta 1.18 ABS# (0-10)
[2022-04-23] MEDS: morphine 4 mg/mL SDV 1 mL IVP (05:08)
[2022-04-23] MEDS: ondansetron 2 mg/ML SDV 2 mL 4 MG IVP (05:08)
[2022-04-23] MEDS: metoprolol succinate ER (24 HR) 25 mg Tablet PO (09:29)
--- NOTE | 2022-04-24 17:21 | DCPLANNER ---
Addendum entered by Lluvia Palmer 05/21/22 16:17: Patient had a follow up appointment scheduled with [facility] for 05.06.22 - patient did attend appointment. Addendum entered by Lluvia Palmer 04/27/22 12:27: Patient has a follow up appointment scheduled for April at 10:15 with EDUCATION RESEARCH ANALYST, Lizz Hooks at [facility]. Clinic will call patient with appointment information. Original Note: configuration release manager had message to schedule a follow up appointment for patient with cardiology. configuration release manager sent patients information to the front office staff at [facility]. Patients information will be printed and reviewed. Clinic will call patient with appointment information.
== END 2022-04-23 10:02 | disposition home or self-care (01) ==
PROVIDERS: Emergency Provider Emergency Medicine; PCP Clinical Nurse Specialist Adult Health
DX: R07.9 Chest pain, unspecified (principal); Z79.82 Long term (current) use of aspirin; Z79.01 Long term (current) use of anticoagulants; I11.0 Hypertensive heart disease with heart failure; I50.9 Heart failure, unspecified
CPT/HCPCS: 71045; 80053; 83690; 84484; 85025; 93005; 96374; 96375; 99285; J2270; J2405

== ENCOUNTER → 2022-05-06 09:59 | Outpatient (BNVA) | payer MEDICARE, MEDICAID, SELFPAY | PROVIDERS: PCP Clinical Nurse Specialist Adult Health; Visit Provider Nurse Practitioner Family | DX: I13.0 Hypertensive heart and chronic kidney disease with heart failure and stage 1 through stage 4 chronic kidney disease, or unspecified chronic kidney disease (principal); N18.9 Chronic kidney disease, unspecified; I50.32 Chronic diastolic (congestive) heart failure | CPT/HCPCS: 99213; 99214 ==

== ENCOUNTER → 2022-07-01 11:01 | Outpatient (BNVA) | payer MEDICARE, MEDICAID, SELFPAY | PROVIDERS: PCP Clinical Nurse Specialist Adult Health; Visit Provider Clinical Nurse Specialist Adult Health | DX: I10 Essential (primary) hypertension (principal); E78.5 Hyperlipidemia, unspecified | CPT/HCPCS: 80053; 80061; 85025 ==

== ENCOUNTER 2022-09-16 00:49 | Emergency (ER) | payer MEDICARE, MEDICAID, SELFPAY ==
[2022-09-16 00:50] VITALS: BMI 36.9
[2022-09-16 00:53] VITALS: BP 197/68; PULSE 64; RESP 16; TEMP 36.8; O2SAT 99
--- NOTE | 2022-09-16 00:53 | XRR_ITS ---
PROCEDURE INFORMATION: Exam: XR Chest Exam date and time: 09/16/2022 12:57 AM Age: 72 years old Clinical indication: Chest pressure; Patient HX: C/O chest pain with n/v. History of chf and thoracic aneurysm. ; Additional info: Cp TECHNIQUE: Imaging protocol: Radiologic exam of the chest. Views: 1 view. COMPARISON: CR (CHEST, ) 04/23/2022 2:56 AM FINDINGS: Lungs: Emphysematous changes. Lower lobe atelectasis versus minimal infiltrate. Pleural spaces: Unremarkable. No pleural effusion. No pneumothorax. Heart/Mediastinum: Mild cardiomegaly. Bones/joints: Unremarkable. XR/XR chest 1V portable [id number] IMPRESSION: 1. Emphysematous changes. 2. Mild cardiomegaly. 3. Lower lobe atelectasis versus minimal infiltrate.
--- NOTE | 2022-09-16 00:54 | ECG_ITS ---
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 Measurements Intervals [place] Rate: 63 P: 238 [place]: 154 QRS: 154 QRSD: 118 T: 109 QT: 400 QTc: 412 Interpretive Statements SINUS RHYTHM RIGHT AXIS DEVIATION [QRS AXIS > 100] MODERATE INTRAVENTRICULAR CONDUCTION DELAY [105+ ms QRS DURATION, 80+ ms Q/S IN V1/V2, NO Q AND 60+ ms R IN I/aVL/V5/V6] Compared to ECG 04/23/2022 02:23:00 Right-axis deviation now present Sinus bradycardia no longer present Ventricular premature complex(es) no longer present Electronically Signed On 09-16-2022 12:57:11 TUBE WINDER by Edenilson Reis M.D. [email or web address].[email or web address]/[id number] f
--- NOTE | 2022-09-16 00:55 | W.ED.CHESTPA ---
HPI - Chest Pain General: Chief Complaint: Chest Pain Stated Complaint: Chest Pain/N/V Time Seen by Provider: 09/16/22 00:50 Source: patient and EMS Mode of arrival: EMS Limitations: no limitations History of Present Illness: 72-year-old male is well-known to the ER states that he has had some cough along with some nausea and vomiting over the last 3 days he states that tonight he started having some burning sensation in his chest does have a history of reflux states he is having nausea and vomiting tonight as well patient given Zofran in route he states his symptoms have improved no longer has any chest pain denies any diaphoresis denies any fevers. Associated symptoms: Reports nausea; Deny abdominal pain, dyspnea, fever(s) or vomiting Review of Systems Const: Denies: fever(s), chills, body aches or change in appetite Eyes: Denies: blurry vision or eye discomfort ENMT: Denies: throat pain or dental pain Card: Reports: chest pain Resp: Denies: dyspnea GI: Reports: nausea; Denies: abdominal pain, vomiting or diarrhea : Denies: dysuria Musc: Denies: neck pain or back pain Skin/Breast: Denies: rash Neuro: Denies: headache(s) Psych: Denies: depression Jeremy/Lymph: Denies: easy bruising All/Imm: Denies: urticaria PFSH ED PFSH: Medical History Afib Aortic regurgitation Atrial fibrillation Chronic anticoagulation CKD (chronic kidney disease) Congestive heart failure COVID-19 03/2021 Hypertension Moderate aortic stenosis Normal coronary angiogram 2017 Scrotal edema Thoracic aortic aneurysm 5.6 cm CTA August [address] Flanagan Ventricular tachycardia Ventricular tachycardia, sustained Surgical History Hx of cataract surgery Family History Other CAD (coronary artery disease) Social History Smoking and tobacco status: never smoked Alcohol intake: never Adopted: No Caregiver/support person: No Lives independently: Yes Marital status: Single Current occupational status: retired History of recent travel: No Physical Exam Const: COMMON NORMALS: no acute distress, patient oriented x3 and healthy appearing HENMT: COMMON NORMALS: normocephalic and atraumatic HEAD & SCALP: normocephalic and atraumatic Eye: COMMON NORMALS: Equal, round and reactive pupils present and EOMs intact bilaterally PUPIL: Yes Equal, round and reactive pupils present Neck/C-Spine: COMMON NORMALS: full ROM and supple Chest: COMMONS NORMALS: normal inspection of the chest and normal palpation of entire chest wall Resp: COMMON NORMALS: normal respiratory effort, No retractions, No use of accessory muscles and clear to auscultation bilaterally AUSCULTATION: clear to auscultation bilaterally Cardio: COMMON NORMALS: regular rate, regular rhythm and No murmurs present (Cardio) RATE: regular rate RHYTHM: regular rhythm GI: COMMON NORMALS: Normal to inspection, nondistended, normoactive bowel sounds present, Soft to palpation, non-tender and no masses PALPATION: Yes Soft to palpation Extremity: COMMON NORMALS: normal to inspection and full ROM Neuro: COMMON NORMALS: patient oriented x3, moves all extremities and no focal motor deficits Psych: COMMON NORMALS: mental status grossly normal, Normal thought process present and cooperative THOUGHT PROCESS: Normal thought process present Skin: COMMON NORMALS: no rashes or lesions noted and no wounds GENERAL SKIN EXAM: no rashes or lesions noted Course Vital Signs: Vital signs: Vital Signs Temperature 98.3 F 09/16/22 00:53 Pulse Rate 64 09/16/22 00:53 Respiratory Rate 16 12 00:53 Blood Pressure 197/68 09/16/22 00:53 Pulse Oximetry 99 09/16/22 00:53 Oxygen Delivery Me thod 09/16/22 00:53 MDM - Chest Pain Medical Decision Making Patient presents here with nausea along with some chest pain his symptoms resolved after Zofran has been going on for 3 days his troponin is normal he is well-appearing here he stable for discharge he is to follow-up with PCP and return if worsening he understands agrees to plan Lab Data 09/16/22 00:55 12 00:55 Radiology Impressions Chest X-Ray 09/16/22 00:53 IMPRESSION: 1. Emphysematous changes. 2. Mild cardiomegaly. 3. Lower lobe atelectasis versus minimal infiltrate. Laboratory Results WBC 5.7 10^3/uL (4.0-10.0) 09/16/22 00:55 RBC 4.29 10^6/uL (4.1-5.3) 09/16/22 00:55 Hgb 11.5 g/dL (11.7-16.6) L 09/16/22 00:55 Hct 37.6 % (42.0-52.0) L 09/16/22 00:55 MCV 87.6 fl (80-94) 09/16/22 00:55 MCH 26.8 pg (28.0-34.0) L 09/16/22 00:55 MCHC 30.6 g/dL (30.0-36.0) 09/16/22 00:55 RDW 13.6 % (12.1-15.1) 09/16/22 00:55 Plt Count 248 10^3/cmm (130-400) 09/16/22 00:55 MPV 9.4 fL (7.4-10.4) 09/16/22 00:55 Neut % (Auto) 53.0 % 09/16/22 00:55 Lymph % (Auto) 27.3 % 09/16/22 00:55 [place] % (Auto) 15.2 % 09/16/22 00:55 Eos % (Auto) 3.2 % 09/16/22 00:55 Baso % (Auto) 1.1 % 09/16/22 00:55 Neut # (Auto) 3.00 10^3/uL (1.8-7.7) 09/16/22 00:55 Lymph # (Auto) 1.5 10^3/uL (0.8-4.8) 09/16/22 00:55 [place] # (Auto) 0.9 10^3/uL (0.2-0.9) 09/16/22 00:55 Eos # (Auto) 0.2 10^3/uL (0.0-0.8) 09/16/22 00:55 Baso # (Auto) 0.1 10^3/uL (0.0-0.1) 09/16/22 00:55 Nucleated RBC % (auto) 0 % 09/16/22 00:55 Nucleated RBCs # 0.0 /100WBC 09/16/22 00:55 Sodium 132 mmol/L (136-145) L 09/16/22 00:55 Potassium 4.1 mmol/L (3.5-5.1) 09/16/22 00:55 Chloride 99 mmol/L (98-107) 09/16/22 00:55 Carbon Dioxide 24 mmol/L (22-29) 09/16/22 00:55 Anion Gap 13.1 (5-19) 09/16/22 00:55 BUN 20 mg/dL (8-23) 09/16/22 00:55 Creatinine 1.0 mg/dL (0.7-1.2) 09/16/22 00:55 GFR Calculation Not Reportable 09/16/22 00:55 Glucose 101 mg/dL (65-115) 09/16/22 00:55 Calculated Osmolality 277 mOsm/kg (285-295) L 09/16/22 00:55 Calcium 9.3 mg/dL (8.5-10.5) 09/16/22 00:55 Total Bilirubin 0.3 mg/dL (0.15-1.2) 09/16/22 00:55 AST 28 U/L (0-40) 09/16/22 00:55 ALT 26 U/L (0-41) 09/16/22 00:55 Alkaline Phosphatase 63 U/L (40-130) 09/16/22 00:55 Troponin T Baseline 13 ng/L (0-15) 09/16/22 00:55 Total Protein 6.6 g/dL (6.6-8.7) 09/16/22 00:55 Albumin 4.0 g/dL (3.5-5.2) 09/16/22 00:55 Globulin 2.6 g/dL (1.3-4.6) 09/16/22 00:55 Lipase 51 U/L (13-60) 09/16/22 00:55 Influenza Type A Ag negative (Negative) 09/16/22 01:03 Influenza Type B Ag negative (Negative) 09/16/22 01:03 Discharge Plan Discharge Patient Disposition: Home Clinical Impression: Chest pain Condition: Stable Prescriptions: New ondansetron 4 mg tablet,disintegrating 4 mg PO Q6H PRN (Reason: nausea and vomiting) Qty: 14 0RF No Action aspirin [Adult Low Dose Aspirin] 81 mg tablet,delayed release (DR/EC) 81 mg PO DAILY nitroglycerin 0.4 mg tablet, sublingual 0.4 mg sublingual Q5M PRN (Reason: Chest Pain) Qty: 50 6RF carvedilol 6.25 mg tablet 6.25 mg PO BID Qty: 180 3RF Rx Instructions: must administer with a meal/food isosorbide mononitrate 60 mg tablet extended release 24 hr 60 mg PO DAILY Qty: 90 3RF Eliquis 5 mg tablet 5 mg PO BID Qty: 180 3RF atorvastatin 40 mg tablet 40 mg PO BEDTIME Qty: 90 2RF spironolactone 50 mg tablet 50 mg PO DAILY Qty: 90 2RF lansoprazole [Prevacid] 30 mg capsule,delayed release(DR/EC) 30 mg PO DAILY Qty: 90 3RF amiodarone 200 mg tablet 200 mg PO DAILY Qty: 90 3RF bumetanide 1 mg tablet 2 mg PO DAILY Qty: 30 11RF Discharge Orders: Discharge ED (Routine); Ordered 09/16/22 Ordered By: Teagan Palomo Referrals: Mitchell Knutson ADDICTION TREATMENT COUNSELOR [Primary Care Provider] - Discharge Diet: Advance as tolerated Discharge Activity: Resume usual activity Patient Instructions: Chest Pain (ED) Coding Level of Care Code ED Quality Control Scientist for Baljinder Fw[employer]a Exam Comprehensive
[2022-09-16 01:04] LABS: Basophils # 0.1 10^3/uL (0.0-0.1); Basophils % 1.1 %; Eosinophils # 0.2 10^3/uL (0.0-0.8); Eosinophils % 3.2 %; Hematocrit 37.6 % (42.0-52.0); Hemoglobin 11.5 g/dL (11.7-16.6); Lymphocytes # 1.5 10^3/uL (0.8-4.8); Lymphocytes % 27.3 %; Mean Corpuscular HGB Conc 30.6 g/dL (30.0-36.0); Mean Corpuscular Hemoglobin 26.8 pg (28.0-34.0); Mean Corpuscular Volume 87.6 fl (80-94); Mean Platelet Volume 9.4 fL (7.4-10.4); Monocytes # 0.9 10^3/uL (0.2-0.9); Monocytes % 15.2 %; Nucleated Red Blood Cells % 0 %; Platelet Count 248 10^3/cmm (130-400); Red Blood Count 4.29 10^6/uL (4.1-5.3); Red Cell Distribution Width 13.6 % (12.1-15.1); White Blood Count 5.7 10^3/uL (4.0-10.0)
[2022-09-16] MEDS: hyDRALAzine 20 mg/mL INJ 1 mL 10 MG IVP (01:06)
[2022-09-16 01:24] LABS: Influenza A by IFA negative (Negative); Influenza B by IFA negative (Negative)
[2022-09-16 01:28] LABS: Alanine Aminotransferase 26 U/L (0-41); Alkaline Phosphatase 63 U/L (40-130); Anion Gap 13.1 (5-19); Aspartate Amino Transferase 28 U/L (0-40); Blood Urea Nitrogen 20 mg/dL (8-23); Calcium 9.3 mg/dL (8.5-10.5); Carbon Dioxide 24 mmol/L (22-29); Chloride 99 mmol/L (98-107); Globulin 2.6 g/dL (1.3-4.6); Glucose 101 mg/dL (65-115); Lipase 51 U/L (13-60); Osmolality Calculated 277 mOsm/kg (285-295); Potassium 4.1 mmol/L (3.5-5.1); Sodium 132 mmol/L (136-145); Total Bilirubin 0.3 mg/dL (0.15-1.2); Total Protein 6.6 g/dL (6.6-8.7); Troponin(5th) Baseline 13 ng/L (0-15)
[2022-09-16 02:01] VITALS: BP 182/74; PULSE 88; RESP 20; O2SAT 96
== END 2022-09-16 02:03 | disposition home or self-care (01) ==
PROVIDERS: Emergency Provider Emergency Medicine; PCP Clinical Nurse Specialist Adult Health
DX: R07.9 Chest pain, unspecified (principal); Z79.01 Long term (current) use of anticoagulants; Z79.82 Long term (current) use of aspirin; I13.0 Hypertensive heart and chronic kidney disease with heart failure and stage 1 through stage 4 chronic kidney disease, or unspecified chronic kidney disease; N18.9 Chronic kidney disease, unspecified; I50.9 Heart failure, unspecified
CPT/HCPCS: 71045; 80053; 83690; 84484; 85025; 87804; 93005; 96374; 99285; J0360

== ENCOUNTER → 2022-10-07 11:04 | Outpatient (BNVA) | payer MEDICARE, MEDICAID, SELFPAY | PROVIDERS: PCP Clinical Nurse Specialist Adult Health; Visit Provider Clinical Nurse Specialist Adult Health | DX: E78.5 Hyperlipidemia, unspecified (principal); I10 Essential (primary) hypertension | CPT/HCPCS: 80053 ==

== ENCOUNTER 2022-10-12 02:17 | Emergency (ER) | payer MEDICARE, MEDICAID, SELFPAY ==
[2022-10-12 02:18] VITALS: BP 180/72; PULSE 70; RESP 18; TEMP 36.5; O2SAT 98; BMI 33.5
--- NOTE | 2022-10-12 02:18 | XRR_ITS ---
PROCEDURE INFORMATION: Exam: XR Chest Exam date and time: 10/12/2022 2:24 AM Age: 72 years old Clinical indication: Chest pressure; Patient HX: C/O chest pain; Additional info: Cp TECHNIQUE: Imaging protocol: Radiologic exam of the chest. Views: 1 view. COMPARISON: CR (CHEST, ) 09/16/2022 12:57 AM FINDINGS: Lungs: Unremarkable. No consolidation. Pleural spaces: Unremarkable. No pleural effusion. No pneumothorax. Heart/Mediastinum: Mild cardiomegaly. Bones/joints: Unremarkable. XR/XR chest 1V portable [id number] IMPRESSION: Negative for acute chest pathology.
--- NOTE | 2022-10-12 02:25 | ECG_ITS ---
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 Measurements Intervals [place] Rate: 63 P: 64 [place]: 165 QRS: 6 QRSD: 109 T: 89 QT: 401 QTc: 410 Interpretive Statements SINUS RHYTHM MODERATE INTRAVENTRICULAR CONDUCTION DELAY [105+ ms QRS DURATION, 80+ ms Q/S IN V1/V2, NO Q AND 60+ ms R IN I/aVL/V5/V6] NONSPECIFIC T-WAVE ABNORMALITY Compared to ECG 09/16/2022 00:54:45 T-wave abnormality now present Right-axis deviation no longer present Electronically Signed On 10-12-2022 14:44:41 FUR DRUMMER by Edenilson Reis M.D. [id number]
[2022-10-12 02:31] LABS: Basophils % 0.6 %; Eosinophils # 0.2 10^3/uL (0.0-0.8); Eosinophils % 2.7 %; Hematocrit 38.9 % (42.0-52.0); Hemoglobin 12.1 g/dL (11.7-16.6); Lymphocytes # 2.1 10^3/uL (0.8-4.8); Lymphocytes % 32.7 %; Mean Corpuscular HGB Conc 31.1 g/dL (30.0-36.0); Mean Corpuscular Volume 83.5 fl (80-94); Mean Platelet Volume 9.8 fL (7.4-10.4); Monocytes # 0.9 10^3/uL (0.2-0.9); Monocytes % 14.2 %; Neutrophils # 3.25 10^3/uL (1.8-7.7); Neutrophils % 49.6 %; Nucleated Red Blood Cells % 0 %; Platelet Count 275 10^3/cmm (130-400); Red Blood Count 4.66 10^6/uL (4.1-5.3); Red Cell Distribution Width 13.1 % (12.1-15.1); White Blood Count 6.6 10^3/uL (4.0-10.0)
--- NOTE | 2022-10-12 02:33 | W.ED.CHESTPA ---
HPI - Chest Pain General: Chief Complaint: Chest Pain Stated Complaint: CP Time Seen by Provider: 10/12/22 02:18 Source: patient Mode of arrival: ambulatory Limitations: no limitations History of Present Illness: 72-year-old male with had chronic chest pain states he has been having pain over the last 6 days he states he woke up tonight with sharp left-sided chest pain states originally was a 7 out of 10 is currently a 3 out of 10 denies any shortness of breath patient seen here recently and he is got a cardiology follow-up on he denies any worsening improving factors denies any nausea denies any diaphoresis. Review of Systems Card: Reports: chest pain PFSH ED PFSH: Medical History Afib Aortic regurgitation Atrial fibrillation Chronic anticoagulation CKD (chronic kidney disease) Congestive heart failure COVID-19 03/2021 Hypertension Moderate aortic stenosis Normal coronary angiogram 2017 Scrotal edema Thoracic aortic aneurysm 5.6 cm CTA August [address] Flanagan Ventricular tachycardia Ventricular tachycardia, sustained Surgical History Hx of cataract surgery Family History Other CAD (coronary artery disease) Social History Smoking and tobacco status: never smoked Alcohol intake: never Adopted: No Caregiver/support person: No Lives independently: Yes Marital status: Single Current occupational status: retired History of recent travel: No Physical Exam Const: COMMON NORMALS: no acute distress, patient oriented x3 and healthy appearing HENMT: COMMON NORMALS: normocephalic and atraumatic HEAD & SCALP: normocephalic and atraumatic Eye: COMMON NORMALS: Equal, round and reactive pupils present and EOMs intact bilaterally PUPIL: Yes Equal, round and reactive pupils present Neck/C-Spine: COMMON NORMALS: full ROM and supple Chest: COMMONS NORMALS: normal inspection of the chest and normal palpation of entire chest wall Resp: COMMON NORMALS: normal respiratory effort, No retractions, No use of accessory muscles and clear to auscultation bilaterally AUSCULTATION: clear to auscultation bilaterally Cardio: COMMON NORMALS: regular rate, regular rhythm and No murmurs present (Cardio) RATE: regular rate RHYTHM: regular rhythm GI: COMMON NORMALS: Normal to inspection, nondistended, normoactive bowel sounds present, Soft to palpation, non-tender and no masses PALPATION: Yes Soft to palpation Extremity: COMMON NORMALS: normal to inspection and full ROM Neuro: COMMON NORMALS: patient oriented x3, moves all extremities and no focal motor deficits Psych: COMMON NORMALS: mental status grossly normal, Normal thought process present and cooperative THOUGHT PROCESS: Normal thought process present Skin: COMMON NORMALS: no rashes or lesions noted and no wounds GENERAL SKIN EXAM: no rashes or lesions noted Course Vital Signs: Vital signs: Vital Signs Temperature 97.7 F 10/12/22 02:18 Pulse Rate 91 10/12/22 04:30 Respiratory Rate 20 H 10/12/22 04:30 Blood Pressure 149/68 10/12/22 04:30 Pulse Oximetry 94 10/12/22 04:30 Oxygen Delivery Me thod 10/12/22 02:18 MDM - Chest Pain Medical Decision Making Patient presents for chest pain his pain is improved here initial repeat troponins normal he has follow-up with background check coordinator on to follow-up as scheduled return if worsening he understands agrees plan. Lab Data 10/12/22 02:23 10/12/22 02:23 Radiology Impressions Chest X-Ray 10/12/22 02:18 IMPRESSION: Negative for acute chest pathology. Laboratory Results WBC 6.6 10^3/uL (4.0-10.0) 10/12/22 02:23 RBC 4.66 10^6/uL (4.1-5.3) 10/12/22 02:23 Hgb 12.1 g/dL (11.7-16.6) 10/12/22 02:23 Hct 38.9 % (42.0-52.0) L 10/12/22 02:23 MCV 83.5 fl (80-94) 10/12/22 02:23 MCH 26.0 pg (28.0-34.0) L 10/12/22 02: MCHC 31.1 g/dL (30.0-36.0) 10/12/22 02: RDW 13.1 % (12.1-15.1) 10/12/22 02:23 Plt Count 275 10^3/cmm (130-400) 10/12/22 02:23 MPV 9.8 fL (7.4-10.4) 10/12/22 02: Neut % (Auto) 49.6 % 10/12/22 02: Lymph % (Auto) 32.7 % 10/12/22 02:23 [place] % (Auto) 14.2 % 10/12/22 02: Eos % (Auto) 2.7 % 10/12/22 02:23 Baso % (Auto) 0.6 % 10/12/22 02: Neut # (Auto) 3.25 10^3/uL (1.8-7.7) 10/12/22 02: Lymph # (Auto) 2.1 10^3/uL (0.8-4.8) 10/12/22 02: [place] # (Auto) 0.9 10^3/uL (0.2-0.9) 10/12/22 02: Eos # (Auto) 0.2 10^3/uL (0.0-0.8) 10/12/22 02: Baso # (Auto) 0.0 10^3/uL (0.0-0.1) 10/12/22 02: Nucleated RBC % (auto) 0 % 10/12/22 02: Nucleated RBCs # 0.0 /100WBC 10/12/22 02: PT 17.00 SECONDS (12.1-14.9) H 10/12/22 02: INR 1.34 (0.8-1.2) H 10/12/22 02:23 Sodium 135 mmol/L (136-145) L 10/12/22 02:23 Potassium 4.1 mmol/L (3.5-5.1) 10/12/22 02:23 Chloride 97 mmol/L (98-107) L 10/12/22 02:23 Carbon Dioxide 28 mmol/L (22-29) 10/12/22 02:23 Anion Gap 14.1 (5-19) 10/12/22 02:23 BUN 18 mg/dL (8-23) 10/12/22 02:23 Creatinine 1.1 mg/dL (0.7-1.2) 01/17/23 02:23 GFR Calculation Not Reportable 10/12/22 02:23 Glucose 106 mg/dL (65-115) 10/12/22 02:23 Calculated Osmolality 282 mOsm/kg (285-295) L 10/12/22 02:23 Calcium 9.1 mg/dL (8.5-10.5) 10/12/22 02:23 Total Bilirubin 0.3 mg/dL (0.15-1.2) 10/12/22 02:23 AST 31 U/L (0-40) 10/12/22 02:23 ALT 30 U/L (0-41) 10/12/22 02:23 Alkaline Phosphatase 68 U/L (40-130) 10/12/22 02:23 Troponin T Baseline 14 ng/L (0-15) 10/12/22 02:23 Troponin T 120 Minute 13.59 ng/L (0-15) 10/12/22 04:05 Total Protein 7.1 g/dL (6.6-8.7) 10/12/22 02:23 Albumin 4.5 g/dL (3.5-5.2) 10/12/22 02:23 Globulin 2.6 g/dL (1.3-4.6) 10/12/22 02:23 EKG Data EKG 1: I personally reviewed and interpreted this EKG as follows: EKG interpretation date: 10/12/22 EKG interpretation time: 02:25 Interpretation: nsr hr [address] or t wave abnormalities qrs 109 qtc 407 Discharge Plan Discharge Patient Disposition: Home Clinical Impression: Chest pain Condition: Stable Prescriptions: No Action aspirin [Adult Low Dose Aspirin] 81 mg tablet,delayed release (DR/EC) 81 mg PO DAILY nitroglycerin 0.4 mg tablet, sublingual 0.4 mg sublingual Q5M PRN (Reason: Chest Pain) Qty: 50 6RF carvedilol 6.25 mg tablet 6.25 mg PO BID Qty: 180 3RF Rx Instructions: must administer with a meal/food amiodarone 200 mg tablet 400 mg PO DAILY 30 Days Qty: 60 11RF Eliquis 5 mg tablet 5 mg PO BID Qty: 60 11RF atorvastatin 40 mg tablet 40 mg PO BEDTIME Qty: 30 11RF bumetanide 2 mg tablet 2 mg PO DAILY Qty: 30 11RF isosorbide mononitrate 60 mg tablet extended release 24 hr 60 mg PO DAILY Qty: 30 11RF spironolactone 50 mg tablet 50 mg PO DAILY Qty: 90 2RF lansoprazole [Prevacid] 30 mg capsule,delayed release(DR/EC) 30 mg PO DAILY Qty: 90 3RF ondansetron 4 mg tablet,disintegrating 4 mg PO Q6H PRN (Reason: nausea and vomiting) Qty: 14 0RF Discharge Orders: Discharge ED (Routine); Ordered 10/12/22 Ordered By: Teagan Palomo Referrals: Mitchell Knutson, MULTIPLE EFFECT EVAPORATOR OPERATOR [Primary Care Provider] - Discharge Diet: Advance as tolerated Discharge Activity: Resume usual activity Patient Instructions: Chest Pain (ED) Coding Level of Care Code ED Assistant Women'S Rowing Coach for Geovanyg Fwd Exam Comprehensive
[2022-10-12 02:46] VITALS: RESP 16
[2022-10-12] MEDS: morphine 4 mg/mL SDV 1 mL IVP (02:46)
[2022-10-12] MEDS: ondansetron 2 mg/ML SDV 2 mL 4 MG IVP (02:46)
[2022-10-12 02:55] LABS: INR 1.34 (0.8-1.2)
[2022-10-12 02:56] LABS: Alanine Aminotransferase 30 U/L (0-41); Albumin Level 4.5 g/dL (3.5-5.2); Alkaline Phosphatase 68 U/L (40-130); Anion Gap 14.1 (5-19); Aspartate Amino Transferase 31 U/L (0-40); Blood Urea Nitrogen 18 mg/dL (8-23); Calcium 9.1 mg/dL (8.5-10.5); Carbon Dioxide 28 mmol/L (22-29); Chloride 97 mmol/L (98-107); Globulin 2.6 g/dL (1.3-4.6); Glucose 106 mg/dL (65-115); Osmolality Calculated 282 mOsm/kg (285-295); Potassium 4.1 mmol/L (3.5-5.1); Sodium 135 mmol/L (136-145); Total Bilirubin 0.3 mg/dL (0.15-1.2); Total Protein 7.1 g/dL (6.6-8.7)
[2022-10-12 03:00] LABS: Troponin(5th) Baseline 14 ng/L (0-15)
[2022-10-12 03:27] VITALS: BP 155/73; PULSE 64; RESP 20; O2SAT 93
--- NOTE | 2022-10-12 04:04 | ECG_ITS ---
[facility] Test Date: 2022-10-12 Pat Name: Riki Polanco Department: Room: Gender: Male Conventional Underwriter: : 1950 Requested By: Teagan Palomo Order Number: [id number] Vamsi MD: Edenilson Reis M.D. Measurements Intervals Boring Rate: 67 P: 77 GA: 181 QRS: 11 QRSD: 99 T: 71 QT: 394 QTc: 418 Interpretive Statements SINUS RHYTHM NONSPECIFIC T-WAVE ABNORMALITY Compared to ECG 10/12/2022 02:25:53 Intraventricular conduction delay no longer present T-wave abnormality still present Electronically Signed On 10-12-2022 14:47:08 ARTIFICIAL FLOWERS SUPERVISOR by Edenilson Reis M.D. [id number]
[2022-10-12 04:30] VITALS: BP 149/68; PULSE 91; RESP 20; O2SAT 94
[2022-10-12 04:37] LABS: Troponin 5 2HR 13.59 ng/L (0-15)
[2022-10-12 04:53] VITALS: BP 149/68; PULSE 73; RESP 20; O2SAT 98
[2022-10-12 04:57] LABS: Troponin 5 2HR Delta -0.41 ABS# (0-10)
== END 2022-10-12 05:00 | disposition home or self-care (01) ==
PROVIDERS: Emergency Provider Emergency Medicine; PCP Clinical Nurse Specialist Adult Health
DX: R07.9 Chest pain, unspecified (principal); Z79.82 Long term (current) use of aspirin; Z79.01 Long term (current) use of anticoagulants; I13.0 Hypertensive heart and chronic kidney disease with heart failure and stage 1 through stage 4 chronic kidney disease, or unspecified chronic kidney disease; N18.9 Chronic kidney disease, unspecified; I50.9 Heart failure, unspecified
CPT/HCPCS: 71045; 80053; 84484; 85025; 85610; 93005; 96374; 96375; 99285; J2270; J2405

== ENCOUNTER → 2022-10-14 10:01 | Outpatient (BNVA) | payer MEDICARE, MEDICAID, SELFPAY | PROVIDERS: PCP Clinical Nurse Specialist Adult Health; Visit Provider Internal Medicine Cardiovascular Disease | DX: I13.0 Hypertensive heart and chronic kidney disease with heart failure and stage 1 through stage 4 chronic kidney disease, or unspecified chronic kidney disease (principal); N18.9 Chronic kidney disease, unspecified; I50.32 Chronic diastolic (congestive) heart failure; I35.1 Nonrheumatic aortic (valve) insufficiency; I35.0 Nonrheumatic aortic (valve) stenosis; I48.0 Paroxysmal atrial fibrillation; E78.5 Hyperlipidemia, unspecified; I71.9 Aortic aneurysm of unspecified site, without rupture; I47.20 Ventricular tachycardia, unspecified | CPT/HCPCS: 99214; Q3014 ==

== ENCOUNTER 2022-12-02 09:49 | Outpatient (CLI) | payer MEDICARE, MEDICAID, SELFPAY ==
--- NOTE | 2022-12-02 09:56 | CT_ITS ---
WS: [id number] CTA CHEST, ABDOMEN AND PELVIS. HISTORY: TECHNIQUE: CT angiogram is performed through the chest, abdomen and pelvis. . Sagittal and coronal re formats have been submitted. MIP imaging also reviewed. All CT scans at [facility] use at dior st one of these dose optimization techniques: automated exposure control; mA and/or kV adjustment per patient size (includes targeted exams where dose is matched to clinical indication); or iterative re construction. Contrast: Omnipaque 350; 100 cc IV. DLP: 2416.27 mGy.cm COMPARISON: 07/15/2021 Chest CTA: Maximum diameter ascending thoracic aorta is 4.9 cm as on the prior study. Normal tapering through the arch. Mild ectasia with heavy atherosclerotic calcification in the descending aorta. No aneurysm of the descending aorta. Normal caliber at the diaphragmatic hiatus. No dissection of the ao rta. There is calcifications at the origin of the carotid and subclavian artery. No high-grade stenos is. Normal size pulmonary artery. Mild bilateral pleural thickening and increased pleural fat. No mass or pneumonia. No pericardial or pleural effusions. Heart size is normal. No adenopathy. Large hiatal hernia. Abdomen and pelvis CTA: Extensive atherosclerosis continues through the abdominal aorta to the bifurc ation. No aneurysm. Atherosclerotic plaque in the proximal celiac axis and SMA. Focal narrowing due t o soft plaque of 50% in the proximal SMA. Renal arteries are patent. Accessory renal artery on the LE FT. JODI is intact. Iliac arteries are patent. Internal and external iliac arteries are patent. No ane urysms. Motion artifact. Limited evaluation due to motion. Early arterial enhancement demonstrates no signifi cant abnormality in the visceral organs. Both kidneys are normally enhancing. Gallbladder is contract ed. Mild fatty replacement of the pancreas. No adrenal mass. No GI tract obstruction. No adenopathy o r ascites. Normal appendix. Mildly distended urinary bladder. There is marked enlargement of the prostate gland encroaching into the urinary bladder. Similar to the prior studies. Bilateral large hydroceles. No destructive bone lesions are appreciated. CT/[facility] abdpel [id number] IMPRESSION: 1. Stable ascending thoracic aortic aneurysm, 4.9 cm. 2. Atherosclerotic changes within the abdominal aorta but no aneurysm. 3. 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 4. No aortic dissection. 5. Marked prostate gland enlargement and heterogeneity. 6. Large bilateral hydroceles. 7. Large hiatal hernia.
[2022-12-02] MEDS: iohexol 350 mg/mL 500 mL Btl (per mL) IV (09:58)
== END 2022-12-02 09:50 | disposition home or self-care (01) ==
LOC: RAD 09:53
PROVIDERS: PCP Clinical Nurse Specialist Adult Health; Visit Provider Internal Medicine Cardiovascular Disease
DX: N42.89 Other specified disorders of prostate (principal); I71.21 Aneurysm of the ascending aorta, without rupture; I70.0 Atherosclerosis of aorta; N40.0 Benign prostatic hyperplasia without lower urinary tract symptoms; N43.3 Hydrocele, unspecified; K44.9 Diaphragmatic hernia without obstruction or gangrene
CPT/HCPCS: 71275; 74174; Q9967

== ENCOUNTER → 2023-01-06 10:35 | Outpatient (BNVA) | payer MEDICARE, MEDICAID, SELFPAY | PROVIDERS: PCP Clinical Nurse Specialist Adult Health; Visit Provider Clinical Nurse Specialist Adult Health | DX: I11.0 Hypertensive heart disease with heart failure (principal); I50.32 Chronic diastolic (congestive) heart failure; N40.0 Benign prostatic hyperplasia without lower urinary tract symptoms | CPT/HCPCS: 80053; 83880; 84153; 85025 ==

== ENCOUNTER 2023-02-06 03:54 | Emergency (ER) | payer MEDICARE, MEDICAID, SELFPAY ==
[2023-02-06 03:56] VITALS: BP 160/69; PULSE 64; RESP 27; TEMP 36.4; O2SAT 100; BMI 33.9
--- NOTE | 2023-02-06 04:03 | XRR_ITS ---
PROCEDURE INFORMATION: Exam: XR Chest Exam date and time: 02/06/2023 4:06 AM Age: 72 years old Clinical indication: Shortness of breath; Chest pressure; Patient HX: C/O chest pain with SOB. History of chf and thoracic aneurysm. ; Additional info: Cp TECHNIQUE: Imaging protocol: Radiologic exam of the chest. Views: 1 view. COMPARISON: CR XR chest 1V portable [id number] 10/12/2022 2:24 AM FINDINGS: Lungs: Unremarkable. No consolidation. Pleural spaces: Unremarkable. No pleural effusion. No pneumothorax. Heart/Mediastinum: Borderline cardiomegaly. Bones/joints: Unremarkable. XR/XR chest 1V portable [id number] IMPRESSION: Negative for focal acute pulmonary disease.
--- NOTE | 2023-02-06 04:09 | ECG_ITS ---
[facility] Test Date: 2023-02-06 Pat Name: Riki Polanco Department: Room: Gender: Male Progressive Assembler And Fitter: : 1950 Requested By: Jake Scott Order Number: [id number] Vamsi MD: America Willoughby M.D. Measurements Intervals [place] Rate: 59 P: 75 MD: 165 QRS: 25 QRSD: 114 T: 62 QT: 414 QTc: 411 Interpretive Statements SINUS BRADYCARDIA MODERATE INTRAVENTRICULAR CONDUCTION DELAY [110+ ms QRS DURATION] Compared to ECG 10/12/2022 04:04:44 Intraventricular conduction delay now present Sinus rhythm no longer present T-wave abnormality no longer present Electronically Signed On 02-06-2023 21:07:12 CDT by America Willoughby M.D. [email or web address] [email or web address] [id number]
--- NOTE | 2023-02-06 04:24 | ED_ITS ---
Documented by User: Jake Wolf DO 02/06/23 18:45 HPI - Chest Pain General: Chief Complaint: Chest Pain Stated Complaint: CP/SOB Time Seen by Provider: 02/06/23 04:04 History of Present Illness: 72-year-old male with a history of atrial fibrillation, CHF presenting with chest discomfort and shortness of breath that woke him from sleep. He says he has had a mild cough. No fever. No sputum production. No leg swelling. Nitroglycerin in route did not help his pain. He took 650 mg of aspirin at home without relief also. MD complaint: chest pain Pertinent past history: other Onset (ago): minute(s) Timing of current episode: constant Prior episodes: Yes Onset: during rest and awoke with symptoms Pain location: substernal and left chest Pain radiation: none Severity: moderate Quality: tightness and heaviness Relieving factors: nothing Exacerbating factors: nothing Associated symptoms: Reports diaphoresis, dyspnea, leg edema, nausea and vomiting; Deny abdominal pain or fever(s) Treatment prior to arrival: aspirin and nitroglycerin Review of Systems Const: Reports: diaphoresis; Denies: fever(s) ENMT: Denies: throat pain Card: Reports: chest pain Resp: Reports: dyspnea GI: Reports: nausea and vomiting; Denies: abdominal pain Neuro: Reports: headache(s) Psych: Reports: anxiety [facility] ED PFSH: Medical History Aortic regurgitation Atrial fibrillation paroxysmal, hx cardioversion BPH (benign prostatic hyperplasia) seen by urology in 2019 for urinary retention Chronic anticoagulation CKD (chronic kidney disease) 09/2022 Creatinine 1.1 Congestive heart failure Echocardiogram 12/2020 Left ventricle ejection fraction estimated at 30%. Moderate global hypokinesis. Grade 2 diastolic dysfunction with elevated filling pressure. Echo 06/2021:Left ventricle ejection fraction estimated at 30%. Moderate global hypokinesis. Grade 2 diastolic dysfunction with elevated filling pressure. COVID-19 03/2021 Hypertension Moderate aortic stenosis Normal coronary angiogram 2017 Scrotal edema Bilateral hydroceles noted on CT 11/2022 Seasonal allergies Thoracic aortic aneurysm 11/2022 CT scan showed Stable ascending thoracic aortic aneurysm, 4.9 cm Ventricular tachycardia Surgical History Hx of cataract surgery Family History Other CAD (coronary artery disease) Social History Smoking and tobacco status: never smoked Alcohol intake: never Substance/Drug Use: never Adopted: No Caregiver/support person: No Lives independently: Yes Marital status: Single Current occupational status: retired Physical Exam Const: GENERAL APPEARANCE: cooperative and ill appearing (Mildly); not frail appearing HENMT: COMMON NORMALS: normocephalic, atraumatic and Normal external nose present HEAD & SCALP: normocephalic and atraumatic FACE & SINUS: normal facial exam and face symmetric NOSE: Normal external nose present EXTERNAL EAR: Yes external ear abnormal Eye: COMMON NORMALS: Equal, round and reactive pupils present and EOMs intact bilaterally PUPIL: Yes Equal, round and reactive pupils present Neck/C-Spine: GENERAL: Yes trachea midline Chest: CHEST: Yes Symmetrical chest wall rise Resp: COMMON NORMALS: No retractions, No use of accessory muscles and clear to auscultation bilaterally AUSCULTATION: clear to auscultation bilaterally Cardio: COMMON NORMALS: regular rate and regular rhythm RATE: regular rate RHYTHM: regular rhythm GI: COMMON NORMALS: Normal to inspection, nondistended, normoactive bowel sounds present Extremity: COMMON NORMALS: no pedal edema Neuro: BRYAN COMA SCALE: document GCS findings Bryan coma scale eye open ing: Spontaneous Bryan coma scale verbal response: Orientated [place] coma scale motor response: Obey commands Bryan coma scale total score: 15 SENSORY EXAM: Yes extremities (intact) Psych: COMMON NORMALS: speech normal SPEECH: Yes normal speech Skin: COMMON NORMALS: no rashes or lesions noted GENERAL SKIN EXAM: no rashes or lesions noted Course Vital Signs: Vital signs: Vital Signs Temperature 97.6 F 02/06/23 03:56 Pulse Rate 63 02/06/23 06:43 Respiratory Rate 16 02/06/23 06:43 Blood Pressure 129/76 02/06/23 06:43 Pulse Oximetry 98 02/06/23 08:11 Oxygen Delivery Me thod Room Air 02/06/23 08:11 MDM - Chest Pain Medical Decision Making Initially hypertensive, now blood pressure 123/77, heart rate 68 sinus, respirations 20, 97% on room air. CBC is normal. BMP is normal. EKG showed sinus bradycardia of 60 with a normal axis. There is intraventricular conduction delay with QRS interval of [address] changes. First troponin is 14. BNP is normal. Second troponin is pending. Chest x-ray is nonacute. Lab Data 02/06/23 04:14 02/06/23 04:14 Radiology Impressions Chest X-Ray 02/06/23 04:03 IMPRESSION: Negative for focal acute pulmonary disease. Laboratory Results WBC 5.0 10^3/uL (4.0-10.0) 02/06/23 04:14 RBC 4.36 10^6/uL (4.1-5.3) 02/06/23 04:14 Hgb 11.7 g/dL (11.7-16.6) 02/06/23 04:14 Hct 37.6 % (42.0-52.0) L 02/06/23 04:14 MCV 86.2 fl (80-94) 02/06/23 04:14 MCH 26.8 pg (28.0-34.0) L 02/06/23 04:14 MCHC 31.1 g/dL (30.0-36.0) 02/06/23 04:14 RDW 15.0 % (12.1-15.1) 02/06/23 04:14 Plt Count 224 10^3/cmm (130-400) 02/06/23 04:14 MPV 10.1 fL (7.4-10.4) 02/06/23 04:14 Neut % (Auto) 50.1 % 02/06/23 04:14 Lymph % (Auto) 33.4 % 02/06/23 04:14 [place] % (Auto) 13.5 % 02/06/23 04:14 Eos % (Auto) 1.8 % 02/06/23 04:14 Baso % (Auto) 1.0 % 02/06/23 04:14 Neut # (Auto) 2.52 10^3/uL (1.8-7.7) 02/06/23 04:14 Lymph # (Auto) 1.7 10^3/uL (0.8-4.8) 02/06/23 04:14 [place] # (Auto) 0.7 10^3/uL (0.2-0.9) 02/06/23 04:14 Eos # (Auto) 0.1 10^3/uL (0.0-0.8) 02/06/23 04:14 Baso # (Auto) 0.1 10^3/uL (0.0-0.1) 02/06/23 04:14 Nucleated RBC % (auto) 0 % 02/06/23 04:14 Nucleated RBCs # 0.0 /100WBC 02/06/23 04:14 PT 15.70 SECONDS (12.1-14.9) H 02/06/23 04:14 INR 1.21 (0.8-1.2) H 02/06/23 04:14 APTT 25.6 SECONDS (23.9-36.7) 02/06/23 04:14 Sodium 136 mmol/L (136-145) 02/06/23 04:14 Potassium 4.1 mmol/L (3.5-5.1) 02/06/23 04:14 Chloride 101 mmol/L (98-107) 02/06/23 04:14 Carbon Dioxide 24 mmol/L (22-29) 02/06/23 04:14 Anion Gap 15.1 (5-19) 02/06/23 04:14 BUN 16 mg/dL (8-23) 02/06/23 04:14 Creatinine 1.1 mg/dL (0.7-1.2) 02/06/23 04:14 GFR Calculation Not Reportable 02/06/23 04:14 Glucose 97 mg/dL (65-115) 02/06/23 04:14 Calculated Osmolality 283 mOsm/kg (285-295) L 02/06/23 04:14 Calcium 8.6 mg/dL (8.5-10.5) 02/06/23 04:14 Total Bilirubin 0.2 mg/dL (0.15-1.2) 02/06/23 04:14 AST 26 U/L (0-40) 02/06/23 04:14 ALT 24 U/L (0-41) 02/06/23 04:14 Alkaline Phosphatase 53 U/L (40-130) 02/06/23 04:14 Troponin T Baseline 14 ng/L (0-15) 02/06/23 04:14 Troponin T 120 Minute 16.02 ng/L (0-15) H 02/06/23 06:31 Delta Troponin T 2.02 ABS# (0-10) 02/06/23 06:31 NT-Pro-B Natriuret Pep 49 pg/mL (0-125) 02/06/23 04:14 Total Protein 6.4 g/dL (6.6-8.7) L 02/06/23 04:14 Albumin 4.1 g/dL (3.5-5.2) 02/06/23 04:14 Globulin 2.3 g/dL (1.3-4.6) 02/06/23 04:14 Discharge Plan Discharge Patient Disposition: Home Clinical Impression: Chest pain Condition: Stable Prescriptions: No Action aspirin [Adult Low Dose Aspirin] 81 mg tablet,delayed release (DR/EC) 81 mg PO DAILY nitroglycerin 0.4 mg tablet, sublingual 0.4 mg sublingual Q5M PRN (Reason: Chest Pain) Qty: 50 6RF carvedilol 6.25 mg tablet 6.25 mg PO BID Qty: 180 3RF Rx Instructions: must administer with a meal/food amiodarone 200 mg tablet 200 mg PO DAILY Qty: 90 3RF Eliquis 5 mg tablet 5 mg PO BID Qty: 60 11RF bumetanide 2 mg tablet 2 mg PO DAILY Qty: 30 11RF isosorbide mononitrate 60 mg tablet extended release 24 hr 60 mg PO DAILY Qty: 30 11RF spironolactone 50 mg tablet 50 mg PO DAILY Qty: 90 2RF atorvastatin 40 mg tablet 20 mg PO BEDTIME lansoprazole [Prevacid] 30 mg capsule,delayed release(DR/EC) 30 mg PO DAILY Qty: 90 3RF Discharge Orders: Discharge ED (Routine); Ordered 02/06/23 Ordered By: Teagan Palomo Referrals: Mitchell Knutson NURSING HOME AIDE [Primary Care Provider] - 1-3 days Discharge Diet: Advance as tolerated Discharge Activity: Resume usual activity Patient Instructions: Chest Pain (ED) Activity Restrictions/Additional Instructions: Return for worsening chest pain or shortness of breath, development of fever greater than 100, any other concerning symptoms. See your doctor this week. Coding Level of Care Code ED Industrial Relations Commissioner for Chg Fwd Documented by User: Teagan Palomo MD 02/06/23 08:01 HPI - Chest Pain General: Chief Complaint: Chest Pain Stated Complaint: CP/SOB Time Seen by Provider: 02/06/23 04:04 PFSH ED PFSH: Medical History Aortic regurgitation Atrial fibrillation paroxysmal, hx cardioversion BPH (benign prostatic hyperplasia) seen by urology in 2019 for urinary retention Chronic anticoagulation CKD (chronic kidney disease) 09/2022 Creatinine 1.1 Congestive heart failure Echocardiogram 12/2020 Left ventricle ejection fraction estimated at 30%. Moderate global hypokinesis. Grade 2 diastolic dysfunction with elevated filling pressure. Echo 06/2021:Left ventricle ejection fraction estimated at 30%. Moderate global hypokinesis. Grade 2 diastolic dysfunction with elevated filling pressure. COVID-19 03/2021 Hypertension Moderate aortic stenosis Normal coronary angiogram 2017 Scrotal edema Bilateral hydroceles noted on CT 11/2022 Seasonal allergies Thoracic aortic aneurysm 11/2022 CT scan showed Stable ascending thoracic aortic aneurysm, 4.9 cm Ventricular tachycardia Surgical History Hx of cataract surgery Family History Other CAD (coronary artery disease) Social History Smoking and tobacco status: never smoked Alcohol intake: never Substance/Drug Use: never Adopted: No Caregiver/support person: No Lives independently: Yes Marital status: Single Current occupational status: retired Physical Exam Neuro: BRYAN COMA SCALE: document GCS findings Bryan coma scale total score: 15 Course Vital Signs: Vital signs: Vital Signs Temperature 97.6 F 02/06/23 03:56 Pulse Rate 63 02/06/23 06:43 Respiratory Rate 16 02/06/23 06:43 Blood Pressure 129/76 02/06/23 06:43 Pulse Oximetry 98 02/06/23 08:11 Oxygen Delivery Me thod Room Air 05/14/23 08:11 MDM - Chest Pain Medical Decision Making Initially hypertensive, now blood pressure 123/77, heart rate 68 sinus, respirations 20, 97% on room air. CBC is normal. BMP is normal. EKG showed sinus bradycardia of 60 with a normal axis. There is intraventricular conduction delay with QRS interval of [address] changes. First troponin is 14. BNP is normal. Second troponin is pending. Chest x-ray is nonacute. Patient's second troponin here is negative no signs of acute coronary syndrome patient stable for discharge follow-up PCP return if worsening. Medical Records I reviewed the patient's medical records. Lab Data I reviewed the patient's lab results. 02/06/23 04:14 02/06/23 04:14 Radiology Impressions Chest X-Ray 02/06/23 04:03 IMPRESSION: Negative for focal acute pulmonary disease. Laboratory Results WBC 5.0 10^3/uL (4.0-10.0) 02/06/23 04:14 RBC 4.36 10^6/uL (4.1-5.3) 02/06/23 04:14 Hgb 11.7 g/dL (11.7-16.6) 02/06/23 04:14 Hct 37.6 % (42.0-52.0) L 02/06/23 04:14 MCV 86.2 fl (80-94) 02/06/23 04:14 MCH 26.8 pg (28.0-34.0) L 02/06/23 04:14 MCHC 31.1 g/dL (30.0-36.0) 02/06/23 04:14 RDW 15.0 % (12.1-15.1) 02/06/23 04:14 Plt Count 224 10^3/cmm (130-400) 02/06/23 04:14 MPV 10.1 fL (7.4-10.4) 02/06/23 04:14 Neut % (Auto) 50.1 % 02/06/23 04:14 Lymph % (Auto) 33.4 % 02/06/23 04:14 [place] % (Auto) 13.5 % 02/06/23 04:14 Eos % (Auto) 1.8 % 02/06/23 04:14 Baso % (Auto) 1.0 % 02/06/23 04:14 Neut # (Auto) 2.52 10^3/uL (1.8-7.7) 02/06/23 04:14 Lymph # (Auto) 1.7 10^3/uL (0.8-4.8) 02/06/23 04:14 [place] # (Auto) 0.7 10^3/uL (0.2-0.9) 02/06/23 04:14 Eos # (Auto) 0.1 10^3/uL (0.0-0.8) 02/06/23 04:14 Baso # (Auto) 0.1 10^3/uL (0.0-0.1) 02/06/23 04:14 Nucleated RBC % (auto) 0 % 02/06/23 04:14 Nucleated RBCs # 0.0 /100WBC 02/06/23 04:14 PT 15.70 SECONDS (12.1-14.9) H 02/06/23 04:14 INR 1.21 (0.8-1.2) H 02/06/23 04:14 APTT 25.6 SECONDS (23.9-36.7) 02/06/23 04:14 Sodium 136 mmol/L (136-145) 02/06/23 04:14 Potassium 4.1 mmol/L (3.5-5.1) 02/06/23 04:14 Chloride 101 mmol/L (98-107) 02/06/23 04:14 Carbon Dioxide 24 mmol/L (22-29) 02/06/23 04:14 Anion Gap 15.1 (5-19) 02/06/23 04:14 BUN 16 mg/dL (8-23) 02/06/23 04:14 Creatinine 1.1 mg/dL (0.7-1.2) 02/06/23 04:14 GFR Calculation Not Reportable 02/06/23 04:14 Glucose 97 mg/dL (65-115) 02/06/23 04:14 Calculated Osmolality 283 mOsm/kg (285-295) L 02/06/23 04:14 Calcium 8.6 mg/dL (8.5-10.5) 02/06/23 04:14 Total Bilirubin 0.2 mg/dL (0.15-1.2) 02/06/23 04:14 AST 26 U/L (0-40) 02/06/23 04:14 ALT 24 U/L (0-41) 02/06/23 04:14 Alkaline Phosphatase 53 U/L (40-130) 02/06/23 04:14 Troponin T Baseline 14 ng/L (0-15) 02/06/23 04:14 Troponin T 120 Minute 16.02 ng/L (0-15) H 02/06/23 06:31 Delta Troponin T 2.02 ABS# (0-10) 02/06/23 06:31 NT-Pro-B Natriuret Pep 49 pg/mL (0-125) 02/06/23 04:14 Total Protein 6.4 g/dL (6.6-8.7) L 02/06/23 04:14 Albumin 4.1 g/dL (3.5-5.2) 02/06/23 04:14 Globulin 2.3 g/dL (1.3-4.6) 02/06/23 04:14 Discharge Plan Discharge Patient Disposition: Home Clinical Impression: Chest pain Condition: Stable Prescriptions: No Action aspirin [Adult Low Dose Aspirin] 81 mg tablet,delayed release (DR/EC) 81 mg PO DAILY nitroglycerin 0.4 mg tablet, sublingual 0.4 mg sublingual Q5M PRN (Reason: Chest Pain) Qty: 50 6RF carvedilol 6.25 mg tablet 6.25 mg PO BID Qty: 180 3RF Rx Instructions: must administer with a meal/food amiodarone 200 mg tablet 200 mg PO DAILY Qty: 90 3RF Eliquis 5 mg tablet 5 mg PO BID Qty: 60 11RF bumetanide 2 mg tablet 2 mg PO DAILY Qty: 30 11RF isosorbide mononitrate 60 mg tablet extended release 24 hr 60 mg PO DAILY Qty: 30 11RF spironolactone 50 mg tablet 50 mg PO DAILY Qty: 90 2RF atorvastatin 40 mg tablet 20 mg PO BEDTIME lansoprazole [Prevacid] 30 mg capsule,delayed release(DR/EC) 30 mg PO DAILY Qty: 90 3RF Discharge Orders: Discharge ED (Routine); Ordered 02/06/23 Ordered By: Teagan Palomo Referrals: Mitchell Knutson NURSING HOME AIDE [Primary Care Provider] - 1-3 days Discharge Diet: Advance as tolerated Discharge Activity: Resume usual activity Patient Instructions: Chest Pain (ED) Activity Restrictions/Additional Instructions: Return for worsening chest pain or shortness of breath, development of fever greater than 100, any other concerning symptoms. See your doctor this week. Coding Level of Care Code ED Industrial Relations Commissioner for Baljinder Monte
[2023-02-06 04:29] VITALS: RESP 26
[2023-02-06] MEDS: morphine 4 mg/mL SDV 1 mL IVP (04:29)
[2023-02-06] MEDS: ondansetron 2 mg/ML SDV 2 mL 4 MG IVP (04:31)
[2023-02-06 04:34] LABS: Basophils # 0.1 10^3/uL (0.0-0.1); Eosinophils # 0.1 10^3/uL (0.0-0.8); Eosinophils % 1.8 %; Hematocrit 37.6 % (42.0-52.0); Hemoglobin 11.7 g/dL (11.7-16.6); Lymphocytes # 1.7 10^3/uL (0.8-4.8); Lymphocytes % 33.4 %; Mean Corpuscular HGB Conc 31.1 g/dL (30.0-36.0); Mean Corpuscular Hemoglobin 26.8 pg (28.0-34.0); Mean Corpuscular Volume 86.2 fl (80-94); Mean Platelet Volume 10.1 fL (7.4-10.4); Monocytes # 0.7 10^3/uL (0.2-0.9); Monocytes % 13.5 %; Neutrophils # 2.52 10^3/uL (1.8-7.7); Neutrophils % 50.1 %; Nucleated Red Blood Cells % 0 %; Platelet Count 224 10^3/cmm (130-400); Red Blood Count 4.36 10^6/uL (4.1-5.3)
[2023-02-06 04:36] VITALS: BP 155/63; PULSE 60
[2023-02-06 04:36] LABS: INR 1.21 (0.8-1.2)
[2023-02-06] MEDS: nitroglycerin 1 gm/inch oint Pkt 1.5 INCH TOPICAL (04:36)
[2023-02-06 04:37] LABS: Partial Thromboplastin Time 25.6 SECONDS (23.9-36.7)
[2023-02-06] MEDS: FUROsemide 10 mg/mL SDV 10mL 60 MG IVP (04:38)
[2023-02-06 04:44] LABS: Troponin(5th) Baseline 14 ng/L (0-15)
[2023-02-06 04:58] LABS: Alanine Aminotransferase 24 U/L (0-41); Albumin Level 4.1 g/dL (3.5-5.2); Alkaline Phosphatase 53 U/L (40-130); Anion Gap 15.1 (5-19); Aspartate Amino Transferase 26 U/L (0-40); Blood Urea Nitrogen 16 mg/dL (8-23); Calcium 8.6 mg/dL (8.5-10.5); Carbon Dioxide 24 mmol/L (22-29); Chloride 101 mmol/L (98-107); Globulin 2.3 g/dL (1.3-4.6); Glucose 97 mg/dL (65-115); NT Pro B Type Natriuretic Pept 49 pg/mL (0-125); Osmolality Calculated 283 mOsm/kg (285-295); Potassium 4.1 mmol/L (3.5-5.1); Sodium 136 mmol/L (136-145); Total Bilirubin 0.2 mg/dL (0.15-1.2); Total Protein 6.4 g/dL (6.6-8.7)
[2023-02-06 05:31] VITALS: BP 123/77; PULSE 63; RESP 24; O2SAT 62
--- NOTE | 2023-02-06 06:03 | ECG_ITS ---
[facility] Test Date: 2023-02-06 Pat Name: Riki Polanco Department: Room: Gender: Male Competitive Intelligence Analyst: : 1950 Requested By: Jake Scott Order Number: [id number] Vamsi MD: America Willoughby M.D. Measurements Intervals [place] Rate: 61 P: 67 TN: 180 QRS: 11 QRSD: 110 T: 66 QT: 428 QTc: 431 Interpretive Statements SINUS RHYTHM Compared to ECG 02/06/2023 04:09:42 Sinus bradycardia no longer present Intraventricular conduction delay no longer present Electronically Signed On 02-06-2023 21:19:35 CDT by America Willoughby M.D. [email or web address]
[2023-02-06 06:43] VITALS: BP 129/76; PULSE 63; RESP 16; O2SAT 95
[2023-02-06 07:13] LABS: Troponin 5 2HR 16.02 ng/L (0-15)
[2023-02-06 07:33] LABS: Troponin 5 2HR Delta 2.02 ABS# (0-10)
[2023-02-06 08:11] VITALS: O2SAT 98
== END 2023-02-06 09:21 | disposition home or self-care (01) ==
PROVIDERS: Emergency Medicine; Emergency Provider Emergency Medicine; PCP Clinical Nurse Specialist Adult Health
DX: R07.9 Chest pain, unspecified (principal); Z79.82 Long term (current) use of aspirin; Z79.01 Long term (current) use of anticoagulants; I13.0 Hypertensive heart and chronic kidney disease with heart failure and stage 1 through stage 4 chronic kidney disease, or unspecified chronic kidney disease; N18.9 Chronic kidney disease, unspecified; I50.9 Heart failure, unspecified
CPT/HCPCS: 71045; 80053; 83880; 84484; 85025; 85610; 85730; 93005; 96374; 96375; 99285; J1940; J2270; J2405

== ENCOUNTER → 2023-04-21 09:54 | Outpatient (BNVA) | payer MEDICARE, MEDICAID, SELFPAY | PROVIDERS: PCP Clinical Nurse Specialist Adult Health; Visit Provider Internal Medicine Cardiovascular Disease | DX: I13.0 Hypertensive heart and chronic kidney disease with heart failure and stage 1 through stage 4 chronic kidney disease, or unspecified chronic kidney disease (principal); N18.9 Chronic kidney disease, unspecified; I50.32 Chronic diastolic (congestive) heart failure; I35.0 Nonrheumatic aortic (valve) stenosis; I35.1 Nonrheumatic aortic (valve) insufficiency; E78.5 Hyperlipidemia, unspecified; I48.0 Paroxysmal atrial fibrillation; I47.20 Ventricular tachycardia, unspecified; I71.20 Thoracic aortic aneurysm, without rupture, unspecified | CPT/HCPCS: 99214 ==

== ENCOUNTER → 2023-08-04 10:28 | Outpatient (BNVA) | payer MEDICARE, MEDICAID, SELFPAY | PROVIDERS: PCP Clinical Nurse Specialist Adult Health; Visit Provider Clinical Nurse Specialist Adult Health | DX: I11.0 Hypertensive heart disease with heart failure (principal); I50.32 Chronic diastolic (congestive) heart failure | CPT/HCPCS: 80053; 83880; 85025 ==

== ENCOUNTER 2023-10-20 10:55 | Emergency (ER) | payer MEDICARE, MEDICAID, SELFPAY ==
[2023-10-20 10:59] VITALS: BP 166/69; PULSE 59; RESP 15; O2SAT 99
--- NOTE | 2023-10-20 11:18 | XRR_ITS ---
PROCEDURE INFORMATION: Exam: XR Chest Exam date and time: 10/20/2023 11:31 AM Age: 73 years old Clinical indication: Chest wall pain; Patient HX: PT. Fell and hit chest area; Additional info: Fall TECHNIQUE: Imaging protocol: Radiologic exam of the chest. Views: 1 view. COMPARISON: CR XR chest 1V portable [id number] 02/06/2023 4:06 AM FINDINGS: Lungs: No consolidation. Pleural spaces: No pleural effusion. No pneumothorax. Heart/Mediastinum: Heart size unchanged. Bones/joints: No acute findings. XR/XR chest 1V portable [id number] IMPRESSION: No acute findings.
--- NOTE | 2023-10-20 11:18 | ECG_ITS ---
[facility] Test Date: 2023-10-20 Pat Name: Riki Polanco Department: Room: Gender: Male Banking Supervisor: : 1950 Requested By: Teagan Palomo Order Number: [id number] Vamsi MD: Lucio Reyes M.D. Measurements Intervals [place] Rate: 57 P: 73 LA: 168 QRS: 21 QRSD: 186 T: 58 QT: 500 QTc: 487 Interpretive Statements SINUS BRADYCARDIA LEFT BUNDLE BRANCH BLOCK [120+ ms QRS DURATION, 80+ ms Q/S IN V1/V2, 85+ ms R IN I/aVL/V5/V6] Compared to ECG 02/06/2023 06:01:28 Left bundle-branch block now present Sinus rhythm no longer present Electronically Signed On 10-21-2023 6:48:36 ART EDUCATOR by Lucio Reyes M.D. [id number]
--- NOTE | 2023-10-20 11:26 | W.ED.FALL ---
HPI - Fall General: Chief Complaint: Fall Stated Complaint: Fell hit chest and in pain Time Seen by Provider: 10/20/23 11:12 Source: patient Mode of arrival: ambulatory Limitations: no limitations History of Present Illness: 73-year-old male who states that he fell 3 days ago. He states that he had passed out his bathroom hit his right chest does have bruising states he had chest pain where the bruising is since then. In the triage note states that he passed out today he tells me that now he has not passed out today that he had this fall and syncopal event 3 days ago. He denies any headache denies any shortness of breath. Associated symptoms-after fall: Denies abdominal pain, chest pain, headache(s) or neck pain Review of Systems Const: Denies: fever(s), chills, body aches or change in appetite ENMT: Denies: throat pain or dental pain Card: Reports: syncope; Denies: chest pain Resp: Denies: dyspnea GI: Denies: abdominal pain, nausea, vomiting or diarrhea : Denies: dysuria Musc: Denies: neck pain or back pain Skin/Breast: Denies: rash Neuro: Denies: headache(s) PFSH ED PFSH: Medical History GERD (gastroesophageal reflux disease) Seasonal allergies BPH (benign prostatic hyperplasia) seen by urology in 2020 for urinary retention CKD (chronic kidney disease) 09/2022 Creatinine 1.1 COVID-19 03/2021 Aortic regurgitation Ventricular tachycardia Chronic anticoagulation Atrial fibrillation paroxysmal, hx cardioversion Moderate aortic stenosis Normal coronary angiogram 2018 Thoracic aortic aneurysm 11/2022 CT scan showed Stable ascending thoracic aortic aneurysm, 4.9 cm Scrotal edema Bilateral hydroceles noted on CT 11/2022 Hypertension Congestive heart failure Echocardiogram 12/2020 Left ventricle ejection fraction estimated at 30%. Moderate global hypokinesis. Grade 2 diastolic dysfunction with elevated filling pressure. Echo 06/2021:Left ventricle ejection fraction estimated at 30%. Moderate global hypokinesis. Grade 2 diastolic dysfunction with elevated filling pressure. Surgical History Hx of cataract surgery Family History (Reviewed 08/04/23 @ 10:23 by Mitchell L [place], AIR TRAFFIC CONTROL EQUIPMENT REPAIRER) Other CAD (coronary artery disease) Social History Smoking and tobacco/nicotine status: never used tobacco/nicotine Alcohol intake: never Substance/Drug Use: never Adopted: No Caregiver/support person: No Lives independently: Yes Marital status: Single Current occupational status: retired Physical Exam Const: COMMON NORMALS: no acute distress, patient oriented x3 and healthy appearing HENMT: COMMON NORMALS: normocephalic and atraumatic HEAD & SCALP: normocephalic and atraumatic Eye: COMMON NORMALS: Equal, round and reactive pupils present and EOMs intact bilaterally PUPIL: Yes Equal, round and reactive pupils present Neck/C-Spine: COMMON NORMALS: full ROM and supple Chest: COMMONS NORMALS: normal inspection of the chest OTHER: Contusion noted to right chest wall he does have tenderness to touch there Resp: COMMON NORMALS: normal respiratory effort, No retractions, No use of accessory muscles and clear to auscultation bilaterally AUSCULTATION: clear to auscultation bilaterally Cardio: COMMON NORMALS: regular rate, regular rhythm and No murmurs present (Cardio) RATE: regular rate RHYTHM: regular rhythm GI: COMMON NORMALS: Normal to inspection, nondistended, normoactive bowel sounds present, Soft to palpation, non-tender and no masses PALPATION: Yes Soft to palpation Extremity: COMMON NORMALS: normal to inspection and full ROM Neuro: COMMON NORMALS: patient oriented x3, moves all extremities and no focal motor deficits Psych: COMMON NORMALS: mental status grossly normal, Normal thought process present and cooperative THOUGHT PROCESS: Normal thought process present Skin: COMMON NORMALS: no rashes or lesions noted and no wounds GENERAL SKIN EXAM: no rashes or lesions noted Course Vital Signs: Vital signs: Vital Signs Pulse Rate 59 L 10/20/23 10:59 Respiratory Rate 15 10/20/23 10:59 Blood Pressure 166/69 10/20/23 10:59 Pulse Oximetry 99 10/20/23 10:59 Oxygen Delivery Me thod Room Air 10/20/23 10:59 MDM - Fall Medical Decision Making Patient presents here with chest wall contusion from a fall he is well-appearing here chest x-ray is normal CBC is normal EKG is normal syncopal event was 2 days ago has been feeling fine since then he is stable for discharge follow-up with PCP return if worsening. Medical Records I reviewed the patient's medical records. Lab Data I reviewed the patient's lab results. 10/20/23 11:33 Radiology Impressions Chest X-Ray 10/20/23 11:18 IMPRESSION: No acute findings. Laboratory Results WBC 4.88 10^3/uL (3.29-11.43) 10/20/23 11:33 RBC 4.54 10^6/uL (3.85-5.65) 10/20/23 11:33 Hgb 12.50 g/dL (11.27-16.99) 10/20/23 11:33 Hct 38.6 % (37-53) 10/20/23 11:33 MCV 85.0 fl (82-101) 10/20/23 11:33 MCH 27.5 pg (27-33) 10/20/23 11:33 MCHC 32.4 g/dL (30-55) 10/20/23 11:33 RDW 13.7 % (12.1-15.1) 10/20/23 11:33 Plt Count 223 10^3/cmm (157-399) 10/20/23 11:33 MPV 9.3 fL (7.4-10.4) 10/20/23 11:33 Neut % (Auto) 61.3 % 10/20/23 11:33 Lymph % (Auto) 21.3 % 10/20/23 11:33 [place] % (Auto) 14.1 % 10/20/23 11:33 Eos % (Auto) 2.5 % 10/20/23 11:33 Baso % (Auto) 0.6 % 10/20/23 11:33 Neut # (Auto) 2.99 10^3/uL (1.8-7.7) 10/20/23 11:33 Lymph # (Auto) 1.0 10^3/uL (0.8-4.8) 10/20/23 11:33 [place] # (Auto) 0.7 10^3/uL (0.2-0.9) 10/20/23 11:33 Eos # (Auto) 0.1 10^3/uL (0.0-0.8) 10/20/23 11:33 Baso # (Auto) 0.0 10^3/uL (0.0-0.1) 10/20/23 11:33 Nucleated RBC % (auto) 0 % 10/20/23 11:33 Nucleated RBCs # 0.0 /100WBC 10/20/23 11:33 All radiology interpretation(s) finalized by discharge EKG Data EKG 1: I personally reviewed and interpreted this EKG as follows: EKG interpretation date: 10/20/23 EKG interpretation time: 11:25 Interpretation: nsr hr 57 sinus noam [address] or t wave abnormalities qrs 186 qtc 493 Discharge Plan Discharge Patient Disposition: Home Clinical Impression: Syncope Chest wall contusion Qualifiers: Encounter type: initial encounter Laterality: right Qualified Code(s): S20.211A - Contusion of right front wall of thorax, initial encounter Condition: Stable Prescriptions: No Action aspirin [Adult Low Dose Aspirin] 81 mg tablet,delayed release (DR/EC) 81 mg PO DAILY amiodarone 200 mg tablet 200 mg PO DAILY Qty: 30 11RF bumetanide 2 mg tablet 2 mg PO DAILY Qty: 30 11RF carvedilol 6.25 mg tablet 6.25 mg PO BID Qty: 180 3RF Rx Instructions: must administer with a meal/food isosorbide mononitrate 60 mg tablet extended release 24 hr 60 mg PO DAILY Qty: 30 11RF lansoprazole [Prevacid] 30 mg capsule,delayed release(DR/EC) 30 mg PO DAILY Qty: 30 11RF Eliquis 5 mg tablet 5 mg PO BID Qty: 60 11RF spironolactone 50 mg tablet 50 mg PO DAILY Qty: 30 11RF atorvastatin 40 mg tablet 40 mg PO BEDTIME Qty: 30 11RF cetirizine [All Day Allergy (cetirizine)] 10 mg tablet 10 mg PO DAILY Qty: 30 11RF amoxicillin 500 mg capsule 500 mg PO TID 10 Days Qty: 30 0RF nitroglycerin 0.4 mg tablet, sublingual 0.4 mg sublingual Q5M PRN (Reason: Chest Pain) Qty: 25 6RF fluticasone propionate [Allergy Relief (fluticasone)] 50 mcg/actuation spray,suspension 1 spray intranasal BID Qty: 16 10RF Rx Instructions: administer into each nostril Discharge Orders: Discharge ED (Routine); Ordered 10/20/23 Ordered By: Teagan Palomo Referrals: Mitchell Knutson, AIR TRAFFIC CONTROL EQUIPMENT REPAIRER [Primary Care Provider] - 1-3 days Discharge Diet: Advance as tolerated Discharge Activity: Resume usual activity Patient Instructions: Syncope (ED), Chest Wall Pain (ED) Coding Level of Care Code ED Communications Executive for Baljinder Monte
[2023-10-20 11:43] LABS: Basophils % 0.6 %; Eosinophils # 0.1 10^3/uL (0.0-0.8); Eosinophils % 2.5 %; Hematocrit 38.6 % (37-53); Lymphocytes % 21.3 %; Mean Corpuscular HGB Conc 32.4 g/dL (30-55); Mean Corpuscular Hemoglobin 27.5 pg (27-33); Mean Platelet Volume 9.3 fL (7.4-10.4); Monocytes # 0.7 10^3/uL (0.2-0.9); Monocytes % 14.1 %; Neutrophils # 2.99 10^3/uL (1.8-7.7); Neutrophils % 61.3 %; Nucleated Red Blood Cells % 0 %; Platelet Count 223 10^3/cmm (157-399); Red Blood Count 4.54 10^6/uL (3.85-5.65); Red Cell Distribution Width 13.7 % (12.1-15.1); White Blood Count 4.88 10^3/uL (3.29-11.43)
[2023-10-20 12:08] VITALS: PULSE 58; O2SAT 96
== END 2023-10-20 12:14 | disposition home or self-care (01) ==
PROVIDERS: Emergency Provider Emergency Medicine; PCP Clinical Nurse Specialist Adult Health
DX: R55 Syncope and collapse (principal); S20.211A Contusion of right front wall of thorax, initial encounter; Z79.82 Long term (current) use of aspirin; Z79.01 Long term (current) use of anticoagulants; I13.0 Hypertensive heart and chronic kidney disease with heart failure and stage 1 through stage 4 chronic kidney disease, or unspecified chronic kidney disease; N18.9 Chronic kidney disease, unspecified; I50.9 Heart failure, unspecified; W18.39XA Other fall on same level, initial encounter
CPT/HCPCS: 36415; 71045; 85025; 93005; 99285

== ENCOUNTER → 2023-11-03 12:08 | Outpatient (BNVA) | payer MEDICARE, MEDICAID, SELFPAY | PROVIDERS: PCP Clinical Nurse Specialist Adult Health; Visit Provider Clinical Nurse Specialist Adult Health | DX: I50.32 Chronic diastolic (congestive) heart failure (principal) | CPT/HCPCS: 80053 ==

== ENCOUNTER 2024-02-02 03:25 | Emergency (ER) | payer MEDICARE, MEDICAID, SELFPAY ==
[2024-02-02 03:25] VITALS: BP 178/88; PULSE 67; RESP 15; TEMP 36.4; O2SAT 100; BMI 29.8
--- NOTE | 2024-02-02 03:28 | ECG_ITS ---
[facility] Test Date: 2024-02-02 Pat Name: Riki Polanco Department: Room: Gender: Male Anesthesiology Physician: : 1950 Requested By: Malik Burnette Order Number: [id number] Vamsi MD: Edenilson Reis M.D. Measurements Intervals [place] Rate: 68 P: 72 ID: [id number] QRS: 23 QRSD: 110 T: 67 QT: 400 QTc: 426 Interpretive Statements SINUS RHYTHM WITH OCCASIONAL VENTRICULAR PREMATURE COMPLEXES Compared to ECG 10/20/2023 11:25:17 Ventricular premature complex(es) now present Sinus bradycardia no longer present Left bundle-branch block no longer present Electronically Signed On 02-02-2024 17:14:49 CDT by Edenilson Reis M.D. [id number]
--- NOTE | 2024-02-02 03:30 | ED_ITS ---
Documented by User: Malik Burnette DO 02/02/24 03:49 HPI - Chest Pain 2 General: Chief Complaint: Chest Pain Stated Complaint: Chest pain , Headache Time Seen by Provider: 02/02/24 03:30 History of Present Illness: Patient presents to the ER with main complaint of a headache times last 3 days. Patient woke up today and said he started having chest pressure that only occurs when he leans forward. Patient does not describe this as pain he does describe it as pressure it also sometimes radiates into the right jaw, patient does have a history of hypertension and noncompliance, thoracic aortic aneurysm, paroxysmal atrial fibrillation, normal coronary angiogram 2018, CKD, CHF, patient used to see Dr. Joyce, Review of Systems 2 General: Reports: 10 or more systems reviewed and unremarkable except in HPI and below PFSH ED 2 PFSH: Medical History GERD (gastroesophageal reflux disease) Seasonal allergies BPH (benign prostatic hyperplasia) seen by urology in 2019 for urinary retention CKD (chronic kidney disease) 09/2022 Creatinine 1.1 COVID-19 03/2021 Aortic regurgitation Ventricular tachycardia Chronic anticoagulation Atrial fibrillation paroxysmal, hx cardioversion Moderate aortic stenosis Normal coronary angiogram 2018 Thoracic aortic aneurysm 11/2022 CT scan showed Stable ascending thoracic aortic aneurysm, 4.9 cm Scrotal edema Bilateral hydroceles noted on CT 11/2022 Hypertension Congestive heart failure Echocardiogram 12/2020 Left ventricle ejection fraction estimated at 30%. Moderate global hypokinesis. Grade 2 diastolic dysfunction with elevated filling pressure. Echo 06/2021:Left ventricle ejection fraction estimated at 30%. Moderate global hypokinesis. Grade 2 diastolic dysfunction with elevated filling pressure. Surgical History Hx of cataract surgery Family History Other CAD (coronary artery disease) Social History Smoking and tobacco/nicotine status: never used tobacco/nicotine Alcohol intake: never Substance/Drug Use: never Adopted: No Caregiver/support person: No Lives independently: Yes Marital status: Single Current occupational status: retired Physical Exam 2 Const: COMMON NORMALS: no acute distress, average body habitus, patient oriented x3, no limitations, healthy appearing, alert and well nourished HENMT: COMMON NORMALS: normocephalic, atraumatic, external ears normal, Normal external nose present, moist oral mucous membranes and oropharynx normal; hearing grossly not normal bilaterally (Very hard of hearing) HEAD & SCALP: n ormocephalic and atraumatic NOSE: Normal external nose present EXTERNAL EAR: Yes external ears normal Neck/C-Spine: COMMON NORMALS: no JVD Chest: COMMONS NORMALS: normal inspection of the chest and normal palpation of entire chest wall Resp: COMMON NORMALS: normal respiratory effort, No retractions, No use of accessory muscles and clear to auscultation bilaterally AUSCULTATION: clear to auscultation bilaterally Cardio: COMMON NORMALS: no JVD, regular rate, regular rhythm, S1 normal heart sound present, S2 normal heart sound present, No gallops present (Cardio), No clicks present (Cardio), No murmurs present (Cardio) and No rub (Cardio) R ATE: regular rate RHYTHM: regular rhythm HEART SOUNDS: S1 normal heart sound present and S2 normal heart sound present GI: COMMON NORMALS: Normal to inspection, nondistended, normoactive bowel sounds present, Soft to palpation, non-tender, No hepatosplenomegaly present and no masses PALPATION: Yes Soft to palpation and Yes No hepatosplenomegaly present Neuro: COMMON NORMALS: patient oriented x3 SENSORIUM/ORIENTATION: Yes alert Course 2 Vital Signs: Vital signs: Vital Signs Temperature 97.6 F 02/02/24 03:25 Pulse Rate 68 02/02/24 06:01 Respiratory Rate 16 02/02/24 06:01 Blood Pressure 166/67 02/02/24 06:01 Pulse Oximetry 99 02/02/24 06:01 Oxygen Delivery Me thod Room Air 02/02/24 03:25 MDM - Chest Pain Medical Decision Making EKG and previous EKG was sent immediately to Dr. Oneill for concern of ST segment elevation he said it is not a STEMI and we can treat it medically. Differential Diagnosis Unlikely acute massive pulmonary embolism, acute respiratory failure, acute myocardial infarction, cardiac arrest or sudden cardiac Medical Records I reviewed the patient's medical records. Lab Data I reviewed the patient's lab results. 02/02/24 03:41 02/02/24 03:41 Radiology Impressions Chest X-Ray 02/02/24 03:32 IMPRESSION: Similar-appearing bibasilar atelectasis, flattening of the diaphragm, slight blunting of the bilateral costophrenic angles from prior comparison, likely mild COPD. No acute change or finding. Head CT 02/02/24 03:49 IMPRESSION: 1. No acute intracranial findings. 2. Additional findings as above. Laboratory Results WBC 5.29 10^3/uL (3.29-11.43) 02/02/24 03:41 RBC 4.54 10^6/uL (3.85-5.65) 02/02/24 03:41 Hgb 12.10 g/dL (11.27-16.99) 02/02/24 03:41 Hct 38.8 % (37-53) 02/02/24 03:41 MCV 85.5 fl (82-101) 02/02/24 03:41 MCH 26.7 pg (27-33) L 02/02/24 03:41 MCHC 31.2 g/dL (30-55) 02/02/24 03:41 RDW 13.9 % (12.1-15.1) 02/02/24 03:41 Plt Count 227 10^3/cmm (157-399) 02/02/24 03:41 MPV 9.8 fL (7.4-10.4) 02/02/24 03:41 Neut % (Auto) 58.2 % 02/02/24 03:41 Lymph % (Auto) 27.0 % 02/02/24 03:41 Sunflower % (Auto) 12.3 % 02/02/24 03:41 Eos % (Auto) 1.7 % 02/02/24 03:41 Baso % (Auto) 0.6 % 02/02/24 03:41 Neut # (Auto) 3.08 10^3/uL (1.8-7.7) 02/02/24 03:41 Lymph # (Auto) 1.4 10^3/uL (0.8-4.8) 02/02/24 03:41 Sunflower # (Auto) 0.7 10^3/uL (0.2-0.9) 02/02/24 03:41 Eos # (Auto) 0.1 10^3/uL (0.0-0.8) 02/02/24 03:41 Baso # (Auto) 0.0 10^3/uL (0.0-0.1) 02/02/24 03:41 Nucleated RBC % (auto) 0 % 02/02/24 03:41 Nucleated RBCs # 0.0 /100WBC 02/02/24 03:41 PT 14.70 SECONDS (12.1-14.9) 02/02/24 03:41 INR 1.12 (0.8-1.2) 02/02/24 03:41 Sodium 135 mmol/L (136-145) L 02/02/24 03:41 Potassium 4.6 mmol/L (3.5-5.1) 02/02/24 03:41 Chloride 102 mmol/L (98-107) 02/02/24 03:41 Carbon Dioxide 24 mmol/L (22-29) 02/02/24 03:41 Anion Gap 13.6 (5-19) 02/02/24 03:41 BUN 21 mg/dL (8-23) 02/02/24 03:41 Creatinine 0.9 mg/dL (0.7-1.2) 02/02/24 03:41 GFR Calculation Not Reportable 02/02/24 03:41 Glucose 107 mg/dL (65-115) 02/02/24 03:41 Calculated Osmolality 283 mOsm/kg (285-295) L 02/02/24 03:41 Calcium 9.1 mg/dL (8.5-10.5) 02/02/24 03:41 Magnesium 2.1 mg/dL (1.7-2.3) 02/02/24 03:41 Total Bilirubin 0.5 mg/dL (0.15-1.2) 02/02/24 03:41 AST 27 U/L (0-40) 02/02/24 03:41 ALT 28 U/L (0-41) 02/02/24 03:41 Alkaline Phosphatase 71 U/L (40-130) 02/02/24 03:41 Troponin T Baseline 15 ng/L (0-15) 02/02/24 03:41 Troponin T 120 Minute 17.49 ng/L (0-15) H 02/02/24 05:22 Delta Troponin T 2.49 ABS# (0-10) 02/02/24 05:22 NT-Pro-B Natriuret Pep 201 pg/mL (0-125) H 02/02/24 03:41 Total Protein 6.6 g/dL (6.6-8.7) 02/02/24 03:41 Albumin 3.9 g/dL (3.5-5.2) 02/02/24 03:41 Globulin 2.7 g/dL (1.3-4.6) 02/02/24 03:41 All radiology interpretation(s) finalized by discharge Discharge Plan Discharge Patient Disposition: Home Clinical Impression: Chest pain, Headache Condition: Stable Prescriptions: No Action aspirin [Adult Low Dose Aspirin] 81 mg tablet,delayed release (DR/EC) 81 mg PO DAILY amiodarone 200 mg tablet 200 mg PO DAILY Qty: 30 11RF bumetanide 2 mg tablet 2 mg PO DAILY Qty: 30 11RF carvedilol 6.25 mg tablet 6.25 mg PO BID Qty: 180 3RF Rx Instructions: must administer with a meal/food isosorbide mononitrate 60 mg tablet extended release 24 hr 60 mg PO DAILY Qty: 30 11RF lansoprazole [Prevacid] 30 mg capsule,delayed release(DR/EC) 30 mg PO DAILY Qty: 30 11RF Eliquis 5 mg tablet 5 mg PO BID Qty: 60 11RF spironolactone 50 mg tablet 50 mg PO DAILY Qty: 30 11RF atorvastatin 40 mg tablet 40 mg PO BEDTIME Qty: 30 11RF cetirizine [All Day Allergy (cetirizine)] 10 mg tablet 10 mg PO DAILY Qty: 30 11RF amoxicillin 500 mg capsule 500 mg PO TID 10 Days Qty: 30 0RF nitroglycerin 0.4 mg tablet, sublingual 0.4 mg sublingual Q5M PRN (Reason: Chest Pain) Qty: 25 6RF fluticasone propionate [Allergy Relief (fluticasone)] 50 mcg/actuation spray,suspension 1 spray intranasal BID Qty: 16 10RF Rx Instructions: administer into each nostril Discharge Orders: Discharge ED (Routine); Ordered 02/02/24 Ordered By: Teagan Palomo Referrals: Mitchell Knutson, WAREHOUSE STOCK CLERK [Primary Care Provider] - Discharge Diet: Advance as tolerated Discharge Activity: Resume usual activity Patient Instructions: Chest Pain (ED) Coding Level of Care Code ED Construction Producer for Chg Fwd Documented by User: Teagan Palomo MD 02/02/24 06:32 HPI - Chest Pain 2 General: Chief Complaint: Chest Pain Stated Complaint: Chest pain , Headache Time Seen by Provider: 02/02/24 03:30 PFSH ED 2 PFSH: Medical History GERD (gastroesophageal reflux disease) Seasonal allergies BPH (benign prostatic hyperplasia) seen by urology in 2019 for urinary retention CKD (chronic kidney disease) 09/2022 Creatinine 1.1 COVID-19 03/2021 Aortic regurgitation Ventricular tachycardia Chronic anticoagulation Atrial fibrillation paroxysmal, hx cardioversion Moderate aortic stenosis Normal coronary angiogram 2018 Thoracic aortic aneurysm 11/2022 CT scan showed Stable ascending thoracic aortic aneurysm, 4.9 cm Scrotal edema Bilateral hydroceles noted on CT 11/2022 Hypertension Congestive heart failure Echocardiogram 12/2020 Left ventricle ejection fraction estimated at 30%. Moderate global hypokinesis. Grade 2 diastolic dysfunction with elevated filling pressure. Echo 06/2021:Left ventricle ejection fraction estimated at 30%. Moderate global hypokinesis. Grade 2 diastolic dysfunction with elevated filling pressure. Surgical History Hx of cataract surgery Family History Other CAD (coronary artery disease) Social History Smoking and tobacco/nicotine status: never used tobacco/nicotine Alcohol intake: never Substance/Drug Use: never Adopted: No Caregiver/support person: No Lives independently: Yes Marital status: Single Current occupational status: retired Course 2 Vital Signs: Vital signs: Vital Signs Temperature 97.6 F 02/02/24 03:25 Pulse Rate 68 05/09/24 06:01 Respiratory Rate 16 02/02/24 06:01 Blood Pressure 166/67 02/02/24 06:01 Pulse Oximetry 99 02/02/24 06:01 Oxygen Delivery Me thod Room Air 02/02/24 03:25 MDM - Chest Pain Medical Decision Making EKG and previous EKG was sent immediately to Dr. Oneill for concern of ST segment elevation he said it is not a STEMI and we can treat it medically. Patient presents here with chest pain along with a headache he is well-appearing here his symptoms have resolved EKGs troponin head CT are all normal he stable for discharge she is follow-up with PCP and return if worsening. Lab Data 02/02/24 03:41 02/02/24 03:41 Radiology Impressions Chest X-Ray 02/02/24 03:32 IMPRESSION: Similar-appearing bibasilar atelectasis, flattening of the diaphragm, slight blunting of the bilateral costophrenic angles from prior comparison, likely mild COPD. No acute change or finding. Head CT 02/02/24 03:49 IMPRESSION: 1. No acute intracranial findings. 2. Additional findings as above. Laboratory Results WBC 5.29 10^3/uL (3.29-11.43) 02/02/24 03:41 RBC 4.54 10^6/uL (3.85-5.65) 02/02/24 03:41 Hgb 12.10 g/dL (11.27-16.99) 02/02/24 03:41 Hct 38.8 % (37-53) 02/02/24 03:41 MCV 85.5 fl (82-101) 02/02/24 03:41 MCH 26.7 pg (27-33) L 02/02/24 03:41 MCHC 31.2 g/dL (30-55) 02/02/24 03:41 RDW 13.9 % (12.1-15.1) 02/02/24 03:41 Plt Count 227 10^3/cmm (157-399) 02/02/24 03:41 MPV 9.8 fL (7.4-10.4) 02/02/24 03:41 Neut % (Auto) 58.2 % 02/02/24 03:41 Lymph % (Auto) 27.0 % 02/02/24 03:41 Sunflower % (Auto) 12.3 % 02/02/24 03:41 Eos % (Auto) 1.7 % 02/02/24 03:41 Baso % (Auto) 0.6 % 02/02/24 03:41 Neut # (Auto) 3.08 10^3/uL (1.8-7.7) 02/02/24 03:41 Lymph # (Auto) 1.4 10^3/uL (0.8-4.8) 02/02/24 03:41 Sunflower # (Auto) 0.7 10^3/uL (0.2-0.9) 02/02/24 03:41 Eos # (Auto) 0.1 10^3/uL (0.0-0.8) 02/02/24 03:41 Baso # (Auto) 0.0 10^3/uL (0.0-0.1) 02/02/24 03:41 Nucleated RBC % (auto) 0 % 02/02/24 03:41 Nucleated RBCs # 0.0 /100WBC 02/02/24 03:41 PT 14.70 SECONDS (12.1-14.9) 02/02/24 03:41 INR 1.12 (0.8-1.2) 02/02/24 03:41 Sodium 135 mmol/L (136-145) L 02/02/24 03:41 Potassium 4.6 mmol/L (3.5-5.1) 02/02/24 03:41 Chloride 102 mmol/L (98-107) 02/02/24 03:41 Carbon Dioxide 24 mmol/L (22-29) 02/02/24 03:41 Anion Gap 13.6 (5-19) 02/02/24 03:41 BUN 21 mg/dL (8-23) 02/02/24 03:41 Creatinine 0.9 mg/dL (0.7-1.2) 02/02/24 03:41 GFR Calculation Not Reportable 02/02/24 03:41 Glucose 107 mg/dL (65-115) 02/02/24 03:41 Calculated Osmolality 283 mOsm/kg (285-295) L 02/02/24 03:41 Calcium 9.1 mg/dL (8.5-10.5) 02/02/24 03:41 Magnesium 2.1 mg/dL (1.7-2.3) 02/02/24 03:41 Total Bilirubin 0.5 mg/dL (0.15-1.2) 02/02/24 03:41 AST 27 U/L (0-40) 02/02/24 03:41 ALT 28 U/L (0-41) 02/02/24 03:41 Alkaline Phosphatase 71 U/L (40-130) 02/02/24 03:41 Troponin T Baseline 15 ng/L (0-15) 02/02/24 03:41 Troponin T 120 Minute 17.49 ng/L (0-15) H 02/02/24 05:22 Delta Troponin T 2.49 ABS# (0-10) 02/02/24 05:22 NT-Pro-B Natriuret Pep 201 pg/mL (0-125) H 02/02/24 03:41 Total Protein 6.6 g/dL (6.6-8.7) 02/02/24 03:41 Albumin 3.9 g/dL (3.5-5.2) 02/02/24 03:41 Globulin 2.7 g/dL (1.3-4.6) 02/02/24 03:41 Discharge Plan Discharge Patient Disposition: Home Clinical Impression: Chest pain, Headache Condition: Stable Prescriptions: No Action aspirin [Adult Low Dose Aspirin] 81 mg tablet,delayed release (DR/EC) 81 mg PO DAILY amiodarone 200 mg tablet 200 mg PO DAILY Qty: 30 11RF bumetanide 2 mg tablet 2 mg PO DAILY Qty: 30 11RF carvedilol 6.25 mg tablet 6.25 mg PO BID Qty: 180 3RF Rx Instructions: must administer with a meal/food isosorbide mononitrate 60 mg tablet extended release 24 hr 60 mg PO DAILY Qty: 30 11RF lansoprazole [Prevacid] 30 mg capsule,delayed release(DR/EC) 30 mg PO DAILY Qty: 30 11RF Eliquis 5 mg tablet 5 mg PO BID Qty: 60 11RF spironolactone 50 mg tablet 50 mg PO DAILY Qty: 30 11RF atorvastatin 40 mg tablet 40 mg PO BEDTIME Qty: 30 11RF cetirizine [All Day Allergy (cetirizine)] 10 mg tablet 10 mg PO DAILY Qty: 30 11RF amoxicillin 500 mg capsule 500 mg PO TID 10 Days Qty: 30 0RF nitroglycerin 0.4 mg tablet, sublingual 0.4 mg sublingual Q5M PRN (Reason: Chest Pain) Qty: 25 6RF fluticasone propionate [Allergy Relief (fluticasone)] 50 mcg/actuation spray,suspension 1 spray intranasal BID Qty: 16 10RF Rx Instructions: administer into each nostril Discharge Orders: Discharge ED (Routine); Ordered 02/02/24 Ordered By: Teagan Palomo Referrals: Mitchell Knutson, WAREHOUSE STOCK CLERK [Primary Care Provider] - Discharge Diet: Advance as tolerated Discharge Activity: Resume usual activity Patient Instructions: Chest Pain (ED) Coding Level of Care Code ED Construction Producer for Baljinder Monte
--- NOTE | 2024-02-02 03:32 | XRR_ITS ---
PROCEDURE INFORMATION: Exam: XR Chest Exam date and time: 02/02/2024 3:45 AM Age: 73 years old Clinical indication: Angina; Additional info: Chest pain TECHNIQUE: Imaging protocol: Radiologic exam of the chest. Views: 1 view. COMPARISON: CR (CHEST, ) 10/20/2023 11:31 AM FINDINGS: Lungs: Bibasilar increased lung markings, similar to prior comparison. Emphysematous change, mild, apically predominant. Pleural spaces: Similar slight blunting of the bilateral costophrenic angles. Heart/Mediastinum: Unremarkable. No cardiomegaly. Vasculature: Atherosclerotic disease of the aortic arch. Bones/joints: Degenerative change of the visualized osseous structures. Other findings: Similar flattening of the bilateral diaphragms. XR/XR chest 1V portable [id number] IMPRESSION: Similar-appearing bibasilar atelectasis, flattening of the diaphragm, slight blunting of the bilateral costophrenic angles from prior comparison, likely mild COPD. No acute change or finding.
[2024-02-02 03:46] LABS: Basophils % 0.6 %; Eosinophils # 0.1 10^3/uL (0.0-0.8); Eosinophils % 1.7 %; Hematocrit 38.8 % (37-53); Lymphocytes # 1.4 10^3/uL (0.8-4.8); Mean Corpuscular HGB Conc 31.2 g/dL (30-55); Mean Corpuscular Hemoglobin 26.7 pg (27-33); Mean Corpuscular Volume 85.5 fl (82-101); Mean Platelet Volume 9.8 fL (7.4-10.4); Monocytes # 0.7 10^3/uL (0.2-0.9); Monocytes % 12.3 %; Neutrophils # 3.08 10^3/uL (1.8-7.7); Neutrophils % 58.2 %; Nucleated Red Blood Cells % 0 %; Platelet Count 227 10^3/cmm (157-399); Red Blood Count 4.54 10^6/uL (3.85-5.65); Red Cell Distribution Width 13.9 % (12.1-15.1); White Blood Count 5.29 10^3/uL (3.29-11.43)
[2024-02-02] MEDS: aspirin 81 mg Chew Tablet 324 MG PO (03:48)
--- NOTE | 2024-02-02 03:49 | CTR_ITS ---
PROCEDURE INFORMATION: Exam: CT Head Without Contrast Exam date and time: 02/02/2024 4:07 AM Age: 73 years old Clinical indication: Pain; Headache TECHNIQUE: Imaging protocol: Computed tomography of the head without contrast. Radiation optimization: All CT scans at this facility use at least one of these dose optimization techniques: automated exposure control; mA and/or kV adjustment per patient size (includes targeted exams where dose is matched to clinical indication); or iterative reconstruction. COMPARISON: No relevant prior studies available. RADIATION DOSE METRICS: Total DLP (mGy-cm): 1211.7 FINDINGS: Brain: Scattered dural calcifications. Pineal gland calcifications. Mild scattered cerebral symmetric atrophy with dilation of the fluid spaces. Scattered mild intracranial and extracranial atherosclerotic disease. Cerebral ventricles: Choroid plexus calcifications. Pituitary gland and sella: Partially empty sella, in isolation of likely little clinical significance. Paranasal sinuses: Visualized sinuses are unremarkable. No fluid levels. Mastoid air cells: Visualized mastoid air cells are well aerated. Bones: Unremarkable. No acute fracture. Soft tissues: Unremarkable. CT/CT head wo con* [id number] IMPRESSION: 1. No acute intracranial findings. 2. Additional findings as above.
[2024-02-02] MEDS: ketorolac 30 mg/mL INJ IVP (03:58)
[2024-02-02 04:00] LABS: INR 1.12 (0.8-1.2)
[2024-02-02 04:04] LABS: Magnesium 2.1 mg/dL (1.7-2.3)
[2024-02-02 04:07] LABS: Troponin(5th) Baseline 15 ng/L (0-15)
[2024-02-02 04:08] LABS: Alanine Aminotransferase 28 U/L (0-41); Albumin Level 3.9 g/dL (3.5-5.2); Alkaline Phosphatase 71 U/L (40-130); Aspartate Amino Transferase 27 U/L (0-40); Blood Urea Nitrogen 21 mg/dL (8-23); Calcium 9.1 mg/dL (8.5-10.5); Carbon Dioxide 24 mmol/L (22-29); Chloride 102 mmol/L (98-107); Creatinine Clr Calc Pharmacy 90.7464; Globulin 2.7 g/dL (1.3-4.6); Glucose 107 mg/dL (65-115); Osmolality Calculated 283 mOsm/kg (285-295); Sodium 135 mmol/L (136-145); Total Bilirubin 0.5 mg/dL (0.15-1.2); Total Protein 6.6 g/dL (6.6-8.7)
[2024-02-02 04:09] LABS: Anion Gap 13.6 (5-19); Potassium 4.6 mmol/L (3.5-5.1)
[2024-02-02 04:16] LABS: NT Pro B Type Natriuretic Pept 201 pg/mL (0-125)
[2024-02-02 04:42] VITALS: BP 176/69; PULSE 61; RESP 16; O2SAT 99
[2024-02-02] MEDS: hyDRALAzine 20 mg/mL INJ 1 mL 10 MG IVP (05:22)
[2024-02-02 05:27] VITALS: BP 152/75; PULSE 63; RESP 16; O2SAT 97
[2024-02-02 05:45] LABS: Troponin 5 2HR 17.49 ng/L (0-15); Troponin 5 2HR Delta 2.49 ABS# (0-10)
[2024-02-02 06:01] VITALS: BP 166/67; PULSE 68; RESP 16; O2SAT 99
[2024-02-02] MEDS: ondansetron 2 mg/ML SDV 2 mL 4 MG IVP (06:27)
[2024-02-02] MEDS: morphine 4 mg/mL SDV 1 mL IVP (06:27)
[2024-02-02 06:42] VITALS: BP 139/107; PULSE 68; RESP 16; TEMP 36.4; O2SAT 99
== END 2024-02-02 06:43 | disposition home or self-care (01) ==
PROVIDERS: Emergency Medicine; Emergency Provider Emergency Medicine; PCP Clinical Nurse Specialist Adult Health
DX: R07.9 Chest pain, unspecified (principal); R51.9 Headache, unspecified; Z79.82 Long term (current) use of aspirin; Z79.01 Long term (current) use of anticoagulants; I13.0 Hypertensive heart and chronic kidney disease with heart failure and stage 1 through stage 4 chronic kidney disease, or unspecified chronic kidney disease; N18.9 Chronic kidney disease, unspecified; I50.9 Heart failure, unspecified
CPT/HCPCS: 70450; 71045; 80053; 83735; 83880; 84484; 85025; 85610; 93005; 96374; 96375; 99285; J0360; J1885; J2270; J2405

== ENCOUNTER → 2024-02-09 11:20 | Outpatient (BNVA) | payer MEDICARE, MEDICAID, SELFPAY | PROVIDERS: PCP Clinical Nurse Specialist Adult Health; Visit Provider Clinical Nurse Specialist Adult Health | DX: E78.5 Hyperlipidemia, unspecified (principal); J44.9 Chronic obstructive pulmonary disease, unspecified | CPT/HCPCS: 80061 ==

== ENCOUNTER → 2024-04-05 11:19 | Outpatient (BNVA) | payer MEDICARE, MEDICAID, SELFPAY | PROVIDERS: PCP Clinical Nurse Specialist Adult Health; Visit Provider Nurse Practitioner Family | DX: I47.20 Ventricular tachycardia, unspecified (principal); I35.0 Nonrheumatic aortic (valve) stenosis; I11.0 Hypertensive heart disease with heart failure; I50.32 Chronic diastolic (congestive) heart failure | CPT/HCPCS: 93005; 99214 ==

== ENCOUNTER → 2024-10-04 10:31 | Outpatient (BNVA) | payer MEDICARE, MEDICAID, SELFPAY | PROVIDERS: PCP Clinical Nurse Specialist Adult Health; Visit Provider Internal Medicine | DX: I13.0 Hypertensive heart and chronic kidney disease with heart failure and stage 1 through stage 4 chronic kidney disease, or unspecified chronic kidney disease (principal); N18.9 Chronic kidney disease, unspecified; I50.32 Chronic diastolic (congestive) heart failure; I35.0 Nonrheumatic aortic (valve) stenosis; I35.1 Nonrheumatic aortic (valve) insufficiency; E78.5 Hyperlipidemia, unspecified; I48.0 Paroxysmal atrial fibrillation; I71.20 Thoracic aortic aneurysm, without rupture, unspecified; Z79.01 Long term (current) use of anticoagulants; Z79.82 Long term (current) use of aspirin | CPT/HCPCS: 99214 ==

== ENCOUNTER 2025-01-11 00:47 | Emergency (ER) | payer MEDICARE, MEDICAID, SELFPAY ==
[2025-01-11] VITALS (12 sets, daily range): BP systolic 130–199; BP diastolic 56–87; PULSE 58–83; RESP 14–22; TEMP 36.6; O2SAT 93–100; BMI 39.3
--- NOTE | 2025-01-11 00:52 | XRR_ITS ---
PROCEDURE INFORMATION: Exam: XR Chest Exam date and time: 01/11/2025 1:09 AM Age: 74 years old Clinical indication: Shortness of breath; Additional info: Short TECHNIQUE: Imaging protocol: Radiologic exam of the chest. Views: 1 view. COMPARISON: CR XR chest 1V portable [id number] 02/02/2024 3:45 AM FINDINGS: Lungs: Mild left lower lobe atelectasis. Pleural spaces: Blunting of the left costophrenic angle, cannot exclude a tiny left-sided pleural effusion. Chronic mild pleural thickening along the right lower lobe. No pneumothorax. Heart/Mediastinum: Mild cardiomegaly. Vasculature: Aortic calcifications. Bones/joints: Unremarkable. XR/XR chest 1V portable [id number] IMPRESSION: 1. Mild left lower lobe atelectasis. 2. Blunting of the left costophrenic angle, cannot exclude a tiny left-sided pleural effusion.
--- NOTE | 2025-01-11 00:53 | ECG_ITS ---
[facility] Date: 2025-01-11 Pat Name: Riki Polanco Department: Room: Gender: Male Human Resources Safety Manager: : 1950 Requested By: Home Redd Order Number: [id number] Vamsi MD: America Willoughby M.D. Measurements Intervals [place] Rate: 71 P: -13 UT: 149 QRS: 1 QRSD: 111 T: -16 QT: 387 QTc: 423 Interpretive Statements SINUS RHYTHM MODERATE INTRAVENTRICULAR CONDUCTION DELAY [105+ ms QRS DURATION, 80+ ms Q/S IN V1/V2, NO Q AND 60+ ms R IN I/aVL/V5/V6] NONSPECIFIC T-WAVE ABNORMALITY Compared to ECG 04/05/2024 11:23:33 Sinus bradycardia no longer present T-wave abnormality still present Electronically Signed On 01-11-2025 08:36:59 CDT by America Willoughby M.D. [email or web address] [id number]
[2025-01-11 00:59] LABS: Basophils % 0.7 %; Eosinophils # 0.1 10^3/uL (0.0-0.8); Eosinophils % 1.5 %; Hematocrit 39.8 % (37-53); Lymphocytes % 36.7 %; Mean Corpuscular HGB Conc 31.4 g/dL (30-55); Mean Corpuscular Hemoglobin 27.2 pg (27-33); Mean Corpuscular Volume 86.5 fl (82-101); Mean Platelet Volume 9.4 fL (7.4-10.4); Monocytes # 0.9 10^3/uL (0.2-0.9); Monocytes % 15.9 %; Neutrophils # 2.46 10^3/uL (1.8-7.7); Nucleated Red Blood Cells % 0 %; Platelet Count 232 10^3/cmm (157-399); Red Cell Distribution Width 14.4 % (12.1-15.1); White Blood Count 5.47 10^3/uL (3.29-11.43)
--- NOTE | 2025-01-11 01:01 | CTR_ITS ---
PROCEDURE INFORMATION: Exam: CTA Head With Contrast, Arteriography Exam date and time: 01/11/2025 1:43 AM Age: 74 years old Clinical indication: Pain; Headache; Additional info: Head and neck pain TECHNIQUE: Imaging protocol: Computed tomographic angiography of the head with contrast. Exam focused on the arteries. 3D rendering (Not supervised by radiologist): MIP and/or 3D reconstructed images were created by the technologist. Radiation optimization: All CT scans at this facility use at least one of these dose optimization techniques: automated exposure control; mA and/or kV adjustment per patient size (includes targeted exams where dose is matched to clinical indication); or iterative reconstruction. Contrast material: OMNI 350; Contrast volume: 100 ml; Contrast route: INTRAVENOUS (IV); COMPARISON: CT head wo con* [id number] 02/02/2024 4:07 AM RADIATION DOSE METRICS: Total DLP (mGy-cm): 1421.44 FINDINGS: ANTERIOR CIRCULATION: Right internal carotid artery: Intracranial segment is patent with no significant stenosis. No aneurysm. Right middle cerebral artery: No occlusion or significant stenosis. No aneurysm. Right anterior cerebral artery: No occlusion or significant stenosis. No aneurysm. Left internal carotid artery: Intracranial segment is patent with no significant stenosis. No aneurysm. Left middle cerebral artery: No occlusion or significant stenosis. No aneurysm. Left anterior cerebral artery: No occlusion or significant stenosis. No aneurysm. POSTERIOR CIRCULATION: Right vertebral artery: No occlusion or significant stenosis. No aneurysm. Left vertebral artery: No occlusion or significant stenosis. No aneurysm. Basilar artery: No occlusion or significant stenosis. No aneurysm. Right posterior cerebral artery: No occlusion or significant stenosis. No aneurysm. Left posterior cerebral artery: No occlusion or significant stenosis. No aneurysm. Brain: There is patchy hypoattenuation in the deep and subcortical white matter, likely representing chronic small vessel ischemic change. No hemorrhage. Cerebral ventricles: No ventriculomegaly. Bones/joints: Unremarkable. No acute fracture. Soft tissues: Unremarkable. PROCEDURE INFORMATION: Exam: CTA Neck With Contrast Exam date and time: 01/11/2025 1:43 AM Age: 74 years old Clinical indication: Pain; Headache; Additional info: Head and neck pain TECHNIQUE: Imaging protocol: Computed tomographic angiography of the neck with contrast. Exam focused on the cervical segments of the vasculature. 3D rendering (Not supervised by radiologist): MIP and/or 3D reconstructed images were created by the technologist. Radiation optimization: All CT scans at this facility use at least one of these dose optimization techniques: automated exposure control; mA and/or kV adjustment per patient size (includes targeted exams where dose is matched to clinical indication); or iterative reconstruction. Contrast material: OMNI 350; Contrast volume: 100 ml; Contrast route: INTRAVENOUS (IV); COMPARISON: CT angio chest [id number] 10/19/2020 9:56 PM RADIATION DOSE METRICS: Total DLP (mGy-cm): 0.01 FINDINGS: Right common carotid artery: No stenosis. No dissection or occlusion. Right internal carotid artery: Mild atherosclerotic changes. No stenosis of the extracranial segment. No dissection or occlusion. Right external carotid artery: No occlusion or stenosis of the origin. Left common carotid artery: Common takeoff of the left common carotid and right brachiocephalic arteries. No stenosis. No dissection or occlusion. Left internal carotid artery: Mild atherosclerotic changes cause approximately 45% stenosis. No dissection or occlusion. Left external carotid artery: No occlusion or stenosis of the origin. Right vertebral artery: No stenosis. No dissection or occlusion. Left vertebral artery: No stenosis. No dissection or occlusion. Aorta: Ascending aortic aneurysm measuring up to 5.1 cm. Soft tissues: Normal. No significant soft tissue swelling. Bones/joints: No acute fracture. Coronary arteries: Mild coronary artery calcifications. CT/CT angio headneck* [id number] IMPRESSION: No large vessel stenosis or occlusion. IMPRESSION: 1. Mild atherosclerotic changes with mild stenosis of the left ICA. 2. Otherwise no significant stenosis or occlusion. REFERENCES: NASCET CRITERIA. The degree of stenosis in the cervical segment of the internal carotid artery is based on NASCET criteria. Normal is no stenosis. Mild is less than 50% stenosis. Moderate is 50-69% stenosis. Severe is 70% to 99% stenosis. Total occlusion is no detectable patent lumen.
[2025-01-11] MEDS: acetaminophen 1,000 MG/100 ML PIGGYBACK 400 MG IV (01:12)
[2025-01-11 01:24] LABS: Troponin(5th) Baseline 15 ng/L (0-15)
[2025-01-11 01:29] LABS: Alanine Aminotransferase 28 U/L (0-41); Albumin Level 4.3 g/dL (3.5-5.2); Alkaline Phosphatase 69 U/L (40-130); Anion Gap 16.1 (5-19); Aspartate Amino Transferase 30 U/L (0-40); Blood Urea Nitrogen 20 mg/dL (8-23); Calcium 9.2 mg/dL (8.5-10.5); Carbon Dioxide 23 mmol/L (22-29); Chloride 106 mmol/L (98-107); Creatinine Clr Calc Pharmacy 92.2895; Globulin 2.2 g/dL (1.3-4.6); Glucose 109 mg/dL (65-115); NT Pro B Type Natriuretic Pept 147 pg/mL (0-125); Osmolality Calculated 295 mOsm/kg (285-295); Potassium 4.1 mmol/L (3.5-5.1); Sodium 141 mmol/L (136-145); Total Bilirubin 0.2 mg/dL (0.15-1.2); Total Protein 6.5 g/dL (6.6-8.7)
[2025-01-11] MEDS: iohexol 350 mg/mL 500 mL Btl (per mL) IV (01:53)
[2025-01-11 01:54] LABS: Influenza A NEGATIVE (Negative); Influenza B NEGATIVE (Negative); Respiratory Syncytial Virus Ce NEGATIVE (Negative); SARS-CoV-2 PCR NEGATIVE (Negative)
--- NOTE | 2025-01-11 01:59 | W.ED.SOB ---
HPI - SOB/Dyspnea General: Chief Complaint: Shortness of Breath/Dyspnea Stated Complaint: sob Time Seen by Provider: 01/11/25 00:52 History of Present Illness: HPI Narrative: The patient is a 76-year-old who presents with shortness of breath and a headache. The headache has been persistent for over a month, while the shortness of breath has been ongoing for over a year. The patient reports that the headache is located at the back of the neck and has been associated with high blood pressure. The shortness of breath worsened today, prompting the visit to the emergency room. The patient also mentioned a missed appointment for an angiogram due to transportation issues. Related Data Home Medications ?Medication ?Instructions ?Recorded ?Confirmed aspirin 81 mg tablet,delayed 81 mg PO DAILY 11/01/19 05/10/24 release (Adult Low Dose Aspirin) Previous Rx's ?Medication ?Instructions ?Recorded nitroglycerin 0.4 mg sublingual 0.4 mg sublingual Q5M PRN Chest 02/17/23 tablet Pain #25 tabs losartan 25 mg tablet 25 mg PO DAILY #90 tabs 04/05/24 fluticasone propionate 50 1 spray intranasal BID #16 grams 07/12/24 mcg/actuation nasal spray,suspension (Allergy Relief (fluticasone)) amiodarone 200 mg tablet 200 mg PO DAILY #30 tabs 09/04/24 apixaban 5 mg tablet (Eliquis) 5 mg PO BID #60 tabs 09/04/24 atorvastatin 40 mg tablet 40 mg PO BEDTIME #30 tabs 09/04/24 cetirizine 10 mg tablet (All Day 10 mg PO DAILY #30 tabs 09/04/24 Allergy (cetirizine)) isosorbide mononitrate 60 mg 60 mg PO DAILY #30 tabs 09/04/24 tablet,extended release 24 hr lansoprazole 30 mg capsule,delayed 30 mg PO DAILY #30 caps 09/04/24 release (Prevacid) spironolactone 50 mg tablet 50 mg PO DAILY #30 tabs 09/04/24 bumetanide 2 mg tablet 2 mg PO DAILY #30 tabs 09/13/24 carvedilol 6.25 mg tablet 6.25 mg PO BID #180 tabs 09/13/24 fluticasone propionate 45 2 puff inhalation BID #12 grams 09/13/24 mcg-salmeterol 21 mcg/actuation HFA inhaler (Advair HFA) Allergies Allergy/AdvReac Type Severity Reaction Status Date / Time No Known Allergies Allergy Verified 10/04/24 10:58 [facility] ED PFSH: Medical History GERD (gastroesophageal reflux disease) Seasonal allergies BPH (benign prostatic hyperplasia) seen by urology in 2019 for urinary retention CKD (chronic kidney disease) 09/2022 Creatinine 1.1 COVID-19 03/2021 Aortic regurgitation Ventricular tachycardia Chronic anticoagulation Atrial fibrillation paroxysmal, hx cardioversion Moderate aortic stenosis Normal coronary angiogram 2018 Thoracic aortic aneurysm 11/2022 CT scan showed Stable ascending thoracic aortic aneurysm, 4.9 cm Scrotal edema Bilateral hydroceles noted on CT 11/2022 Hypertension Congestive heart failure Echo 07/16: LVEF 50 to 55%, moderate aortic stenosis (mean gradient 21 mmHg, CASA 1.3 cm?) mild to moderate regurgitation, mild tricuspid regurgitation. Surgical History Hx of cataract surgery Family History Other CAD (coronary artery disease) Social History Smoking and tobacco/nicotine status: never used tobacco/nicotine Alcohol intake: never Substance/Drug Use: never Adopted: No Caregiver/support person: No Lives independently: Yes Marital status: Single Current occupational status: retired Physical Exam Const: COMMON NORMALS: no acute distress, patient oriented x3 and alert HENMT: COMMON NORMALS: normocephalic and atraumatic HEAD & SCALP: normocephalic and atraumatic Eye: COMMON NORMALS: Equal, round and reactive pupils present, EOMs intact bilaterally and no scleral icterus PUPIL: Yes Equal, round and reactive pupils present Neck/C-Spine: OTHER: No obvious deformity or tenderness with palpation of the neck. Full range of motion with no increase in pain. Resp: OTHER: Diminished breath sounds in all lung valdovinos, crackles in both lung bases. Mild respiratory distress and increased work of breathing and tachypnea. Cardio: OTHER: Regular rhythm and rate. No murmur. 1+ pitting edema to the knees. GI: COMMON NORMALS: Normal to inspection, nondistended, normoactive bowel sounds present, Soft to palpation and non-tender PALPATION: Yes Soft to palpation Neuro: COMMON NORMALS: patient oriented x3 SENSORIUM/ORIENTATION: Yes alert Skin: COMMON NORMALS: no rashes or lesions noted GENERAL SKIN EXAM: no rashes or lesions noted Course Vital Signs: Vital signs: Vital Signs Temperature 97.9 F 01/11/25 00:52 Pulse Rate 58 L 01/11/25 05:00 Respiratory Rate 20 H 01/11/25 02:30 Blood Pressure 139/56 01/11/25 05:00 Pulse Oximetry 96 01/11/25 05:00 Oxygen Delivery Me thod Room Air 01/11/25 04:47 MDM - SOB/Dyspnea Medical Decision Making In summary, patient is a generally well-appearing 74-year-old male seen for shortness of breath and headache extending down to his posterior neck. CTA of the head and neck are unremarkable. Chest x-ray shows nothing acute. BNP is not elevated nor is troponin. EKG is unremarkable. Remainder of workup is largely noncontributory. I am uncertain of the etiology of his symptoms but do not suspect ACS, PE, pneumonia, stroke, meningitis, or any other emergency requiring further workup. He will be discharged home in stable and improved condition. Lab Data 01/11/25 00:55 01/11/25 00:55 Labs/Radiology: Radiology Impressions Chest X-Ray 01/11/25 00:52 IMPRESSION: 1. Mild left lower lobe atelectasis. 2. Blunting of the left costophrenic angle, cannot exclude a tiny left-sided pleural effusion. Head/Neck CTA 01/11/25 01:01 IMPRESSION: No large vessel stenosis or occlusion. IMPRESSION: 1. Mild atherosclerotic changes with mild stenosis of the left ICA. 2. Otherwise no significant stenosis or occlusion. REFERENCES: NASCET CRITERIA. The degree of stenosis in the cervical segment of the internal carotid artery is based on NASCET criteria. Normal is no stenosis. Mild is less than 50% stenosis. Moderate is 50-69% stenosis. Severe is 70% to 99% stenosis. Total occlusion is no detectable patent lumen. Laboratory Results WBC 5.47 10^3/uL (3.29-11.43) 01/11/25 00:55 RBC 4.60 10^6/uL (3.85-5.65) 01/11/25 00:55 Hgb 12.50 g/dL (11.27-16.99) 01/11/25 00:55 Hct 39.8 % (37-53) 01/11/25 00:55 MCV 86.5 fl (82-101) 01/11/25 00:55 MCH 27.2 pg (27-33) 01/11/25 00:55 MCHC 31.4 g/dL (30-55) 01/11/25 00:55 RDW 14.4 % (12.1-15.1) 01/11/25 00:55 Plt Count 232 10^3/cmm (157-399) 01/11/25 00:55 MPV 9.4 fL (7.4-10.4) 01/11/25 00:55 Neut % (Auto) 45.0 % 01/11/25 00:55 Lymph % (Auto) 36.7 % 01/11/25 00:55 Hopkins % (Auto) 15.9 % 01/11/25 00:55 Eos % (Auto) 1.5 % 01/11/25 00:55 Baso % (Auto) 0.7 % 01/11/25 00:55 Neut # (Auto) 2.46 10^3/uL (1.8-7.7) 01/11/25 00:55 Lymph # (Auto) 2.0 10^3/uL (0.8-4.8) 01/11/25 00:55 Hopkins # (Auto) 0.9 10^3/uL (0.2-0.9) 01/11/25 00:55 Eos # (Auto) 0.1 10^3/uL (0.0-0.8) 01/11/25 00:55 Baso # (Auto) 0.0 10^3/uL (0.0-0.1) 01/11/25 00:55 Nucleated RBC % (auto) 0 % 01/11/25 00:55 Nucleated RBCs # 0.0 /100WBC 01/11/25 00:55 Sodium 141 mmol/L (136-145) 01/11/25 00:55 Potassium 4.1 mmol/L (3.5-5.1) 01/11/25 00:55 Chloride 106 mmol/L (98-107) 01/11/25 00:55 Carbon Dioxide 23 mmol/L (22-29) 01/11/25 00:55 Anion Gap 16.1 (5-19) 01/11/25 00:55 BUN 20 mg/dL (8-23) 01/11/25 00:55 Creatinine 1.0 mg/dL (0.7-1.2) 01/11/25 00:55 GFR Calculation Not Reportable 01/11/25 00:55 Glucose 109 mg/dL (65-115) 01/11/25 00:55 Calculated Osmolality 295 mOsm/kg (285-295) 01/11/25 00:55 Calcium 9.2 mg/dL (8.5-10.5) 01/11/25 00:55 Total Bilirubin 0.2 mg/dL (0.15-1.2) 01/11/25 00:55 AST 30 U/L (0-40) 01/11/25 00:55 ALT 28 U/L (0-41) 01/11/25 00:55 Alkaline Phosphatase 69 U/L (40-130) 01/11/25 00:55 Troponin T Baseline 15 ng/L (0-15) 01/11/25 00:55 Troponin T 120 Minute 14.19 ng/L (0-15) 01/11/25 02:59 Delta Troponin T -0.81 ABS# (0-10) L 01/11/25 02:59 NT-Pro-B Natriuret Pep 147 pg/mL (0-125) H 01/11/25 00:55 Total Protein 6.5 g/dL (6.6-8.7) L 01/11/25 00:55 Albumin 4.3 g/dL (3.5-5.2) 01/11/25 00:55 Globulin 2.2 g/dL (1.3-4.6) 01/11/25 00:55 Influenza A (PCR) Negative (Negative) 01/11/25 01:00 Influenza Type B (PCR) Negative (Negative) 01/11/25 01:00 RSV (PCR) Negative (Negative) 01/11/25 01:00 SARS-CoV-2 (PCR) Negative (Negative) 01/11/25 01:00 All radiology interpretation(s) finalized by discharge EKG Data EKG 1: Interpretation: Time?52?sinus rhythm with left bundle branch block pattern, negative Sgarbossa criteria, rate of 71, QTc = 410. Discharge Plan Discharge Patient Disposition: Home Clinical Impression: FERRIS (dyspnea on exertion), Cervicogenic headache Condition: Stable Prescriptions: No Action aspirin [Adult Low Dose Aspirin] 81 mg tablet,delayed release (DR/EC) 81 mg PO DAILY losartan 25 mg tablet 25 mg PO DAILY Qty: 90 3RF nitroglycerin 0.4 mg tablet, sublingual 0.4 mg sublingual Q5M PRN (Reason: Chest Pain) Qty: 25 6RF fluticasone propionate [Allergy Relief (fluticasone)] 50 mcg/actuation spray,suspension 1 spray intranasal BID Qty: 16 10RF Rx Instructions: administer into each nostril amiodarone 200 mg tablet 200 mg PO DAILY Qty: 30 11RF Eliquis 5 mg tablet 5 mg PO BID Qty: 60 11RF atorvastatin 40 mg tablet 40 mg PO BEDTIME Qty: 30 11RF cetirizine [All Day Allergy (cetirizine)] 10 mg tablet 10 mg PO DAILY Qty: 30 11RF isosorbide mononitrate 60 mg tablet extended release 24 hr 60 mg PO DAILY Qty: 30 11RF lansoprazole [Prevacid] 30 mg capsule,delayed release(DR/EC) 30 mg PO DAILY Qty: 30 11RF spironolactone 50 mg tablet 50 mg PO DAILY Qty: 30 11RF bumetanide 2 mg tablet 2 mg PO DAILY Qty: 30 11RF carvedilol 6.25 mg tablet 6.25 mg PO BID Qty: 180 3RF Rx Instructions: must administer with a meal/food fluticasone propion-salmeterol [Advair HFA] 45-21 mcg/actuation HFA aerosol inhaler 2 puff inhalation BID Qty: 12 1RF Rx Instructions: administer with spacer Discharge Orders: Discharge ED (Routine); Ordered 01/11/25 Ordered By: Home Vee Referrals: Mitchell Knutson, PIGEON FANCIER [Primary Care Provider] - Discharge Diet: Advance as tolerated Discharge Activity: Resume usual activity Activity Restrictions/Additional Instructions: Your EKG, chest x-ray, CT head and neck were all reassuring with no evidence of emergency requiring surgery or hospitalization. Do not appear to have fluid overload in your lungs nor is your shortness of breath caused by an acute cardiac abnormality. There is no evidence of infection. Please follow-up with your primary care doctor as you normally would. 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
[2025-01-11] MEDS: bumetanide 0.25 mg/mL SDV 4 mL 2 MG IVP (02:17)
--- NOTE | 2025-01-11 02:50 | ECG_ITS ---
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 Measurements Intervals Commerce Rate: 69 P: 65 [place]: 177 QRS: 16 QRSD: 109 T: -36 QT: 407 QTc: 438 Interpretive Statements SINUS RHYTHM MODERATE INTRAVENTRICULAR CONDUCTION DELAY [105+ ms QRS DURATION, 80+ ms Q/S IN V1/V2, NO Q AND 60+ ms R IN I/aVL/V5/V6] ST DEVIATION AND MODERATE T-WAVE ABNORMALITY, CONSIDER LATERAL ISCHEMIA [-0.1+ mV T-WAVE IN I/aVL/V5/V6] ST DEVIATION AND MODERATE T-WAVE ABNORMALITY, CONSIDER INFERIOR ISCHEMIA [-0.1+ mV T-WAVE IN II/aVF] Compared to ECG 01/11/2025 00:53:40 Possible ischemia now present T-wave abnormality still present Electronically Signed On 01-11-2025 08:54:57 CDT by America Willoughby M.D. [email or web address]
[2025-01-11 03:25] LABS: Troponin 5 2HR 14.19 ng/L (0-15)
[2025-01-11 03:28] LABS: Troponin 5 2HR Delta -0.81 ABS# (0-10)
[2025-01-11] MEDS: prochlorperazine 10 mg/2 mL Inj IVP (05:44)
[2025-01-11] MEDS: diphenhydrAMINE 50 mg/mL SDV 1mL 25 MG IVP (05:44)
[2025-01-11] MEDS: sodium chloride 0.9% 500 ML IV (05:45)
--- NOTE | 2025-01-11 08:42 | PC.PHAR ---
Patient Groggy from Me waking him up. Patient did state he is suppose to take medications, but not sure what they are and he has run out of them and needs to get refills .
== END 2025-01-11 09:46 | disposition home or self-care (01) ==
PROVIDERS: Emergency Provider Student in an Organized Health Care Education/Training Program; PCP Clinical Nurse Specialist Adult Health
DX: R06.00 Dyspnea, unspecified (principal); G44.86 Cervicogenic headache; Z79.82 Long term (current) use of aspirin; Z79.01 Long term (current) use of anticoagulants; Z11.52 Encounter for screening for COVID-19; I13.0 Hypertensive heart and chronic kidney disease with heart failure and stage 1 through stage 4 chronic kidney disease, or unspecified chronic kidney disease; N18.9 Chronic kidney disease, unspecified; I50.9 Heart failure, unspecified
CPT/HCPCS: 70496; 70498; 71045; 80053; 83880; 84484; 85025; 87637; 93005; 96374; 96375; 99285; J0131; J0780; J1200; J3490; J7040

== ENCOUNTER → 2025-04-18 11:27 | Outpatient (BNVA) | payer MEDICARE, MEDICAID, SELFPAY | PROVIDERS: PCP Family Medicine; Visit Provider Family Medicine | DX: I10 Essential (primary) hypertension (principal); I50.32 Chronic diastolic (congestive) heart failure; I35.0 Nonrheumatic aortic (valve) stenosis; E78.5 Hyperlipidemia, unspecified | CPT/HCPCS: 80053; 80061; 84443; 85025 ==

== ENCOUNTER → 2025-05-09 14:25 | Outpatient (BNVA) | payer MEDICARE, MEDICAID, SELFPAY | PROVIDERS: PCP Family Medicine; Visit Provider Family Medicine | DX: L98.9 Disorder of the skin and subcutaneous tissue, unspecified (principal) | CPT/HCPCS: 88305 ==

== ENCOUNTER 2025-06-20 10:34 | Outpatient (CLI) | payer MEDICARE, MEDICAID, SELFPAY ==
--- NOTE | 2025-06-20 10:00 | USCV_ITS ---
Riki Polanco Age: 75 Gender: M : 1950 Exam Date: 06/20/2025 11:08 Ordering Phys: John Russell MD Technologist: JANNA Exam Location: [facility] Indication: f/u BP: 152 / 61 HR: 56 Rhythm: Sinus Technical Quality: Technically difficult MEASUREMENTS (Male / Female) Normal Values 2D ECHO LV Diastolic Diameter PLAX 5.4 cm 4.2 - 5.9 / 3.9 - 5.3 cm IVS Diastolic Thickness 1.5 cm 0.6 - 1.0 / 0.6 - 0.9 cm IVS Systolic Thickness 2.4 cm LVPW Diastolic Thickness 1.7 cm 0.6 - 1.0 / 0.6 - 0.9 cm LVPW Systolic Thickness 2.1 cm LVOT Diameter 2.1 cm LV Ejection Fraction 2D Teich 58.8 % LV Ejection Fraction MOD 4C 52.4 % LV Ejection Fraction MOD 2C 52.3 % LV Ejection Fraction 2C AL 55.3 % LA Diameter 3.7 cm RA Systolic Volume 4C AL 77.1 ml RA Systolic Volume 4C MOD 74.7 ml LA Sys Volume AL 74.9 cm cubed LA Sys Volume Index AL 30.3 cm cubed/m squared M-MODE LA Ao Ratio MM 1.9 AV Cusp Separation MM 1.2 cm DOPPLER AV Peak Velocity 247.0 cm/s LVOT Peak Velocity 119.0 cm/s AV Area Cont Eq vti 1.6 cm squared AV Area Cont Eq pk 1.7 cm squared MV Peak Velocity 128.0 cm/s MV Area PHT 5.5 cm squared Mitral E to A Ratio 0.9 TR Peak Velocity 79.0 cm/s TR Peak Gradient 2.5 mmHg TV Peak E Velocity 63.0 cm/s PV Peak Velocity 120.0 cm/s FINDINGS Left Ventricle Technically difficult study with limited visualiation. Normal left ventricular cavity size. Moderate left ventricular hypertrophy. Low normal left ventricular systolic function. EF 52%. Grade II/IV diastolic dysfunction, moderately elevated filling pressures. Right Ventricle Normal right ventricular size and systolic function. RVSP could not be calculated due to incomplete tricuspid regurgitation velocity profile. Right Atrium Normal right atrial size. Left Atrium Normal left atrial size. Mitral Valve No mitral valve stenosis. Mild mitral valve regurgitation. Aortic Valve Aortic valve not well visualized. Mild aortic valve stenosis. Mild aortic valve calcification. Mild aortic valve regurgitation. Tricuspid Valve No tricuspid valve regurgitation. Pulmonic Valve No pulmonary valve stenosis. No pulmonary valve regurgitation. Pericardium No pericardial effusion. Aorta Normal size aortic root and proximal ascending aorta. IVC Inferior vena cava not visualized. CONCLUSIONS 1. Normal biventricular cavity size. 2. Low normal left ventricular systolic function, EF 52%. 3. Grade II/IV left ventricular diastolic dysfunction. 4. Mild aortic valve stenosis and rgurgitation. 5. RVSP could not be calculated due to incomplete tricuspid regurgitation velocity profile. 6. Moderate concentric left ventricular hypertrophy Chad Heredia MD, FACC (Electronically Signed) Final Date: 23 June 2025 16:54 S
== END 2025-06-20 10:35 | disposition home or self-care (01) ==
PROVIDERS: PCP Family Medicine; Visit Provider Family Medicine
DX: I10 Essential (primary) hypertension (principal); I50.32 Chronic diastolic (congestive) heart failure; I35.0 Nonrheumatic aortic (valve) stenosis; E78.5 Hyperlipidemia, unspecified
CPT/HCPCS: 93306

== ENCOUNTER 2025-06-26 10:53 | Inpatient (IN) | payer MEDICARE, MEDICAID, SELFPAY ==
[2025-06-26] VITALS (11 sets, daily range): BP systolic 140–189; BP diastolic 45–85; PULSE 61–71; RESP 16–20; TEMP 36.8; O2SAT 94–100; BMI 33.9; BMI 33.7
--- OUTSIDE RECORDS SUMMARY | 2025-06-26 10:59 | XMS_ITS | Encounter Summary ---
Author Organization [facility] Address [address] [place] [address] Care Team Providers Care Pillar Man Name Role Phone Ambar Dang MD Primary Care Provider [phone] Reason for Referral * Outpatient Services (Routine) - Closed Specialty Diagnoses / Procedures Referred By Ilene t Referred To Contact Diagnoses Thoracic aneurysm without mention of rupture HTN (hypertension) ASHD (arteriosclerotic heart disease) Procedures CTA CHEST ABD PELVIS W WO CONTRAST Abilio Smith MD [address] [place] [address] Phone: tel: fax: Referral ID Status Reason Start Date Expiration Date Visits Re quested Visits Authorized [id number] Closed 11/30/2012 12/31/2013 1 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 Gender Identity Not on file Sexual Orientation Not on file Occupation Industry Job Start Date Job End Date Enemployed Not on file Not on file Not on file Not on file Not on file Not on file Not on file documented as of this encounter Plan of Treatment Not on file documented as of this encounter Results * CTA CHEST ABD PELVIS W WO CONTRAST (11/30/2012 7:48 PM DOOR TO DOOR SELLING DISTRIBUTOR) Anatomical Region Laterality Modality Chest, Abdomen, Pelvis Computed Tomography 11/30/2012 6:32 PM DOOR TO DOOR SELLING DISTRIBUTOR Impressions 12/01/2012 8:51 AM DOOR TO DOOR SELLING DISTRIBUTOR Impression: As similarly described on prior CT report is 5.1 cm ascending thoracic aortic aneurysm. No apparent complication of aorta. Moderate sized hiatal hernia. Partially imaged prominent sized fluid collections within both scrotal sacs; clinical correlation recommended. Prostatomegaly. 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 Exam: CTA CHEST ABD PELVIS W WO CONTRAST Date/Time of Exam: Nov 30, 2012 07:48:00 PM Reason For Exam: Thoracic aneurysm without mention of rupture. Technique: CTA of the chest, abdomen, and pelvis was performed prior to and following the administration of intravenous contrast. Post-processing was performed, including sagittal and coronal reformations and 3-D reconstruction. Contrast: 100 mL Optiray-350 intravenous contrast. Correlation to prior chest, abdomen and pelvic CT report of 02/24/2012. 5.1 cm ascending thoracic aortic aneurysm as similarly described on prior CT report. No apparent complication such as dissection of aorta. Abdominal aorta unremarkable. No thoracic lymphadenopathy. Visualized central tracheobronchial tree unremarkable. No pleural effusion or pericardial thickening. Subtle areas of reticular infiltration within periphery of both lungs most compatible with chronic disease/scarring. Nonspecific few scattered pulmonary micronodules. Moderate sized hiatal hernia. Solid upper abdominal organs unmarked. Nonspecific appearing gallbladder. Partially imaged are prominent sized fluid collections within both scrotal sacs, left greater than right. Prostatomegaly. Bowel structures nonspecific. No apparent lymphadenopathy or free fluid. Small fat-containing periumbilical hernia. Procedure Note Harvey Martel MD - 12/01/2012 IMPRESSION - see report below. Exam: CTA CHEST ABD PELVIS W WO CONTRAST Date/Time of Exam: Nov 30, 2012 07:48:00 PM Reason For Exam: Thoracic aneurysm without mention of rupture. Technique: CTA of the chest, abdomen, and pelvis was performed prior to and following the administration of intravenous contrast. Post-processing was performed, including sagittal and coronal reformations and 3-D reconstruction. Contrast: 100 mL Optiray-350 intravenous contrast. Correlation to prior chest, abdomen and pelvic CT report of 02/24/2012. 5.1 cm ascending thoracic aortic aneurysm as similarly described on prior CT report. No apparent complication such as dissection of aorta. Abdominal aorta unremarkable. No thoracic lymphadenopathy. Visualized central tracheobronchial tree unremarkable. No pleural effusion or pericardial thickening. Subtle areas of reticular infiltration within periphery of both lungs most compatible with chronic disease/scarring. Nonspecific few scattered pulmonary micronodules. Moderate sized hiatal hernia. Solid upper abdominal organs unmarked. Nonspecific appearing gallbladder. Partially imaged are prominent sized fluid collections within both scrotal sacs, left greater than right. Prostatomegaly. Bowel structures nonspecific. No apparent lymphadenopathy or free fluid. Small fat-containing periumbilical hernia. IMPRESSION Impression: As similarly described on prior CT report is 5.1 cm ascending thoracic aortic aneurysm. No apparent complication of aorta. Moderate sized hiatal hernia. Partially imaged prominent sized fluid collections within both scrotal sacs; clinical correlation recommended. Prostatomegaly. eaw - uploaded from [employer] - Abilio Smith MD CT ORDERABLES Final Resu lt documented in this encounter Visit Diagnoses Diagnosis Thoracic aneurysm without mention of rupture HTN (hypertension) Unspecified essential hypertension ASHD (arteriosclerotic heart disease) Coronary atherosclerosis of unspecified type of vessel, emmonak or graft Thoracic aneurysm without mention of rupture- Primary HTN (hypertension) Unspecified essential hypertension ASHD (arteriosclerotic heart disease) Coronary atherosclerosis of unspecified type of vessel, emmonak or graft documented in this encounter Care Teams Pillar Man Relationship Specialty Start Date End Date Ambar Dang MD PCP - General Internal Medicine 11/08/13 documented as of this encounter
--- OUTSIDE RECORDS SUMMARY | 2025-06-26 10:59 | XMS_ITS | Clinical Summary ---
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 Graf, has Tyler erosions and hiatal hernia Acquired lymphedema of leg 11/19/2010 Thoracic aneurysm without mention of rupture Overview (01/22/2021): 5.3 cm, greatest in the mid to distal ascending portion Resolved Problems Problem Noted Date Diagnosed Date Resolved Date BCC (basal cell carcinoma of skin) 02/22/2012 11/08/2013 Overview (01/21/2021): ulcerated basal cell carcinoma, margins involved by tumor, right neck Nausea with vomiting 11/19/2010 014 Family History Medical History Relation Name Comments Heart Disease Brother 1 Cancer Brother 2 Renal Other Brother 3 Dementia Other Brother 4 Dementia Heart Disease Mother High Cholesterol Sister 1 Hypertension Sister 1 High Cholesterol Sister 2 Hypertension Sister 2 Heart Disease Sister 3 Colon Cancer Neg Hx Relation Name Status Comments Brother 1 Brother 2 Brother 3 Brother 4 Brother 5 Alive Father Maternal Grandfather Maternal Grandmother Mother Paternal Grandfather Paternal Grandmother Sister 1 Alive Sister 2 Alive Sister 3 Sister 4 Alive Sister 5 Alive Social History Tobacco Use Types Packs/Day Years Used Date Smoking Tobacco: Never Smokeless Tobacco: Never Alcohol Use Standard Drinks/Week Comments No 0 (1 standard drink = 0.6 oz pur e alcohol) Sex and Gender Information Value Date Recorded Sex Assigned at Not on file Legal Sex 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 Gender Identity Not on file Sexual Orientation Not on file Plan of Treatment Health Maintenance Due Date Last Done Comments DTAP/TDAP/TD VACCINES (1 - Tdap) 1970 FIT-DNA Q 3 years 02/19/1996 FIT/FOBT Q 1 year 02/19/1996 Flex Sig/CT Colonography Q 5 years 02/19/1996 PNEUMOCOCCAL VACCINE 50+ YEARS (1 of 1 - PCV) 02/19/20 ZOSTER VACCINE (1 of 2) 2001 COLORECTAL SCREENING 11/25/2020 11/25/2010 Colorectal Cancer Screening 11/25/2020 INFLUENZA VACCINE (#1) 2025 RSV VACCINE (60+ or ) (1 - 1-dose 75+ series) 2026 Care Teams Assistant Financial Accountant Relationship Specialty Start Date End Date Ambar Dang MD PCP - General Internal Medicine 11/08/13
--- OUTSIDE RECORDS SUMMARY | 2025-06-26 10:59 | XMS_ITS | Encounter Summary ---
Author Organization [facility] Address [address] [place] [address] Care Team Providers Care Maturity Checker Name Role Phone Ambar Dang MD Primary Care Provider [phone] Reason for Referral * Outpatient Services (Routine) - Closed Specialty Diagnoses / Procedures Referred By Ilene eugene Referred To Contact Diagnoses Thoracic aneurysm without mention of rupture Nausea with vomiting Procedures CT CHEST ABDOMEN PELVIS W CONT Abilio Smith MD [address] [place] [address] Phone: tel: fax: Referral ID Status Reason Start Date Expiration Date Visits Re quested Visits Authorized [id number] Closed 11/24/2010 05/23/2011 1 1 CLE PAINTER Encounter Details Date Type Department Care Team (Late st Contact Info) Description 11/24/2010 Ancillary Orders [facility] Internal Medicine- [address] [place] [address] Abilio Smith MD [address] [place] [address] Thoracic aneurysm without mention of rupture; Nausea with vomiting Social History Tobacco Use Types Packs/Day Years Used Date Smoking Tobacco: Passive Smo ke Exposure - Never Smoker Cigarettes Smokeless Tobacco: Never Alcohol Use Standard Drinks/Week Comments No 0 (1 standard drink = 0.6 oz pur e alcohol) Sex and Gender Information Value Date Recorded Sex Assigned at Not on file Legal Sex Male 12:40 PM 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 Aneurysmal dilatation of the ascending thoracic aorta as above. No dissection. Hiatal hernia. Please see above. Prostatomegaly and hydroceles are also noted. juan luis [id number] - uploaded from [employer] 11/25/2010 8:49 AM VEHICLE PAINTER Exam: CT CHEST ABDOMEN PELVIS W CONT Date/Time of Exam: Nov 24, 2010 07:31:00 PM History: THORACIC ANEURYSM WITHOUT MENTION OF RUPTURE. Technique: CT of the chest, abdomen, and pelvis was performed following the administration of intravenous contrast. Contrast: 125 mL Optiray-240 contrast. The thoracic aorta is ectatic. There is aneurysmal dilatation of the ascending thoracic aorta. The root of the ascending thoracic aorta measures 4.8 x 5.3 cm. Proximal ascending thoracic aorta has a transverse measurement of 5.3 cm. Transverse measurement of the aortic arch is 2.8 cm. The descending thoracic aorta is ectatic measuring 3.0 x 3.8 cm in size proximally and the distal descending thoracic aorta measures 2.6 cm in diameter. There is no dissection. The abdominal aorta is very small in size measuring 1.5 cm. No abdominal aortic aneurysm is identified. The bifurcation also is unremarkable. No adenopathy is identified in the axilla. No mediastinal or hilar adenopathy is identified. The pulmonary arteries are partially opacified but are unremarkable. The prominent hiatal hernia is noted. Otherwise, the stomach is unremarkable. The adrenal glands are normal in size. The liver is homogeneous in density and the spleen is unremarkable. The gallbladder is fluid filled and the pancreas is unremarkable. Kidneys demonstrate symmetric enhancement and no hydronephrosis or nephrolithiasis is identified. There is no adenopathy. Small fat-filled umbilical hernia is noted. There is abundant colonic stool. No bowel thickening or inflammatory changes are identified. Prostatomegaly is noted. Urinary bladder is unremarkable. Small fat-filled inguinal hernias are noted bilaterally. The right hernia is slightly larger. Prominent large hydroceles are incidentally noted. The colon is redundant. There is abundant colonic stool. No focal wall thickening or inflammatory changes are identified. The loops of small bowel have an appropriate appearance. The patient has some dependent atelectasis in the lungs and a few calcified granulomas. There is no soft tissue nodule. No airspace opacity is identified. Diffuse mild degenerative changes are noted in the spine. No bony destructive lesion is identified. Procedure Note Helen Hanks MD - 11/25/2010 Exam: CT CHEST ABDOMEN PELVIS W CONT Date/Time of Exam: Nov 24, 2010 07:31:00 PM History: THORACIC ANEURYSM WITHOUT MENTION OF RUPTURE. Technique: CT of the chest, abdomen, and pelvis was performed following the administration of intravenous contrast. Contrast: 125 mL Optiray-240 contrast. The thoracic aorta is ectatic. There is aneurysmal dilatation of the ascending thoracic aorta. The root of the ascending thoracic aorta measures 4.8 x 5.3 cm. Proximal ascending thoracic aorta has a transverse measurement of 5.3 cm. Transverse measurement of the aortic arch is 2.8 cm. The descending thoracic aorta is ectatic measuring 3.0 x 3.8 cm in size proximally and the distal descending thoracic aorta measures 2.6 cm in diameter. There is no dissection. The abdominal aorta is very small in size measuring 1.5 cm. No abdominal aortic aneurysm is identified. The bifurcation also is unremarkable. No adenopathy is identified in the axilla. No mediastinal or hilar adenopathy is identified. The pulmonary arteries are partially opacified but are unremarkable. The prominent hiatal hernia is noted. Otherwise, the stomach is unremarkable. The adrenal glands are normal in size. The liver is homogeneous in density and the spleen is unremarkable. The gallbladder is fluid filled and the pancreas is unremarkable. Kidneys demonstrate symmetric enhancement and no hydronephrosis or nephrolithiasis is identified. There is no adenopathy. Small fat-filled umbilical hernia is noted. There is abundant colonic stool. No bowel thickening or inflammatory changes are identified. Prostatomegaly is noted. Urinary bladder is unremarkable. Small fat-filled inguinal hernias are noted bilaterally. The right hernia is slightly larger. Prominent large hydroceles are incidentally noted. The colon is redundant. There is abundant colonic stool. No focal wall thickening or inflammatory changes are identified. The loops of small bowel have an appropriate appearance. The patient has some dependent atelectasis in the lungs and a few calcified granulomas. There is no soft tissue nodule. No airspace opacity is identified. Diffuse mild degenerative changes are noted in the spine. No bony destructive lesion is identified. IMPRESSION Impression: 1. Aneurysmal dilatation of the ascending thoracic aorta as above. No dissection. Hiatal hernia. Please see above. Prostatomegaly and hydroceles are also noted. juan luis [id number] - uploaded from [employer] - [employer] Abilio Smith MD CT ORDERABLES Final Resu lt documented in this encounter Visit Diagnoses Diagnosis Thoracic aneurysm without mention of rupture Nausea with vomiting Thoracic aneurysm without mention of rupture Nausea with vomiting documented in this encounter Care Teams Maturity Checker Relationship Specialty Start Date End Date Ambar Dang MD PCP - General Internal Medicine 11/08/13 documented as of this encounter
--- OUTSIDE RECORDS SUMMARY | 2025-06-26 10:59 | XMS_ITS | Clinical Summary ---
Author Organization [facility] Address [address] [place] [address] Care Team Providers Care Hotel Staff Member Name Role Phone Ambar Dang MD Primary Care Provider [phone] Allergies Active Allergy Reactions Criticality Noted Date Comments Influenza Virus Vacc Trivalent Other (See Comments) 11/08/2013 Patient refuses Medications aspirin (DAREN) 81 mg Oral TabIndications: HTN (hypertension) Take 1 Tab by mouth daily. 90 Tab 3 3 Active metoclopramide HCl (REGLAN) 10 mg tabletIndicatio ns:Sliding hiatal hernia Take 1 Tab by mouth 3 times daily. For hiccups. Once improve, then decrease to once a day. 90 Tab 0 4 Active atenolol (TENORMIN) 50 mg tabletIndicatio ns:HTN (hypertension), Thoracic aortic aneurysm without mention of rupture (CMS/HCC) Take 1 Tab by mouth daily. 90 Tab 3 4 Active triamterene-hyd rochlorothiazid e (MAXZIDE-25MG) 37.5-25 mg tabletIndicatio ns:HTN (hypertension) Take 1 Tab by mouth daily. For leg swelling and blood pressure 90 Tab 3 4 Active omeprazole (PRILOSEC) 20 mg Capsule, Delayed Release(E.C.)In dications:Slidi ng hiatal hernia Take 1 Cap by mouth daily. 90 Cap 3 4 Active polyethylene glycol 3350 (MIRALAX) 17 gram/dose Powder Take 1 SCOOP by mouth daily. For constipation 17 Gram 0 4 Active Active Problems Problem Noted Date Diagnosed Date Mental disability 11/08/2013 Idiopathic cardiomyopathy 05/02/2013 Overview (11/08/2013): LVEF= 45-50% and regional wall motion abnormalities, stress test normal, 04/07 Cholelithiasis 05/02/2013 HTN (hypertension) 12/03/2010 Thoracic aneurysm without mention of rupture Overview (04/14/2012): 5.3 cm, greatest in the mid to distal ascending portion Sliding hiatal hernia 11/19/2010 Overview (11/08/2013): EGD in 10/[address] 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 OF 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 Gender Identity Not on file Sexual Orientation Not on file Occupation Industry Job Start Date Job End Date Not on file Not on file Not on file Not on file Not on file Not on file Not on file Not on file Last Filed Vital Signs Vital Sign Reading Time Taken Comments Blood Pressure 146/66 11/08/2013 2:16 PM MANAGER OF DRILLING Pulse 60 11/08/2013 2:16 PM MANAGER OF DRILLING Temperature 37 C (98.6 F) 04/03/2013 9:46 AM CDT Respiratory Rate 24 11/08/2013 2:16 PM MANAGER OF DRILLING Oxygen Saturation 95% 10/17/2012 11:50 AM MANAGER OF DRILLING Inhaled Oxygen Concentration - - Weight 107 kg (236 lb) 11/08/2013 2:16 PM MANAGER OF DRILLING Height 177.8 cm (5' 10 ) 11/08/2013 2:16 PM MANAGER OF DRILLING Body Mass Index 33.86 11/08/2013 2:16 PM MANAGER OF DRILLING Plan of Treatment Health Maintenance Due Date Last Done Comments FIT/ DNA Q 3 YEARS (AUTO ORDER) 1969 FIT/FOBT Q 1 YEAR (AUTO ORDER) 1969 FLEX SIG/CT COLONOGRAPHY Q 5 YEARS (AUTO ORDER) 1969 DTAP/TDAP/TD VACCINES (1 - Tdap) 1970 FIT-DNA Q 3 years 02/19/1996 FIT/FOBT Q 1 year 02/19/1996 Flex Sig/CT Colonography Q 5 years 02/19/1996 PNEUMOCOCCAL VACCINE 50+ YEA RS (1 of 1 - PCV) 2001 ZOSTER VACCINE (1 of 2) 2001 Traditional Medicare (ACO) A nnual Wellness Visit 05/03/2014 05/02/2013 COLORECTAL CANCER SCREENING (AUTO ORDER) 11/25/2020 11/25/2010, 11/25/2010 COLORECTAL SCREENING 11/25/2020 11/25/2010, 11/26/19 11 Colorectal Cancer Screening (AUTO ORDER) 11/25/2020 Colorectal Cancer Screening 11/25/2020 INFLUENZA VACCINE (#1) 2025 RSV VACCINE (60+ or ) (1 - 1-dose 75+ series) 2026 Procedures Procedure Name Priority Date/Time Associated Diagnosis Comments ENDOSCOPY, COLON, SCREENING Routine 11/25/2010 1:25 PM MANAGER OF DRILLING Screening for colon cancer from Last 3 Months or Most Recently Relevant to Health Maintenance Insurance MEDICARE PART A AND B MEDICAID [place] Advance Directives For more information, please contact: [phone] * Full Code (Latest Code Status on File) Date Activated Date Inactivated Comments 11/25/2010 1:19 PM 11/25/2010 5:38 PM Care Teams Hotel Staff Member Relationship Specialty Start Date End Date Ambar Dang MD PCP - General Internal Medicine 11/08/13
--- NOTE | 2025-06-26 11:09 | ECG_ITS ---
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 Measurements Intervals [place] Rate: 67 P: 67 AL: 154 QRS: 10 QRSD: 112 T: 84 QT: 403 QTc: 427 Interpretive Statements SINUS RHYTHM MODERATE INTRAVENTRICULAR CONDUCTION DELAY [105+ ms QRS DURATION, 80+ ms Q/S IN V1/V2, NO Q AND 60+ ms R IN I/aVL/V5/V6] NONSPECIFIC T-WAVE ABNORMALITY Compared to ECG 01/11/2025 02:50:25 Possible ischemia no longer present T-wave abnormality still present Electronically Signed On 06-27-2025 08:36:59 CDT by Edenilson Reis M.D. [email or web address]
--- NOTE | 2025-06-26 11:09 | XR_ITS ---
WS: [id number] XR chest 1V portable [id number] REASON FOR EXAM: dyspnea/cough FINDINGS: Significant tortuosity and ectasia of the thoracic aorta with calcification of the aortic arch. (Aneurysmal dilatation of the aortic arch confirmed by previous CT scan 11/27/2022.). Probably mild cardiomegaly. There is hazy opacity in the left lower hemithorax with blunting of the left costophrenic angle and indistinctness of the left cardiac border which was present and unchanged compared to the previous examination. There is pleural thickening with blunting of the right costophrenic angle which is also present on the previous examination but appears more prominent and a right pleural effusion is not readily excluded. No other definite acute interval change or new abnormality. XR/XR chest 1V portable [id number] IMPRESSION: Possible interval right pleural effusion. Other abnormalities described above a ppear unchanged.
--- NOTE | 2025-06-26 11:10 | CT_ITS ---
WS: [id number] CTA THORACIC AORTA WITH AND WITHOUT CONTRAST HISTORY: Syncopal episode history thoracic aortic aneurysm 4.9 cm TECHNIQUE: CTA imaging of the thorax is performed with and without contrast. After noncontrast imaging is performed, CT angiogram is performed during injection of Omnipaque 350; 100 mL IV.. Sagittal and coronal reconstructions, sagittal and coronal MIP imaging is submitted. All CT scans at [facility] use at least one of these dose optimization techniques: automated exposure control; mA and/or kV adjustment per patient size (includes targeted exams where dose is matched to clinical indication); or iterative reconstruction. DLP: 1184.17 mGy.cm COMPARISON: 12/02/2022 Extensive atherosclerotic calcified plaque throughout the thoracic aorta. Ascending thoracic aortic aneurysm is very slightly increased in size now measuring 5.1 cm at a maximum diameter. Normal size descending aorta at the 2.9 cm. Through the arch the aneurysm returns to normal caliber. There is no di ssection. No periaortic hematoma identified. No mediastinal hematoma. Atherosclerotic plaque and ectasia of the great vessels but no occlusions. There is no dilatation at the level of the aortic valve plane. Calcifications are identified within the aortic valve. Heart size is normal. No pericardial effusion. Lungs are hyperinflated. Mild pleural thickening. Mild dependent changes in the upper lung valdovinos. No mass or nodule. No mediastinal or hilar adenopathy. Normal pulmonary vein. Visualized pulmonary veins are negative for thrombus. Large hiatal hernia. No adrenal mass. Gallbladder is absent and may have been surgically removed. Mild fatty atrophy and replacement of the pancreas. Mild cortical thinning upper pole of each kidney. Reidentified is calcified and noncalcified plaque in the proximal SMA with mild progression since 2022 of stenosis. No occlusions. Increase in thoracic kyphosis. CT/CT angio chest [id number] IMPRESSION: 1. No ascending thoracic aortic aneurysm has increased slightly in size from 4 .9 cm to 5.1 cm. 2. No acute aortic injury or dissection. No para-aortic hematoma. 3. Large hiatal hernia. 4. Gallbladder is absent.
--- NOTE | 2025-06-26 11:24 | W.ED.SYNCOPE ---
HPI - Syncope General: Chief Complaint: Syncope Stated Complaint: syncope Time Seen by Provider: 06/26/25 10:55 History of Present Illness: 75-year-old male presents to the emergency room with complaints of syncopal episode. Patient had gone to a local convenience store and had unprovoked syncopal episode he had aura prior. He has a history of hypertension he has chest pain while he is moving radiating into his back. Pain is more intermittent normal spasmodic like while I am talking to him he will have sharp pain that lasts for a few seconds and then resolves. He states he did not have any of this just prior to his syncopal episode. There is no report of seizure-like activity. Patient has a history of thoracic aortic aneurysm he was last evaluated in November 2022. He also has a history of COPD congestive heart failure he has some mild aortic stenosis with regurg as well. He tells me within the last week he had an echocardiogram done to evaluate. He has some mild pain in the lower substernal region radiating to his back at this time. Associated symptoms: Deny abdominal pain, chest pain or fever(s) Related Data Home Medications ?Medication ?Instructions ?Recorded ?Confirmed aspirin 81 mg tablet,delayed 81 mg PO DAILY 11/01/19 06/26/25 release (Adult Low Dose Aspirin) Previous Rx's ?Medication ?Instructions ?Recorded amiodarone 200 mg tablet 200 mg PO DAILY #30 tabs 04/18/25 apixaban 5 mg tablet (Eliquis) 5 mg PO BID #60 tabs 04/18/25 atorvastatin 40 mg tablet 40 mg PO BEDTIME #30 tabs 04/18/25 bumetanide 2 mg tablet 2 mg PO DAILY #30 tabs 04/18/25 carvedilol 6.25 mg tablet 6.25 mg PO BID #180 tabs 04/18/25 cetirizine 10 mg tablet (All Day 10 mg PO DAILY #30 tabs 04/18/25 Allergy (cetirizine)) isosorbide mononitrate 60 mg 60 mg PO DAILY #30 tabs 04/18/25 tablet,extended release 24 hr lansoprazole 30 mg capsule,delayed 30 mg PO DAILY #30 caps 04/18/25 release (Prevacid) spironolactone 50 mg tablet 50 mg PO DAILY #30 tabs 04/18/25 Allergies Allergy/AdvReac Type Severity Reaction Status Date / Time No Known Allergies Allergy Verified 10/04/24 10:58 Review of Systems Const: Denies: fever(s) or chills Card: Denies: chest pain Resp: Denies: dyspnea GI: Denies: abdominal pain : Denies: dysuria, urinary frequency or urinary urgency Musc: Denies: neck pain or back pain Skin/Breast: Denies: rash PFSH ED PFSH: Medical History GERD (gastroesophageal reflux disease) Seasonal allergies BPH (benign prostatic hyperplasia) seen by urology in 2019 for urinary retention CKD (chronic kidney disease) 09/2022 Creatinine 1.1 COVID-19 03/2021 Aortic regurgitation Ventricular tachycardia Chronic anticoagulation Atrial fibrillation paroxysmal, hx cardioversion Moderate aortic stenosis Normal coronary angiogram 2018 Thoracic aortic aneurysm 11/2022 CT scan showed Stable ascending thoracic aortic aneurysm, 4.9 cm Scrotal edema Bilateral hydroceles noted on CT 11/2022 Hypertension Congestive heart failure Surgical History Hx of cataract surgery Family History Other CAD (coronary artery disease) Social History Smoking and tobacco/nicotine status: never used tobacco/nicotine Alcohol intake: never Substance/Drug Use: never Adopted: No Caregiver/support person: No Lives independently: Yes Marital status: Single Current occupational status: retired Physical Exam Const: GENERAL APPEARANCE: cooperative ORIENTATION/CONSCIOUSNESS: Yes awake, Yes oriented to person, Yes oriented to place and Yes oriented to time HENMT: COMMON NORMALS: normocephalic, atraumatic and hearing grossly normal bilaterally HEAD & SCALP: normocephalic and atraumatic Resp: COMMON NORMALS: normal respiratory effort, No retractions, No use of accessory muscles and clear to auscultation bilaterally AUSCULTATION: clear to auscultation bilaterally Cardio: COMMON NORMALS: regular rate and regular rhythm RATE: regular rate RHYTHM: regular rhythm OTHER: Grade 3/6 systolic murmur GI: COMMON NORMALS: Soft to palpation and No hepatosplenomegaly present AUSCULTATION: Yes normoactive bowel sounds PALPATION: Yes Soft to palpation, No Tenderness to palpation present (GI), No Guarding due to palpation present (GI) and Yes No hepatosplenomegaly present Extremity: COMMON NORMALS: normal to inspection, capillary refill normal, no clubbing, cyanosis or edema, no calf tenderness and no pedal edema Neuro: SENSORIUM/ORIENTATION: Yes oriented to person, Yes oriented to place and Yes oriented to time OTHER: No focal neurologic deficits noted on exam no leg or arm drift no facial asymmetry, no ataxia, abbreviated NIH negative Skin: COMMON NORMALS: no rashes or lesions noted GENERAL SKIN EXAM: no rashes or lesions noted Course Vital Signs: Vital signs: Vital Signs Temperature 97.9 F 06/27/25 15:23 Pulse Rate 78 06/27/25 15:23 Respiratory Rate 20 H 06/27/25 15:23 Blood Pressure 133/86 06/27/25 15:23 Pulse Oximetry 95 06/27/25 15:23 Oxygen Delivery Me thod Room Air 06/27/25 12:00 MDM - Syncope Medical Decision Making No focal neurologic deficits noted on exam. No acute fractures on plain films. Unprovoked syncopal episode. Patient does have aortic stenosis and regurg. Troponins and EKG unremarkable CTA of the chest was done was negative for any dissection patient has known ascending aortic aneurysm that has increased slightly to 5.1 cm with no sign of acute changes. Will place on observation for syncope. Medical Records I reviewed the patient's medical records. Lab Data I reviewed the patient's lab results. 06/27/25 02:50 06/27/25 02:50 Radiology Impressions Chest X-Ray 06/26/25 11:09 IMPRESSION: Possible interval right pleural effusion. Other abnormalities described above appear unchanged. Chest CTA 06/26/25 11:10 IMPRESSION: 1. No ascending thoracic aortic aneurysm has increased slightly in size from 4.9 cm to 5.1 cm. 2. No acute aortic injury or dissection. No para-aortic hematoma. 3. Large hiatal hernia. 4. Gallbladder is absent. ADDENDUM: 06/26/25 1212 IMPRESSION: 1. KNOWN ascending thoracic aortic aneurysm has increased slightly in size from 4.9 cm to 5.[address] 06/26/25 14:16 IMPRESSION: 1. No acute intracranial hemorrhage or edema. 2. Stable noncontrast CT head since 02/02/2024. Laboratory Results WBC 5.53 10^3/uL (3.29-11.43) 06/26/25 11:21 RBC 5.19 10^6/uL (3.85-5.65) 06/26/25 11:21 Hgb 13.80 g/dL (11.27-16.99) 06/26/25 11:21 Hct 43.8 % (37-53) 06/26/25 11:21 MCV 84.4 fl (82-101) 06/26/25 11:21 MCH 26.6 pg (27-33) L 06/26/25 11:21 MCHC 31.5 g/dL (30-55) 06/26/25 11:21 RDW 14.9 % (12.1-15.1) 06/26/25 11:21 Plt Count 264 10^3/cmm (157-399) 06/26/25 11:21 MPV 9.1 fL (7.4-10.4) 06/26/25 11:21 Neut % (Auto) 64.5 % 06/26/25 11:21 Lymph % (Auto) 18.1 % 06/26/25 11:21 [place] % (Auto) 13.2 % 06/26/25 11:21 Eos % (Auto) 3.1 % 06/26/25 11:21 Baso % (Auto) 0.7 % 06/26/25 11:21 Neut # (Auto) 3.57 10^3/uL (1.8-7.7) 06/26/25 11:21 Lymph # (Auto) 1.0 10^3/uL (0.8-4.8) 06/26/25 11:21 [place]win # (Auto) 0.7 10^3/uL (0.2-0.9) 06/26/25 11:21 Eos # (Auto) 0.2 10^3/uL (0.0-0.8) 06/26/25 11:21 Baso # (Auto) 0.0 10^3/uL (0.0-0.1) 06/26/25 11:21 Nucleated RBC % (auto) 0 % 06/26/25 11:21 Nucleated RBCs # 0.0 /100WBC 06/26/25 11:21 Sodium 133 mmol/L (136-145) L 06/26/25 11:21 Potassium 4.9 mmol/L (3.5-5.1) 06/26/25 11:21 Chloride 98 mmol/L (98-107) 06/26/25 11:21 Carbon Dioxide 26 mmol/L (22-29) 06/26/25 11:21 Anion Gap 13.9 (5-19) 06/26/25 11:21 BUN 16 mg/dL (8-23) 06/26/25 11:21 Creatinine 0.9 mg/dL (0.7-1.2) 06/26/25 11:21 GFR Calculation Not Reportable 06/26/25 11:21 Glucose 98 mg/dL (65-115) 06/26/25 11:21 Calculated Osmolality 277 mOsm/kg (285-295) L 06/26/25 11:21 Calcium 9.1 mg/dL (8.5-10.5) 06/26/25 11:21 Total Bilirubin 0.4 mg/dL (0.15-1.2) 06/26/25 11:21 AST 33 U/L (0-40) 06/26/25 11:21 ALT 37 U/L (0-41) 06/26/25 11:21 Alkaline Phosphatase 95 U/L (40-130) 06/26/25 11:21 Troponin T Baseline 20 ng/L (0-15) H 06/26/25 11:21 Troponin T 120 Minute 21.49 ng/L (0-15) H 06/26/25 12:53 Delta Troponin T 1.49 ABS# (0-10) 06/26/25 12:53 Troponin T Hi Sens 6Hr 19.51 ng/L (0-15) H 06/26/25 17:09 Troponin T Hi Sens 6Hr Delta -0.49 ng/L (0-12) L 06/26/25 17:09 Total Protein 7.3 g/dL (6.6-8.7) 06/26/25 11:21 Albumin 4.3 g/dL (3.5-5.2) 06/26/25 11:21 Globulin 3.0 g/dL (1.3-4.6) 06/26/25 11:21 Urine Color Yellow (Yellow) 06/26/25 11:42 Urine Appearance Clear (CLEAR) 06/26/25 11:42 Urine pH 7.0 (5-7) 06/26/25 11:42 Ur Specific [place] 1.050 (1.005-1.030) H 06/26/25 11:42 Urine Protein Negative (Negative) 06/26/25 11:42 Urine Glucose (UA) Negative (Normal) 06/26/25 11:42 Urine Ketones Negative (Negative) 06/26/25 11:42 Urine Blood Negative (Negative) 06/26/25 11:42 Urine Nitrate Negative (Negative) 06/26/25 11:42 Urine Bilirubin Negative (Negative) 06/26/25 11:42 Urine Urobilinogen 1.0 mg/dL (Negative) 06/26/25 11:42 Ur Leukocyte Esterase Negative (Negative) 06/26/25 11:42 Amorphous Sediment Not Reportable 06/26/25 11:42 All radiology interpretation(s) finalized by discharge EKG Data EKG 1: Interpretation: EKG 06/26/2025 1121 sinus rhythm rate of 6 7 parable [address] changes no acute ST changes no ST elevation. EKG compared to previous of 01/11/2025 EKG 2: Interpretation: EKG 06/26/2025 12:29 AM sinus rhythm rate of 62. 161 QTc 421. Compared to EKG done earlier today no significant changes no acute ST changes. 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
[2025-06-26 11:30] LABS: Hematocrit 43.8 % (37-53); Hemoglobin 13.80 g/dL (11.27-16.99); Mean Corpuscular HGB Conc 31.5 g/dL (30-55); Mean Corpuscular Hemoglobin 26.6 pg (27-33); Mean Corpuscular Volume 84.4 fl (82-101); Nucleated Red Blood Cells % 0 %; Platelet Count 264 10^3/cmm (157-399); Red Blood Count 5.19 10^6/uL (3.85-5.65); White Blood Count 5.53 10^3/uL (3.29-11.43)
[2025-06-26] MEDS: iohexol 350 mg/mL 500 mL Btl (per mL) IV (11:37)
[2025-06-26 11:51] LABS: Add Urine Microscopic? NO
[2025-06-26 11:54] LABS: Glucose Urine UA Negative (Normal); Nitrate Urine Negative (Negative)
[2025-06-26 11:56] LABS: Specific Gravity, Urine 1.050 (1.005-1.030)
[2025-06-26 11:58] LABS: Troponin(5th) Baseline 20 ng/L (0-15)
[2025-06-26 11:58] LABS: Charge for UA Resulting for Rev
[2025-06-26 12:01] LABS: Alanine Aminotransferase 37 U/L (0-41); Albumin Level 4.3 g/dL (3.5-5.2); Alkaline Phosphatase 95 U/L (40-130); Anion Gap 13.9 (5-19); Aspartate Amino Transferase 33 U/L (0-40); Blood Urea Nitrogen 16 mg/dL (8-23); Calcium 9.1 mg/dL (8.5-10.5); Carbon Dioxide 26 mmol/L (22-29); Chloride 98 mmol/L (98-107); Creatinine Clr Calc Pharmacy 93.6214; Globulin 3.0 g/dL (1.3-4.6); Glucose 98 mg/dL (65-115); Osmolality Calculated 277 mOsm/kg (285-295); Potassium 4.9 mmol/L (3.5-5.1); Sodium 133 mmol/L (136-145); Total Protein 7.3 g/dL (6.6-8.7)
--- NOTE | 2025-06-26 12:29 | ECG_ITS ---
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 Measurements Intervals [place] Rate: 62 P: 80 OK: 161 QRS: -3 QRSD: 104 T: 77 QT: 412 QTc: 421 Interpretive Statements SINUS RHYTHM Compared to ECG 06/26/2025 11:21:36 Intraventricular conduction delay no longer present T-wave abnormality no longer present Electronically Signed On 06-27-2025 08:56:20 CDT by Edenilson Reis M.D. [email or web address]
[2025-06-26 13:23] LABS: Troponin 5 2HR 21.49 ng/L (0-15); Troponin 5 2HR Delta 1.49 ABS# (0-10)
--- NOTE | 2025-06-26 14:16 | CT_ITS ---
WS: [id number] CT HEAD NONCONTRAST HISTORY: Syncopal episode TECHNIQUE: Contiguous axial imaging performed through the brain. Bone and soft tissue windows. Sagittal and coronal reformats reviewed. All CT scans at [facility] use at least one of these dose optimization techniques: automated exposure control; mA and/or kV adjustment per patient size (includes targeted exams where dose is matched to clinical indication); or iterative reconstruction. DLP: 1232.18 mGy.cm COMPARISON: 02/02/2024 No acute intracranial hemorrhage, midline shift or mass effect. Moderate symmetric atrophy. Mild small vessel disease. No prior infarct. Extensive calcification along the tentorium is stable over multiple prior years. Ventricles: Ventricles are mildly dilated on the basis of atrophy. Similar to the prior studies. No inferior displacement of the cerebellar tonsils. Paranasal sinuses: As visualized are clear. Mastoid air cells: Well pneumatized. Calvarium and scalp: Skull is intact with no soft tissue edema or swelling. CT/CT head wo con* [id number] IMPRESSION: 1. No acute intracranial hemorrhage or edema. 2. Stable noncontrast CT head since 02/02/2024.
[2025-06-26] MEDS: fentaNYL 50 mcg/mL INJ 2mL IVP (14:44)
--- NOTE | 2025-06-26 15:47 | PM.HP ---
Providers/Chief Complaint Admitting Physician: LUZ MARINA ULRICH---DO- Primary Care Provider: John Russell MD Chief Complaint: syncope History of Present Illness Riki Polanco is a 75 year old male with medical history significant for atrial fibrillation on amiodarone and Eliquis presenting to the emergency room because he had passed out at a convenience store. Patient related that he started having some headache earlier before he passed out and also was having pleuritic chest pain. Patient had history of aortic aneurysm. In the emergency room CT of the head was done it was negative for any acute process, CTA of the chest were done and it was with no acute process rather the aortic aneurysm had increased from a 4.9 cm to a 5.1 cm there were no sign of dissection troponin we had done it was entirely unremarkable. Hour troponin was 22nd hour troponin was 21 and 6-hour troponin was lower at 19. Patient recent echocardiogram was quoted to be with ejection fraction of 50% however a repeat echo is necessary. I have ordered an echo and is pending patient pleuritic chest pain resolved with a GI cocktail that I had given in the emergency room. Patient pleuritic chest pain gets precipitated by deep breathing or even moving around in bed. Though this sounds very atypical pattern with a history of aortic aneurysm that is also increasing I will consult cardiology to also be on the case. Patient is being admitted to stepdown unit room 111 bed 2 Review of Systems Narrative: History review upon tenogram review we are only significant for cardiac/pulmonary. Like into an atypical chest pain likely from GI origin then again cannot rule out cardiac etiology Medications/Allergies Home Medications ?Medication ?Instructions ?Recorded ?Confirmed ?Last Taken ?Type aspirin 81 mg tablet,delayed 81 mg PO DAILY 11/01/19 06/26/25 06/25/25 History release (Adult Low Dose Aspirin) amiodarone 200 mg tablet 200 mg PO DAILY #30 tabs 04/18/25 06/26/25 06/25/25 Rx apixaban 5 mg tablet (Eliquis) 5 mg PO BID #60 tabs 04/18/25 06/26/25 06/25/25 Rx atorvastatin 40 mg tablet 40 mg PO BEDTIME #30 tabs 04/18/25 06/26/25 06/25/25 Rx bumetanide 2 mg tablet 2 mg PO DAILY #30 tabs 04/18/25 06/26/2525 Rx carvedilol 6.25 mg tablet 6.25 mg PO BID #180 tabs 04/18/25 06/26/25 06/25/25 Rx cetirizine 10 mg tablet (All Day 10 mg PO DAILY #30 tabs 04/18/25 06/26/25 06/25/25 Rx Allergy (cetirizine)) isosorbide mononitrate 60 mg 60 mg PO DAILY #30 tabs 04/18/25 06/26/25 06/25/25 Rx tablet,extended release 24 hr lansoprazole 30 mg capsule,delayed 30 mg PO DAILY #30 caps 04/18/25 06/26/25 06/25/25 Rx release (Prevacid) spironolactone 50 mg tablet 50 mg PO DAILY #30 tabs 04/18/25 06/26/25 06/25/25 Rx Allergies Allergy/AdvReac Type Severity Reaction Status Date / Time No Known Allergies Allergy Verified 10/04/24 10:58 PFSH Acute PFSH: Medical History GERD (gastroesophageal reflux disease) Seasonal allergies BPH (benign prostatic hyperplasia) seen by urology in 2019 for urinary retention CKD (chronic kidney disease) 09/2022 Creatinine 1.1 COVID-19 03/2021 Aortic regurgitation Ventricular tachycardia Chronic anticoagulation Atrial fibrillation paroxysmal, hx cardioversion Moderate aortic stenosis Normal coronary angiogram 2018 Thoracic aortic aneurysm 11/2022 CT scan showed Stable ascending thoracic aortic aneurysm, 4.9 cm Scrotal edema Bilateral hydroceles noted on CT 11/2022 Hypertension Congestive heart failure Surgical History Hx of cataract surgery Family History Other CAD (coronary artery disease) Social History Smoking and tobacco/nicotine status: never used tobacco/nicotine Alcohol intake: never Substance/Drug Use: never Adopted: No Caregiver/support person: No Lives independently: Yes Marital status: Single Current occupational status: retired Vitals/I&O/Wt Last Vital Signs Temp 98.3 F 06/26/25 10:57 Pulse 61 06/26/25 15:00 Resp 20 H 06/26/25 14:44 BP 146/79 06/26/25 15:00 Pulse Ox 97 06/26/25 15:00 O2 Del Method Room Air 06/26/25 15:00 Weight last 48 hrs Weight 113.398 kg Physical Exam Narrative: Generally patient is lying in bed holding up to the chest because of movement induces pain. Patient did not have any trauma but does have pleuritic pain upon moving around or even talking or coughing. HEENT normocephalic/atraumatic Neck neck is supple Cardiovascular heart rate is regular, chest pain precipitates upon movement Lungs clear Abdomen is soft nontender nondistended however obese abdomen has good bowel sounds unremarkable extremities are intact no edema has good pulses neurology has no focality lab studies lab studies reviewed and noted. Data 06/26/25 11:21 06/26/25 11:21 A&P Assessment and plan 1. Syncope and collapse: 2. Atypical chest pain: 3. History of aortic aneurysm: 4. History of atrial fibrillation: 5. GERD (gastroesophageal reflux disease): Plan: #1 Syncope with collapse -Admit patient to stepdown unit room 111 bed 2 - CT of the head and CTA of the chest we are entirely unremarkable - There are no acute process on the imaging - Cardiology has been consulted with Dr. Willoughby with an echocardiogram ordered and pending at this time. #2 Gastroesophageal reflux disease with chest pain - Chest pain resolved with GI cocktail - Atypical chest pain is intermittent only with movement and with breathing, cough, speaking - Troponin first hour 20, second hour 21, 6-hour troponin was 19 - Will obtain stress test in a.m. - Keep patient n.p.o. overnight - Case has been discussed with cardiology for this plan - Convention Worker Dr. Willoughby will be seeing the patient #3 History of atrial fibrillation controlled - Patient is on amiodarone, Eliquis, #4 GI and DVT prophylaxis in place PDMP PDMP Reviewed: Last Reviewed 06/26/25 19:23 by Luz Marina Bryant MD Attestations Medical Necessity Statement*: Patient with atypical chest pain but with also aortic aneurysm that he is seeing creasing from a 4.9 to 5.1 cm. And this is requiring cardiology consultation at this time with Dr. Willoughby. Case discussed with Dr. Willoughby who is going to be seeing the patient. Patient meets inpatient criteria coming having a syncope with collapse on top of all this . Patient will need 2 midnights for further optimization of care. Coding Level of Care Code Acute Code for Chg Fwd Diagnoses Syncope and collapse R55 Atypical chest pain R07.89 History of aortic aneurysm Z86.79 History of atrial fibrillation Z86.79 GERD (gastroesophageal reflux disease) K21.9
[2025-06-26] MEDS: pantoprazole 40 mg SDV IVP (16:26)
[2025-06-26] MEDS: lidocaine 2% viscous 15 ML, aluminum-mag hydrox-simethicon 30 ML, sucralfate oral liq 1 GM PO (16:31)
[2025-06-26] MEDS: heparin 5,000 unit/mL INJ 1 mL 5000 UNIT SUBCUT (16:33)
--- NOTE | 2025-06-26 16:41 | ECG_ITS ---
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 Measurements Intervals [place] Rate: 68 P: 75 CO: 155 QRS: -3 QRSD: 116 T: 87 QT: 412 QTc: 440 Interpretive Statements SINUS RHYTHM MODERATE INTRAVENTRICULAR CONDUCTION DELAY [105+ ms QRS DURATION, 80+ ms Q/S IN V1/V2, NO Q AND 60+ ms R IN I/aVL/V5/V6] NONSPECIFIC T-WAVE ABNORMALITY Compared to ECG 06/26/2025 12:29:36 Intraventricular conduction delay now present T-wave abnormality now present Electronically Signed On 06-27-2025 08:53:45 CDT by Edenilson Reis M.D. [email or web address]
[2025-06-26 17:40] LABS: Troponin 5 6HR 19.51 ng/L (0-15)
[2025-06-26 17:41] LABS: Troponin 5 6HR Delta -0.49 ng/L (0-12)
--- NOTE | 2025-06-26 20:15 | PM.CONSULT ---
Providers/Reason For Consult Consulting Physician/Specialty*: Kristyn Willoughby MD/cardiology Reason for Consult*: Patient with the chest pain. Thoracic aortic aneurysm Requesting Physician: Dr. Bryant Attending Physician: Francy Bryant MD Primary Care Provider: John Russell MD History of Present Illness History of Present Illness Riki Polanco is a 75 year old male is admitted to hospital through the emergency room where he was brought by EMS from a [employer] store where he passed out. According the patient, he was Looking around in the shop at sale items. He remember looking at 1 of these items and the next thing he knew was found himself on the floor. He did not have any chest pain or palpitation prior to this event. He might have had a slight headache. Never had similar episodes in the past. No seizure activities. No bladder or bowel incontinence. This happened around 1:00 this afternoon. He had a breakfast at home. This patient has a history of atrial fibrillation, ventricular arrhythmia, high blood pressure, dyslipidemia, diastolic heart failure and ascending aortic aneurysm. He had a recent echocardiogram which revealed ejection fraction around 50%. Grade 2 left-ventricular diastolic dysfunction. Mild aortic and mitral regurgitation he had a cardiac catheterization in 2020. He was found to have a 50% lesion in the ramus intermedius artery. He has been taking his medications as prescribed. He had a CT of the head which was unremarkable. CTA of the chest revealed ascending aortic aneurysm size measuring 5.1 cm in diameter. This is a slight increase from a year ago when it was 4.9 cm in diameter. Review of Systems Narrative: CONSTITUTIONAL: No fever or chills. EYES: No blurring of vision or other visual disturbances lately. ENT: No hoarseness of voice, auditory disturbances or sore throat. CARDIOVASCULAR: As mentioned above. RESPIRATORY: Patient has anterior chest wall pain , getting worse with a deep inspiration. Also has local tenderness GASTROINTESTINAL: No hematemesis or melena. GENITOURINARY: No dysuria or hematuria. INTEGUMENTARY: No skin rashes or history of skin cancer. NEURO: No transient ischemic attacks or amaurosis. PSYCHIATRIC: No history of psychosis or major depression. HEMATOLOGIC: No bleeding disorders or significant anemia. ENDOCRINE: No history of polyuria or polydipsia. MUSCULOSKELETAL: No recent joint pain or swelling. ALLERGY/IMMUNOLOGY: As mentioned above. Medications/Allergies Home Medications ?Medication ?Instructions ?Recorded ?Confirmed ?Last Taken ?Type aspirin 81 mg tablet,delayed 81 mg PO DAILY 11/01/19 06/26/25 06/25/25 History release (Adult Low Dose Aspirin) amiodarone 200 mg tablet 200 mg PO DAILY #30 tabs 04/18/25 06/26/25 06/25/25 Rx apixaban 5 mg tablet (Eliquis) 5 mg PO BID #60 tabs 04/18/25 06/26/25 06/25/25 Rx atorvastatin 40 mg tablet 40 mg PO BEDTIME #30 tabs 04/18/25 06/26/25 06/25/25 Rx bumetanide 2 mg tablet 2 mg PO DAILY #30 tabs 04/18/25 06/26/25 06/25/25 Rx carvedilol 6.25 mg tablet 6.25 mg PO BID #180 tabs 04/18/25 06/26/25 06/25/25 Rx cetirizine 10 mg tablet (All Day 10 mg PO DAILY #30 tabs 04/18/25 06/26/25 06/25/25 Rx Allergy (cetirizine)) isosorbide mononitrate 60 mg 60 mg PO DAILY #30 tabs 04/18/25 06/26/25 06/25/25 Rx tablet,extended release 24 hr lansoprazole 30 mg capsule,delayed 30 mg PO DAILY #30 caps 04/18/25 06/26/25 06/25/25 Rx release (Prevacid) spironolactone 50 mg tablet 50 mg PO DAILY #30 tabs 04/18/25 06/26/25 06/25/25 Rx Allergies Allergy/AdvReac Type Severity Reaction Status Date / Time No Known Allergies Allergy Verified 10/04/24 10:58 Current Medications Generic Name Dose Route Start Last Admin Trade Name Freq PRN Reason Stop Dose Admin Heparin Sodium (Porcine) 5,000 unit 06/26/25 15:45 06/26/25 16:33 Heparin 5,000 Unit/Ml Inj 1 Ml SUBCUT 5,000 unit Q12H STEFAN Administration Sodium Chloride 1,000 mls @ 75 mls/hr 06/26/25 15:15 06/26/25 16:35 Sodium Chloride 0.9% IV 75 mls/hr .[id number] STEFAN Administration Pantoprazole Sodium 40 mg 06/26/25 15:30 06/26/25 16:26 Pantoprazole 40 Mg Sdv IVP 40 mg Q12H STEFAN Administration PFSH Acute PFSH: Medical History GERD (gastroesophageal reflux disease) Seasonal allergies BPH (benign prostatic hyperplasia) seen by urology in 2019 for urinary retention CKD (chronic kidney disease) 09/2022 Creatinine 1.1 COVID-19 03/2021 Aortic regurgitation Ventricular tachycardia Chronic anticoagulation Atrial fibrillation paroxysmal, hx cardioversion Moderate aortic stenosis Normal coronary angiogram 2018 Thoracic aortic aneurysm 11/2022 CT scan showed Stable ascending thoracic aortic aneurysm, 4.9 cm Scrotal edema Bilateral hydroceles noted on CT 11/2022 Hypertension Congestive heart failure Surgical History Hx of cataract surgery Family History Other CAD (coronary artery disease) Social History Smoking and tobacco/nicotine status: never used tobacco/nicotine Alcohol intake: never Substance/Drug Use: never Adopted: No Caregiver/support person: No Lives independently: Yes Marital status: Single Current occupational status: retired Vitals/I&O/Wt Last Vital Signs Temp 98.3 F 06/26/25 10:57 Pulse 66 06/26/25 17:57 Resp 20 H 06/26/25 14:44 BP 161/70 06/26/25 17:57 Pulse Ox 97 06/26/25 17:57 O2 Del Method Room Air 06/26/25 17:30 Weight last 48 hrs Weight 248 lb 14.43 oz Weight 250 lb Physical Exam Narrative: GENERAL: The patient is alert and oriented times three. Not in any acute distress. HEENT: No significant pallor, icterus or lymphadenopathy.Oral cavity: There are no mucous membrane lesions. NECK: Trachea appears to be central. No masses noted. No JVD or thyromegaly appreciated. RESPIRATORY: Chest is symmetrical. No intercostals muscle retraction or any accessory muscle activation. Moderate anterior chest wall tenderness. Breath sounds are heard bilaterally. No rales or rhonchi heard. No evidence of any consolidation. BREASTS: Deferred. HEART: The heart sounds are normal. No S3 or S4. No significant murmurs. No pericardial rub ABDOMEN: No vessel pulsations or distention. No tenderness. No organomegaly appreciated. Bowel sounds are normally heard. : Deferred. RECTAL: Deferred. LYMPHATIC: No lymphadenopathy noted in the neck. EXTREMITIES: No edema or cyanosis. No clubbing. MUSCULOSKELETAL: No acute joint deformities or swelling SKIN: There are no significant rashes or ecchymosis NEUROPSYCHIATRIC: The patient is alert and oriented x3. Appears to be in a good mood. No tremors or rigidity noted. Data 06/26/25 11:21 06/26/25 11:21 Other Labs: Laboratory Last Values WBC 5.53 10^3/uL (3.29-11.43) 06/26/25 11:21 RBC 5.19 10^6/uL (3.85-5.65) 06/26/25 11:21 Hgb 13.80 g/dL (11.27-16.99) 06/26/25 11:21 Hct 43.8 % (37-53) 06/26/25 11:21 MCV 84.4 fl (82-101) 06/26/25 11:21 MCH 26.6 pg (27-33) L 06/26/25 11:21 MCHC 31.5 g/dL (30-55) 06/26/25 11:21 RDW 14.9 % (12.1-15.1) 06/26/25 11:21 Plt Count 264 10^3/cmm (157-399) 06/26/25 11:21 MPV 9.1 fL (7.4-10.4) 06/26/25 11:21 Neut % (Auto) 64.5 % 06/26/25 11:21 Lymph % (Auto) 18.1 % 06/26/25 11:21 [place] % (Auto) 13.2 % 06/26/25 11:21 Eos % (Auto) 3.1 % 06/26/25 11:21 Baso % (Auto) 0.7 % 06/26/25 11:21 Neut # (Auto) 3.57 10^3/uL (1.8-7.7) 06/26/25 11:21 Lymph # (Auto) 1.0 10^3/uL (0.8-4.8) 06/26/25 11:21 [place] # (Auto) 0.7 10^3/uL (0.2-0.9) 06/26/25 11:21 Eos # (Auto) 0.2 10^3/uL (0.0-0.8) 06/26/25 11:21 Baso # (Auto) 0.0 10^3/uL (0.0-0.1) 06/26/25 11:21 Nucleated RBC % (auto) 0 % 06/26/25 11:21 Nucleated RBCs # 0.0 /100WBC 06/26/25 11:21 Sodium 133 mmol/L (136-145) L 06/26/25 11:21 Potassium 4.9 mmol/L (3.5-5.1) 06/26/25 11:21 Chloride 98 mmol/L (98-107) 06/26/25 11:21 Carbon Dioxide 26 mmol/L (22-29) 06/26/25 11:21 Anion Gap 13.9 (5-19) 06/26/25 11:21 BUN 16 mg/dL (8-23) 06/26/25 11:21 Creatinine 0.9 mg/dL (0.7-1.2) 06/26/25 11:21 GFR Calculation Not Reportable 06/26/25 11:21 Glucose 98 mg/dL (65-115) 06/26/25 11:21 Calculated Osmolality 277 mOsm/kg (285-295) L 06/26/25 11:21 Calcium 9.1 mg/dL (8.5-10.5) 06/26/25 11:21 Total Bilirubin 0.4 mg/dL (0.15-1.2) 06/26/25 11:21 AST 33 U/L (0-40) 06/26/25 11:21 ALT 37 U/L (0-41) 06/26/25 11:21 Alkaline Phosphatase 95 U/L (40-130) 06/26/25 11:21 Troponin T Baseline 20 ng/L (0-15) H 06/26/25 11:21 Troponin T 120 Minute 21.49 ng/L (0-15) H 06/26/25 12:53 Delta Troponin T 1.49 ABS# (0-10) 06/26/25 12:53 Troponin T Hi Sens 6Hr 19.51 ng/L (0-15) H 06/26/25 17:09 Troponin T Hi Sens 6Hr Delta -0.49 ng/L (0-12) L 06/26/25 17:09 Total Protein 7.3 g/dL (6.6-8.7) 06/26/25 11:21 Albumin 4.3 g/dL (3.5-5.2) 06/26/25 11:21 Globulin 3.0 g/dL (1.3-4.6) 06/26/25 11:21 Urine Color Yellow (Yellow) 06/26/25 11:42 Urine Appearance Clear (CLEAR) 06/26/25 11:42 Urine pH 7.0 (5-7) 06/26/25 11:42 Ur Specific [place] 1.050 (1.005-1.030) H 06/26/25 11:42 Urine Protein Negative (Negative) 06/26/25 11:42 Urine Glucose (UA) Negative (Normal) 06/26/25 11:42 Urine Ketones Negative (Negative) 06/26/25 11:42 Urine Blood Negative (Negative) 06/26/25 11:42 Urine Nitrate Negative (Negative) 06/26/25 11:42 Urine Bilirubin Negative (Negative) 06/26/25 11:42 Urine Urobilinogen 1.0 mg/dL (Negative) 06/26/25 11:42 Ur Leukocyte Esterase Negative (Negative) 06/26/25 11:42 Amorphous Sediment Not Reportable 06/26/25 11:42 Other data: The EKG from today revealed sinus rhythm with nonspecific IVCD. Nonspecific T wave changes. A&P Assessment and plan 1. Chest pain, unspecified type: Patient seem to have chest wall pain. Most likely this is from the fall to the concrete fall. The EKG is unremarkable. 2. Atherosclerotic heart disease of [place] coronary artery with other forms of angina pectoris: Patient had a 50% lesion in the ramus intermedius artery by cardiac catheterization in 2020. Possibility of coronary ischemia causing the current symptoms is a consideration, but my clinical suspicion is low. 3. Aneurysm of ascending aorta without rupture: The aneurysm seems to be slowly getting bigger. But I do not think the aneurysm is causing any symptoms at this point. This needs to be closely monitored 4. Moderate aortic stenosis: Patient will require any specific intervention at this point. 5. Ventricular tachycardia: Possibility of ventricular arrhythmia causing the passing out is a consideration. This may need to be further evaluated. 6. Primary hypertension: The blood pressure is of stage II. The antihypertensive medications need to be optimized. 7. Dyslipidemia: May continue on the current management 8. Paroxysmal atrial fibrillation: Patient is on long-term oral anticoagulation. This may be continued. Plan: If the next set of cardiac enzymes are negative for myocardial injury, may consider doing a Myocardial perfusion imaging tomorrow to evaluate for any underlying coronary ischemia. Patient needs to be closely monitored on telemetry Antihypertensive medications need to be optimized. Based on the clinical progress, further recommendations will be made. Thank for the opportunity to evaluate this patient make these recommendations PDMP PDMP Reviewed: Not Reviewed Coding Level of Care Code 03256 Diagnoses Chest pain, unspecified type R07.9 Chest pain type: unspecified Atherosclerotic heart disease of [place] coronary artery with other forms of angina pectoris I25.118 Aneurysm of ascending aorta without rupture I71.21 Presence of rupture: without rupture Moderate aortic stenosis I35.0 Ventricular tachycardia I47.20 Primary hypertension I10 Hypertension type: primary hypertension Dyslipidemia E78.5 Paroxysmal atrial fibrillation I48.0 Atrial fibrillation type: paroxysmal
[2025-06-26] MEDS: ondansetron 2 mg/ML SDV 2 mL 4 MG IVP (21:27)
[2025-06-26] MEDS: morphine 4 mg/mL SDV 1 mL 2 MG IVP (21:30)
[2025-06-27] VITALS (7 sets, daily range): BP systolic 133–176; BP diastolic 59–86; PULSE 63–78; RESP 14–21; TEMP 36.6–36.8; O2SAT 93–96
[2025-06-27] MEDS: nitroglycerin 1 gm/inch oint Pkt 1 INCH TOPICAL (00:37)
[2025-06-27 03:03] LABS: Hematocrit 41.0 % (37-53); Hemoglobin 12.80 g/dL (11.27-16.99); Mean Corpuscular HGB Conc 31.2 g/dL (30-55); Mean Corpuscular Hemoglobin 26.1 pg (27-33); Mean Corpuscular Volume 83.7 fl (82-101); Nucleated Red Blood Cells % 0 %; Platelet Count 213 10^3/cmm (157-399); Red Blood Count 4.90 10^6/uL (3.85-5.65); White Blood Count 6.14 10^3/uL (3.29-11.43)
[2025-06-27 03:28] LABS: Alanine Aminotransferase 31 U/L (0-41); Albumin Level 4.0 g/dL (3.5-5.2); Alkaline Phosphatase 93 U/L (40-130); Anion Gap 14.2 (5-19); Aspartate Amino Transferase 25 U/L (0-40); Blood Urea Nitrogen 14 mg/dL (8-23); Calcium 8.9 mg/dL (8.5-10.5); Carbon Dioxide 24 mmol/L (22-29); Chloride 102 mmol/L (98-107); Creatinine Clr Calc Pharmacy 93.4185; Globulin 2.6 g/dL (1.3-4.6); Glucose 106 mg/dL (65-115); Magnesium 2.4 mg/dL (1.7-2.3); Osmolality Calculated 283 mOsm/kg (285-295); Potassium 4.2 mmol/L (3.5-5.1); Sodium 136 mmol/L (136-145); Total Protein 6.6 g/dL (6.6-8.7)
[2025-06-27] MEDS: morphine 4 mg/mL SDV 1 mL 2 MG IVP (03:28)
[2025-06-27] MEDS: pantoprazole 40 mg SDV IVP (03:43)
[2025-06-27] MEDS: heparin 5,000 unit/mL INJ 1 mL 5000 UNIT SUBCUT (03:44)
--- NOTE | 2025-06-27 09:35 | P.PN_ITS ---
Subjective 2 Subjective: Patient has improvement of the chest pain. Myocardial infarction ruled out. Medications: Medication Review Details: Current Medications Acetaminophen (Acetaminophen 325 Mg Tablet) 650 mg PO Q6H PRN PRN Reason: Mild/Mod Pain Or Temp >/= 101 Aminophylline (Aminophylline 25 Mg/Ml Sdv 20 Ml) 25 mg IVP Q2M PRN PRN Reason: see dose instructions Stop: 06/27/25 19:40 Heparin Sodium (Porcine) (Heparin 5,000 Unit/Ml Inj 1 Ml) 5,000 unit SUBCUT Q12H [facility] Last Admin: 06/27/25 03:44 Dose: 5,000 unit Sodium Chloride (Sodium Chloride 0.9%) 1,000 mls @ 75 mls/hr IV .[id number] [facility] Last Admin: 06/27/25 04:57 Dose: Not Given Lactulose (Lactulose Oral Liq 20 Gm/30 Ml Udc) 10 gm PO DAILY PRN; Protocol PRN Reason: Constipation (see protocol) Morphine Sulfate (Morphine 4 Mg/Ml Sdv 1 Ml) 2 mg IVP Q4H PRN PRN Reason: SEVERE PAIN Last Admin: 06/27/25 03:28 Dose: 2 mg Naloxone HCl (Naloxone 0.4 Mg/Ml Sdv) 0.1 mg IVP Q2M PRN PRN Reason: OPIATERV Nitroglycerin (Nitroglycerin 0.4 Mg Sublingual Tablet) 0.4 mg SUBLINGUAL Q5M PRN PRN Reason: CHEST PAIN Stop: 06/27/25 19:40 Nitroglycerin (Nitroglycerin 1 Gm/Inch Oint Pkt) 1 inch TOPICAL Q6H [facility] Last Admin: 06/27/25 06:08 Dose: Not Given Ondansetron HCl (Ondansetron 2 Mg/Ml Sdv 2 Ml) 4 mg IVP Q8H PRN PRN Reason: vomiting, or N/V if npo Last Admin: 06/26/25 21:27 Dose: 4 mg Ondansetron HCl (Ondansetron 2 Mg/Ml Sdv 2 Ml) 4 mg IVP Q2M PRN PRN Reason: NAUSEA Pantoprazole Sodium (Pantoprazole 40 Mg Sdv) 40 mg IVP Q12H [facility] Last Admin: 06/27/25 03:43 Dose: 40 mg Regadenoson (Regadenoson 0.4 Mg/5 Ml Syringe) 0.4 mg IVP ONCE PRN PRN Reason: Lexiscan Stress Test Senna (Sennosides 8.6 Mg Tablet) 17.2 mg PO BEDTIME STEFAN Last Admin: 06/26/25 20:38 Dose: Not Given Vitals/I&O/Wt Last Vital Signs Temp 98.2 F 06/26/25 20:00 Pulse 64 06/27/25 04:00 Resp 14 06/27/25 04:00 BP 146/69 06/27/25 04:00 Pulse Ox 96 06/27/25 04:00 O2 Del Method Room Air 06/27/25 04:00 06/26/25 06/27/25 06/27/25 22:59 06:59 14:59 Intake Total 582.5 / 582.5 Output Total 500 / 500 500 / 1000 Balance 82.5 / 82.5 -500 / -417.5 Weight last 48 hrs Weight 249 lb Weight 248 lb 14.43 oz Weight 250 lb Physical Exam 2 Narrative: GENERAL: The patient is alert and oriented times three. Not in any acute distress. HEENT: No significant pallor, icterus or lymphadenopathy.Oral cavity: There are no mucous membrane lesions. NECK: Trachea appears to be central. No masses noted. No JVD or thyromegaly appreciated. RESPIRATORY: Chest is symmetrical. No intercostals muscle retraction or any accessory muscle activation. Moderate anterior chest wall tenderness. Breath sounds are heard bilaterally. No rales or rhonchi heard. No evidence of any consolidation. BREASTS: Deferred. HEART: The heart sounds are normal. No S3 or S4. No significant murmurs. No pericardial rub ABDOMEN: No vessel pulsations or distention. No tenderness. No organomegaly appreciated. Bowel sounds are normally heard. : Deferred. RECTAL: Deferred. LYMPHATIC: No lymphadenopathy noted in the neck. EXTREMITIES: No edema or cyanosis. No clubbing. MUSCULOSKELETAL: No acute joint deformities or swelling SKIN: There are no significant rashes or ecchymosis NEUROPSYCHIATRIC: The patient is alert and oriented x3. Appears to be in a good mood. No tremors or rigidity noted. Data 06/27/25 02:50 06/27/25 02:50 Other Labs: Laboratory Last Values WBC 6.14 10^3/uL (3.29-11.43) 06/27/25 02:50 RBC 4.90 10^6/uL (3.85-5.65) 06/27/25 02:50 Hgb 12.80 g/dL (11.27-16.99) 06/27/25 02:50 Hct 41.0 % (37-53) 06/27/25 02:50 MCV 83.7 fl (82-101) 06/27/25 02:50 MCH 26.1 pg (27-33) L 06/27/25 02:50 MCHC 31.2 g/dL (30-55) 06/27/25 02:50 RDW 15.2 % (12.1-15.1) H 06/27/25 02:50 Plt Count 213 10^3/cmm (157-399) 06/27/25 02:50 MPV 9.0 fL (7.4-10.4) 06/27/25 02:50 Neut % (Auto) 68.9 % 06/27/25 02:50 Lymph % (Auto) 16.4 % 06/27/25 02:50 [place] % (Auto) 12.2 % 06/27/25 02:50 Eos % (Auto) 1.8 % 06/27/25 02:50 Baso % (Auto) 0.7 % 06/27/25 02:50 Neut # (Auto) 4.23 10^3/uL (1.8-7.7) 06/27/25 02:50 Lymph # (Auto) 1.0 10^3/uL (0.8-4.8) 06/27/25 02:50 [place] # (Auto) 0.8 10^3/uL (0.2-0.9) 06/27/25 02:50 Eos # (Auto) 0.1 10^3/uL (0.0-0.8) 06/27/25 02:50 Baso # (Auto) 0.0 10^3/uL (0.0-0.1) 06/27/25 02:50 Nucleated RBC % (auto) 0 % 06/27/25 02:50 Nucleated RBCs # 0.0 /100WBC 06/27/25 02:50 Sodium 136 mmol/L (136-145) 06/27/25 02:50 Potassium 4.2 mmol/L (3.5-5.1) 06/27/25 02:50 Chloride 102 mmol/L (98-107) 06/27/25 02:50 Carbon Dioxide 24 mmol/L (22-29) 06/27/25 02:50 Anion Gap 14.2 (5-19) 06/27/25 02:50 BUN 14 mg/dL (8-23) 06/27/25 02:50 Creatinine 0.9 mg/dL (0.7-1.2) 06/27/25 02:50 GFR Calculation Not Reportable 06/27/25 02:50 Glucose 106 mg/dL (65-115) 06/27/25 02:50 Calculated Osmolality 283 mOsm/kg (285-295) L 06/27/25 02:50 Calcium 8.9 mg/dL (8.5-10.5) 06/27/25 02:50 Phosphorus 3.6 mg/dL (2.5-4.5) 06/27/25 02:50 Magnesium 2.4 mg/dL (1.7-2.3) H 06/27/25 02:50 Total Bilirubin 0.4 mg/dL (0.15-1.2) 06/27/25 02:50 AST 25 U/L (0-40) 06/27/25 02:50 ALT 31 U/L (0-41) 06/27/25 02:50 Alkaline Phosphatase 93 U/L (40-130) 06/27/25 02:50 Troponin T Baseline 20 ng/L (0-15) H 06/26/25 11:21 Troponin T 120 Minute 21.49 ng/L (0-15) H 06/26/25 12:53 Delta Troponin T 1.49 ABS# (0-10) 06/26/25 12:53 Troponin T Hi Sens 6Hr 19.51 ng/L (0-15) H 06/26/25 17:09 Troponin T Hi Sens 6Hr Delta -0.49 ng/L (0-12) L 06/26/25 17:09 Total Protein 6.6 g/dL (6.6-8.7) 06/27/25 02:50 Albumin 4.0 g/dL (3.5-5.2) 06/27/25 02:50 Globulin 2.6 g/dL (1.3-4.6) 06/27/25 02:50 Urine Color Yellow (Yellow) 06/26/25 11:42 Urine Appearance Clear (CLEAR) 06/26/25 11:42 Urine pH 7.0 (5-7) 06/26/25 11:42 Ur Specific [place] 1.050 (1.005-1.030) H 06/26/25 11:42 Urine Protein Negative (Negative) 06/26/25 11:42 Urine Glucose (UA) Negative (Normal) 06/26/25 11:42 Urine Ketones Negative (Negative) 06/26/25 11:42 Urine Blood Negative (Negative) 06/26/25 11:42 Urine Nitrate Negative (Negative) 06/26/25 11:42 Urine Bilirubin Negative (Negative) 06/26/25 11:42 Urine Urobilinogen 1.0 mg/dL (Negative) 06/26/25 11:42 Ur Leukocyte Esterase Negative (Negative) 06/26/25 11:42 Amorphous Sediment Not Reportable 06/26/25 11:42 A&P Assessment and plan 1. Chest pain, unspecified type: Patient seem to have chest wall pain. Most likely this is from the fall to the concrete fall. The EKG is unremarkable. Myocardial infarction is ruled out. 2. Atherosclerotic heart disease of [place] coronary artery with other forms of angina pectoris: Patient had a 50% lesion in the ramus intermedius artery by cardiac catheterization in 2020. Possibility of coronary ischemia causing the current symptoms is a consideration, but my clinical suspicion is low. 3. Aneurysm of ascending aorta without rupture: The aneurysm seems to be slowly getting bigger. But I do not think the aneurysm is causing any symptoms at this point. This needs to be closely monitored 4. Moderate aortic stenosis: Patient will require any specific intervention at this point. 5. Ventricular tachycardia: Possibility of ventricular arrhythmia causing the passing out is a consideration. This may need to be further evaluated. 6. Primary hypertension: The blood pressure is of stage II. The antihypertensive medications need to be optimized. 7. Dyslipidemia: May continue on the current management 8. Paroxysmal atrial fibrillation: Patient is on long-term oral anticoagulation. This may be continued. 9. Syncope and collapse: Etiology is unclear. Plan: Could not do the Myocardial perfusion imaging today. Since the patient remained stable, it may be appropriate to discharge him home and consider Myocardial perfusion imaging as an outpatient. Since we do not have the etiology of the syncope, it might be appropriate to send her home with an event monitor for 30 days. I may see the patient back in the office in a month. PDMP PDMP Reviewed: Not Reviewed Attestations 2 Medical Necessity Statement*: Disposition as per the primary Coding Level of Care Code 88798 Diagnoses Chest pain, unspecified type R07.9 Chest pain type: unspecified Atherosclerotic heart disease of [place] coronary artery with other forms of angina pectoris I25.118 Aneurysm of ascending aorta without rupture I71.21 Presence of rupture: without rupture Moderate aortic stenosis I35.0 Ventricular tachycardia I47.20 Primary hypertension I10 Hypertension type: primary hypertension Dyslipidemia E78.5 Paroxysmal atrial fibrillation I48.0 Atrial fibrillation type: paroxysmal Syncope and collapse R55
--- NOTE | 2025-06-27 11:39 | PM.DCS ---
Discharge Providers Date of Admission: 06/26/25 17:12 Date of Discharge: June 27, 2025 Attending Provider at Admission: Francy Bryant MD Attending Provider at Discharge: Francy Bryant MD Primary Care Provider: John Russell MD Diagnoses at Discharge Discharge Diagnosis 1. Chest pain, unspecified type: 2. Atherosclerotic heart disease of [place] coronary artery with other forms of angina pectoris: 3. Aneurysm of ascending aorta without rupture: 4. Moderate aortic stenosis: 5. Ventricular tachycardia: 6. Primary hypertension: 7. Dyslipidemia: 8. Paroxysmal atrial fibrillation: Reason for Visit Reason for Visit: syncope Hospital Course Hospital Course Riki Polanco is a 75 year old male with medical history significant for atrial fibrillation on amiodarone and Eliquis presenting to the emergency room because he had passed out at a convenience store. Patient related that he started having some headache earlier before he passed out and also was having pleuritic chest pain. Patient had history of aortic aneurysm. In the emergency room CT of the head was done it was negative for any acute process, CTA of the chest were done and it was with no acute process rather the aortic aneurysm had increased from a 4.9 cm to a 5.1 cm there were no sign of dissection troponin we had done it was entirely unremarkable. Hour troponin was 22nd hour troponin was 21 and 6-hour troponin was lower at 19. Patient recent echocardiogram was quoted to be with ejection fraction of 50% however a repeat echo is necessary. I have ordered an echo and is pending patient pleuritic chest pain resolved with a GI cocktail that I had given in the emergency room. Patient pleuritic chest pain gets precipitated by deep breathing or even moving around in bed. Though this sounds very atypical pattern with a history of aortic aneurysm that is also increasing I will consult cardiology to also be on the case. Patient is being admitted to stepdown unit room 111 bed 2 Patient had done remarkably well on GI cocktail no further chest pains. Patient chest pain presentation is atypical. Cardiology have seen him this morning. Plan is to have a stress test done. Patient had a beta-marika carvedilol for this reason any type of stress test at this time would not hold. Case discussed with cardiology and they feel that patient can have event monitor on scheduled at the time of discharge today. And they will follow-up with outpatient stress test. Event monitor for 1 month another was 30 days had been scheduled to follow-up with Dr. Willoughby or Dr. Heredia date had already been placed for Dr. Heredia to see the patient. And at that time they can decide to follow through with any stress testing if needed. Physical Exam Narrative: Generally patient looks good and ready to go home denies any complaints. HEENT normocephalic atraumatic neck neck is supple cardiovascular heart rate is regular lungs are pretty much clear abdomen soft nontender nondistended unremarkable extremities are intact no edema has good pulses neurology has no focality lab studies lab studies have been reviewed and noted. Discharge Data Studies Completed and Pending Completed Studies During Hospitalization Category Date Time Status CT head wo con* [id number] Stat Cat Scan 06/26/25 14:16 Completed CTA chest [CT angio chest 61039] Stat Cat Scan 06/26/25 11:10 Completed XR chest 1V portable [id number] Stat Exams 06/26/25 11:09 Completed Pending at discharge Category Date Time Status CV. echo limited 41710 Routine Ultrasound 06/27/25 19:41 Ordered Radiology Impressions Chest X-Ray 06/26/25 11:09 IMPRESSION: Possible interval right pleural effusion. Other abnormalities described above appear unchanged. Chest CTA 06/26/25 11:10 IMPRESSION: 1. No ascending thoracic aortic aneurysm has increased slightly in size from 4.9 cm to 5.1 cm. 2. No acute aortic injury or dissection. No para-aortic hematoma. 3. Large hiatal hernia. 4. Gallbladder is absent. ADDENDUM: 06/26/25 1212 IMPRESSION: 1. KNOWN ascending thoracic aortic aneurysm has increased slightly in size from 4.9 cm to 5.[address] 06/26/25 14:16 IMPRESSION: 1. No acute intracranial hemorrhage or edema. 2. Stable noncontrast CT head since 02/02/2024. Laboratory Results WBC 6.14 10^3/uL (3.29-11.43) 06/27/25 02:50 RBC 4.90 10^6/uL (3.85-5.65) 06/27/25 02:50 Hgb 12.80 g/dL (11.27-16.99) 06/27/25 02:50 Hct 41.0 % (37-53) 06/27/25 02:50 MCV 83.7 fl (82-101) 06/27/25 02:50 MCH 26.1 pg (27-33) L 06/27/25 02:50 MCHC 31.2 g/dL (30-55) 06/27/25 02:50 RDW 15.2 % (12.1-15.1) H 06/27/25 02:50 Plt Count 213 10^3/cmm (157-399) 06/27/25 02:50 MPV 9.0 fL (7.4-10.4) 06/27/25 02:50 Neut % (Auto) 68.9 % 06/27/25 02:50 Lymph % (Auto) 16.4 % 06/27/25 02:50 [place] % (Auto) 12.2 % 06/27/25 02:50 Eos % (Auto) 1.8 % 06/27/25 02:50 Baso % (Auto) 0.7 % 06/27/25 02:50 Neut # (Auto) 4.23 10^3/uL (1.8-7.7) 06/27/25 02:50 Lymph # (Auto) 1.0 10^3/uL (0.8-4.8) 06/27/25 02:50 [place] # (Auto) 0.8 10^3/uL (0.2-0.9) 06/27/25 02:50 Eos # (Auto) 0.1 10^3/uL (0.0-0.8) 06/27/25 02:50 Baso # (Auto) 0.0 10^3/uL (0.0-0.1) 06/27/25 02:50 Nucleated RBC % (auto) 0 % 06/27/25 02:50 Nucleated RBCs # 0.0 /100WBC 06/27/25 02:50 Sodium 136 mmol/L (136-145) 06/27/25 02:50 Potassium 4.2 mmol/L (3.5-5.1) 06/27/25 02:50 Chloride 102 mmol/L (98-107) 06/27/25 02:50 Carbon Dioxide 24 mmol/L (22-29) 06/27/25 02:50 Anion Gap 14.2 (5-19) 06/27/25 02:50 BUN 14 mg/dL (8-23) 06/27/25 02:50 Creatinine 0.9 mg/dL (0.7-1.2) 06/27/25 02:50 GFR Calculation Not Reportable 06/27/25 02:50 Glucose 106 mg/dL (65-115) 06/27/25 02:50 Calculated Osmolality 283 mOsm/kg (285-295) L 06/27/25 02:50 Calcium 8.9 mg/dL (8.5-10.5) 06/27/25 02:50 Phosphorus 3.6 mg/dL (2.5-4.5) 06/27/25 02:50 Magnesium 2.4 mg/dL (1.7-2.3) H 06/27/25 02:50 Total Bilirubin 0.4 mg/dL (0.15-1.2) 06/27/25 02:50 AST 25 U/L (0-40) 06/27/25 02:50 ALT 31 U/L (0-41) 06/27/25 02:50 Alkaline Phosphatase 93 U/L (40-130) 06/27/25 02:50 Troponin T Baseline 20 ng/L (0-15) H 06/26/25 11:21 Troponin T 120 Minute 21.49 ng/L (0-15) H 06/26/25 12:53 Delta Troponin T 1.49 ABS# (0-10) 06/26/25 12:53 Troponin T Hi Sens 6Hr 19.51 ng/L (0-15) H 06/26/25 17:09 Troponin T Hi Sens 6Hr Delta -0.49 ng/L (0-12) L 06/26/25 17:09 Total Protein 6.6 g/dL (6.6-8.7) 06/27/25 02:50 Albumin 4.0 g/dL (3.5-5.2) 06/27/25 02:50 Globulin 2.6 g/dL (1.3-4.6) 06/27/25 02:50 Urine Color Yellow (Yellow) 06/26/25 11:42 Urine Appearance Clear (CLEAR) 06/26/25 11:42 Urine pH 7.0 (5-7) 06/26/25 11:42 Ur Specific [place] 1.050 (1.005-1.030) H 06/26/25 11:42 Urine Protein Negative (Negative) 06/26/25 11:42 Urine Glucose (UA) Negative (Normal) 06/26/25 11:42 Urine Ketones Negative (Negative) 06/26/25 11:42 Urine Blood Negative (Negative) 06/26/25 11:42 Urine Nitrate Negative (Negative) 06/26/25 11:42 Urine Bilirubin Negative (Negative) 06/26/25 11:42 Urine Urobilinogen 1.0 mg/dL (Negative) 06/26/25 11:42 Ur Leukocyte Esterase Negative (Negative) 06/26/25 11:42 Amorphous Sediment Not Reportable 06/26/25 11:42 Vitals Last Vital Signs Temp 98.1 F 06/27/25 08:00 Pulse 66 06/27/25 08:00 Resp 17 06/27/25 08:00 BP 176/77 06/27/25 08:00 Pulse Ox 94 06/27/25 08:00 O2 Del Method Room Air 06/27/25 08:00 Discharge Plan Discharge Patient Disposition: Home Condition: Stable Prescriptions: Continued aspirin [Adult Low Dose Aspirin] 81 mg tablet,delayed release (DR/EC) 81 mg PO DAILY amiodarone 200 mg tablet 200 mg PO DAILY Qty: 30 11RF Eliquis 5 mg tablet 5 mg PO BID Qty: 60 11RF atorvastatin 40 mg tablet 40 mg PO BEDTIME Qty: 30 11RF bumetanide 2 mg tablet 2 mg PO DAILY Qty: 30 11RF carvedilol 6.25 mg tablet 6.25 mg PO BID Qty: 180 3RF Rx Instructions: must administer with a meal/food cetirizine [All Day Allergy (cetirizine)] 10 mg tablet 10 mg PO DAILY Qty: 30 11RF isosorbide mononitrate 60 mg tablet extended release 24 hr 60 mg PO DAILY Qty: 30 11RF lansoprazole [Prevacid] 30 mg capsule,delayed release(DR/EC) 30 mg PO DAILY Qty: 30 11RF spironolactone 50 mg tablet 50 mg PO DAILY Qty: 30 11RF Town Planner OK for DC: Cardiology and Hospitalist Discharge Order = DC NOW: Discharge Order (Routine); Ordered 06/27/25 Ordered By: Francy Bryant Other Ambulatory Orders: MCT/Event Monitor 30 Days (Routine) Timeframe: 1 Day Facility: [facility] - Location: Cardiology Outpatients Ordered By: Francy Bryant Referrals: Chad Heredia MD [Physician, Cardiology] - 07/24/25 1:00 pm John Russell MD [Primary Care Provider, Family Practice] - 07/04/25 10:00 am Discharge Diet: Cardiac Discharge Activity: Resume usual activity Patient Instructions: Opioid Safety, Patient Portal & Anibal Instructions Discharge Attestations Time Spent in Discharge Care*: less than 30 min Status at Discharge: Cognitive status at discharge: cognitively intact, Behavioral status at discharge: cooperative, Quality Metrics Clinical Quality Measures [ No reported AMI, CVA or VTE this stay] Coding Level of Care Code 34066 Diagnoses Chest pain, unspecified type R07.9 Chest pain type: unspecified Atherosclerotic heart disease of [place] coronary artery with other forms of angina pectoris I25.118 Aneurysm of ascending aorta without rupture I71.21 Presence of rupture: without rupture Moderate aortic stenosis I35.0 Ventricular tachycardia I47.2 Primary hypertension I10 Hypertension type: primary hypertension Dyslipidemia E78.5 Paroxysmal atrial fibrillation I48.0 Atrial fibrillation type: paroxysmal Time Spent (min) 30
== END 2025-06-27 13:45 | disposition home or self-care (01) | DRG 303 ==
LOC: ER 12:04 → CSU 17:12
PROVIDERS: Admitting Provider Internal Medicine; Emergency Provider Family Medicine; PCP Family Medicine; Visit Provider Internal Medicine
DX: I25.118 Atherosclerotic heart disease of native coronary artery with other forms of angina pectoris (principal); I47.20 Ventricular tachycardia, unspecified; R55 Syncope and collapse; I71.40 Abdominal aortic aneurysm, without rupture, unspecified; I08.0 Rheumatic disorders of both mitral and aortic valves; I50.9 Heart failure, unspecified; I11.0 Hypertensive heart disease with heart failure; E78.5 Hyperlipidemia, unspecified; I48.0 Paroxysmal atrial fibrillation; J44.9 Chronic obstructive pulmonary disease, unspecified; K21.9 Gastro-esophageal reflux disease without esophagitis; N40.0 Benign prostatic hyperplasia without lower urinary tract symptoms; I71.60 Thoracoabdominal aortic aneurysm, without rupture, unspecified; R07.89 Other chest pain; W01.0XXA Fall on same level from slipping, tripping and stumbling without subsequent striking against object, initial encounter; Z79.82 Long term (current) use of aspirin; Z79.01 Long term (current) use of anticoagulants; Z86.16 Personal history of COVID-19
CPT/HCPCS: 36415; 70450; 71045; 71275; 80053; 81003; 83735; 84100; 84484; 85025; 93005; 96361; 96372; 96374; 96375; 99285; J1644; J2270; J2405; J2470; J3010; J7030; J9999

== ENCOUNTER → 2025-07-24 13:04 | Outpatient (BNVA) | payer MEDICARE, MEDICAID, SELFPAY | PROVIDERS: PCP Family Medicine; Visit Provider Internal Medicine Cardiovascular Disease | DX: R55 Syncope and collapse (principal); I25.118 Atherosclerotic heart disease of native coronary artery with other forms of angina pectoris; I48.0 Paroxysmal atrial fibrillation; I71.21 Aneurysm of the ascending aorta, without rupture; I47.20 Ventricular tachycardia, unspecified; I13.0 Hypertensive heart and chronic kidney disease with heart failure and stage 1 through stage 4 chronic kidney disease, or unspecified chronic kidney disease; N18.9 Chronic kidney disease, unspecified; I50.9 Heart failure, unspecified | CPT/HCPCS: 99214 ==

== ENCOUNTER → 2025-07-24 15:47 | Outpatient (BNVA) | payer MEDICARE, MEDICAID, SELFPAY | PROVIDERS: PCP Family Medicine; Visit Provider Internal Medicine Cardiovascular Disease | DX: R55 Syncope and collapse (principal); I49.8 Other specified cardiac arrhythmias; I49.3 Ventricular premature depolarization; I49.1 Atrial premature depolarization; I47.10 Supraventricular tachycardia, unspecified | CPT/HCPCS: 93246 ==

== ENCOUNTER 2025-08-13 07:58 | Outpatient (CLI) | payer MEDICARE, MEDICAID, SELFPAY ==
--- NOTE | 2025-08-13 | ECG_ITS ---
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 Interpretive Statements LEXISCAN SESTAMIBI STRESS TEST Procedure: At the baseline, the blood pressure was 157/90 mmHg with a heart rate of 68 bpm. The electrocardiogram showed normal sinus rhythm, left ventricular hypertrophy with LVH changes. The Lexiscan was infused over a period of 20 seconds. A total of 0.4 mg of Lexiscan was infused. The stress phase was continued for a total of 5 minutes. Heart rate was at the end of stress phase was 76 bpm and a blood pressure of 172/76 mmHg. The EKG at the peak infusion revealed normal sinus rhythm with no significant ST-T wave changes. Sestamibi was injected 20 seconds after the Lexiscan infusion. Blood pressure at the end of recovery phase was 176/77 mmHg with a heart rate of 74 bpm. Conclusion: 1. Normal EKG response to Lexiscan infusion 2. No Lexiscan induced chest pain or cardiac arrhythmia. 3. Normal blood pressure and heart rate response. 4. Sestamibi/sestamibi perfusion scan pending; see separate report. Electronically Signed On 08-20-2025 10:51:01 PROPERTY OFFICER by Edenilson Reis M.D. [email or web address]
[2025-08-13 08:09] VITALS: BMI 32.8
--- NOTE | 2025-08-13 08:11 | NMCV_ITS ---
NM rozina perf SPECT r/s* [id number] Riki Polanco Age: 75 Gender: M : 1950 Exam Date: 08/13/2025 09:04 Ordering Phys: Chad Heredia MD ([email or web address]) Technologist: KARLOS Peres Exam Location: [facility] Indications: cp STRESS TEST Please see separate stress test report in [facility] for full findings IMAGE PROTOCOL Rest/Stress 1 Lexiscan Day Radiopharmaceutical Dose (mCi) Administration Site Administered by Rest: Tc-99m 10.9 IV KARLOS Wadsworth Sestamibi Stress:Tc-99m IV KARLOS Peres Sestamidarline Rest: 13-Aug-2025 60 Discovery 630 Stress: 13-Aug-2025 30 Discovery 630 0.4mg Lexiscan. Images obtained in supine and prone position. SPECT RESULTS Technical Quality: Good Raw Data Analysis: Normal Image Corrections: No attenuation or motion correction applied Summed Stress Score: 7 Summed Rest Score: 11 Summed Difference Score: 1 PERFUSION FINDINGS There is medium to large sized area of reduced perfusion seen on resting imging in apical, inferior and inferolateral curry. This improves on stress and prone imaging. Likely small to medium sized area of prior infarct vs attenuation artifact. FUNCTIONAL RESULTS (calculated via Gated SPECT) Stress Image LV EF (%): 42 Stress EDV (mL):167 TID: 0.95 Stress ESV (mL):97 FUNCTIONAL FINDINGS: LV systolic function is mildly reduced with EF of 42% IMPRESSIONS 1. Attenuation artifact vs medium to large sized area of prior infarct seen in the apical, inferior and inferolateral curry. No significant area of ischemia seen. 2. LV systolic function is mildly reduced with EF of 42% Edenilson Ries MD (Electronically Signed) Final Date: 17 August 2025 10:57 S
[2025-08-13 09:53] VITALS: BP 172/76; PULSE 75
== END 2025-08-13 07:59 | disposition home or self-care (01) ==
PROVIDERS: PCP Family Medicine; Visit Provider Internal Medicine Cardiovascular Disease
DX: R07.9 Chest pain, unspecified (principal); R94.31 Abnormal electrocardiogram [ECG] [EKG]
CPT/HCPCS: 36415; 78452; 93017; 96374; A9500; J2785